=== PATIENT | female | born 1980 | race Caucasian/White ===

== ENCOUNTER 2019-03-23 17:11 | Emergency (ER) | payer MEDICARE, MEDICAID, SELFPAY ==
--- NOTE | ~2019-03-23 | CT_ITS ---
EXAMINATION: CT abdomen pelvis wo con DATE: 03/23/2019 19:18 INDICATION: Kidney stones presenting with hematuria. TECHNIQUE: Computed tomography (CT) of the abdomen and pelvis was performed without intravenous contr ast. Automated exposure control and iterative reconstruction technique were employed. The dose-length product was 166.53 mGy-cm. COMPARISON: None FINDINGS: Mild discoid atelectasis in the left lower lobe. Heart size is normal. No pericardial or pleural effu betsey. There is streak artifact throughout the lower chest, abdomen and upper pelvis resulting from an extensive thoracolumbar spinal fusion with bilateral vertical rich and laminar hook fixation extendin g throughout the visualized thoracic spine into the lumbar spine, sacrum and bilateral ilium. Liver, gallbladder, spleen, pancreas and bilateral adrenal glands are normal. Percutaneous gastrostomy tube bulb in the decompressed body of the stomach. There are at least 8 stones measuring up to 4 mm in the right kidney and 2 stones in the left kidney, the larger likely similar size but measurement is limi rancho by streak artifact. No stones seen along the bilateral ureters or in the decompressed bladder. Ut erus and bilateral adnexa are unremarkable. No abnormal bowel wall thickening or obstruction. The danica endix is not visualized. No pericecal inflammatory change to suggest acute appendicitis. No free intr aperitoneal gas or fluid. No pathologically enlarged abdominal or pelvic lymphadenopathy. Lumbar dext roscoliosis. Postoperative changes in left femur with a pair of screws at the left femoral head neck and pair of intramedullary nails extending along the visualized femoral diaphysis with suggestion of an old healed mid diaphyseal fracture. Gracile femurs with right coxa valga likely related to reporte d history of cerebral palsy. IMPRESSION: 1. Bilateral nonobstructing nephrolithiasis. No acute intra-abdominal/pelvic process. Reviewed, dictated and finalized at location A. S CUTTER HELPER IMPRESSION: 1. Bilateral nonobstructing nephrolithiasis. No acute intra-abdominal/pelvic pr ocess.
--- NOTE | ~2019-03-23 | XR_ITS ---
EXAMINATION: XR femur RT min 2V, XR tibia fibula RT 2V DATE: 03/23/2019 17:53 INDICATION: Right leg pain TECHNIQUE: 1. Overlapping proximal and distal, AP and lateral views of the right femur were obtained. 2. Overlapping proximal and distal, AP and lateral views of the right tibia and fibula were obtained. COMPARISON: None FINDINGS: Diffuse osteopenia and muscular atrophy likely related to reported history of cerebral palsy. The bon es of the lower extremities and pelvis are gracile. No acute fracture identified. Possible old healed fracture deformity at the proximal metaphyseal ajit on of the right tibia. Partially visualized posterior aspect of a lumbar spinal fusion which extends to involve the bilateral sacrum and iliac bones. Old healed left femoral fracture with pair of intram edullary fixation nails. There are also a pair of fixation screws at the left femoral head neck which are also incompletely visualized. Right coxa valga likely related to cerebral palsy. Right hip and k nee joint spaces are relatively preserved. No right knee joint effusion. Pes planus at the right foot . IMPRESSION: 1. No acute osseous abnormality. Reviewed, dictated and finalized at location A. MILITARY IMPRESSION: 1. No acute osseous abnormality.
--- NOTE | 2019-03-23 17:21 | ED.LOWEXIN ---
HPI - Extremity Injury (Lower) General Chief Complaint: Extremity Injury, Lower Stated Complaint: broken right leg??? Time Seen by Provider: 03/23/19 17:18 Source: family and RN notes reviewed Mode of arrival: other Limitations: other (pt is nonverbal) History of Present Illness HPI Narrative: Pt is a 38 y/o female who presents to the ED with c/o right leg pain. Pt's family was at bedside and provided the information. Pt's mother notes that she noticed the pt's pain yesterday. Pt's family notes that they cannot touch her right leg without the pt crying. Pt's family believes her leg is broken because the pt's leg is harder to move. Pt was given Tylenol. Pt's family is worried the pt might have a kidney stone. Pt's family also reports low urine output, but denies nausea and vomiting. HPI is limited due to pt is nonverbal. complaint: other (leg pain) Onset (ago): day(s) (1) Other symptoms: other (low urine output, limited due to pt is nonverbal) Related Data Home Medications Medication Instructions Recorded Confirmed chlorthalidone 03/23/19 fluoxetine 03/23/19 losartan 03/23/19 medroxyprogesterone mg IM 03/23/19 nitrofurantoin 03/23/19 nizatidine 03/23/19 potassium chloride 03/23/19 potassium citrate-citric acid 03/23/19 valproic acid (as sodium salt) 03/23/19 Allergies Allergy/AdvReac Type Severity Reaction Status Date / Time lamotrigine Allergy Unknown Rash Verified 03/23/19 18:09 Review of Systems Review of Systems: ROS unobtainable: other (limited due to pt is nonverbal) Gastrointestinal: Gastrointestinal: Denies nausea and Denies vomiting Genitourinary: Genitourinary: Reports other (low urine output) Musculoskeletal: Musculoskeletal: Reports other (right leg pain) [facility] Past Medical History Medical History (Updated 03/23/19 @ 19:47 by Austin Faye MD) Cerebral palsy Nasogastric tube present Surgical History Surgical History (Updated 03/23/19 @ 17:44 by Alice Mims) Surgical history unknown Social History Social History (Updated 03/23/19 @ 17:44 by Alice Mims) Smoking status: Never smoker Exam Const: General: other (contracture) Nutritional Appearance: well nourished Orientation/consciousness: patient oriented x3 (alert) and Other orientation findings (Alert) Limitations: other limitations (nonverbal) HENMT: Head: normocephalic and atraumatic Ears: external ears normal General nose exam: No nasal discharge present and no epistaxis Face and sinus: face symmetric Mouth: Yes lip normal, Yes tongue normal and Yes moist mucous membranes Throat: other (No exudate, no erythema) Eyes: Conjunctivae: conjunctivae normal Sclera: sclerae normal EOM: EOMs intact bilaterally Neck: Neck: full ROM, no lymphadenopathy and supple Thyroid: thyroid normal Resp: Effort & Inspection: normal respiratory effort Auscultation: clear to auscultation bilaterally, no rales, no rhonchi, no wheezes and other (breath sounds equal) Cardio: Rate: tachycardic Rhythm: regular rhythm Heart sounds: no gallops and no murmurs GI: Inspection: non-distended GI Palp: No abdominal tenderness and Yes Soft to palpation Auscultation: other (bowel sounds present) Back/Spine/Pelvis: Back: no CVA tenderness Thoracic/Lumbar Spine: thoracic and lumbar spine normal to inspection Pelvis: no other (no pelvic tenderness) Skin: General skin exam: normal color and no rashes or lesions noted Neuro: General: patient oriented x3 (alert), moves all extremities and no focal motor deficits Cranial nerves: Yes facial symmetry Speech: Other speech findings present (Neuro) (nonverbal) Motor exam (neuro): Motor abnormalities not present Extrem: General: cyanosis (chronic) other (pedal) and other (extremities retracture, trying to straighten extremities causes pt to cry) Right lower extremity: hip/thigh Details: no tenderness, knee Details: ecchymosis (small on patella); no tenderness and lower leg Detail
[2019-03-23 17:22] VITALS: BP 146/76; PULSE 97; RESP 16; TEMP 36.3; O2SAT 100
[2019-03-23 17:30] VITALS: BP 146/76; PULSE 97; RESP 16; TEMP 36.3; O2SAT 100
[2019-03-23 18:21] LABS: Add Urine Microscopic? YES; Amorphous Sediment Urine Few; Appearance Urine Cloudy (Clear); Bilirubin Urine Negative (Negative); Blood Urine Negative (Negative); Color Urine Yellow (Yellow); Glucose Urine UA Negative (Negative); Ketones Urine Negative (Negative); Leukocyte Esterase Ur Negative LEU/UL (Negative); Mucus Urine Few /lpf; Nitrate Urine Negative (Negative); Protein Urine 2+ mg/dL (Negative); RBC Urine 21-50 /hpf (0-2); Specific Grav Ur 1.036 (1.001-1.035); Squamous Epithelial Cell Urine Rare /hpf (Few); Urobilinogen Urine Negative mg/dL (<2.0)
[2019-03-23 19:15] VITALS: BP 111/75; PULSE 90; RESP 16; O2SAT 100
[2019-03-23 20:10] VITALS: BP 112/84; PULSE 84; RESP 16; TEMP 36.8; O2SAT 100
== END 2019-03-23 20:11 | disposition home or self-care (01) ==
PROVIDERS: Emergency Provider Emergency Medicine
DX: M79.604 Pain in right leg (principal); G80.9 Cerebral palsy, unspecified; R31.29 Other microscopic hematuria
CPT/HCPCS: 51701; 73552; 73590; 74176; 81001; 99284

== ENCOUNTER → 2020-07-16 09:45 | Outpatient (CLI) | payer MEDICARE, MEDICAID, SELFPAY ==
--- NOTE | ~2020-07-16 | US_ITS ---
EXAMINATION: US abdomen complete EXAM DATE: 07/16/2020 10:28 INDICATION: RUQ pain . TECHNIQUE: Multiple grayscale and Doppler images of the complete abdomen were obtained (by a technolo gist who performed the scan) and subsequently reviewed. There is no prior study for comparison. Tech nologist noted that exam was limited due to patient body posturing, arm positions FINDINGS: The abdominal aorta is normal in caliber. Visualized portion IVC is patent. Pancreas poorly visua lized. The liver has normal echogenicity and contour. Limited evaluation liver parenchyma, without focal ab normality identified.. There is no evidence of intrahepatic biliary duct dilation. Portal venous f low was seen in the hepatopedal, normal direction and has normal Doppler waveform. Common bile duct measures 3 mm, which is normal. The gallbladder wall is normal in thickness, with ex pected amount of distention. No sonographic evidence of pericholecystic fluid. There is cholelithia sis. Technologist performing exam reports patient did not demonstrate sonographic Morris's sign. P satya note that this sign is less reliable in patients who have received pain medication. Right kidney: There is normal contour and echogenicity. It measures 8.6 x 3.9 x 4.7 centimeters. T here are no focal renal lesions identified. There is no hydronephrosis. Left kidney: There is normal contour and echogenicity. It measures 10.6 x 5.4 x 5.5 centimeters. T here are no focal renal lesions identified. There is no hydronephrosis. Spleen poorly visualized, but well within normal size limits. IMPRESSION: 1. Limited exam. 2. Cholelithiasis. Reviewed, dictated and finalized at location B.
== END ==
PROVIDERS: PCP Nurse Practitioner Family; Visit Provider Nurse Practitioner Family
DX: R10.11 Right upper quadrant pain (principal); K80.20 Calculus of gallbladder without cholecystitis without obstruction
CPT/HCPCS: 76700

== ENCOUNTER 2020-11-26 14:57 | Emergency (ER) | payer MEDICARE, MEDICAID, SELFPAY ==
--- NOTE | 2020-11-26 15:12 | PC.NURSE ---
patient left prior to triage
== END 2020-11-27 05:12 | disposition left against medical advice (07) ==
PROVIDERS: PCP Nurse Practitioner Family
DX: Z53.21 Procedure and treatment not carried out due to patient leaving prior to being seen by health care provider (principal)
CPT/HCPCS: 99199

== ENCOUNTER → 2021-04-21 16:13 | Outpatient (CLI) | payer MEDICARE, MEDICAID, SELFPAY ==
--- NOTE | ~2021-04-21 | XR_ITS ---
EXAMINATION: XR chest 1V INDICATION: Coughing and choking TECHNIQUE: AP view of the chest is obtained. COMPARISON: 01/23/2014 FINDINGS: The lungs are free of acute opacities. There is no pleural effusion or pneumothorax. There are changes of posterior spinal fusion. The cardiomediastinal silhouette is normal. IMPRESSION: 1. No acute cardiopulmonary abnormality. Reviewed, dictated and finalized at location B. R TENDER
== END ==
PROVIDERS: PCP Nurse Practitioner Family; Visit Provider Nurse Practitioner Family
DX: J20.9 Acute bronchitis, unspecified (principal)
CPT/HCPCS: 71045

== ENCOUNTER 2021-07-20 10:19 | Inpatient (IN) | payer MEDICARE, MEDICAID, SELFPAY ==
[2021-07-20] VITALS (18 sets, daily range): BP systolic 108–145; BP diastolic 60–110; PULSE 60–75; RESP 13–26; TEMP 34.8–37.2; O2SAT 90–100; BMI 22.2
--- NOTE | ~2021-07-20 | CT_ITS ---
EXAMINATION: CT diagnostic chest wo con DATE: 07/21/2021 09:47 INDICATION: Abnormal chest x-ray. Hypoxia. Shortness of breath. TECHNIQUE: Computed tomography (CT) of the chest was performed without intravenous contrast. The dose -length product was 239.66 mGy-cm. Automated exposure control and iterative reconstruction technique were employed. COMPARISON: Chest dated 07/20/2021 FINDINGS: There is trace right pleural effusion versus pleural thickening. Study limited by streak ar tifact from spinal fixation hardware. There is a possible left breast mass, partially visualized. Cor relation with mammography and possible ultrasound recommended. No thoracic lymphadenopathy. No signif icant vascular abnormality. There are multiple groundglass nodules in both lungs, largest in the right upper lobe measuring 6 mm. There is patchy groundglass opacification throughout both lungs. No endobronchial lesions. There is left lower lobe atelectasis/scarring. IMPRESSION: 1. Extensive patchy groundglass opacities with associated groundglass nodules measuring up to 6 mm in the right upper lobe. Differential diagnosis includes infectious/inflammatory etiologies, respirator y bronchiolitis, bronchiolitis obliterans and/or pulmonary edema. 2: Possible left breast mass. Correlation with mammography and possible ultrasound recommended. 3: Trace right pleural effusion versus pleural thickening. Reviewed, dictated and finalized at location B. IMPRESSION: 1. Extensive patchy groundglass opacities with associated groundglass nodules m easuring up to 6 mm in the right upper lobe. Differential diagnosis includes in fectious/inflammatory etiologies, respiratory bronchiolitis, bronchiolitis obli terans and/or pulmonary edema. 2: Possible left breast mass. Correlation with mammography and possible ultraso und recommended. 3: Trace right pleural effusion versus pleural thickening.
--- NOTE | ~2021-07-20 | XR_ITS ---
XR chest 1V portable DATE: 07/20/2021 12:21 INDICATION: Shortness of breath TECHNIQUE: Portable AP chest on 07/20/2021 1218 hours COMPARISON: 04/21/2021 AP chest at 1641 hours 01/23/2014 portable AP chest FINDINGS: Bilateral] lumbar spinal rods are again noted. Normal heart size. Chronic discoid atelectasis or more likely scarring in the left lower lobe since 01/23/2014.. Superim posed infiltrate is not excluded. Otherwise no infiltrate or consolidation, pleural effusion or pneumothorax. Osteopenia. IMPRESSION: Chronic left retrocardiac left lower lobe discoid atelectasis or scarring. Superimposed i nfiltrate is not excluded. Reviewed, dictated and finalized at location A. IMPRESSION: Chronic left retrocardiac left lower lobe discoid atelectasis or sc arring. Superimposed infiltrate is not excluded.
--- NOTE | ~2021-07-20 | XR_ITS ---
EXAMINATION: XR chest 1V portable DATE: 07/23/2021 09:53 INDICATION: Pneumonia. TECHNIQUE: A single frontal view of the chest was obtained. COMPARISON: Chest single view 607/22, chest CT 07/21/2021 FINDINGS: There is mild atelectasis in left lower lung zone. No pleural effusion or pneumothorax. The heart size is normal. There are fixation rods in the spine. IMPRESSION: 1. Mild atelectasis in left lower lung zone. Reviewed, dictated and finalized at location A.
--- NOTE | ~2021-07-20 | US_ITS ---
US venous doppler [facility] DATE: 07/20/2021 13:49 INDICATION: Bilateral lower extremity pain and swelling TECHNIQUE: Real-time and color flow imaging and Doppler analysis of the veins of the lower extremitie s COMPARISON: None FINDINGS: The greater saphenous veins are patent. There is spontaneous and phasic flow and normal aug mentation and color flow signal and normal compression of the deep veins of both lower extremities. IMPRESSION: No evidence of deep venous thrombosis of the lower extremities Reviewed, dictated and finalized at Location A. Reviewed, dictated and finalized at location A.
--- NOTE | ~2021-07-20 | CT_ITS ---
EXAMINATION: CT brain wo con DATE: 07/20/2021 16:46 INDICATION: Increasing seizures. Right arm weakness. History of cerebral palsy. Hypertension. TECHNIQUE: Computed tomography (CT) of the head was performed without intravenous contrast. The dose- length product was 605.33 mGy-cm. Automated exposure control and iterative reconstruction technique w ere employed. COMPARISON: None FINDINGS: There is asymmetric atrophy, left greater than right. No ventriculomegaly or midline shift. Basilar cisterns are patent. No acute intracranial hemorrhage, infarction, mass or mass effect. Para nasal sinuses and mastoids are pneumatized. No depressed skull fractures. Midline sagittal images are unremarkable. IMPRESSION: 1. No acute intracranial abnormality. 2: Generalized atrophy, accelerated for age. Atrophy is greater in the left hemisphere. Reviewed, dictated and finalized at location B. IMPRESSION: 1. No acute intracranial abnormality. 2: Generalized atrophy, accelerated for age. Atrophy is greater in the left hem isphere.
--- NOTE | 2021-07-20 11:07 | ECG_ITS ---
Measurements Intervals [place] Rate: 73 P: 38 [place]: 127 QRS: 62 QRSD: 76 T: 75 QT: 375 QTc: 415 Interpretive Statements SINUS RHYTHM NONSPECIFIC ST SEGMENT ABNORMALITY Electronically Signed On 07-20-2021 11:21:48 CDT by Alfonso Hernandez M.D.
[2021-07-20 11:30] LABS: Basophils Percent Auto 0.5 % (0.2-1.2); Eosinophils Absolute Auto 0.4 K/mm3 (0-0.3); Eosinophils Percent Auto 7.1 % (0-4.4); Hematocrit 46.5 % (37.0-47.0); Hemoglobin 14.1 g/dL (12.0-15.0); Immature Granulocyte Absolute 0.02 K/mm3 (0.00-0.031); Immature Granulocyte Percent A 0.3 % (0-0.5); Lymphocytes Absolute Auto 1.75 K/mm3 (0.9-3.2); Lymphocytes Percent Auto 29.6 % (18.3-44.2); Mean Corpuscular HGB Conc 30.3 g/dl (32-36); Mean Corpuscular Hemoglobin 33.7 pg (26-34); Mean Platelet Volume 10.9 fl (7.4-10.4); Monocytes Absolute Auto 0.8 K/mm3 (0.1-0.6); Monocytes Percent Auto 14.2 % (2.6-8.5); Neutrophils Absolute Auto 2.9 K/mm3 (1.3-6.7); Neutrophils Percent Auto 48.3 % (45.5-73.1); Platelet Count Result 158 k/mm3 (150-375); Red Blood Count 4.19 M/mm3 (4.2-5.4); Red Cell Distribution Width 14.6 % (11.5-14.5); White Blood Count 5.9 K/mm3 (4.5-10.0)
[2021-07-20 11:52] LABS: Alanine Aminotransferase 33 U/L (6-35); Albumin Level 3.6 g/dL (3.5-5.1); Alkaline Phosphatase 114 U/L (38-126); Aspartate Amino Transferase 36 U/L (14-36); Bilirubin,Total 0.4 mg/dL (0.2-1.3); Blood Urea Nitrogen 19 mg/dL (7-17); Calcium 9.2 mg/dL (8.4-10.2); Carbon Dioxide > 40 mmol/L (22-30); Chloride 98 mmol/L (98-107); Estimated Glomerular Filt Rate > 60; Glucose 55 mg/dL (65-110); Potassium 5.7 mmol/L (3.4-5.0); Sodium 139 mmol/L (137-145)
[2021-07-20 11:59] LABS: Alveolar/Arterial O2 Gradient 13.2 mmHg; Base Excess ABG 7.8 mEq/l (+/-2.0); Fractional Inspired Oxygen 21 %; HCO3 ABG 35.5 mEq/l (22.0-26.0); Oxygen Content ABG 18.6 %vol (16.0-22.0); Oxygen Saturation ABG 90.4 % (95.0-100.0); Oxyhemoglobin 89.4 % THb (90.0-100.0); PO2 ABG 61.7 mmHg (80.0-100.0); PO2 FiO2 Ratio Arterial Blood 2.94 %; Total Hemoglobin 14.8 g/dL (12.0-18.0); pH ABG 7.372 (7.350-7.450)
[2021-07-20 12:01] LABS: Device ROOM AIR; Modified Allen's Test Pass; PCO2 ABG 62.5 mmHg (35.0-45.0); Site Drawn RIGHT RADIAL
[2021-07-20] MEDS: DEXTROSE 50% 25 GM/50 ML SYRINGE IV PUSH ×2 (12:03→18:10)
[2021-07-20] MEDS: SODIUM CHLORIDE 0.9% IV 1,000 ML 75 ML IV CONT (12:32)
[2021-07-20 12:49] LABS: NT Pro B Type Natriuretic Pept 130 pg/mL (5-100)
[2021-07-20 12:54] LABS: SARS-CoV-2 RNA PCR Negative
[2021-07-20 12:55] LABS: Glucose Point of Care 212 mg/dl (65-105)
--- NOTE | 2021-07-20 14:30 | PM.IMHP ---
H&P: HPI History of Present Illness Date/Time: 07/20/21 14:30 Chief Complaint: Abnormal vital signs. Narrative: This is a 40-year-old female with history of cerebral palsy, hypertension, seizure disorder, kidney stones, and gallstones who presented to the ED for evaluation of abnormal vital signs. She is nonverbal and thus all of the following history is obtained from her parents who are at bedside. She is dependent on activities of daily living and gets a majority of her calories through a PEG button though on occasion she does drink liquids and eat ice cream however more recently she has seemed to have problems with choking and swallowing and her oral intake has been limited. She goes to a local center during weekdays for enrichment and interaction and today mother received a phone call that the patient seemed to be having difficulties breathing with reports rapid heartbeat, elevated blood pressure, and perhaps mild perioral cyanosis. With further questioning, mother reports that the patient has had similar episodes at home and she does provide oral suctioning as need (mom is a retired RT). She does not think the patient could have aspirated as she is not allowed to have anything by mouth while at the center. Additionally, the patient has had a fundoplication and to her knowledge she has no history of silent aspiration. She has no known history of apnea and mother denies witnessed apneic episodes. There have been some cases of COVID going through the center though patient has not exhibited signs of that and she has had 2 negative COVID tests. On arrival to the emergency department her vital signs were stable. Chest x-ray showed chronic left retrocardiac left lower lobe discoid atelectasis or scarring. ABG showed a pH of 7.327, pCO2 62.5, PO2 61.7, and a bicarb of 35.5 and due to hypercapnia she was started on BiPAP in the emergency department. At the time my evaluation she is resting comfortably on the BiPAP. She is on 35% FiO2 with an SpO2 of 100%. She is very alert and we were able to remove the BiPAP and her SpO2 is stable and her respirations appear to be on labored. According to the mother, the patient was not very alert when she picked her up and on arrival to the emergency department she was hypoglycemic with a random glucose of 55 for which she was given an amp of dextrose. Additionally her potassium was elevated 5.7 and upon reviewing her medications it looks like she does take potassium supplements home. Review of Systems Review of Systems: Unable to obtain from the patient. Mother provides history. Patient has a history of seizures and she had not had seizures for years however over the past several weeks she has had 1 to 2 seizures a week despite compliance with her medications. The patient has also been waking up at nighttime over the past week or so, crying out though mother has not been able to figure out why. The patient has a history of kidney stones and gallstones however she did not have any pain on palpation of her abdomen. No witnessed apneic episodes. No cold or flu symptoms. No vomiting. Stools have been a bit lose and greenish, mother was told this was likely due to her gallbladder issues. [facility] Past Medical History Medical History Cerebral palsy Gall stones Kidney stones Rett syndrome Seizure disorder Surgical History Surgical History (Updated 07/20/21 @ 15:22 by Mattie Funez PA-C) History of fundoplication History of open reduction and internal fixation (ORIF) procedure Repair of hip and leg fractures. History of percutaneous endoscopic gastrostomy History of spinal fusion Social History Social History (Updated 07/20/21 @ 19:23 by Mattie Funez PA-C) Social History: The patient lives with her parents in [place]. She is dependent on all activities of daily living. No alcohol, tobacco, or drug use. Surrogate decision maker: jihan Bradley
--- NOTE | 2021-07-20 14:52 | ED.GENADULT ---
HPI - General Adult General Chief complaint: Recheck/Abnormal Lab/Rx Stated complaint: abnormal blood pressure, fast HR, rapid RR Time Seen by Provider: 07/20/21 11:20 History of Present Illness HPI narrative: 40-year-old female that has history of cerebral palsy and is nonverbal at baseline presents emerged department with mother for evaluation after having an episode of cyanosis at her care facility today. Mother states that the patient does have some worsening edema compared to baseline. Mother states that the child has had a cough over the last few days. At the care center there was a positive case of COVID and patient has been at home for the majority of the week. Mother states that she has tested the patient multiple times for COVID and it was negative. Patient does have a feeding tube and previously had episodes of aspiration and choking. No recently reported episodes. Patient has no prior respiratory or cardiac history. Related Data Home Medications Medication Instructions Recorded Confirmed fluoxetine 20 mg/5 mL (4 mg/mL) 20 mg feeding tube DAILY 03/23/19 07/20/21 oral solution losartan 25 mg tablet 25 mg feeding tube DAILY 03/23/19 07/20/21 medroxyprogesterone 150 mg/mL mg IM 03/23/19 intramuscular suspension nitrofurantoin 25 mg/5 mL oral 50 mg feeding tube DAILY 03/23/19 07/20/21 suspension nizatidine 150 mg capsule 150 mg feeding tube BID 03/23/19 07/20/21 potassium chloride 40 mEq/15 mL 40 meq feeding tube BID 03/23/19 07/20/21 oral liquid valproic acid (as sodium salt) 250 500 mg feeding tube Q8H 03/23/19 07/20/21 mg/5 mL oral solution magnesium oxide 420 mg tablet 420 mg feeding tube BID 07/20/21 07/20/21 [id number] gluconate 9 15 ml feeding tube DAILY 07/20/21 07/20/21 mg iron/15 mL (15 mL) oral liquid (Centrum) nutritional supplement-fiber oral 2 ea feeding tube HS 07/20/21 07/20/21 liquid potassium citrate-citric acid 7.5 ml feeding tube TID 07/20/21 07/20/21 1,100 mg-334 mg/5 mL oral solution potassium, sodium phosphates 280 1 packet feeding tube DAILY 07/20/21 07/20/21 mg-160 mg-250 mg oral powder packet (Phos-NaK) Allergies Allergy/AdvReac Type Severity Reaction Status Date / Time lamotrigine Allergy Unknown Rash Verified 07/20/21 16:56 Review of Systems Review of Systems: ROS unobtainable: Yes unobtainable due to medical condition [facility] Past Medical History Medical History (Updated 07/20/21 @ 19:07 by Chuck Bobby MD) Cerebral palsy Gall stones Kidney stones Rett syndrome Seizure disorder Surgical History Surgical History (Updated 07/20/21 @ 15:22 by Mattie Funez PA-C) History of fundoplication History of open reduction and internal fixation (ORIF) procedure Repair of hip and leg fractures. History of percutaneous endoscopic gastrostomy History of spinal fusion Social History Social History (Updated 07/20/21 @ 15:26 by Mattie Funez PA-C) Social History: The patient lives with her parents in [place]. She is dependent on all activities of daily living. No alcohol, tobacco, or drug use. Surrogate decision maker: Lisaerin Crowe, mother. Code status: Do not resuscitate. Okay with BiPAP. Smoking status: Never smoker Alcohol intake: never Substance use: never Spiritual care concerns: No Exam Narrative: APPEARANCE: Patient appears to be in no distress. HEAD: normocephalic, atraumatic. EYES: PERRLA/EOMI, conjunctivae clear. NOSE: Normal no drainage THROAT: Pharynx clear, no exudate. NECK: Supple. No adenopathy, no masses. RESPIRATORY: Rhonchi CARDIOVASCULAR: Regular rate and rhythm without murmurs rubs or gallops. ABDOMINAL: Soft, nontender, nondistended, normal bowel sounds MUSCULOSKELETAL: Patient's arms are crossed her chest and limbs are contracted, edema of lower extremities bilaterally NEURO: Patient is nonverbal at baseline. SKIN: Warm, dry. Normal Color, no cyanosis Course Course Pema
[2021-07-20 15:58] LABS: Valproic Acid 53.6 ug/mL (50-120)
[2021-07-20 18:00] LABS: Glucose Point of Care 53 mg/dl (65-105)
--- NOTE | 2021-07-20 18:01 | ADMGEN ---
This patient, Julia Crowe, was admitted to Medical Room 343-01. Patient/family oriented to hospital policies and general routines including ID bracelet, bed and alarms, visiting hours, pain management, procedures, bathroom and other care routines, personal items, smoking policy, room service/diet, and visiting hours. Information on how to activate the Rapid Response Team has been discussed. Patient/Family are encouraged to report perceived risks to care and to ask questions if they do not understand what they are told or what they should do.
[2021-07-20 18:33] LABS: Glucose Point of Care 225 mg/dl (65-105)
[2021-07-20] MEDS: DEXTROSE 5% 1,000 ML 1,000 ML 50 ML IV CONT (18:46)
[2021-07-20] MEDS: MAGNESIUM OXIDE 400 MG TABLET 800 MG FEED TUBE (20:37)
[2021-07-20] MEDS: VALPROIC ACID LIQ 250 MG/5 ML ORAL SOLUTION UDC 500 MG FEED TUBE (20:38)
[2021-07-20] MEDS: FAMOTIDINE 20 MG TABLET FEED TUBE (20:38)
--- NOTE | 2021-07-20 21:57 | PCRCNOTE ---
RT spoke with parents regarding sleep study ordered. Mother states she does not want the apnea link done tonight due to the patient being nonverbal and just getting here today and has been unable to sleep well. Mother stated she just wants patient to have a peaceful night tonight. Patients parents said they would be here tomorrow and can discuss sleep study then .
[2021-07-20 22:15] LABS: Glucose Point of Care 92 mg/dl (65-105)
[2021-07-20] MEDS: ACETAMINOPHEN ELIXIR 325 MG/10.15 ML UDC 650 MG PO (23:08)
[2021-07-21] VITALS (12 sets, daily range): BP systolic 122–125; BP diastolic 64–70; PULSE 68–96; RESP 14–20; TEMP 36.6–36.7; O2SAT 93–99; BMI 29.5
[2021-07-21 00:19] LABS: Anion Gap 1 mmol/L (8-16); Blood Urea Nitrogen 13 mg/dL (7-17); Calcium 9.3 mg/dL (8.4-10.2); Carbon Dioxide 34 mmol/L (22-30); Chloride 103 mmol/L (98-107); Estimated Glomerular Filt Rate > 60; Glucose 78 mg/dL (65-110); Magnesium 1.7 mg/dL (1.6-2.3); Sodium 138 mmol/L (137-145)
[2021-07-21 02:50] LABS: Folic Acid 18.2 ng/mL (2.76->20); Vitamin B12 > 1000.0 pg/mL (239-931)
[2021-07-21] MEDS: VALPROIC ACID LIQ 250 MG/5 ML ORAL SOLUTION UDC 500 MG FEED TUBE ×3 (05:48→20:27)
[2021-07-21] MEDS: ACETAMINOPHEN ELIXIR 325 MG/10.15 ML UDC 650 MG PO ×3 (05:50→18:35)
[2021-07-21 06:01] LABS: Hematocrit 47.3 % (37.0-47.0); Hemoglobin 15.3 g/dL (12.0-15.0); Mean Corpuscular HGB Conc 32.3 g/dl (32-36); Mean Corpuscular Hemoglobin 33.8 pg (26-34); Mean Corpuscular Volume 104.4 fl (80-100); Mean Platelet Volume 10.9 fl (7.4-10.4); Platelet Count Result 167 k/mm3 (150-375); Red Blood Count 4.53 M/mm3 (4.2-5.4); Red Cell Distribution Width 14.5 % (11.5-14.5); White Blood Count 6.2 K/mm3 (4.5-10.0)
[2021-07-21 06:39] LABS: Alanine Aminotransferase 34 U/L (6-35); Albumin Level 3.7 g/dL (3.5-5.1); Alkaline Phosphatase 134 U/L (38-126); Anion Gap 5 mmol/L (8-16); Aspartate Amino Transferase 50 U/L (14-36); Bilirubin,Total 0.5 mg/dL (0.2-1.3); Blood Urea Nitrogen 11 mg/dL (7-17); CRP 1.4 mg/dL (<1.0); Calcium 9.3 mg/dL (8.4-10.2); Carbon Dioxide 30 mmol/L (22-30); Chloride 100 mmol/L (98-107); Estimated Glomerular Filt Rate > 60; Glucose 79 mg/dL (65-110); Potassium 5.2 mmol/L (3.4-5.0); Sodium 135 mmol/L (137-145)
[2021-07-21 06:56] LABS: Iron 98 ug/dL (37-170); Percent Iron Saturation 16 % (20-50)
[2021-07-21 07:03] LABS: Hemoglobin A1C 4.8 % (<5.7)
--- NOTE | 2021-07-21 09:05 | PM.CNPUL ---
Assessment and Plan Assessment and plan (1) Chronic hypercapnic respiratory failure: Code(s): J96.12 - Chronic respiratory failure with hypercapnia Status: Acute Assessment and Plan: a 40-year-old nonverbal female, with history of cerebral palsy, scoliosis since childhood, status post spinal fusion surgery for scoliosis more than 20 years ago, history of increasing somnolence, presented with chest congestion, lip cyanosis. Workup has shown chronic hypercapnic hypoxemic respiratory failure. The patient's hypercapnic respiratory failure is likely related to progression of her chest wall disease with nocturnal hypoventilation leading to chronic hypercapnic respiratory failure. Underlying sleep disordered breathing is also possible. On chest x-ray there is evidence of left lower lobe infiltrate which could be related to aspiration pneumonia. Currently the patient is on just supplemental oxygen following a brief treatment in the emergency room with BiPAP support. Plan: will proceed with chest CT without contrast regarding aspiration pneumonia. Patient will require long-term home ventilatory support via home ventilator for chronic hypercapnic respiratory failure. patient will be started on AVAPS tonight. Will obtain apnealink on AVAPS. she will need workup for hypothyroidism given the elevated TSH. (2) Scoliosis deformity of spine: Code(s): M41.9 - Scoliosis, unspecified Status: Acute (3) History of spinal surgery: Code(s): Z98.890 - Other specified postprocedural states Status: Acute (4) Cerebral palsy: Code(s): G80.9 - Cerebral palsy, unspecified Status: Chronic (5) Seizure disorder: Code(s): G40.909 - Epilepsy, unspecified, not intractable, without status epilepticus Status: Chronic (6) Abnormal chest x-ray: Code(s): R93.89 - Abnormal findings on diagnostic imaging of other specified body structures Status: Acute History of Present Illness History of Present Illness Consult date: 07/21/21 Chief complaint: Hypercapnia Narrative: This 40-year-old female presented with several day history of chest congestion and increasing somnolence. The patient has history of cerebral palsy, hypertension, seizure disorder, kidney stones, previous history of spinal fusion for scoliosis. This report is based on information obtained from patient's mother who is a retired respiratory therapist and also from a patient's chart. Patient is nonverbal. According to her mother she has had congestion mild cough over the last several days. Mother also noticed increasing somnolence, with the patient napping more frequently during the day. Patient is fed through PEG tube. Mother noticed some choking episodes when eating ice cream or taking sips of water and also lip cyanosis. she has had no fever chills increasing shortness of breath orthopnea or night sweats. She has had chronic lower extremity edema. workup in the emergency room showed ABGs with chronic hypercapnic respiratory failure well compensated and hypoxemia on room air. Chest x-ray showed an infiltrate in left lower lobe. The patient was briefly treated with BiPAP support in the emergency department. she is currently on supplemental oxygen via nasal cannula. Review of Systems Review of Systems: patient is nonverbal. Review of systems could not be obtained. [facility] Past Medical History Medical History Cerebral palsy Gall stones Kidney stones Rett syndrome Seizure disorder Surgical History Surgical History (Updated 07/21/21 @ 09:19 by Sergio Mckeon MD) History of fundoplication History of open reduction and internal fixation (ORIF) procedure Repair of hip and leg fractures. History of percutaneous endoscopic gastrostomy History of spinal fusion Social History Social History (Updated 07/20/21 @ 19:23 by Mattie Funez PA-C) Social H
[2021-07-21 09:09] LABS: Procalcitonin 0.2 ng/mL
[2021-07-21] MEDS: NITROFURANTOIN MACROCRYSTALS 50 MG CAP FEED TUBE (09:53)
[2021-07-21] MEDS: FAMOTIDINE 20 MG TABLET FEED TUBE ×2 (09:53→20:27)
[2021-07-21] MEDS: ENOXAPARIN 40 MG/0.4 ML SYRINGE SUB-Q (09:53)
[2021-07-21] MEDS: MAGNESIUM OXIDE 400 MG TABLET 800 MG FEED TUBE ×2 (09:53→16:59)
[2021-07-21] MEDS: FLUoxetine HCL 20 MG CAPSULE FEED TUBE (09:53)
[2021-07-21] MEDS: MULTIVIT W/ IRON, MINERALS 15 ML LIQUID (*BKC) FEED TUBE (09:54)
--- NOTE | 2021-07-21 11:29 | WPDNEURCNPN ---
Assessment and Plan Assessment and plan (1) Cerebral palsy: Code(s): G80.9 - Cerebral palsy, unspecified Status: Chronic Plan ongoing history of cerebral palsy brought in to the hospital for change in the vital signs otherwise her neurological status is at baseline she had a CT scan of the head which documented generalized atrophy of the brain which is more significant over the left hemisphere additionally she had CT of the chest which is definitely abnormal, venous Doppler study is not significant her medication will be continued as such until and unless seizures recur then we will obtain the EEG Consult date: 07/21/21 Time Seen: 09:00 HPI: Julia Crowe is a 40 year old female admitted to the hospital through the emergency room with the ongoing diagnosis of cerebral palsy but basically brought in for the episode of cyanosis at her care facility on the day of admission patient reportedly has had cough over the last several days with positive COVID and has been at home for majority of the week patient does have a feeding tube and has had episodes of aspiration and choking, she has been taking multiple medications included fluoxetine 20 mg daily losartan 25 mg daily valproic acid 250 mg liquid 10cc every 8 hours and she reportedly allergic to lamotrigine in addition she carries the diagnosis of cerebral palsy, seizure disorder, and has history of renal and gallbladder stones with obvious diagnosis of Rett syndrome Review of Systems Review of Systems: All systems reviewed & are unremarkable except as noted in HPI and below PMFSH Past Medical History Medical History Cerebral palsy Gall stones Kidney stones Rett syndrome Seizure disorder Surgical History Surgical History History of fundoplication History of open reduction and internal fixation (ORIF) procedure Repair of hip and leg fractures. History of percutaneous endoscopic gastrostomy History of spinal fusion Social History Social History Social History: The patient lives with her parents in [place]. She is dependent on all activities of daily living. No alcohol, tobacco, or drug use. Surrogate decision maker: Lisa Crowe, mother. Code status: Do not resuscitate. Okay with BiPAP. Spiritual care concerns: No Meds Home Medications and Allergies Home Medications Medication Instructions Recorded Confirmed Type fluoxetine 20 mg/5 mL (4 mg/mL) 20 mg feeding tube DAILY 03/23/19 07/20/21 History oral solution losartan 25 mg tablet 25 mg feeding tube DAILY 03/23/19 07/20/21 History medroxyprogesterone 150 mg/mL mg IM 03/23/19 History intramuscular suspension nitrofurantoin 25 mg/5 mL oral 50 mg feeding tube DAILY 03/23/19 07/20/21 History suspension nizatidine 150 mg capsule 150 mg feeding tube BID 03/23/19 07/20/21 History potassium chloride 40 mEq/15 mL 40 meq feeding tube BID 03/23/19 07/20/21 History oral liquid valproic acid (as sodium salt) 250 500 mg feeding tube Q8H 03/23/19 07/20/21 History mg/5 mL oral solution magnesium oxide 420 mg tablet 420 mg feeding tube BID 07/20/21 07/20/21 History iqkppalw-hyxu-nkeallb gluconate 9 15 ml feeding tube DAILY 07/20/21 07/20/21 History mg iron/15 mL (15 mL) oral liquid (Centrum) nutritional supplement-fiber oral 2 ea feeding tube HS 07/20/21 07/20/21 History liquid potassium citrate-citric acid 7.5 ml feeding tube TID 07/20/21 07/20/21 History 1,100 mg-334 mg/5 mL oral solution potassium, sodium phosphates 280 1 packet feeding tube DAILY 07/20/21 07/20/21 History mg-160 mg-250 mg oral powder packet (Phos-NaK) Allergies Allergy/AdvReac Type Severity Reaction Status Date / Time lamotrigine Allergy Unknown Rash Verified 07/20/21 16:56 Vital Signs Vital Signs - 24 hr 07/20/21 11:30 07/20/21 11:33 0
[2021-07-21 11:32] LABS: Glucose Point of Care 86 mg/dl (65-105)
[2021-07-21] MEDS: DEXTROSE 5% 1,000 ML 1,000 ML 50 ML IV CONT (12:23)
--- NOTE | 2021-07-21 12:31 | PM.IMPN ---
Progress Note: A&P Assessment and Plan (1) Hypercapnia: Code(s): R06.89 - Other abnormalities of breathing Status: Acute Assessment and Plan: -Compensated, not currently in any sort of distress. -Pulmonology consulted who is starting AVAPS tonight and will recheck apnea link -CT chest ordered and reviewed by pulm, they state no antibiotics indicated at this time -further management per pulm (2) Abnormal chest x-ray: Code(s): R93.89 - Abnormal findings on diagnostic imaging of other specified body structures Status: Acute Assessment and Plan: -Coarse rhonchi heard on exam and chest x-ray shows chronic left retrocardiac left lower lobe discoid atelectasis versus scarring. -She will be NPO for now on aspiration precautions will be initiated. Head of bed to be elevated. -see above for pulmonology recommendations (3) Hypoglycemia: Code(s): E16.2 - Hypoglycemia, unspecified Status: Acute Assessment and Plan: -Precipitating etiology not entirely clear. -Likely this was the result of her decreased responsiveness on mother's arrival. -She has been much more alert since receiving dextrose. -Accu-Cheks scheduled q.6 hours for close monitoring. -still only 86 this afternoon despite continuing dextrose IV @50/hr. Will continue this for now. -Tube feeds as usual; dietitian consulted. (4) Hyperkalemia: Code(s): E87.5 - Hyperkalemia Status: Acute Assessment and Plan: -She is on several potassium containing medications at home which are on hold. (5) Seizure disorder: Code(s): G40.909 - Epilepsy, unspecified, not intractable, without status epilepticus Status: Chronic Assessment and Plan: -Continue valproic acid; level within normal limits. -Neurology consulted given increasing seizure activity recently. (6) Breast mass: Code(s): N63.0 - Unspecified lump in unspecified breast Status: Acute Assessment and Plan: -noted on CT chest -spoke w/ radiologist who states this looks like breast tissue and possibly was present on older scans. Recommends outpatient follow up with mammogram and US. Appearance not consistent with abscess. (7) Elevated TSH: Code(s): R79.89 - Other specified abnormal findings of blood chemistry Status: Acute Assessment and Plan: -TSH elevated, free T4 pending Plan Pulmonary embolism considered but seems less likely. She is in no distress, vital signs are stable. Lower extremity venous Doppler ultrasounds are negative. Subjective Date/time seen: 07/21/21 12:31 Interval history: 40-year-old female with history of cerebral palsy, hypertension, seizure disorder, kidney stones, and gallstones, admitted for hypercapnic respiratory failure. Pt is non verbal thus history is obtained from the chart and from parent's at bedside. Review of Systems Review of Systems: ROS unobtainable: Yes unobtainable due to medical condition Exam Narrative: General: Chronically ill appearing female supine in bed in no distress. Weight: 45 kg. BMI: 22.2. HEENT: PERRL, EOMI. Sclerae anicteric. Oral mucosa appears dry. Neck: Supple. Limited exam due to positioning. Respiratory: Respirations appear non-labored and she is in no distress. Coarse rhonchi heard bilaterally, anteriorly. Cardiovascular: Regular rate and rhythm with S1-S2. No obvious murmur. Gastrointestinal: Abdomen is soft, protuberant, nontender, and nondistended with positive bowel sounds. PEG button in the left abdomen. Skin: Warm and dry. No rash or lesions on limited exam. Extremities: No cyanosis or clubbing. 2+ bipedal edema. Trace pretibial edema bilaterally. Feet are cool but perfused. Radial and pedal pulses intact. Neurological: Alert. Unable to assess orientation. She is nonverbal. No gross focal deficits. Psychiatric: Unable to assess. Objective Data Vital Signs
[2021-07-21 14:31] LABS: Free T4 Free Thyroxine Reflex 0.91 ng/dL (0.78-2.19)
[2021-07-21 16:16] LABS: Total Triiodothyronine (T3) 4.03 NG/ML (0.97-1.69)
[2021-07-21 16:28] LABS: Glucose Point of Care 110 mg/dl (65-105)
[2021-07-22] VITALS (13 sets, daily range): BP systolic 115–151; BP diastolic 69–80; PULSE 77–112; RESP 16–20; TEMP 36.7–37.7; O2SAT 90–100
[2021-07-22 00:11] LABS: Glucose Point of Care 119 mg/dl (65-105)
[2021-07-22] MEDS: VALPROIC ACID LIQ 250 MG/5 ML ORAL SOLUTION UDC 500 MG FEED TUBE ×3 (04:20→21:20)
[2021-07-22] MEDS: ACETAMINOPHEN ELIXIR 325 MG/10.15 ML UDC 650 MG PO ×3 (04:20→18:35)
[2021-07-22 05:45] LABS: Basophils Percent Auto 0.5 % (0.2-1.2); Eosinophils Absolute Auto 0.4 K/mm3 (0-0.3); Eosinophils Percent Auto 6.7 % (0-4.4); Hematocrit 43.6 % (37.0-47.0); Hemoglobin 14.2 g/dL (12.0-15.0); Immature Granulocyte Absolute 0.03 K/mm3 (0.00-0.031); Immature Granulocyte Percent A 0.5 % (0-0.5); Lymphocytes Absolute Auto 1.55 K/mm3 (0.9-3.2); Mean Corpuscular HGB Conc 32.6 g/dl (32-36); Mean Corpuscular Hemoglobin 34.2 pg (26-34); Mean Corpuscular Volume 105.1 fl (80-100); Monocytes Percent Auto 14.9 % (2.6-8.5); Neutrophils Absolute Auto 3.5 K/mm3 (1.3-6.7); Neutrophils Percent Auto 53.4 % (45.5-73.1); Nucleated Red Blood Cells Perc 0.3 % (0.0-0.2); Platelet Count Result 167 k/mm3 (150-375); Red Blood Count 4.15 M/mm3 (4.2-5.4); Red Cell Distribution Width 14.3 % (11.5-14.5); White Blood Count 6.5 K/mm3 (4.5-10.0)
[2021-07-22 05:54] LABS: Glucose Point of Care 144 mg/dl (65-105)
[2021-07-22 06:11] LABS: Alanine Aminotransferase 32 U/L (6-35); Albumin Level 3.6 g/dL (3.5-5.1); Alkaline Phosphatase 129 U/L (38-126); Anion Gap 6 mmol/L (8-16); Aspartate Amino Transferase 43 U/L (14-36); Bilirubin,Total 0.4 mg/dL (0.2-1.3); Blood Urea Nitrogen 8 mg/dL (7-17); Carbon Dioxide 34 mmol/L (22-30); Chloride 92 mmol/L (98-107); Estimated Glomerular Filt Rate > 60; Glucose 130 mg/dL (65-110); Potassium 4.4 mmol/L (3.4-5.0); Sodium 132 mmol/L (137-145)
--- NOTE | 2021-07-22 08:54 | PM.PNPUL ---
Progress Note: A&P Assessment and Plan (1) Scoliosis deformity of spine: Code(s): M41.9 - Scoliosis, unspecified Status: Acute (2) Chronic hypercapnic respiratory failure: Code(s): J96.12 - Chronic respiratory failure with hypercapnia Status: Acute Assessment and Plan: (1) Chronic hypercapnic respiratory failure: ?Code(s): J96.12 - Chronic respiratory failure with hypercapnia ?Status:?Acute ?Assessment and Plan: ?a 40-year-old? nonverbal female, with? history of cerebral palsy, scoliosis since childhood, status post spinal fusion surgery for scoliosis more than 20 years ago,? history of increasing somnolence,? presented with? chest congestion, lip cyanosis.? Workup has shown chronic hypercapnic hypoxemic respiratory failure.? 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 hypercapnic respiratory failure.? Underlying sleep disordered breathing is also possible.? patient was placed on AVAPS and supplemental oxygen 3 liters/minute last night.? APAP settings VT 450, minimum pressure of 14, maximum pressure 30, EPAP 6, respiratory rate 12, rise 2, FiO2 32%. On these settings, apnealink monitoring showed adequate oxyhemoglobin saturation with total time with saturation less than 88% lasting only 3 minutes. Plan:? The patient will need home ventilatory support and supplemental oxygen 3 liters/minute for her restrictive chest wall disease and chronic hypercapnic and hypoxemic respiratory failure. She will be using the home ventilator primarily at night and during naps in the day. Plan was discussed with the patient's mother in detail. (3) Abnormal chest x-ray: Code(s): R93.89 - Abnormal findings on diagnostic imaging of other specified body structures Status: Acute (4) Cyanosis: Code(s): R23.0 - Cyanosis Status: Acute (5) Cerebral palsy: Code(s): G80.9 - Cerebral palsy, unspecified Status: Chronic (6) Seizure disorder: Code(s): G40.909 - Epilepsy, unspecified, not intractable, without status epilepticus Status: Chronic Subjective Date/time seen: 07/22/21 08:54 Review of Systems Review of Systems: System review is unremarkable except as noted in H&P and below Exam Narrative: GENERAL APPEARANCE: ? Adult female, nonverbal lying in bed, in no apparent respiratory distress while on supplemental oxygen SKIN: Inspection of the skin reveals no rashes, ulcerations or petechiae. HEENT: Sclerae anicteric and conjunctivae? pink and moist. NECK:? not tested LUNGS: Auscultation of the lungs revealed normal breath sounds anteriorly, no wheezing CARDIAC: There was a regular rate and rhythm without any murmurs, gallops, rubs. ABDOMEN:? midline surgical scar. soft with normal bowel sounds. There was no organomegaly.? PEG tube in place EXTREMITIES:? contractions? lower extremities, no cyanosis, clubbing;? 2+ pedal edema lower extremities NEUROLOGIC:? appears awake nonverbal, moving upper extremities. Objective Data Vital Signs Vital Signs: Vital Signs - 24 hr 07/21/21 09:30 07/21/21 09:30 07/21/21 12:00 Temperature Pulse Rate 68 91 Respiratory Rate Blood Pressure Pulse Oximetry 99 Oxygen Delivery Nasal Cannula Oxygen Flow Rate 2 07/21/21 14:00 07/21/21 16:00 07/21/21 19:19 Temperature 36.6 C 36.6 C Pulse Rate 76 78 82 Respiratory Rate 20 16 Blood Pressure 122/70 Pulse Oximetry 98 93 Oxygen Delivery Oxygen Flow Rate 07/21/21 21:23 07/21/21 21:25 07/21/21 20:00 Temperature Pulse Rate 76 77 Respiratory Rate 14 Blood Pressure Pulse Oximetry 97 95 Oxygen Delivery BiPAP Nasal Cannula Oxygen Flow Rate 3 07/21/21 20:00 07/21/21 22:42 07/22/21 00:00 Temperature Pulse Rate 76 77 Respiratory Rate 14 17 Blood Pressure Pulse Oximetry 95 98 Oxygen Delivery Nasa
[2021-07-22] MEDS: FLUoxetine HCL 20 MG CAPSULE FEED TUBE (09:02)
[2021-07-22] MEDS: ENOXAPARIN 40 MG/0.4 ML SYRINGE SUB-Q (09:02)
[2021-07-22] MEDS: MAGNESIUM OXIDE 400 MG TABLET 800 MG FEED TUBE (09:02)
[2021-07-22] MEDS: FAMOTIDINE 20 MG TABLET FEED TUBE ×2 (09:02→21:20)
[2021-07-22] MEDS: NITROFURANTOIN MACROCRYSTALS 50 MG CAP FEED TUBE (09:02)
[2021-07-22] MEDS: MULTIVIT W/ IRON, MINERALS 15 ML LIQUID (*BKC) FEED TUBE (09:03)
--- NOTE | 2021-07-22 10:21 | PM.IMPN ---
Progress Note: A&P Assessment and Plan (1) Hypercapnia: Code(s): R06.89 - Other abnormalities of breathing Status: Acute Assessment and Plan: -compensated. Mentation improved with bipap use. -Pulmonology following and recommend starting AVAPS. Patient tolerated for approximately 4 hours, per report. Care coordination arranging AVAPS. -Apnea link with minimal desaturation <88% -CT chest ordered and reviewed by pulm, no antibiotics indicated at this time -further management per pulm (2) Abnormal chest x-ray: Code(s): R93.89 - Abnormal findings on diagnostic imaging of other specified body structures Status: Acute Assessment and Plan: -Coarse rhonchi heard on exam and chest x-ray shows chronic left retrocardiac left lower lobe discoid atelectasis versus scarring. -NPO except tube feeding. Head of bed to be elevated. -see above for pulmonology recommendations (3) Hypoglycemia: Code(s): E16.2 - Hypoglycemia, unspecified Status: Acute Assessment and Plan: -Resolved. (4) Hyperkalemia: Code(s): E87.5 - Hyperkalemia Status: Acute Assessment and Plan: -Resolved. (5) Seizure disorder: Code(s): G40.909 - Epilepsy, unspecified, not intractable, without status epilepticus Status: Chronic Assessment and Plan: -Continue valproic acid; level within normal limits. -Neurology following. No recent seizure activity. (6) Breast mass: Code(s): N63.0 - Unspecified lump in unspecified breast Status: Acute Assessment and Plan: -incidental finding on CT chest -Breast US recommended outpatient. (7) Elevated TSH: Code(s): R79.89 - Other specified abnormal findings of blood chemistry Status: Acute Assessment and Plan: -Subclinical hypothyroidism. -TSH 6.2, free T4 0.91 and within normal limits. Given age <65 yo and symptoms appear to be improving with above therapy. Will observe for now and consider repeat thyroid panel in 6 weeks. Subjective Date/time seen: 07/22/21 10:21 Interval history: 40-year-old female with history of cerebral palsy, hypertension, seizure disorder, kidney stones, and gallstones, admitted for hypercapnic respiratory failure. Pt is non verbal thus history is obtained from the chart and from parent at bedside. Her mother reports no overnight events. The patient wore the bipap approximately 4 hours overnight. She is concerned the patient is more swollen today. The patient is more alert, but still lethargic at times. They would like to have the breast US done as soon as possible. Review of Systems Review of Systems: ROS unobtainable: Yes unobtainable due to medical condition Exam Narrative: General: Chronically ill appearing adult female supine in bed in no distress. O2 2L NC. HEENT: Normocephalic, atraumatic, PERRL, EOMI. Sclerae anicteric. Oral mucosa appears dry. Neck: Supple. Limited exam due to positioning. Respiratory: Respirations appear non-labored and she is in no distress. Coarse rhonchi heard bilaterally, anteriorly. Cardiovascular: Regular rate and rhythm with S1-S2. No murmur, gallop or rubs. Gastrointestinal: Abdomen is soft, protuberant, nontender, and nondistended with positive bowel sounds. PEG button in the left abdomen. Skin: Warm and dry. No rash or lesions on limited exam. Extremities: No cyanosis or clubbing. 2+ BLE edema. BUE/BLE contracted & stiff. Feet are cool but perfused. Radial and pedal pulses intact. Neurological: Alert. Unable to assess orientation. She is nonverbal. No gross focal deficits. Psychiatric: Unable to assess. Objective Data Vital Signs Vital Signs: Vital Signs - 24 hr 07/21/21 12:00 07/21/21 14:00 07/21/21 16:00 Temperature 97.9 F Pulse Rate 91 76 78 Respiratory Rate 20 Blood Pressure Pulse Oximetry 98 Oxygen Delivery Oxygen Flow Rate 07/21/21
[2021-07-22 11:48] LABS: Glucose Point of Care 119 mg/dl (65-105)
--- NOTE | 2021-07-22 12:32 | WPDNEUROPN ---
Subjective Date/time seen: 07/22/21 12:32 Interval history: history of cerebral palsy with negative CT scan of the head except the generalized atrophy which was more prominent over the left hemisphere and Doppler study is negative since initial evaluation her routine labs abnormal only for the MCV which could be B12 of 4 leak acid deficiency she has also been found extensive patchy ground-glass opacities in the lungs in addition to possible left breast mass but again CT scan of the brain is normal except the changes were were described above in addition valproic acid level is only 53.6 within therapeutic range , patient does have underlying scoliotic deformities and mineral engineer is on the board Review of Systems Neurologic: Reports system reviewed and no additional complaints, except as documented Exam Narrative: no changes in neurological status and treatment as such Objective Data Vital Signs Vital Signs: Vital Signs - 24 hr 07/21/21 14:00 07/21/21 16:00 07/21/21 19:19 Temperature 36.6 C 36.6 C Pulse Rate 76 78 82 Respiratory Rate 20 16 Blood Pressure 122/70 Pulse Oximetry 98 93 Oxygen Delivery Oxygen Flow Rate 07/21/21 21:23 07/21/21 21:25 07/21/21 20:00 Temperature Pulse Rate 76 77 Respiratory Rate 14 Blood Pressure Pulse Oximetry 97 95 Oxygen Delivery BiPAP Nasal Cannula Oxygen Flow Rate 3 07/21/21 20:00 07/21/21 22:42 07/22/21 00:00 Temperature Pulse Rate 76 77 Respiratory Rate 14 17 Blood Pressure Pulse Oximetry 95 98 Oxygen Delivery Nasal Cannula BiPAP Oxygen Flow Rate 2 07/22/21 00:15 07/22/21 04:00 07/22/21 05:39 Temperature 36.7 C Pulse Rate 101 H 88 Respiratory Rate 16 16 Blood Pressure 145/69 H Pulse Oximetry 97 99 Oxygen Delivery BiPAP Oxygen Flow Rate 07/22/21 09:00 07/22/21 09:00 Temperature Pulse Rate 86 Respiratory Rate Blood Pressure Pulse Oximetry 98 Oxygen Delivery Nasal Cannula Oxygen Flow Rate 2 Intake/Output Intake/Output: Intake & Output 07/19/21 07/20/21 07/21/21 07/22/21 23:59 23:59 23:59 23:59 Intake Total 1000 500 Balance 1000 500 Meds/Results Medications: Active Medications Generic Name Dose Route Start Last Admin Trade Name Freq PRN Reason Stop Dose Admin Acetaminophen 650 mg 07/20/21 20:55 07/22/21 04:20 Acetaminophen Elixir 325 Mg/10.15 Ml Udc PO 650 mg Q6H PRN Administration Mild Pain (1-3) or Fever Dextrose 12.5 gm 07/20/21 18:37 Dextrose 50% 25 Gm/50 Ml Syringe IV PUSH PRN PRN Hypoglycemia Protocol Enoxaparin Sodium 40 mg 07/21/21 09:00 07/22/21 09:02 Enoxaparin 40 Mg/0.4 Ml Syringe SUB-Q 40 mg DAILY DOMINIK Administration Famotidine 20 mg 07/20/21 21:00 07/22/21 09:02 Famotidine 20 Mg Tablet FEED TUBE 20 mg Q12HR DOMINIK Administration Fluoxetine HCl 20 mg 07/21/21 09:00 07/22/21 09:02 Fluoxetine Hcl 20 Mg Capsule FEED TUBE 20 mg DAILY DOMINIK Administration Glucagon 1 mg 07/20/21 18:37 Glucagon For Inj 1 Mg Vial IM PRN PRN Hypoglycemia Protocol Glucose 15 gm 07/20/21 18:37 Glucose Oral Gel 15 Gm Of Glucse In 37.5 Gm Tube PO PRN PRN Hypoglycemia Protocol Dextrose 1,000 mls @ 100 mls/hr 07/20/21 18:37 Dextrose 5% 1,000 Ml IVPB PRN PRN Hypoglycemia Protocol Losartan Potassium 25 mg 07/21/21 09:00 Losartan Potassium 25 Mg Tablet FEED TUBE DAILY DOMINIK Magnesium Oxide 400 mg 07/22/21 17:00 Magnesium Oxide 400 Mg Tablet FEED TUBE BID DOMINIK Multivitamins/Minerals 15 ml 07/21/21 09:00 07/22/21 09:03 Multivit W/ Iron, Minerals 15 Ml Liquid (*Bkc) FEED TUBE 15 ml DAILY DOMINIK Administration Nitrofurantoin Macrocrystals 50 mg 07/21/21 09:00 07/22/21 09:02 Nitrofurantoin Macrocrystals 50 Mg Cap FEED TUBE 50 mg DAILY DOMINIK Administration Valproate Sodium 500 mg 07/20/21 22:00 07/22/21 04:20 Valproic Ac
[2021-07-22] MEDS: FUROSEMIDE INJ 40 MG/4 ML VIAL 20 MG IV PUSH (12:37)
--- NOTE | 2021-07-22 15:18 | PCRCNOTE ---
PT WILL BE SET UP WITH HOME TRILOGY. PT WILL USE [facility] FOR SET UP. ALL PAPERWORK AND ORDERS ARE FAXED TO DME. AWAITING APPROVAL AND RT FROM [facility] WILL BRING IN TRILOGY UNIT TO TRIAL IN HOSPITAL PRIOR TO D/C. THIS WILL MOST LIKELY BE DONE TOMMORROW, 07/23. CONTACT [facility] AT [facility] CELL # .
[2021-07-22] MEDS: MAGNESIUM OXIDE 400 MG TABLET FEED TUBE (17:22)
[2021-07-22 19:01] LABS: Glucose Point of Care 129 mg/dl (65-105)
[2021-07-23] VITALS (14 sets, daily range): BP systolic 137–149; BP diastolic 67–118; PULSE 78–112; RESP 12–20; TEMP 37–37.9; O2SAT 92–98
[2021-07-23 00:15] LABS: Glucose Point of Care 110 mg/dl (65-105)
[2021-07-23] MEDS: ACETAMINOPHEN ELIXIR 325 MG/10.15 ML UDC 650 MG PO ×4 (00:33→18:39)
[2021-07-23] MEDS: VALPROIC ACID LIQ 250 MG/5 ML ORAL SOLUTION UDC 500 MG FEED TUBE ×3 (05:42→20:46)
[2021-07-23 06:35] LABS: Glucose Point of Care 143 mg/dl (65-105)
[2021-07-23 06:48] LABS: Basophils Percent Auto 0.3 % (0.2-1.2); Eosinophils Absolute Auto 0.4 K/mm3 (0-0.3); Eosinophils Percent Auto 5.4 % (0-4.4); Hematocrit 46.8 % (37.0-47.0); Hemoglobin 14.9 g/dL (12.0-15.0); Immature Granulocyte Absolute 0.03 K/mm3 (0.00-0.031); Immature Granulocyte Percent A 0.4 % (0-0.5); Lymphocytes Absolute Auto 1.91 K/mm3 (0.9-3.2); Lymphocytes Percent Auto 26.4 % (18.3-44.2); Mean Corpuscular HGB Conc 31.8 g/dl (32-36); Mean Corpuscular Hemoglobin 34.1 pg (26-34); Mean Corpuscular Volume 107.1 fl (80-100); Mean Platelet Volume 10.9 fl (7.4-10.4); Monocytes Absolute Auto 1.2 K/mm3 (0.1-0.6); Monocytes Percent Auto 16.6 % (2.6-8.5); Neutrophils Absolute Auto 3.7 K/mm3 (1.3-6.7); Neutrophils Percent Auto 50.9 % (45.5-73.1); Platelet Count Result 165 k/mm3 (150-375); Red Blood Count 4.37 M/mm3 (4.2-5.4); Red Cell Distribution Width 14.3 % (11.5-14.5); White Blood Count 7.2 K/mm3 (4.5-10.0)
[2021-07-23 07:09] LABS: Blood Urea Nitrogen 15 mg/dL (7-17); Calcium 9.4 mg/dL (8.4-10.2); Carbon Dioxide > 40 mmol/L (22-30); Chloride 91 mmol/L (98-107); Estimated Glomerular Filt Rate > 60; Glucose 126 mg/dL (65-110); Magnesium 1.9 mg/dL (1.6-2.3); Potassium 4.4 mmol/L (3.4-5.0); Sodium 136 mmol/L (137-145)
--- NOTE | 2021-07-23 09:19 | PM.PNPUL ---
Progress Note: A&P Assessment and Plan (1) Chronic hypercapnic respiratory failure: Code(s): J96.12 - Chronic respiratory failure with hypercapnia Status: Acute Assessment and Plan: Progress Note: A&P Assessment and Plan : ?a 40-year-old? nonverbal female, with? history of cerebral palsy, scoliosis since childhood, status post spinal fusion surgery for scoliosis more than 20 years ago,? history of increasing somnolence,? presented with? chest congestion, lip cyanosis.? Workup has shown chronic hypercapnic hypoxemic respiratory failure.? 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 hypercapnic respiratory failure.? Underlying sleep disordered breathing is also possible.? patient was? placed on AVAPS and supplemental oxygen 3 liters/minute last night.? APAP settings VT 450, minimum pressure of 14, maximum pressure 30,? EPAP 6, respiratory rate 12, rise 2, FiO2 32%. On these settings, apnealink? monitoring showed adequate oxyhemoglobin saturation with total time with saturation less than 88% lasting only 3 minutes. Await home ventilator Patient has had low-grade temperature since last night. She did not sleep well last night. On physical exam she has rhonchi anteriorly probably related to retention of bronchial secretions. Also on physical exam there is evidence of chest wall paradoxical motion which could be related to increased work of breathing due to retained secretions. she has had elevated eosinophils which may indicate eosinophilic airway disease but it is extremely difficult to assess for obstructive airway disease on this patient. Plan:?? Regarding a low-grade temperature the patient will have a chest x-ray to exclude pneumonia. She has no leukocytosis. low-grade temperature could also be related to urinary tract infection. She has had a chronically weak cough. We will start her empirically on nebulized treatments and reassess ability to clear bronchial secretions. Plan was discussed with the patient's mother in detail. (2) Cerebral palsy: Code(s): G80.9 - Cerebral palsy, unspecified Status: Chronic (3) Seizure disorder: Code(s): G40.909 - Epilepsy, unspecified, not intractable, without status epilepticus Status: Chronic (4) History of spinal surgery: Code(s): Z98.890 - Other specified postprocedural states Status: Acute (5) Scoliosis deformity of spine: Code(s): M41.9 - Scoliosis, unspecified Status: Acute Subjective Date/time seen: 07/23/21 09:19 Patient with low-grade temperature. She did not sleep last night. I used a BiPAP support for few hours only. Sleeping now. According to patient's mother she has no worsening chest congestion. She continues to have lower extremity edema. Mother helps her sip water or have some ice cream. Review of Systems Review of Systems: all system review is unremarkable except as noted in the H&P and below Exam Narrative: GENERAL APPEARANCE: ? Adult female, nonverbal lying in bed, in no apparent respiratory distress while on supplemental oxygen SKIN: Inspection of the skin reveals no rashes, ulcerations or petechiae. HEENT: Sclerae anicteric and conjunctivae? pink and moist. NECK:? not tested LUNGS: Auscultation of the lungs revealed rhonchi anteriorly, no wheezing CARDIAC: There was a regular rate and rhythm without any murmurs, gallops, rubs. ABDOMEN:? midline surgical scar. soft with normal bowel sounds. There was no organomegaly.? PEG tube in place EXTREMITIES:? contractions? lower extremities, no cyanosis, clubbing;? 2+ pedal edema lower extremities NEUROLOGIC:? appears awake nonverbal, moving upper extremities. Objective Data Vital Signs Vital Signs: Vital Signs - 24 hr 07/22/21 12:00 07/22/21 14:00 07/22/21 16:00 Temperature 37.3 C Pulse Rate 96 100 102 H Respiratory
[2021-07-23] MEDS: MULTIVIT W/ IRON, MINERALS 15 ML LIQUID (*BKC) FEED TUBE (09:21)
[2021-07-23] MEDS: NITROFURANTOIN MACROCRYSTALS 50 MG CAP FEED TUBE (09:23)
[2021-07-23] MEDS: LOSARTAN POTASSIUM 25 MG TABLET FEED TUBE (09:23)
[2021-07-23] MEDS: MAGNESIUM OXIDE 400 MG TABLET FEED TUBE ×2 (09:23→17:07)
[2021-07-23] MEDS: FAMOTIDINE 20 MG TABLET FEED TUBE ×2 (09:23→20:46)
[2021-07-23] MEDS: FLUoxetine HCL 20 MG CAPSULE FEED TUBE (09:23)
[2021-07-23] MEDS: ENOXAPARIN 40 MG/0.4 ML SYRINGE SUB-Q (09:26)
[2021-07-23 11:00] LABS: SARS-CoV-2 RNA PCR Negative
[2021-07-23 11:32] LABS: Appearance Urine Cloudy (Clear); Bilirubin Urine Negative (Negative); Blood Urine Trace-lysed (Negative); Color Urine Yellow (Yellow); Glucose Urine UA Negative (Negative); Ketones Urine Negative (Negative); Leukocyte Esterase Ur Negative LEU/UL (Negative); Nitrate Urine Negative (Negative); Protein Urine Negative (Negative); Urobilinogen Urine 0.2 mg/dL (<2.0); pH Urine 7.5 (5.0-9.0)
[2021-07-23 11:38] LABS: Add Urine Microscopic? YES; Amorphous Sediment Urine Few; Mucus Urine Rare /lpf; WBC Urine 0-3 /hpf
[2021-07-23 11:52] LABS: Glucose Point of Care 116 mg/dl (65-105)
--- NOTE | 2021-07-23 12:59 | PM.IMPN ---
Progress Note: A&P Assessment and Plan (1) Hypercapnia: Code(s): R06.89 - Other abnormalities of breathing Status: Acute Assessment and Plan: -Pulmonology following and recommend starting AVAPS. Continue to encourage nap & overnight use. -Care coordination arranging AVAPS. -Apnea link with minimal desaturation <88% -CT chest ordered and reviewed by pulm, no antibiotics indicated at this time -further management per pulm -CXR without s/s acute infection. (2) Fever: Qualifiers: Fever type: unspecified Qualified Code(s): R50.9 - Fever, unspecified Code(s): R50.9 - Fever, unspecified Status: Acute Assessment and Plan: -CXR no acute infection. COVID PCR negative. -UA negative for infection -Blood cultures ordered -No s/s cellulitis or open wounds. -No diarrhea or abd pain noted. -PRN acetaminophen and/or ibuprofen. (3) Abnormal chest x-ray: Code(s): R93.89 - Abnormal findings on diagnostic imaging of other specified body structures Status: Acute Assessment and Plan: -as above (4) Hypoglycemia: Code(s): E16.2 - Hypoglycemia, unspecified Status: Acute Assessment and Plan: -Resolved. (5) Hyperkalemia: Code(s): E87.5 - Hyperkalemia Status: Acute Assessment and Plan: -Resolved. (6) Seizure disorder: Code(s): G40.909 - Epilepsy, unspecified, not intractable, without status epilepticus Status: Chronic Assessment and Plan: -Continue valproic acid; level within normal limits. -Neurology following. No recent seizure activity. (7) Breast mass: Code(s): N63.0 - Unspecified lump in unspecified breast Status: Acute Assessment and Plan: -incidental finding on CT chest -Breast US recommended outpatient. (8) Elevated TSH: Code(s): R79.89 - Other specified abnormal findings of blood chemistry Status: Acute Assessment and Plan: -Subclinical hypothyroidism. -TSH 6.2, free T4 0.91 and within normal limits. Given age <65 yo and symptoms appear to be improving with above therapy. Will observe for now and consider repeat thyroid panel in 6 weeks. Time Spent With Patient Time with patient: 25 - 35 minutes Subjective Date/time seen: 07/23/21 12:59 Interval history: 40-year-old female with history of cerebral palsy, hypertension, seizure disorder, kidney stones, and gallstones, admitted for hypercapnic respiratory failure. The patient's mother reports she had a difficult night last night. The bipap mask was loose and appeared to bother the patient. She did not sleep until the mask was removed. She had low-grade temp this morning 100.3F. Patient is nonverbal and unable to provide significant history. Review of Systems Review of Systems: All systems reviewed & are unremarkable except as noted in HPI and below Exam Narrative: General: Chronically ill appearing adult female supine in bed in no distress. No O2 HEENT: Normocephalic, atraumatic, PERRL, EOMI. Sclerae anicteric. Oral mucosa appears dry. Neck: Supple. Limited exam due to positioning. Respiratory: Respirations appear non-labored and she is in no distress. Coarse rhonchi heard bilaterally. Cardiovascular: Regular rate and rhythm with S1-S2. No murmur, gallop or rubs. Gastrointestinal: Abdomen is soft, protuberant, nontender, and nondistended with positive bowel sounds. PEG button in the left abdomen without erythema, pain or discharge. Skin: Warm and dry. No rash or lesions on limited exam. PEG button noted, but no open wounds noted. Extremities: No cyanosis or clubbing. 1+ pedal edema. BUE/BLE contracted & stiff. Feet are warm. Radial and pedal pulses intact. Neurological: Alert. Unable to assess orientation. She is nonverbal. No gross focal deficits. Psychiatric: Unable to assess. Objective Data Vital Signs Vital Signs: Vital Sig
--- NOTE | 2021-07-23 13:02 | PCNFU ---
Nutrition Follow-Up Complete: Swallowing Difficulties as related to dysphagia as evidenced by tube feeding diet. Goal: Meet estimanted nutritional needs Pt is progressing towards goal. Continue with current goal at this time. Pt current nutrition is Tube feeding of Jevity 1.2 running at 40mL/hr over 22 hours Last recorded weight is 58.3 kg, down 0.9kg from last reported wt on 07/22/21. Recommend re-weighing prior to discharge. Bowel Motility: No new BM reported Labs Reviewed: Na 136, Cr 0.30, Glu 116 Meds Noted: Tylenol, lovenox, pepcid, prozac, cozaar, mag-ox, multivitamin, macrodantin, valproate sodium Skin: WNL Additional Notes: Pt remains on tube feeding diet of Jevity 1.2 running at goal rate providing 1056kcal, 49g of protein, and 710mL of water. Pt is tolerating tube feeding rate and formula well. Pt is receiving 30mL free water flushes every Q4 hours. Agree with current diet orders. Will continue to follow. Will monitor every Monday and Monday.
[2021-07-23 15:26] LABS: Procalcitonin 0.2 ng/mL
[2021-07-23 18:16] LABS: Glucose Point of Care 105 mg/dl (65-105)
[2021-07-24] VITALS (9 sets, daily range): BP systolic 120–148; BP diastolic 78–99; PULSE 87–108; RESP 8–20; TEMP 36.6–36.9; O2SAT 92–97
[2021-07-24 00:35] LABS: Glucose Point of Care 98 mg/dl (65-105)
[2021-07-24] MEDS: ACETAMINOPHEN ELIXIR 325 MG/10.15 ML UDC 650 MG PO ×4 (01:25→21:01)
[2021-07-24] MEDS: IBUPROFEN SUSPENSION 200 MG/10 ML UDC FEED TUBE (04:57)
[2021-07-24] MEDS: VALPROIC ACID LIQ 250 MG/5 ML ORAL SOLUTION UDC 500 MG FEED TUBE ×3 (05:04→21:02)
[2021-07-24 05:51] LABS: Glucose Point of Care 114 mg/dl (65-105)
[2021-07-24] MEDS: FLUoxetine HCL 20 MG CAPSULE FEED TUBE (08:22)
[2021-07-24] MEDS: NITROFURANTOIN MACROCRYSTALS 50 MG CAP FEED TUBE (08:22)
[2021-07-24] MEDS: LOSARTAN POTASSIUM 25 MG TABLET FEED TUBE (08:22)
[2021-07-24] MEDS: FAMOTIDINE 20 MG TABLET FEED TUBE ×2 (08:23→21:01)
[2021-07-24] MEDS: MAGNESIUM OXIDE 400 MG TABLET FEED TUBE ×2 (08:23→17:39)
[2021-07-24] MEDS: MULTIVIT W/ IRON, MINERALS 15 ML LIQUID (*BKC) FEED TUBE (08:23)
[2021-07-24] MEDS: ENOXAPARIN 40 MG/0.4 ML SYRINGE SUB-Q (08:24)
[2021-07-24 08:30] LABS: Hematocrit 45.2 % (37.0-47.0); Hemoglobin 14.5 g/dL (12.0-15.0); Mean Corpuscular HGB Conc 32.1 g/dl (32-36); Mean Corpuscular Hemoglobin 34.2 pg (26-34); Mean Corpuscular Volume 106.6 fl (80-100); Mean Platelet Volume 10.7 fl (7.4-10.4); Platelet Count Result 166 k/mm3 (150-375); Red Blood Count 4.24 M/mm3 (4.2-5.4); Red Cell Distribution Width 14.6 % (11.5-14.5); White Blood Count 7.3 K/mm3 (4.5-10.0)
[2021-07-24 08:38] LABS: Blood Urea Nitrogen 18 mg/dL (7-17); Calcium 9.7 mg/dL (8.4-10.2); Carbon Dioxide > 40 mmol/L (22-30); Chloride 93 mmol/L (98-107); Estimated Glomerular Filt Rate > 60; Glucose 106 mg/dL (65-110); Potassium 4.6 mmol/L (3.4-5.0); Sodium 134 mmol/L (137-145)
[2021-07-24 11:25] LABS: Glucose Point of Care 116 mg/dl (65-105)
--- NOTE | 2021-07-24 13:07 | PM.PNPUL ---
Progress Note: A&P Assessment and Plan (1) Chronic hypercapnic respiratory failure: Code(s): J96.12 - Chronic respiratory failure with hypercapnia Status: Acute Assessment and Plan: a 40-year-old? nonverbal female, with? history of cerebral palsy, scoliosis since childhood, status post spinal fusion surgery for scoliosis more than 20 years ago,? history of increasing somnolence,? presented with? chest congestion, lip cyanosis.? Workup has shown chronic hypercapnic hypoxemic respiratory failure.? 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 hypercapnic respiratory failure.? patient was started on a home ventilator last night and without supplemental oxygen ?Patient is afebrile today? She sleep well last night.? On physical exam? she has less rhonchi anteriorly today.? Plan:?? ? no evidence of infection so far. Afebrile, with normal white cell count. Reportedly tolerated home ventilator with no issues last night. Will repeat ApneaLink on home ventilator without supplemental oxygen. Plan was discussed with the patient's mother in detail. (2) Cerebral palsy: Code(s): G80.9 - Cerebral palsy, unspecified Status: Chronic (3) Seizure disorder: Code(s): G40.909 - Epilepsy, unspecified, not intractable, without status epilepticus Status: Chronic (4) History of spinal surgery: Code(s): Z98.890 - Other specified postprocedural states Status: Acute (5) Scoliosis deformity of spine: Code(s): M41.9 - Scoliosis, unspecified Status: Acute Subjective Date/time seen: 07/24/21 13:07 Respiratory status has improved. Patient is currently on room air. Something less congested; used trilogy ventilator with no supplemental oxygen last night Review of Systems Review of Systems: system review is unremarkable except as noted in H&P and below Exam Narrative: GENERAL APPEARANCE: ? Adult female, nonverbal lying in bed, in no apparent respiratory distress while on RA SKIN: Inspection of the skin reveals no rashes, ulcerations or petechiae. HEENT: Sclerae anicteric and conjunctivae? pink and moist. NECK:? not tested LUNGS: Auscultation of the lungs revealed rhonchi anteriorly, no wheezing CARDIAC: There was a regular rate and rhythm without any murmurs, gallops, rubs. ABDOMEN:? midline surgical scar. soft with normal bowel sounds. There was no organomegaly.? PEG tube in place EXTREMITIES:? contractions? lower extremities, no cyanosis, clubbing;? 2+ pedal edema lower extremities NEUROLOGIC:? appears awake nonverbal, moving upper extremities. Objective Data Vital Signs Vital Signs: Vital Signs - 24 hr 07/23/21 15:47 07/23/21 16:00 07/23/21 20:00 Temperature 37.0 C Pulse Rate 98 107 H 96 Respiratory Rate 14 Blood Pressure 143/93 H Pulse Oximetry 92 Oxygen Delivery Fraction of Inspired Oxygen 07/23/21 22:00 07/23/21 23:00 07/23/21 23:00 Temperature 37.0 C Pulse Rate 95 93 Respiratory Rate 12 12 Blood Pressure 149/71 H Pulse Oximetry 92 92 92 Oxygen Delivery BiPAP BiPAP Fraction of Inspired Oxygen 21 07/24/21 00:00 07/24/21 01:06 07/24/21 04:33 Temperature Pulse Rate 87 94 91 Respiratory Rate 8 L 15 Blood Pressure Pulse Oximetry 97 95 Oxygen Delivery BiPAP BiPAP Fraction of Inspired Oxygen 07/24/21 04:00 07/24/21 05:18 07/24/21 08:00 Temperature 36.9 C Pulse Rate 102 H 107 H 93 Respiratory Rate 18 Blood Pressure 148/99 H Pulse Oximetry 92 Oxygen Delivery Fraction of Inspired Oxygen Intake/Output Intake/Output: Intake & Output 07/21/21 07/22/21 07/23/21 07/24/21 23:59 23:59 23:59 23:59 Intake Total 1000 785 38 6953 Output Total 90 Balance 1000 530 0 1003 Meds/Results Medications: Active Medications Generic Name Dose Route Start Last Admin Trade Name Freq P
--- NOTE | 2021-07-24 16:15 | PM.IMPN ---
Progress Note: A&P Assessment and Plan (1) Hypercapnia: Code(s): R06.89 - Other abnormalities of breathing Status: Acute Assessment and Plan: -Pulmonology following and recommend starting AVAPS. Continue to encourage nap & overnight use. -Care coordination arranging AVAPS. -Apnea link with minimal desaturation <88% -CT chest ordered and reviewed by pulm, no antibiotics indicated at this time -further management per pulm -CXR without s/s acute infection. - apnea link to be done overnight while off oxygen per Pulmonology notes. (2) Fever: Qualifiers: Fever type: unspecified Qualified Code(s): R50.9 - Fever, unspecified Code(s): R50.9 - Fever, unspecified Status: Acute Assessment and Plan: -CXR no acute infection. COVID PCR negative. -UA negative for infection -Blood cultures ordered -No s/s cellulitis or open wounds. -No diarrhea or abd pain noted. -PRN acetaminophen and/or ibuprofen. - Afebrile in the past 24 hours. Unclear etiology. Antibiotics not initiated. (3) Abnormal chest x-ray: Code(s): R93.89 - Abnormal findings on diagnostic imaging of other specified body structures Status: Acute Assessment and Plan: -as above (4) Hypoglycemia: Code(s): E16.2 - Hypoglycemia, unspecified Status: Acute Assessment and Plan: -Resolved. (5) Hyperkalemia: Code(s): E87.5 - Hyperkalemia Status: Acute Assessment and Plan: -Resolved. (6) Seizure disorder: Code(s): G40.909 - Epilepsy, unspecified, not intractable, without status epilepticus Status: Chronic Assessment and Plan: -Continue valproic acid; level within normal limits. -Neurology following. No recent seizure activity. (7) Breast mass: Code(s): N63.0 - Unspecified lump in unspecified breast Status: Acute Assessment and Plan: -incidental finding on CT chest -Breast US recommended outpatient. (8) Elevated TSH: Code(s): R79.89 - Other specified abnormal findings of blood chemistry Status: Acute Assessment and Plan: -Subclinical hypothyroidism. -TSH 6.2, free T4 0.91 and within normal limits. Given age <65 yo and symptoms appear to be improving with above therapy. Will observe for now and consider repeat thyroid panel in 6 weeks. Plan Dietary consulted to recommend bolus feeding regimen for patient caloric needs. Overnight apnea link planned. PT/OT consulted and patient to be mobilized more by nursing. Care coordination following. Patient may need oysterman placement if unlikely to return to previous functional status. Time Spent With Patient Time with patient: 25 - 35 minutes (>50% time spent in education and care coordination) Subjective Date/time seen: 07/24/21 16:15 Interval history: 40-year-old female with history of cerebral palsy, hypertension, seizure disorder, kidney stones, and gallstones, admitted for hypercapnic respiratory failure. Patient's mother reports she was able to tolerate the BiPAP for 5 hours last night. She has noted a small the irritation at the top of the patient's nose that she presumes is from the BiPAP mask. Patient has been weaned to room air with good saturation. Family is concerned about taking the patient home as she is requiring continuous tube feeding, BiPAP for daytime naps and at bedtime and has not been as active as she is at home. They were concerned patient will be unable to go to her school during the day because of this, however they are reluctant to have long-term care placement. Review of Systems Review of Systems: All systems reviewed & are unremarkable except as noted in HPI and below Exam Narrative: General: No acute distress. Chronically ill appearing adult female supine in bed in no distress. No O2 HEENT: Normocephalic, atraumatic, PERRL, EOMI. Sclerae anicteric. Oral mucosa appears dry.
[2021-07-24 16:21] LABS: Glucose Point of Care 83 mg/dl (65-105)
[2021-07-25] VITALS (8 sets, daily range): BP systolic 126–167; BP diastolic 80–84; PULSE 90–101; RESP 13–20; TEMP 36.6–37.2; O2SAT 92–97
[2021-07-25 01:14] LABS: Glucose Point of Care 96 mg/dl (65-105)
[2021-07-25] MEDS: ACETAMINOPHEN ELIXIR 325 MG/10.15 ML UDC 650 MG PO ×3 (05:21→21:51)
[2021-07-25] MEDS: VALPROIC ACID LIQ 250 MG/5 ML ORAL SOLUTION UDC 500 MG FEED TUBE ×3 (05:21→21:50)
[2021-07-25 05:59] LABS: Glucose Point of Care 128 mg/dl (65-105)
[2021-07-25 06:08] LABS: Hemoglobin 14.6 g/dL (12.0-15.0); Mean Corpuscular HGB Conc 31.7 g/dl (32-36); Mean Corpuscular Hemoglobin 34.1 pg (26-34); Mean Corpuscular Volume 107.5 fl (80-100); Mean Platelet Volume 11.2 fl (7.4-10.4); Platelet Count Result 184 k/mm3 (150-375); Red Blood Count 4.28 M/mm3 (4.2-5.4); Red Cell Distribution Width 14.6 % (11.5-14.5); White Blood Count 8.1 K/mm3 (4.5-10.0)
[2021-07-25 06:18] LABS: Anion Gap 7 mmol/L (8-16); Blood Urea Nitrogen 20 mg/dL (7-17); Calcium 9.6 mg/dL (8.4-10.2); Carbon Dioxide 37 mmol/L (22-30); Chloride 94 mmol/L (98-107); Estimated Glomerular Filt Rate > 60; Glucose 102 mg/dL (65-110); Potassium 5.1 mmol/L (3.4-5.0); Sodium 138 mmol/L (137-145)
--- NOTE | 2021-07-25 08:01 | PM.IMPN ---
Progress Note: A&P Assessment and Plan (1) Hypercapnia: Code(s): R06.89 - Other abnormalities of breathing Status: Acute Assessment and Plan: -Pulmonology following and recommend starting AVAPS. Continue to encourage nap & overnight use. -Care coordination arranging AVAPS. -Apnea link with minimal desaturation <88% -CT chest ordered and reviewed by pulm, no antibiotics indicated at this time -further management per pulm -CXR without s/s acute infection. -Patient will need 3L O2 bleed via Trilogy at night and PRN during the day. (2) Fever: Qualifiers: Fever type: unspecified Qualified Code(s): R50.9 - Fever, unspecified Code(s): R50.9 - Fever, unspecified Status: Acute Assessment and Plan: -CXR no acute infection. COVID PCR negative. -UA negative for infection -Blood cultures ordered -No s/s cellulitis or open wounds. -No diarrhea or abd pain noted. -PRN acetaminophen and/or ibuprofen. - Afebrile in the past 48 hours. Unclear etiology. Antibiotics not initiated. (3) Abnormal chest x-ray: Code(s): R93.89 - Abnormal findings on diagnostic imaging of other specified body structures Status: Acute Assessment and Plan: -as above (4) Hypoglycemia: Code(s): E16.2 - Hypoglycemia, unspecified Status: Acute Assessment and Plan: -Resolved. (5) Hyperkalemia: Code(s): E87.5 - Hyperkalemia Status: Acute Assessment and Plan: -Resolved. (6) Seizure disorder: Code(s): G40.909 - Epilepsy, unspecified, not intractable, without status epilepticus Status: Chronic Assessment and Plan: -Continue valproic acid; level within normal limits. -Neurology following. No recent seizure activity. (7) Breast mass: Code(s): N63.0 - Unspecified lump in unspecified breast Status: Acute Assessment and Plan: -incidental finding on CT chest -Breast US recommended outpatient. (8) Elevated TSH: Code(s): R79.89 - Other specified abnormal findings of blood chemistry Status: Acute Assessment and Plan: -Subclinical hypothyroidism. -TSH 6.2, free T4 0.91 and within normal limits. Given age <65 yo and symptoms appear to be improving with above therapy. Will observe for now and consider repeat thyroid panel in 6 weeks. Plan Dietary unavailable on the weekends. Will address bolus tube feedings tomorrow. Trilogy machine with supplemental O2 needed at discharge. Care coordination following. Patient may need [facility] placement if unlikely to return to previous functional status. Time Spent With Patient Time with patient: 15 - 25 minutes Subjective Date/time seen: 07/25/21 08:01 Interval history: 40-year-old female with history of cerebral palsy, hypertension, seizure disorder, kidney stones, and gallstones, admitted for hypercapnic respiratory failure. Patient found lying in bed with eyes closed. Mother and father at bedside. Mother reports patient slept well overnight with a trilogy machine. Overnight apnea link shows desaturation while on trilogy at room air. Per pulmonology note patient will require a 3 L O2 bleed at night and possible O2 during the day. No new patient concerns or symptoms appreciated, per parents. Patient has been getting up to motorized wheelchair with Татьяна left. A patient has been afebrile and vitals are stable. Review of Systems Review of Systems: ROS unobtainable: Yes unobtainable due to mental status Exam Narrative: General: No acute distress. Chronically ill appearing adult female supine in bed in no distress. No O2 HEENT: Normocephalic, atraumatic, PERRL, EOMI. Sclerae anicteric. Oral mucosa appears dry. Neck: Supple. No JVD. Respiratory: Respirations unlabored. Scattered rhonchi bilateral upper lobes. No wheezing noted. Cardiovascular: Regular rate and rhythm with S1-S2. No murmur, gall
[2021-07-25] MEDS: ENOXAPARIN 40 MG/0.4 ML SYRINGE SUB-Q (08:27)
[2021-07-25] MEDS: LOSARTAN POTASSIUM 25 MG TABLET FEED TUBE (08:28)
[2021-07-25] MEDS: MULTIVIT W/ IRON, MINERALS 15 ML LIQUID (*BKC) FEED TUBE (08:28)
[2021-07-25] MEDS: FAMOTIDINE 20 MG TABLET FEED TUBE ×2 (08:28→21:50)
[2021-07-25] MEDS: NITROFURANTOIN MACROCRYSTALS 50 MG CAP FEED TUBE (08:28)
[2021-07-25] MEDS: MAGNESIUM OXIDE 400 MG TABLET FEED TUBE (08:28)
[2021-07-25] MEDS: FLUoxetine HCL 20 MG CAPSULE FEED TUBE (08:28)
[2021-07-25 11:52] LABS: Glucose Point of Care 86 mg/dl (65-105)
--- NOTE | 2021-07-25 13:06 | PM.PNPUL ---
Progress Note: A&P Assessment and Plan (1) Chronic hypercapnic respiratory failure: Code(s): J96.12 - Chronic respiratory failure with hypercapnia Status: Acute Assessment and Plan: [id number]? nonverbal female, with? history of cerebral palsy, scoliosis since childhood, status post spinal fusion surgery for scoliosis more than 20 years ago,? history of increasing somnolence,? presented with? chest congestion, lip cyanosis.? Workup has shown chronic hypercapnic hypoxemic respiratory failure.? 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 hypercapnic respiratory failure.? patient was started on a home ventilator last night and without supplemental oxygen ? She slept well last night on trilogy ventilator and no supplemental oxygen. Apnea link on those settings showed significant oxyhemoglobin desaturation with oxyhemoglobin saturation of less than 88% comprising the 1/4 of the monitored period.? On physical exam? she has less rhonchi anteriorly today.?? she looks uncomfortable while on room air. Plan:?? ? no evidence of infection so far.? Afebrile, with normal white cell count.? Patient will require supplemental oxygen at night 3 liters/minute bled into the home ventilator. She may need supplemental oxygen on p.r.n. basis during the day. Patient's mother who is a respiratory therapist will be monitoring the oxyhemoglobin saturation during the day.? Patient needs to return to pulmonary clinic in approximately 3-4 weeks for follow-up following discharge from the hospital. Plan was discussed with the patient's mother in detail. Will sign off; please call with any questions. (2) Cerebral palsy: Code(s): G80.9 - Cerebral palsy, unspecified Status: Chronic (3) History of spinal surgery: Code(s): Z98.890 - Other specified postprocedural states Status: Acute (4) Scoliosis deformity of spine: Code(s): M41.9 - Scoliosis, unspecified Status: Acute Subjective Date/time seen: 07/25/21 13:06 No new respiratory issues today. She slept well last night on home ventilator and on room air. Afebrile. Review of Systems Eyes: Comments: GENERAL APPEARANCE: ? Adult female, nonverbal lying in bed, in no apparent respiratory distress while on RA SKIN: Inspection of the skin reveals no rashes, ulcerations or petechiae. HEENT: Sclerae anicteric and conjunctivae? pink and moist. NECK:? not tested LUNGS: Auscultation of the lungs revealed rhonchi anteriorly, no wheezing CARDIAC: There was a regular rate and rhythm without any murmurs, gallops, rubs. ABDOMEN:? midline surgical scar. soft with normal bowel sounds. There was no organomegaly.? PEG tube in place EXTREMITIES:? contractions? lower extremities, no cyanosis, clubbing;? 2+ pedal edema lower extremities NEUROLOGIC:? appears awake nonverbal, moving upper extremities. Objective Data Vital Signs Vital Signs: Vital Signs - 24 hr 07/24/21 14:00 07/24/21 20:10 07/24/21 20:00 Temperature 36.8 C 36.6 C Pulse Rate 100 108 H Respiratory Rate 20 14 Blood Pressure 120/78 124/91 H Pulse Oximetry 94 92 Oxygen Delivery Room Air 07/24/21 23:01 07/25/21 03:10 07/25/21 04:54 Temperature 37.2 C Pulse Rate 90 94 101 H Respiratory Rate 16 14 16 Blood Pressure 141/82 H Pulse Oximetry 97 97 93 Oxygen Delivery BiPAP BiPAP 07/25/21 08:00 Temperature Pulse Rate Respiratory Rate Blood Pressure Pulse Oximetry Oxygen Delivery Room Air Intake/Output Intake/Output: Intake & Output 07/22/21 07/23/21 07/24/21 07/25/21 23:59 23:59 23:59 23:59 Intake Total 884 67 0022 600 Output Total 90 Balance 530 0 1003 600 Meds/Results Medications: Active Medications Generic Name Dose Route Start Last Admin Trade Name Freq PRN Reason Stop Dose Admin Acetaminophen 650 mg 07/20/21 20:55 07/25/21 05
[2021-07-25 16:30] LABS: Glucose Point of Care 143 mg/dl (65-105)
[2021-07-26 00:18] VITALS: PULSE 92; RESP 13; O2SAT 95
[2021-07-26 02:45] VITALS: PULSE 96; RESP 10; O2SAT 95
[2021-07-26 06:00] VITALS: BP 138/71; PULSE 97; RESP 22; TEMP 37.3; O2SAT 92
[2021-07-26] MEDS: ACETAMINOPHEN ELIXIR 325 MG/10.15 ML UDC 650 MG PO (06:03)
[2021-07-26] MEDS: VALPROIC ACID LIQ 250 MG/5 ML ORAL SOLUTION UDC 500 MG FEED TUBE (06:03)
[2021-07-26 06:11] LABS: Hematocrit 45.7 % (37.0-47.0); Hemoglobin 14.2 g/dL (12.0-15.0); Mean Corpuscular HGB Conc 31.1 g/dl (32-36); Mean Corpuscular Hemoglobin 33.9 pg (26-34); Mean Corpuscular Volume 109.1 fl (80-100); Mean Platelet Volume 11.2 fl (7.4-10.4); Platelet Count Result 180 k/mm3 (150-375); Red Blood Count 4.19 M/mm3 (4.2-5.4); Red Cell Distribution Width 14.6 % (11.5-14.5)
[2021-07-26 06:22] LABS: Anion Gap 4 mmol/L (8-16); Blood Urea Nitrogen 22 mg/dL (7-17); Calcium 9.5 mg/dL (8.4-10.2); Carbon Dioxide 38 mmol/L (22-30); Chloride 97 mmol/L (98-107); Estimated Glomerular Filt Rate > 60; Glucose 95 mg/dL (65-110); Potassium 4.7 mmol/L (3.4-5.0); Sodium 139 mmol/L (137-145)
[2021-07-26] MEDS: FLUoxetine HCL 20 MG CAPSULE FEED TUBE (09:33)
[2021-07-26] MEDS: MAGNESIUM OXIDE 400 MG TABLET FEED TUBE (09:33)
[2021-07-26] MEDS: NITROFURANTOIN MACROCRYSTALS 50 MG CAP FEED TUBE (09:33)
[2021-07-26] MEDS: FAMOTIDINE 20 MG TABLET FEED TUBE (09:33)
[2021-07-26] MEDS: MULTIVIT W/ IRON, MINERALS 15 ML LIQUID (*BKC) FEED TUBE (09:34)
[2021-07-26] MEDS: LOSARTAN POTASSIUM 25 MG TABLET FEED TUBE (09:34)
--- NOTE | 2021-07-26 13:09 | PM.DS ---
DS: Admitting Diagnosis Discharge Date 07/26/2021 1309 Admitting Diagnosis Acute respiratory failure with hypercapnia Hypoglycemia Hyperkalemia Seizure disorder Abnormal chest x-ray DS: Discharge Diagnosis Discharge Diagnosis (1) Chronic hypercapnic respiratory failure: Code(s): J96.12 - Chronic respiratory failure with hypercapnia Status: Acute Assessment and Plan: Acute on chronic respiratory failure with hypercapnia and hypoxia. Pulmonology was consulted and assisted with management. Patient treated with duonebs, supplemental O2 and started on bipap. Apnea link was performed with and without supplemental O2. The patient desaturated to <89% on room air. 3L O2 bleed recommended. Patient initially had difficulty tolerating bipap, however, upon discharge she was able to wear it 4-7 hours and spO2 remained stable with oxygen bleed. Follow up with Pulmonology in 6 weeks. (2) Fever: Qualifiers: Fever type: unspecified Qualified Code(s): R50.9 - Fever, unspecified Code(s): R50.9 - Fever, unspecified Status: Acute Assessment and Plan: Patient was noted to have temp 100.3F. Infection workup showed: CXR no acute infection, COVID PCR negative, UA negative for infection, Blood cultures negative x2 for >48 hours. No s/s cellulitis was noted and no GI symptoms found. No antibiotics were initiated and the patient remained afebrile x48 hours prior to discharge. (3) Hypoglycemia: Code(s): E16.2 - Hypoglycemia, unspecified Status: Acute Assessment and Plan: Patient was noted to have glucose 53 on 07/20/21. She was started on IV dextrose. Plastic Bubble Packer was consulted and the patient was resumed on tube feedings at a continuous dose 40 mL/hour. Accu-checks Q6 were initiated and her blood sugars improved and remained stable following discontinuation of dextrose containing fluids. (4) Hyperkalemia: Code(s): E87.5 - Hyperkalemia Status: Acute Assessment and Plan: Patient was noted to have K 5.7 on admission. She was noted to be on multiple potassium supplements, which were held during her hospital stay. Her potassium level normalized and was 4.7 on discharge. Repeat BMP, Magnesium, and Phosphorus was ordered in 1 week following discharge. Her mother was instructed to hold potassium chloride and potassium citrate supplements until repeat labs. Potassium phosphate supplement was discussed and she was instructed to continue at this time. (5) Seizure disorder: Code(s): G40.909 - Epilepsy, unspecified, not intractable, without status epilepticus Status: Chronic Assessment and Plan: Patient's family reported increased seizure activity prior to admission. Neurology was consulted. Valproic acid level was 53.6 and within normal limits. Neurology was consulted. Medications remained unchanged. EEG was recommended if seizure activity increased. Seizure precautions were initiated. (6) Breast mass: Code(s): N63.0 - Unspecified lump in unspecified breast Status: Acute Assessment and Plan: Possible left breast mass was an incidental finding on CT chest during her hospitalization. Breast US inpatient was attempted but could not be obtained. Outpatient US order given at discharge. (7) Elevated TSH: Code(s): R79.89 - Other specified abnormal findings of blood chemistry Status: Acute Assessment and Plan: Subclinical hypothyroidism. Patient was found to have TSH 6.2, free T4 0.91 and within normal limits. Given age <65 yo and symptoms appeared to be improving with bipap and CO2 correction. Thyroid supplement was held at this time. Repeat thyroid panel is recommended in 6 weeks by PCP. (8) On tube feeding diet: Code(s): Z78.9 - Other specified health status Status: Chronic Assessment and Plan: Patient was returned to bolus TF at prior dosing at discharge.
== END 2021-07-26 14:36 | disposition home or self-care (01) | DRG 189 ==
LOC: ANHED 11:33 → ANH3MED 16:31
PROVIDERS: Emergency Medicine; Physician Assistant; Admitting Provider Internal Medicine; Emergency Provider Emergency Medicine; PCP Nurse Practitioner Family; Visit Provider Nurse Practitioner Family
DX: J96.22 Acute and chronic respiratory failure with hypercapnia (principal); F84.2 Rett's syndrome; J96.21 Acute and chronic respiratory failure with hypoxia; E16.2 Hypoglycemia, unspecified; E87.5 Hyperkalemia; G80.9 Cerebral palsy, unspecified; R50.9 Fever, unspecified; G40.909 Epilepsy, unspecified, not intractable, without status epilepticus; Z20.822 Contact with and (suspected) exposure to COVID-19; I10 Essential (primary) hypertension; K80.80 Other cholelithiasis without obstruction; M41.9 Scoliosis, unspecified; E03.8 Other specified hypothyroidism; N20.0 Calculus of kidney; N63.0 Unspecified lump in unspecified breast; R60.0 Localized edema; Z93.1 Gastrostomy status; Z98.1 Arthrodesis status; Z66 Do not resuscitate
CPT/HCPCS: 36415; 36600; 70450; 71045; 71250; 80048; 80053; 80164; 81001; 82607; 82728; 82746; 82805; 82948; 83036; 83540; 83550; 83735; 83880; 84145; 84439; 84443; 84480; 85025; 85027; 86140; 87040; 93005; 93970; 94002; 94003; 94660; 94762; 96365; 96366; 96372; 96374; 96376; 97161; 97165; 99285; A9270; C9803; G0378; J1650; J1940; J7030; J7070; U0003; U0005

== ENCOUNTER → 2021-08-10 09:09 | Outpatient (CLI) | payer MEDICARE, MEDICAID, SELFPAY ==
--- NOTE | ~2021-08-10 | US_ITS ---
Corrected Report Correction to Ordering Provider 08/10/2021 MARTÍNEZ US breast LT complete 08/10/2021 10:19 Indication: Possible mass seen on previous CT in the left breast. Procedure: High-resolution Limited ultrasound of the left breast. Patient is physically incapable of mammogram examination. Comparison: CT dated 07/21/2021 Findings: At 6:00, 2 cm from the nipple, there is heterogeneous mass with dense posterior shadowing. The margins are ill-defined and therefore measurements are made. Impression: 1: Heterogeneous mass of the left breast at 6:00, 2 cm from the nipple with posterior shadowing. BI-RADS CATEGORY 4-SUSPICIOUS ABNORMALITY RECOMMENDATION: Ultrasound-guided left breast biopsy recommended. Reviewed, dictated and finalized at location A. MTDD Impression: 1: Heterogeneous mass of the left breast at 6:00, 2 cm from the nipple with pos terior shadowing. BI-RADS CATEGORY 4-SUSPICIOUS ABNORMALITY RECOMMENDATION: Ultrasound-guided left breast biopsy recommended.
== END ==
PROVIDERS: PCP Nurse Practitioner Family; Visit Provider Nurse Practitioner Family
DX: N64.59 Other signs and symptoms in breast (principal); N63.25 Unspecified lump in the left breast, overlapping quadrants
CPT/HCPCS: 76641

== ENCOUNTER 2021-11-16 13:03 | Inpatient (IN) | payer MEDICARE, MEDICAID, SELFPAY ==
[2021-11-16] VITALS (23 sets, daily range): BP systolic 114–125; BP diastolic 81–89; PULSE 69–90; RESP 14–22; TEMP 35.9–36.7; O2SAT 90–100
--- NOTE | ~2021-11-16 | XR_ITS ---
EXAMINATION: XR abdomen/kub 1V DATE: 11/19/2021 10:55 INDICATION: Adynamic ileus. TECHNIQUE: A supine view of the abdomen on 2 radiographs was obtained. COMPARISON: Abdomen radiographs since 08/04 FINDINGS: The rectum is distended. The small bowel is normal in caliber. There is a gastrostomy tube in expected position. There is instrumentation of the spine and iliac bones and left femur. IMPRESSION: 1. Persistently distended rectum, consistent with adynamic ileus. Reviewed, dictated and finalized at location B.
--- NOTE | ~2021-11-16 | XR_ITS ---
EXAMINATION: XR abdomen/kub 1V DATE: 11/18/2021 08:07 INDICATION: Adynamic ileus. TECHNIQUE: A supine view of the abdomen was obtained. COMPARISON: CT abdomen and pelvis 11/16/2021 FINDINGS: The rectum is distended. The small bowel is normal in caliber. A gastrostomy tube is noted. There is instrumentation of the spine and iliac bones. There is instrumentation of proximal left fem ur. IMPRESSION: 1. Distended rectum, consistent with adynamic ileus. Reviewed, dictated and finalized at location B.
--- NOTE | ~2021-11-16 | US_ITS ---
EXAMINATION: US venous doppler [facility] DATE: 11/17/2021 09:08 INDICATION: Lower limb swelling. TECHNIQUE: Grayscale ultrasound images without and with compression and Doppler ultrasound images of the bilateral lower extremity veins were obtained. COMPARISON: None. FINDINGS: The visualized portions of right common femoral vein, profunda (deep) femoral vein, femoral vein, pop liteal vein, posterior tibial veins, peroneal veins and greater saphenous vein outflow are patent. The visualized portions of left common femoral vein, profunda femoral vein, femoral vein, popliteal v ein, posterior tibial veins, peroneal veins and greater saphenous vein outflow are patent. IMPRESSION: 1. No deep venous thrombosis in either lower limb. Reviewed, dictated and finalized at location A.
--- NOTE | ~2021-11-16 | CT_ITS ---
EXAMINATION: CT abdomen pelvis wo con DATE: 11/16/2021 15:00 INDICATION: Abdominal distention. TECHNIQUE: Computed tomography (CT) of the abdomen and pelvis was performed without intravenous contr ast. Automated exposure control and iterative reconstruction technique were employed. The dose-length product was 711.17 mGy-cm. COMPARISON: CT abdomen and pelvis 03/23/2019 FINDINGS: The visualized portions of the lung bases demonstrate mild atelectasis. No pleural effusion . The heart size is normal. No pericardial effusion. The liver and spleen are normal. There are galls tones in the gallbladder, which is normal in size. The pancreas and adrenal glands are normal. There are greater than 10 stones in right kidney measuring up to approximately 5 mm. There are 2 stones in left kidney with the larger measuring 3 mm. The bladder is distended. There is a gastrostomy tube in expected position. The rectum is distended, consistent with adynamic ileus. There are no dilated loop s of bowel. There are no pathologically enlarged lymph nodes. There is no free intraperitoneal fluid. There is internal fixation of left femur. There are changes of posterior fusion procedure involving the spine, sacrum, and iliac bones. IMPRESSION: 1. Bilateral nonobstructing kidney stones. 2. Distended rectum, consistent with adynamic ileus. 3. Cholelithiasis. Reviewed, dictated and finalized at location A.
--- NOTE | ~2021-11-16 | XR_ITS ---
XR chest 1V portable 11/16/2021 15:12 Indication: Shortness of breath with wheezing Procedure: AP portable chest Comparison: 07/23/2021 Findings: There is left basilar airspace disease. Heart size normal. No pleural effusion, edema or pn eumothorax. There are Russo rods overlying the thoracic spine. There is a complex irregular shap ed structure overlying the right humerus, possibly external to the patient. Clinically correlate. Impression: 1: Left basilar airspace disease may represent atelectasis and/or pneumonia. Reviewed, dictated and finalized at location A. Impression: 1: Left basilar airspace disease may represent atelectasis and/or pneumonia.
--- NOTE | 2021-11-16 13:32 | ECG_ITS ---
Measurements Intervals [place] Rate: 81 P: 63 OH: 103 QRS: 58 QRSD: 82 T: 63 QT: 362 QTc: 421 Interpretive Statements SINUS RHYTHM WITH SHORT OH INTERVAL NONSPECIFIC ST & T-WAVE ABNORMALITY BASELINE ARTIFACT COMPARED TO ECG 07/20/2021 11:17:32 NO SIGNIFICANT CHANGES Electronically Signed On 11-22-2021 11:14:37 CDT by Otis Franks M.D.
[2021-11-16 14:09] LABS: Basophils Percent Auto 0.2 % (0.2-1.2); Eosinophils Absolute Auto 0.4 K/mm3 (0-0.3); Eosinophils Percent Auto 4.9 % (0-4.4); Hematocrit 44.6 % (37.0-47.0); Hemoglobin 14.5 g/dL (12.0-15.0); Immature Granulocyte Absolute 0.03 K/mm3 (0.00-0.031); Immature Granulocyte Percent A 0.4 % (0-0.5); Lymphocytes Absolute Auto 1.78 K/mm3 (0.9-3.2); Lymphocytes Percent Auto 21.1 % (18.3-44.2); Mean Corpuscular HGB Conc 32.5 g/dl (32-36); Mean Corpuscular Volume 104.4 fl (80-100); Mean Platelet Volume 10.8 fl (7.4-10.4); Monocytes Percent Auto 11.8 % (2.6-8.5); Neutrophils Absolute Auto 5.2 K/mm3 (1.3-6.7); Neutrophils Percent Auto 61.6 % (45.5-73.1); Platelet Count Result 219 k/mm3 (150-375); Red Blood Count 4.27 M/mm3 (4.2-5.4); Red Cell Distribution Width 13.2 % (11.5-14.5); White Blood Count 8.5 K/mm3 (4.5-10.0)
[2021-11-16 14:17] LABS: Prothrombin Time 12.3 Seconds (11.1-14.7)
[2021-11-16 14:18] LABS: Alanine Aminotransferase 29 U/L (6-35); Albumin Level 4.1 g/dL (3.5-5.1); Alkaline Phosphatase 168 U/L (38-126); Anion Gap 9 mmol/L (8-16); Aspartate Amino Transferase 29 U/L (14-36); Bilirubin,Total 0.3 mg/dL (0.2-1.3); Blood Urea Nitrogen 14 mg/dL (7-17); Calcium 9.9 mg/dL (8.4-10.2); Carbon Dioxide 34 mmol/L (22-30); Chloride 88 mmol/L (98-107); Estimated Glomerular Filt Rate > 60; Glucose 69 mg/dL (65-110); Partial Thromboplastin Time 30.5 SECONDS (22.3-36.8); Potassium 4.8 mmol/L (3.4-5.0); Sodium 131 mmol/L (137-145)
[2021-11-16 14:30] LABS: Alveolar/Arterial O2 Gradient 9.5 mmHg; Carboxyhemoglobin 1.4 % THb (0-2.0); Fractional Inspired Oxygen 21 %; HCO3 ABG 31.6 mEq/l (22.0-26.0); Methemoglobin ABG 0.2 %THb (0-1.5); Oxygen Content ABG 19.6 %vol (16.0-22.0); Oxygen Saturation ABG 94.7 % (95.0-100.0); PCO2 ABG 54.2 mmHg (35.0-45.0); PO2 ABG 75.3 mmHg (80.0-100.0); PO2 FiO2 Ratio Arterial Blood 3.59 %; Reduced Hemoglobin 5.4 %THb (0-5.0); pH ABG 7.384 (7.350-7.450)
[2021-11-16 14:31] LABS: Modified Allen's Test Pass; Site Drawn LEFT RADIAL
[2021-11-16] MEDS: ACETAMINOPHEN ELIXIR 325 MG/10.15 ML UDC 650 MG FEED TUBE (15:36)
--- NOTE | 2021-11-16 17:04 | ED.SOB ---
HPI - SOB/Dyspnea General Chief Complaint: Shortness of Breath/Dyspnea Stated Complaint: shortness of breath, abd distention x2-3 days Time Seen by Provider: 11/16/21 13:24 History of Present Illness HPI Narrative: Patient is a 41-year-old female with cerebral palsy who presents to the ER with shortness of breath. Began 2 days ago. Patient's mother has been having her use her CPAP more than typical due to upper respiratory wheezing its been occurring. She has been using nebulizer treatments without improvement. Patient's mother is also noted increased abdominal distention. She has tried changing the PEG tube to release gas which does not work. Patient did have small bowel movement this morning. Patient is nonverbal at baseline no new fevers or cough according to family. Patient has had negative COVID swab at home. Related Data Home Medications Medication Instructions Recorded Confirmed fluoxetine 20 mg/5 mL (4 mg/mL) 20 mg feeding tube DAILY 03/23/19 07/20/21 oral solution losartan 25 mg tablet 25 mg feeding tube DAILY 03/23/19 07/20/21 medroxyprogesterone 150 mg/mL mg IM 03/23/19 intramuscular suspension nitrofurantoin 25 mg/5 mL oral 50 mg feeding tube DAILY 03/23/19 07/20/21 suspension nizatidine 150 mg capsule 150 mg feeding tube BID 03/23/19 07/20/21 valproic acid (as sodium salt) 250 500 mg feeding tube Q8H 03/23/19 07/20/21 mg/5 mL oral solution magnesium oxide 420 mg tablet 420 mg feeding tube BID 07/20/21 07/20/21 tlaiuohm-esro-yjlfqal gluconate 9 15 ml feeding tube DAILY 07/20/21 07/20/21 mg iron/15 mL (15 mL) oral liquid (Centrum) nutritional supplement-fiber oral 2 ea feeding tube HS 07/20/21 07/20/21 liquid potassium, sodium phosphates 280 1 packet feeding tube DAILY 07/20/21 07/20/21 mg-160 mg-250 mg oral powder packet (Phos-NaK) Allergies Allergy/AdvReac Type Severity Reaction Status Date / Time lamotrigine Allergy Unknown Rash Verified 11/16/21 13:32 Review of Systems Review of Systems: ROS unobtainable: Yes unobtainable due to medical condition PMFSH Past Medical History Medical History (Updated 11/16/21 @ 18:16 by Justice Mcqueen MD) Cerebral palsy Gall stones Kidney stones On tube feeding diet Rett syndrome Seizure disorder Surgical History Surgical History History of fundoplication History of open reduction and internal fixation (ORIF) procedure Repair of hip and leg fractures. History of percutaneous endoscopic gastrostomy History of spinal fusion Social History Social History Social History: The patient lives with her parents in [place]. She is dependent on all activities of daily living. No alcohol, tobacco, or drug use. Surrogate decision maker: Lisa Crowe, mother. Code status: Do not resuscitate. Okay with BiPAP. Spiritual care concerns: No Exam Narrative: GENERAL: Chronically ill-appearing, well-nourished and in no acute distress. HEAD: Normocephalic, atraumatic. EYES: PERRL and EOMI. ENT: Mucous membranes moist. CHEST: Clear to auscultation with referred upper respiratory breath sounds. No stridor. No respiratory distress. HEART: Regular rate and rhythm. Normal peripheral pulses. ABDOMEN: Nontender, distended and firm, tympanic to percussion,normal active bowel sounds. EXTREMITIES: Contractures upper and lower extremities.. SKIN: Warm, dry, no rash. NEURO: Awake and alert. At neurologic baseline. Course Course Emergency Course: There was some concern that patient has atelectasis on imaging despite her increased use of CPAP. Patient's adynamic ileus could be causing some difficulty in air movement. Will admit for observation, scheduled nebulizer treatments, and provide some lactulose to help stimulate bowel movements. Vital Signs Vital signs: Vital Signs Temperature 98.0 F 11/16/21 13:23 Pulse Rate 83
--- NOTE | 2021-11-16 18:00 | PM.IMHP ---
H&P: HPI History of Present Illness Date/Time: 11/16/21 18:00 Chief Complaint: Cough and wheezing. Narrative: This is a 41-year-old female with history of cerebral palsy, hypertension, seizure disorder, kidney stones, gallstones, and respiratory failure on BiPAP at nighttime who presented to the ED for evaluation of cough and wheezing. She is nonverbal and thus all of the following history is obtained from her mother at bedside. She is dependent on activities of daily living and gets a majority of her calories through a PEG button though on occasion she does drink liquids and eat ice cream however she does on occasion have coughing episodes though nothing significant as of recent. The last 3 to 4 days however she has had a nonproductive cough and mother has been hearing her wheeze. Her mother is a former respiratory therapist and she has been giving her nebulizer treatments which have not seemed to help. She has also noticed that the patient's abdomen has been increasingly distended the last several days and that her stool output has decreased. Despite Dulcolax suppository, MiraLax, and ultimately an enema, she has continued to have abdominal distension and not good bowel movements, passing only a small hard stool this morning. Her vital signs were stable on arrival to the emergency department. Chest x-ray showed left basilar airspace disease which had been noticed on prior images. CT of the abdomen pelvis showed bilateral nonobstructing kidney stones, cholelithiasis, and a distended rectum consistent with adynamic ileus. She is being admitted in this setting for further treatment and monitoring. She has not had fever, chills, or sweats. There has been no vomiting or diarrhea. No sick contacts. Review of Systems Review of Systems: Unable to obtain, the patient is nonverbal. [facility] Past Medical History Medical History (Updated 11/16/21 @ 23:29 by Mattie Funez PA-C) Cerebral palsy Chronic hypercapnic respiratory failure On BiPAP at nighttime. Gall stones Kidney stones Rett syndrome Seizure disorder Surgical History Surgical History History of fundoplication History of open reduction and internal fixation (ORIF) procedure Repair of hip and leg fractures. History of percutaneous endoscopic gastrostomy History of spinal fusion Family History Family History Other Family history non-contributory Social History Social History (Updated 11/16/21 @ 23:25 by Mattie Funez PA-C) Social History: The patient lives with her parents in [place]. She is dependent on all activities of daily living. No alcohol, tobacco, or drug use. Surrogate decision maker: Lisa Crowe, mother. Code status: Do not resuscitate. Okay with BiPAP. Meds Home Medications and Allergies Home Medications Medication Instructions Recorded Confirmed Type fluoxetine 20 mg/5 mL (4 mg/mL) 20 mg feeding tube DAILY 03/23/19 11/16/21 History oral solution nitrofurantoin 25 mg/5 mL oral 50 mg feeding tube DAILY 03/23/19 11/16/21 History suspension nizatidine 150 mg capsule 150 mg feeding tube BID 03/23/19 11/16/21 History valproic acid (as sodium salt) 250 500 mg feeding tube Q8H 03/23/19 11/16/21 History mg/5 mL oral solution magnesium oxide 420 mg tablet 420 mg feeding tube BID 07/20/21 11/16/21 History uyjaghcx-efct-suzktnm gluconate 9 15 ml feeding tube DAILY 07/20/21 11/16/21 History mg iron/15 mL (15 mL) oral liquid (Centrum) nutritional supplement-fiber oral 2 ea feeding tube HS 07/20/21 11/16/21 History liquid potassium, sodium phosphates 280 1 packet feeding tube DAILY 07/20/21 11/16/21 History mg-160 mg-250 mg oral powder packet (Phos-NaK) albuterol sulfate 2.5 mg/3 mL 2.5 mg (3 mL) inhalation Q12HRT 07/26/21 11/16/21 Rx (0.083 %) solution for nebulization PRN Congestion #75 mL n
--- NOTE | 2021-11-16 18:03 | PC.NURSE ---
Pt suctioned intermittently with yankeur. Pt is able to cough mucus into back of throat.
[2021-11-16] MEDS: LACTULOSE 20 GM/30 ML UDC FEED TUBE (18:22)
[2021-11-16] MEDS: SODIUM CHLORIDE 0.9% IV 1,000 ML 125 ML IV CONT (20:23)
[2021-11-16] MEDS: IPRATROPIUM BR 0.02% INH SOLN 0.5 MG/2.5 ML VIAL INHALATION (20:41)
[2021-11-16] MEDS: ALBUTEROL SULFATE NEB 2.5 MG/3 ML INH 5 MG INHALATION (20:41)
--- NOTE | 2021-11-16 20:53 | ADMGEN ---
This patient, Julia Crowe, was admitted to [facility] Surg Room 300-01. Patient/family oriented to hospital policies and general routines including ID bracelet, bed and alarms, visiting hours, pain management, procedures, bathroom and other care routines, personal items, smoking policy, room service/diet, and visiting hours. Information on how to activate the Rapid Response Team has been discussed. Patient/Family are encouraged to report perceived risks to care and to ask questions if they do not understand what they are told or what they should do.
[2021-11-17] VITALS (19 sets, daily range): BP systolic 126–186; BP diastolic 65–133; PULSE 80–110; RESP 14–20; TEMP 36.3–36.6; O2SAT 92–97
[2021-11-17] MEDS: ALBUTEROL SULFATE NEB 2.5 MG/3 ML INH 5 MG INHALATION ×4 (02:26→19:53)
[2021-11-17] MEDS: IPRATROPIUM BR 0.02% INH SOLN 0.5 MG/2.5 ML VIAL INHALATION ×4 (02:27→19:54)
[2021-11-17 06:26] LABS: Anion Gap 11 mmol/L (8-16); Blood Urea Nitrogen 11 mg/dL (7-17); Calcium 9.6 mg/dL (8.4-10.2); Carbon Dioxide 30 mmol/L (22-30); Chloride 94 mmol/L (98-107); Estimated Glomerular Filt Rate > 60; Glucose 75 mg/dL (65-110); Magnesium 1.7 mg/dL (1.6-2.3); Phosphorus 5.5 mg/dL (2.5-4.5); Potassium 4.5 mmol/L (3.4-5.0); Sodium 135 mmol/L (137-145)
[2021-11-17] MEDS: MULTIVIT W/ IRON, MINERALS 15 ML LIQUID (*BKC) FEED TUBE (08:46)
[2021-11-17] MEDS: MAGNESIUM OXIDE 400 MG TABLET FEED TUBE ×2 (08:47→18:14)
[2021-11-17] MEDS: FLUoxetine HCL 20 MG CAPSULE FEED TUBE (08:47)
[2021-11-17] MEDS: ENOXAPARIN 40 MG/0.4 ML SYRINGE SUB-Q (08:47)
[2021-11-17] MEDS: VALPROIC ACID LIQ 250 MG/5 ML ORAL SOLUTION UDC 500 MG FEED TUBE ×3 (08:47→21:05)
[2021-11-17] MEDS: FAMOTIDINE 20 MG TABLET FEED TUBE ×2 (08:47→21:04)
[2021-11-17] MEDS: NITROFURANTOIN MACROCRYSTALS 50 MG CAP FEED TUBE (08:47)
[2021-11-17] MEDS: POTASSIUM/PHOSPHORUS/SODIUM 1.5 GM PACKET 1 PACKET FEED TUBE (08:47)
--- NOTE | 2021-11-17 10:06 | PCSTNOTE ---
Order received for bedside swallowing evaluation. Patient's mother present bedside. Per mother, patient has long history of swallowing difficulties and at home she sometimes receives ice cream, soda, or crackers but that she has been refusing these more and more. She attends school daily and the staff at her school no longer give her anything orally. Her current nutritional and hydration needs are met via g-tube. Based on her history, interview with mother, and her current condition she is not a candidate for a bedside swallowing evaluation at this time. Thank you for the referral of this patient.
[2021-11-17 10:58] LABS: Free T4 Free Thyroxine Reflex 1.04 ng/dL (0.78-2.19)
--- NOTE | 2021-11-17 12:49 | PM.IMPN ---
Progress Note: A&P Assessment and Plan (1) Adynamic ileus: Code(s): K56.0 - Paralytic ileus Status: Acute Assessment and Plan: patient did have BM yesterday. Will continue lactulose while in the hospital to continue bowel movements. (2) Wheezing: Code(s): R06.2 - Wheezing Status: Acute Assessment and Plan: No wheezing noted this morning. Monitor. (3) Dysphagia: Code(s): R13.10 - Dysphagia, unspecified Status: Acute Assessment and Plan: Continue tube feeds nursing is supposed to speak with family to see with the patient was a bleed home prior to coming in the hospital. I am okay with resuming when she was doing at home. (4) Hyponatremia: Code(s): E87.1 - Hypo-osmolality and hyponatremia Status: Acute Assessment and Plan: Resolved (5) Chronic hypercapnic respiratory failure: Code(s): J96.12 - Chronic respiratory failure with hypercapnia Status: Acute Assessment and Plan: monitor (6) Seizure disorder: Code(s): G40.909 - Epilepsy, unspecified, not intractable, without status epilepticus Status: Chronic Subjective Date/time seen: 11/17/21 12:49 no new issues Exam Narrative: General: Chronically ill-appearing female in the semi-Gallo position in bed. Weight: 62.3 kilograms. HEENT: PERRL, EOMI. Sclera anicteric. Tacky mucous membranes. Neck: Supple. No obvious lymphadenopathy or jugular venous distention. Respiratory: Respirations are nonlabored. Lung sounds are diminished due to poor effort. Scattered end-expiratory wheezes which tend to improve with cough which is nonproductive. Cardiovascular: Regular rate and rhythm with S1-S2. Gastrointestinal: Abdomen is slightly firm and distended with increased tympany throughout the right side of the abdomen. She does wince with palpation along the right side of the abdomen. No guarding or rebound tenderness. Hypoactive bowel sounds. G-tube site in the upper abdomen is clean, dry, and intact. Skin: Warm and dry. No rash or lesions on limited exam. Extremities: No cyanosis or clubbing. 1+ pretibial edema bilaterally. Neurological: Alert. Unable to assess orientation as she is nonverbal. Psychiatric: Unable to assess. Objective Data Vital Signs Vital Signs: Vital Signs - 24 hr 11/16/21 13:23 11/16/21 13:31 11/16/21 13:34 Temperature 98.0 F Pulse Rate 83 78 78 Respiratory Rate 18 19 Blood Pressure 125/81 Pulse Oximetry 99 97 Oxygen Delivery Room Air 11/16/21 13:45 11/16/21 14:13 11/16/21 14:15 Temperature Pulse Rate 81 84 78 Respiratory Rate 20 19 17 Blood Pressure Pulse Oximetry 98 Oxygen Delivery 11/16/21 14:41 11/16/21 15:30 11/16/21 15:50 Temperature Pulse Rate 84 76 80 Respiratory Rate 18 18 18 Blood Pressure Pulse Oximetry 97 96 100 Oxygen Delivery 11/16/21 16:00 11/16/21 16:15 11/16/21 16:30 Temperature Pulse Rate 76 80 72 Respiratory Rate 14 15 15 Blood Pressure Pulse Oximetry 100 97 98 Oxygen Delivery 11/16/21 16:45 11/16/21 17:00 11/16/21 17:15 Temperature Pulse Rate 73 73 77 Respiratory Rate 17 18 14 Blood Pressure Pulse Oximetry 96 96 96 Oxygen Delivery 11/16/21 17:39 11/16/21 17:45 11/16/21 18:38 Temperature Pulse Rate 69 70 77 Respiratory Rate 19 18 18 Blood Pressure Pulse Oximetry 97 97 97 Oxygen Delivery 11/16/21 20:41 11/16/21 20:53 11/16/21 20:41 Temperature Pulse Rate 84 90 Respiratory Rate 20 22 H Blood Pressure Pulse Oximetry 94 Oxygen Delivery Room Air 11/16/21 21:36 11/16/21 21:45 11/16/21 22:30 Temperature 96.6 F L Pulse Rate 70 80 83 Respiratory Rate 20 18 17 Blood Pressure 114/89 Pulse Oximetry 90 96 97 Oxygen Delivery 11/17/21 00:00 11/17/21 02:27 11/17/21 02:32 Temperature Pulse Rate 95 90 81 Respiratory Rate 14 15 Blood Pressure Pulse Oximetry 96 Oxygen Delive
[2021-11-17] MEDS: LACTULOSE 20 GM/30 ML UDC PO (13:09)
[2021-11-17] MEDS: ACETAMINOPHEN 325 MG TABLET 650 MG FEED TUBE ×2 (13:10→21:04)
[2021-11-17 13:51] LABS: Total Triiodothyronine (T3) 3.75 NG/ML (0.97-1.69)
[2021-11-17] MEDS: CHLORTHALIDONE 12.5 MG TAB PO (15:08)
[2021-11-17 17:26] LABS: Glucose Point of Care 73 mg/dl (65-105)
[2021-11-18] VITALS (19 sets, daily range): BP systolic 117–188; BP diastolic 66–166; PULSE 71–94; RESP 15–20; TEMP 36.4–36.5; O2SAT 95–97; BMI 29.7
--- NOTE | 2021-11-18 00:06 | PCRCNOTE ---
RT spoke with pt's mother during 1999 UPD treatment. Pt's mother stated she would tell the RN to call RT when pt was ready to be put on AVAPS. RT did 0000 rounding and found the pt to be asleep. RT asked pt's mother if the pt would like to go on AVAPS at this time. Pt's mother stated that she was resting comfortably and we can try and put the pt on AVAPS during 199 UPD treatment.
[2021-11-18] MEDS: IPRATROPIUM BR 0.02% INH SOLN 0.5 MG/2.5 ML VIAL INHALATION ×4 (01:38→20:18)
[2021-11-18] MEDS: ALBUTEROL SULFATE NEB 2.5 MG/3 ML INH 5 MG INHALATION ×4 (01:38→20:18)
--- NOTE | 2021-11-18 01:56 | PCRCNOTE ---
Spoke with pt's mother and pt's mother does not want her to use the V60 due to the uncomfortableness of the pt.
[2021-11-18] MEDS: VALPROIC ACID LIQ 250 MG/5 ML ORAL SOLUTION UDC 500 MG FEED TUBE ×3 (05:15→21:17)
[2021-11-18 05:38] LABS: Glucose Point of Care 126 mg/dl (65-105)
[2021-11-18 07:19] LABS: Glucose Point of Care 106 mg/dl (65-105)
[2021-11-18 08:38] LABS: Basophils Percent Auto 0.4 % (0.2-1.2); Eosinophils Absolute Auto 0.2 K/mm3 (0-0.3); Eosinophils Percent Auto 3.7 % (0-4.4); Hematocrit 40.4 % (37.0-47.0); Hemoglobin 12.8 g/dL (12.0-15.0); Immature Granulocyte Absolute 0.01 K/mm3 (0.00-0.031); Immature Granulocyte Percent A 0.2 % (0-0.5); Lymphocytes Absolute Auto 2.04 K/mm3 (0.9-3.2); Lymphocytes Percent Auto 39.6 % (18.3-44.2); Mean Corpuscular HGB Conc 31.7 g/dl (32-36); Mean Corpuscular Hemoglobin 34.1 pg (26-34); Mean Corpuscular Volume 107.7 fl (80-100); Mean Platelet Volume 10.8 fl (7.4-10.4); Monocytes Absolute Auto 0.7 K/mm3 (0.1-0.6); Monocytes Percent Auto 13.4 % (2.6-8.5); Neutrophils Absolute Auto 2.2 K/mm3 (1.3-6.7); Neutrophils Percent Auto 42.7 % (45.5-73.1); Nucleated Red Blood Cells Perc 0.4 % (0.0-0.2); Platelet Count Result 274 k/mm3 (150-375); Red Blood Count 3.75 M/mm3 (4.2-5.4); Red Cell Distribution Width 13.8 % (11.5-14.5); White Blood Count 5.2 K/mm3 (4.5-10.0)
[2021-11-18] MEDS: BISACODYL 10 MG SUPPOSITORY RECTAL (08:58)
[2021-11-18] MEDS: ENOXAPARIN 40 MG/0.4 ML SYRINGE SUB-Q (08:59)
[2021-11-18] MEDS: FAMOTIDINE 20 MG TABLET FEED TUBE ×2 (08:59→21:17)
[2021-11-18] MEDS: MULTIVIT W/ IRON, MINERALS 15 ML LIQUID (*BKC) FEED TUBE (08:59)
[2021-11-18] MEDS: POTASSIUM/PHOSPHORUS/SODIUM 1.5 GM PACKET 1 PACKET FEED TUBE (08:59)
[2021-11-18] MEDS: FLUoxetine HCL 20 MG CAPSULE FEED TUBE (09:00)
[2021-11-18] MEDS: CHLORTHALIDONE 12.5 MG TAB PO (09:00)
[2021-11-18] MEDS: MAGNESIUM OXIDE 400 MG TABLET FEED TUBE ×2 (09:00→18:34)
[2021-11-18] MEDS: NITROFURANTOIN MACROCRYSTALS 50 MG CAP FEED TUBE (09:00)
[2021-11-18 09:06] LABS: Anion Gap 7 mmol/L (8-16); Blood Urea Nitrogen 10 mg/dL (7-17); Calcium 9.3 mg/dL (8.4-10.2); Carbon Dioxide 29 mmol/L (22-30); Chloride 92 mmol/L (98-107); Estimated Glomerular Filt Rate > 60; Glucose 105 mg/dL (65-110); Potassium 4.6 mmol/L (3.4-5.0); Sodium 128 mmol/L (137-145)
--- NOTE | 2021-11-18 09:17 | WPDGICN ---
Assessment and Plan Assessment and plan (1) Chronic hypercapnic respiratory failure: Code(s): J96.12 - Chronic respiratory failure with hypercapnia Status: Acute Assessment and Plan: Patient on BiPAP. This likely contributes to air in the stomach. Current respiratory status appears to have stabilized. (2) Constipation: Code(s): K59.00 - Constipation, unspecified Status: Acute Assessment and Plan: Patient appears to have constipation likely related to decreased mobility. Plan to give laxatives daily such as lactulose. If necessary MiraLax can supplement this. Dulcolax suppositories may be of additional benefit should be given daily at this point. (3) Cerebral palsy: Code(s): G80.9 - Cerebral palsy, unspecified Status: Chronic (4) On tube feeding diet: Code(s): Z78.9 - Other specified health status Status: Chronic Assessment and Plan: Patient with history of PEG tube placed elsewhere appears to be in good position. Plan for laxatives be given through the G-tube on a daily basis we will start with lactulose and MiraLax if necessary. Tube feedings have been reimplanted currently tolerated by the patient. We will not change her current regime. GI Consult Note Consult date/time: 11/18/21 09:17 Reason for consult: Constipation. HPI: Julia Crowe is a 41 year old female I am asked to see at the request of the hospitalist service. Patient is nonverbal and history is obtained from patient's mother who is at bedside. Patient has a history of cerebral palsy, seizure disorder, kidney stones and respiratory difficulties. She remains on BiPAP at bedtime. Patient has a distant history of a PEG tube. She receives majority of nutrition in this fashion. She is able to drink liquids and eat ice cream intermittently. Patient recently has had a nonproductive cough. She has been treated by her mother who is a retired respiratory therapist. Over the last several days her abdomen is become somewhat distended. She has had less frequent stools and felt to be constipated. For this reason taken to the emergency room. Patient was given laxatives with good response she now is having bowel movements. Her respiratory rate has decreased apparently has normalized. Review of Systems Review of Systems: ROS unobtainable: Yes unobtainable due to mental status PMFSH Past Medical History Medical History (Updated 11/18/21 @ 09:20 by Austin Royal MD) Cerebral palsy Chronic hypercapnic respiratory failure On BiPAP at nighttime. Gall stones Kidney stones Rett syndrome Seizure disorder Surgical History Surgical History History of fundoplication History of open reduction and internal fixation (ORIF) procedure Repair of hip and leg fractures. History of percutaneous endoscopic gastrostomy History of spinal fusion Family History Family History Other Family history non-contributory Social History Social History (Updated 11/16/21 @ 23:25 by Mattie Funez PA-C) Social History: The patient lives with her parents in [place]. She is dependent on all activities of daily living. No alcohol, tobacco, or drug use. Surrogate decision maker: Lisaerin Crowe, mother. Code status: Do not resuscitate. Okay with BiPAP. Meds Home Medications and Allergies Home Medications Medication Instructions Recorded Confirmed Type fluoxetine 20 mg/5 mL (4 mg/mL) 20 mg feeding tube DAILY 03/23/19 11/16/21 History oral solution nitrofurantoin 25 mg/5 mL oral 50 mg feeding tube DAILY 03/23/19 11/16/21 History suspension nizatidine 150 mg capsule 150 mg feeding tube BID 03/23/19 11/16/21 History valproic acid (as sodium salt) 250 500 mg feeding tube Q8H 03/23/19 11/16/21 History mg/5 mL oral solution magnesium oxide 420 mg tablet
--- NOTE | 2021-11-18 10:49 | PM.IMPN ---
Progress Note: A&P Assessment and Plan (1) Adynamic ileus: Code(s): K56.0 - Paralytic ileus Status: Acute Assessment and Plan: patient did have BM yesterday. Will continue lactulose while in the hospital to continue bowel movements. (2) Wheezing: Code(s): R06.2 - Wheezing Status: Acute Assessment and Plan: No wheezing noted this morning. Monitor. (3) Dysphagia: Code(s): R13.10 - Dysphagia, unspecified Status: Acute Assessment and Plan: Continue tube feeds nursing is supposed to speak with family to see with the patient was a bleed home prior to coming in the hospital. I am okay with resuming when she was doing at home. (4) Hyponatremia: Code(s): E87.1 - Hypo-osmolality and hyponatremia Status: Acute Assessment and Plan: Resolved (5) Chronic hypercapnic respiratory failure: Code(s): J96.12 - Chronic respiratory failure with hypercapnia Status: Acute Assessment and Plan: monitor (6) Seizure disorder: Code(s): G40.909 - Epilepsy, unspecified, not intractable, without status epilepticus Status: Chronic Subjective Date/time seen: 11/18/21 10:49 Small BM overnight Exam Narrative: General: Chronically ill-appearing female in the semi-Gallo position in bed. Weight: 62.3 kilograms. HEENT: PERRL, EOMI. Sclera anicteric. Tacky mucous membranes. Neck: Supple. No obvious lymphadenopathy or jugular venous distention. Respiratory: Respirations are nonlabored. Lung sounds are diminished due to poor effort. Scattered end-expiratory wheezes which tend to improve with cough which is nonproductive. Cardiovascular: Regular rate and rhythm with S1-S2. Gastrointestinal: Abdomen is slightly firm and distended with increased tympany throughout the right side of the abdomen. She does wince with palpation along the right side of the abdomen. No guarding or rebound tenderness. Hypoactive bowel sounds. G-tube site in the upper abdomen is clean, dry, and intact. Skin: Warm and dry. No rash or lesions on limited exam. Extremities: No cyanosis or clubbing. 1+ pretibial edema bilaterally. Neurological: Alert. Unable to assess orientation as she is nonverbal. Psychiatric: Unable to assess. Objective Data Vital Signs Vital Signs: Vital Signs - 24 hr 11/17/21 13:43 11/17/21 14:00 11/17/21 16:34 Temperature 97.4 F L Pulse Rate 80 95 Respiratory Rate 14 16 Blood Pressure 186/133 H 131/71 Pulse Oximetry 92 Oxygen Delivery 11/17/21 12:00 11/17/21 16:00 11/17/21 19:57 Temperature Pulse Rate 97 88 92 Respiratory Rate 15 Blood Pressure Pulse Oximetry Oxygen Delivery 11/17/21 19:58 11/17/21 20:12 11/17/21 21:24 Temperature 97.5 F L Pulse Rate 93 93 Respiratory Rate 15 20 Blood Pressure 126/65 Pulse Oximetry 97 92 Oxygen Delivery Room Air 11/17/21 20:00 11/18/21 01:38 11/18/21 01:55 Temperature Pulse Rate 82 88 Respiratory Rate 15 15 Blood Pressure Pulse Oximetry Oxygen Delivery Room Air 11/17/21 20:00 11/18/21 00:00 11/18/21 04:00 Temperature Pulse Rate 98 88 88 Respiratory Rate Blood Pressure Pulse Oximetry Oxygen Delivery 11/18/21 06:00 11/18/21 09:45 11/18/21 09:47 Temperature 97.5 F L Pulse Rate 71 85 86 Respiratory Rate 16 16 Blood Pressure 117/68 Pulse Oximetry 97 96 Oxygen Delivery Room Air Intake/Output Intake/Output: Intake & Output 11/15/21 11/16/21 11/17/21 11/18/21 23:59 23:59 23:59 23:59 Intake Total 0 Balance 0 Meds/Results Medications: Active Medications Generic Name Dose Route Start Last Admin Trade Name Andria PRN Reason Stop Dose Admin Acetaminophen 650 mg 11/17/21 11:29 11/17/21 21:04 Acetaminophen 325 Mg Tablet FEED TUBE 650 mg Q6H PRN Administration Mild Pain (1-3) or Fever Albuterol 5 mg 11/16/21 20:00 11/18/21 09:45 Albuterol Sulfa
[2021-11-18] MEDS: ACETAMINOPHEN 325 MG TABLET 650 MG FEED TUBE (11:24)
[2021-11-18 11:46] LABS: Glucose Point of Care 88 mg/dl (65-105)
[2021-11-19 02:02] VITALS: PULSE 88; RESP 18
[2021-11-19] MEDS: IPRATROPIUM BR 0.02% INH SOLN 0.5 MG/2.5 ML VIAL INHALATION ×2 (02:02→08:15)
[2021-11-19] MEDS: ALBUTEROL SULFATE NEB 2.5 MG/3 ML INH 5 MG INHALATION ×2 (02:02→08:14)
[2021-11-19 02:12] VITALS: PULSE 90; RESP 18
--- NOTE | 2021-11-19 02:52 | PCRCNOTE ---
Patient's mother did not want her daughter to go on [facility] last night due to the mask being uncomfortable for patient to wear.
[2021-11-19 03:14] LABS: Glucose Point of Care 110 mg/dl (65-105)
[2021-11-19] MEDS: VALPROIC ACID LIQ 250 MG/5 ML ORAL SOLUTION UDC 500 MG FEED TUBE (05:37)
[2021-11-19 06:00] VITALS: BP 113/68; PULSE 87; RESP 16; TEMP 36.6; O2SAT 96
[2021-11-19 06:22] LABS: Glucose Point of Care 147 mg/dl (65-105)
[2021-11-19 08:10] VITALS: PULSE 90; RESP 18
[2021-11-19 08:20] VITALS: PULSE 90; RESP 18
--- NOTE | 2021-11-19 08:59 | WPDGIPROGNO ---
Progress Note: A&P Assessment and Plan (1) Constipation: Code(s): K59.00 - Constipation, unspecified Status: Acute Assessment and Plan: Patient admitted with apparent constipation. Now resolved with laxatives and enemas. Plan to continue laxatives such as MiraLax on a routine basis after discharge. To collect suppositories may be beneficial on a p.r.n. basis. (2) Dysphagia: Code(s): R13.10 - Dysphagia, unspecified Status: Acute Assessment and Plan: Patient apparently not able eat sweep safely although she does get ice cream occasionally. Tolerating tube feedings presently. (3) Cerebral palsy: Code(s): G80.9 - Cerebral palsy, unspecified Status: Chronic (4) On tube feeding diet: Code(s): Z78.9 - Other specified health status Status: Chronic Assessment and Plan: Resume tube feedings as previously prescribed. Appears to be tolerating them adequately at this time. Patient may be discharged from my perspective. Subjective Date/time seen: 11/19/21 08:59 Patient arousable and alert this morning. Remains nonverbal. Apparently at baseline according to her mother who is with her this morning. Patient has had additional bowel movements with Dulcolax suppositories. Tolerating tube feedings. Review of Systems Review of Systems: ROS unobtainable: Yes unobtainable due to mental status Exam Narrative: Physical exam reveals patient to be alert. Vital signs are stable. HEENT exam reveals no icterus. Lungs are clear. Abdomen bowel sounds are present and active. Peg tube site well healed and left upper quadrant. Objective Data Vital Signs Vital Signs: Vital Signs - 24 hr 11/18/21 09:45 11/18/21 09:47 11/18/21 09:00 Temperature Pulse Rate 85 86 Respiratory Rate 16 Blood Pressure Pulse Oximetry 96 Oxygen Delivery Room Air Room Air 11/18/21 14:21 11/18/21 14:35 11/18/21 14:00 Temperature 97.5 F L Pulse Rate 84 88 91 Respiratory Rate 16 16 20 Blood Pressure Pulse Oximetry 96 Oxygen Delivery 11/18/21 14:58 11/18/21 15:27 11/18/21 12:00 Temperature Pulse Rate 85 Respiratory Rate Blood Pressure 188/166 H 126/66 Pulse Oximetry Oxygen Delivery 11/18/21 16:00 11/18/21 20:19 11/18/21 20:33 Temperature Pulse Rate 94 91 91 Respiratory Rate 18 Blood Pressure Pulse Oximetry 95 Oxygen Delivery Room Air 11/18/21 20:34 11/18/21 21:38 11/18/21 20:00 Temperature 97.7 F Pulse Rate 89 93 Respiratory Rate 18 16 Blood Pressure 131/78 Pulse Oximetry 96 Oxygen Delivery Room Air 11/19/21 02:02 11/19/21 02:12 11/19/21 06:00 Temperature 97.8 F Pulse Rate 88 90 87 Respiratory Rate 18 18 16 Blood Pressure 113/68 Pulse Oximetry 96 Oxygen Delivery 11/19/21 08:10 11/19/21 08:20 Temperature Pulse Rate 90 90 Respiratory Rate 18 18 Blood Pressure Pulse Oximetry Oxygen Delivery Intake/Output Intake/Output: Intake & Output 11/16/21 11/17/21 11/18/21 11/19/21 23:59 23:59 23:59 23:59 Intake Total 100 100 Balance 100 100 Meds/Results Medications: Active Medications Generic Name Dose Route Start Last Admin Trade Name Freq PRN Reason Stop Dose Admin Acetaminophen 650 mg 11/17/21 11:29 11/18/21 11:24 Acetaminophen 325 Mg Tablet FEED TUBE 650 mg Q6H PRN Administration Mild Pain (1-3) or Fever Albuterol 5 mg 11/16/21 20:00 11/19/21 08:14 Albuterol Sulfate Neb 2.5 Mg/3 Ml Inh INHALATION 5 mg Q6HRT DOMINIK Administration Bisacodyl 10 mg 11/18/21 09:00 11/18/21 08:58 Bisacodyl 10 Mg Suppository RECTAL 10 mg QAM DOMINIK Administration Chlorthalidone 12.5 mg 11/17/21 14:48 11/18/21 09:00 Chlorthalidone 12.5 Mg Tab PO 12.5 mg DAILY DOMINIK Administration Enoxaparin Sodium 40 mg 11/17/21 09:00 11/18/21 08:59 Enoxaparin 40 Mg/0.4 Ml Syringe SUB-Q 40 mg DAILY DOMINIK Administration Famotidine
[2021-11-19 09:04] LABS: Anion Gap 11 mmol/L (8-16); Blood Urea Nitrogen 10 mg/dL (7-17); Calcium 9.6 mg/dL (8.4-10.2); Carbon Dioxide 31 mmol/L (22-30); Chloride 87 mmol/L (98-107); Estimated Glomerular Filt Rate > 60; Glucose 75 mg/dL (65-110); Potassium 4.6 mmol/L (3.4-5.0); Sodium 129 mmol/L (137-145)
[2021-11-19] MEDS: CHLORTHALIDONE 12.5 MG TAB PO (09:55)
[2021-11-19] MEDS: POTASSIUM/PHOSPHORUS/SODIUM 1.5 GM PACKET 1 PACKET FEED TUBE (09:55)
[2021-11-19] MEDS: FLUoxetine HCL 20 MG CAPSULE FEED TUBE (09:55)
[2021-11-19] MEDS: FAMOTIDINE 20 MG TABLET FEED TUBE (09:55)
[2021-11-19] MEDS: MULTIVIT W/ IRON, MINERALS 15 ML LIQUID (*BKC) FEED TUBE (09:55)
[2021-11-19] MEDS: ENOXAPARIN 40 MG/0.4 ML SYRINGE SUB-Q (09:55)
[2021-11-19] MEDS: BISACODYL 10 MG SUPPOSITORY RECTAL (09:55)
[2021-11-19] MEDS: NITROFURANTOIN MACROCRYSTALS 50 MG CAP FEED TUBE (09:55)
[2021-11-19] MEDS: MAGNESIUM OXIDE 400 MG TABLET FEED TUBE (09:56)
--- NOTE | 2021-11-19 10:21 | PM.DS ---
DS: Admitting Diagnosis Discharge Date 11/19/21 Admitting Diagnosis constipation, ileus DS: Discharge Diagnosis Discharge Diagnosis (1) Adynamic ileus: Code(s): K56.0 - Paralytic ileus Status: Acute Assessment and Plan: patient did have BM yesterday. Will continue lactulose while in the hospital to continue bowel movements. (2) Wheezing: Code(s): R06.2 - Wheezing Status: Acute Assessment and Plan: No wheezing noted this morning. Monitor. (3) Dysphagia: Code(s): R13.10 - Dysphagia, unspecified Status: Acute Assessment and Plan: Continue tube feeds nursing is supposed to speak with family to see with the patient was a bleed home prior to coming in the hospital. I am okay with resuming when she was doing at home. (4) Hyponatremia: Code(s): E87.1 - Hypo-osmolality and hyponatremia Status: Acute Assessment and Plan: Resolved (5) Chronic hypercapnic respiratory failure: Code(s): J96.12 - Chronic respiratory failure with hypercapnia Status: Acute Assessment and Plan: monitor (6) Seizure disorder: Code(s): G40.909 - Epilepsy, unspecified, not intractable, without status epilepticus Status: Chronic DS: Summary Hospital Course Hospital Course: patient is a 41-year-old female with cerebral palsy came in with constipation/ileus. She has chronic abdominal distention. She is also on tube feeds. GI was consulted and recommended p.r.n. medications for constipation. Patient has had a couple bowel movements each day over the last 2 days. She remains in abdominal distention which is chronic for her. P.r.n. medications will be Toña prescribed on discharge but otherwise she can be discharged. Time Spent with Patient Time attestation: Total time spent providing and/or coordinating discharge services: Exam Narrative: General: Chronically ill-appearing female in the semi-Gallo position in bed. Weight: 62.3 kilograms. HEENT: PERRL, EOMI. Sclera anicteric. Tacky mucous membranes. Neck: Supple. No obvious lymphadenopathy or jugular venous distention. Respiratory: Respirations are nonlabored. Lung sounds are diminished due to poor effort. Scattered end-expiratory wheezes which tend to improve with cough which is nonproductive. Cardiovascular: Regular rate and rhythm with S1-S2. Gastrointestinal: Abdomen is slightly firm and distended with increased tympany throughout the right side of the abdomen. She does wince with palpation along the right side of the abdomen. No guarding or rebound tenderness. Hypoactive bowel sounds. G-tube site in the upper abdomen is clean, dry, and intact. Skin: Warm and dry. No rash or lesions on limited exam. Extremities: No cyanosis or clubbing. 1+ pretibial edema bilaterally. Neurological: Alert. Unable to assess orientation as she is nonverbal. Psychiatric: Unable to assess. DS: Data Data Completed and Pending Labs on day of discharge: Labs from last 24 hours 11/19/21 11/19/21 11/19/21 08:09 05:36 01:00 Sodium 129 L Potassium 4.6 Chloride 87 L Carbon Dioxide 31 H Anion Gap 11 BUN 10 Creatinine 0.30 L Estim Creat Clear Calc Not Reportable Estimated GFR > 60 Glucose 75 POC Capillary Glucose 147 H 110 H Calcium 9.6 11/18/21 11:31 Sodium Potassium Chloride Carbon Dioxide Anion Gap BUN Creatinine Estim Creat Clear Calc Estimated GFR Glucose POC Capillary Glucose 88 Calcium Discharge Plan Discharge Attending physician on discharge: Adan Dalal Consulting providers: Austin Royal Discharging Clinician: Adan Dalal Patient Disposition: Home, Self-Care Activity: no preference Diet: as tolerated and tube feeding Patient Instructions: Antibiotic Form Stand Alone Forms: General Discharge Information Follow-up/Referrals: Austin Royal MD [Physician] - Disch
[2021-11-19 12:10] LABS: Glucose Point of Care 119 mg/dl (65-105)
[2021-11-19 13:23] VITALS: BP 94/46; PULSE 84; RESP 20; TEMP 36.5; O2SAT 94
== END 2021-11-19 14:23 | disposition home or self-care (01) | DRG 389 ==
LOC: ANHED 14:04 → ANH3MEDSUR 18:08
PROVIDERS: Physician Assistant; Admitting Provider Internal Medicine; Emergency Provider Emergency Medicine; PCP Nurse Practitioner Family; Visit Provider Chiropractor
DX: K56.0 Paralytic ileus (principal); E87.1 Hypo-osmolality and hyponatremia; F84.2 Rett's syndrome; J96.12 Chronic respiratory failure with hypercapnia; G80.9 Cerebral palsy, unspecified; G40.909 Epilepsy, unspecified, not intractable, without status epilepticus; I10 Essential (primary) hypertension; N20.0 Calculus of kidney; K80.20 Calculus of gallbladder without cholecystitis without obstruction; R13.10 Dysphagia, unspecified; Z66 Do not resuscitate; Z93.1 Gastrostomy status; Z98.1 Arthrodesis status; Z74.01 Bed confinement status
CPT/HCPCS: 36415; 36600; 71045; 74018; 74176; 80048; 80053; 82375; 82805; 82948; 83050; 83735; 84100; 84439; 84443; 84480; 85025; 85610; 85730; 93005; 93970; 94002; 94003; 94640; 96372; 99285; A9270; G0378; J0131; J1650; J7030

== ENCOUNTER 2022-03-10 15:15 | Inpatient (IN) | payer MEDICARE, MEDICAID, SELFPAY ==
[2022-03-10] VITALS (24 sets, daily range): BP systolic 123–156; BP diastolic 92–113; PULSE 68–101; RESP 18–22; TEMP 36.9; O2SAT 93–100
--- NOTE | ~2022-03-10 | XR_ITS ---
EXAMINATION: XR chest 1V portable DATE: 03/18/2022 12:10 INDICATION: Respiratory distress TECHNIQUE: frontal view of the chest was obtained. COMPARISON: Chest radiograph dated 03/15/2022 FINDINGS: Lung volumes remain small. Improvement in the prior indistinct interstitial pattern as well as in the more patchy airspace opacities in the lower lung zones. No pleural effusion or pneumothorax. The car diomediastinal silhouette is normal. Instrumented posterior spinal fusion of the thoracic and visuali zed upper lumbar spine. Left upper quadrant percutaneous gastrostomy tube. Left upper extremity perip herally inserted central venous catheter (PICC) tip at the caudal superior vena cava. IMPRESSION: 1. Decrease in bilateral interstitial and airspace opacities consistent with improving pulmonary buddy a and/or pneumonia. Reviewed, dictated and finalized at location A. K TYPIST IMPRESSION: 1. Decrease in bilateral interstitial and airspace opacities consistent with im proving pulmonary edema and/or pneumonia.
--- NOTE | ~2022-03-10 | XR_ITS ---
EXAMINATION: XR chest 1V portable DATE: 03/11/2022 11:55 INDICATION: Shortness of breath TECHNIQUE: frontal view of the chest was obtained. COMPARISON: Chest radiograph head CT dated 03/10/2022 FINDINGS: Decreased lung volumes. Persistent in bilateral patchy airspace opacities most prominent in the left upper and right lower lung zones consistent with multifocal pneumonia. Small right pleural effusion w ith blunting at the costophrenic angle. No pneumothorax. The cardiomediastinal silhouette is within n ormal limits for AP technique. Extensive posterior spinal fusion with bilateral vertical rods and álvarez inar wires extending from the upper thoracic through at least the upper lumbar spine. IMPRESSION: 1. Unchanged patchy bilateral airspace opacities consistent with pneumonia. 2. Small right pleural effusion. Reviewed, dictated and finalized at location B. PRESIDENT SALES
--- NOTE | ~2022-03-10 | XR_ITS ---
XR chest 1V portable 03/13/2022 06:31 Indication: Respiratory failure Procedure: AP portable chest Comparison: Comparison to multiple prior studies sequentially, with oldest reviewed study dated 07/23. Findings: Russo rods are present. Stable enlarged cardiopericardial silhouette. Mild improvement of bilateral airspace disease. No significant effusion or pneumothorax. No acute osseous abnormality . Impression: 1: Mildly improved diffuse bilateral airspace disease which may represent edema or pneumonia. Reviewed, dictated and finalized at location A. RRING AND TOOLING MACHINE OPERATOR Impression: 1: Mildly improved diffuse bilateral airspace disease which may represent edema or pneumonia.
--- NOTE | ~2022-03-10 | CT_ITS ---
EXAMINATION: CTA chest PE abdomen pel DATE: 03/10/2022 19:38 CANTEEN ATTENDANT INDICATION: Evaluate for pulmonary embolism. Sepsis. TECHNIQUE: Computed tomographic angiography (CTA) of the chest, abdomen, and pelvis was performed wit hout and with 100 mL Omnipaque-350 intravenous contrast. The dose-length product was 1599.14 mGy-cm. Maximum intensity projection 3D-reconstructions of the aorta and other arteries were constructed by nida mcdonough technologist on a separate workstation. Automated exposure control and iterative reconstruction technique were employed. COMPARISON: Chest x-ray dated 03/10/2022. FINDINGS: CHEST CTA: Evaluation for pulmonary embolism limited by motion artifact. No large central pulmonary embolism. No evidence for aortic aneurysm. Heart size normal. Small bilateral pleural effusions, right greater th an left. There is patchy bilateral airspace disease, consistent with pneumonia involving all lobes. ABDOMEN AND PELVIS CTA: The liver, spleen, pancreas, adrenal glands and kidneys are unremarkable. There is a G-tube present. Nonobstructive bowel gas pattern. There are nonobstructing bilateral renal stones. There is fusion of the lower thoracic and lumbar spine. IMPRESSION: 1. Limited evaluation for pulmonary embolism due to motion artifact. No large central pulmonary embol ism. 2: Extensive patchy bilateral airspace consolidation, consistent with pneumonia. 3: Small pleural effusions. 4: Nonobstructing bilateral nephrolithiasis. Reviewed, dictated and finalized at location A. EEN ATTENDANT IMPRESSION: 1. Limited evaluation for pulmonary embolism due to motion artifact. No large c entral pulmonary embolism. 2: Extensive patchy bilateral airspace consolidation, consistent with pneumonia . 3: Small pleural effusions. 4: Nonobstructing bilateral nephrolithiasis.
--- NOTE | ~2022-03-10 | XR_ITS ---
XR chest 1V portable 03/10/2022 16:15 Indication: Shortness of breath. Procedure: AP portable chest Comparison: Comparison to multiple prior studies sequentially, with oldest reviewed study dated 10/2021. Findings: There is patchy extensive bilateral airspace disease, consistent with pneumonia. Edema less favored. Stable cardiomediastinal silhouette. There are Russo rods. No significant effusion or pneumothorax. Impression: 1: Extensive patchy bilateral airspace consolidation, consistent with pneumonia. Reviewed, dictated and finalized at location A. B WOMAN Impression: 1: Extensive patchy bilateral airspace consolidation, consistent with pneumonia .
--- NOTE | ~2022-03-10 | XR_ITS ---
EXAMINATION: XR chest 1V portable DATE: 03/15/2022 05:45 INDICATION: Shortness of breath. TECHNIQUE: A single frontal view of the chest was obtained. COMPARISON: Chest single view 03/14/2022 FINDINGS: Sensitivity is decreased by obesity. There are airspace opacities in all lung zones bilater ally, worst in the lower lung zones. No pleural effusion or pneumothorax. The heart size is normal. A left upper extremity peripherally inserted central venous catheter (PICC) is seen with tip at the dave perior cavoatrial junction. There is posterior fixation of the spine. IMPRESSION: 1. Diffuse lung disease with mild improvement, consistent with pneumonia versus pulmonary edema. Reviewed, dictated and finalized at location A. ACCOUNTING MANAGER
--- NOTE | ~2022-03-10 | XR_ITS ---
XR chest PICC line 03/13/2022 13:40 Indication: PICC line placement Procedure: 2 separate AP portable chest Comparison: 11/16/2021 Findings: Initial images demonstrate PICC line tip in the right atrium. Subsequent image demonstrates retraction of the PICC line in the SVC. Cardiomegaly. Bibasilar airspace disease may represent edema or pneumonia. There are Russo rods. No significant effusion or pneumothorax. Impression: 1: Bibasilar airspace disease which may represent edema or pneumonia. Reviewed, dictated and finalized at location A. HT PARAMEDIC Impression: 1: Bibasilar airspace disease which may represent edema or pneumonia.
--- NOTE | ~2022-03-10 | XR_ITS ---
EXAMINATION: XR abdomen/kub 1V DATE: 03/15/2022 13:48 INDICATION: Abdominal distention. Diarrhea. TECHNIQUE: A supine view of the abdomen on 2 radiographs was obtained. COMPARISON: 03/10/2022 FINDINGS: Percutaneous gastrostomy tube projects over the gastric body left upper quadrant. Small amount of bow el gas scattered throughout the abdomen and pelvis with no dilated loops of bowel to suggest obstruct ion. There are few small calcific lesion projecting over the right kidney consistent with bilateral n ephrolithiasis better appreciated on CT dated 03/10/2022. Opacities at the bilateral lower lung zones which could represent atelectasis or pneumonia. Heart size is normal. Instrumented posterior spinal f usion with bilateral vertical rods extending from at least the mid thoracic spine through the lumbosa cral junction and into the iliac wings with laminar hooks at each level. Screw fixation at the left f emoral neck and couple retrograde intramedullary pins in the visualized proximal left femur. IMPRESSION: 1. Percutaneous gastrostomy tube in the left upper quadrant. Nonspecific nonobstructive bowel gas pat tern. 2. Opacities in bilateral lower lung zones which could represent atelectasis or pneumonia. 3. Nephrolithiasis. Reviewed, dictated and finalized at location A. L FISHERMAN IMPRESSION: 1. Percutaneous gastrostomy tube in the left upper quadrant. Nonspecific nonobs tructive bowel gas pattern. 2. Opacities in bilateral lower lung zones which could represent atelectasis or pneumonia. 3. Nephrolithiasis.
--- NOTE | ~2022-03-10 | XR_ITS ---
EXAMINATION: XR chest 1V portable DATE: 03/14/2022 06:06 INDICATION: Pneumonia. TECHNIQUE: A single frontal view of the chest was obtained. COMPARISON: Chest single view 03/13/2022, chest CT 03/10/2022 FINDINGS: Sensitivity is decreased by obesity. There are airspace opacities in all lung zones bilater ally. There is a small right pleural effusion. No pneumothorax. The heart size is normal. A left uppe r extremity peripherally inserted central venous catheter (PICC) is seen with tip in the superior rodriguez a cava. There is instrumentation of posterior thoracic spine. IMPRESSION: 1. Stable diffuse lung disease, consistent with pneumonia. 2. Stable small right pleural effusion. Reviewed, dictated and finalized at location A. L LATHER
--- NOTE | ~2022-03-10 | XR_ITS ---
Supine and upright views of the abdomen Clinical history: Abdominal distention COMPARISON: 11/19/2021 Findings: Bowel gas pattern is nonspecific, similar to prior exam. Percutaneous gastrostomy tube note d. No evidence for obstruction or free air. There is probable contrast within the renal collecting sy stems and urinary bladder. No abnormal mass lesion or calcification is seen. Extensive spinal fixatio n hardware is unchanged.. Impression: Nonspecific bowel gas pattern. Reviewed, dictated and finalized at location M. GRATION SPECIALIST Impression: Nonspecific bowel gas pattern.
--- NOTE | 2022-03-10 15:32 | ECG_ITS ---
Measurements Intervals Engelhard Rate: 92 P: 56 MD: 130 QRS: 95 QRSD: 84 T: -36 QT: 318 QTc: 394 Interpretive Statements SINUS RHYTHM RIGHT AXIS DEVIATION BORDERLINE ST-T WAVE ABNORMALITY- ANT/INF LEADS BASELINE ARTIFACT- I, II, III, AVR, AVL, AVF, V2-V6 BORDERLINE ECG COMPARED TO ECG 11/16/2021 13:32:21 NO SIGNIFICANT CHANGES Electronically Signed On 03-10-2022 16:34:55 OFFSET LITHOGRAPHIC PRESS OPERATOR by Rashad Ramos D.O.
[2022-03-10 16:08] LABS: Basophils Percent Auto 0.4 % (0.2-1.2); Eosinophils Absolute Auto 0.1 K/mm3 (0-0.3); Eosinophils Percent Auto 0.7 % (0-4.4); Hematocrit 45.5 % (37.0-47.0); Hemoglobin 13.9 g/dL (12.0-15.0); Immature Granulocyte Absolute 0.11 K/mm3 (0.00-0.031); Immature Granulocyte Percent A 1.1 % (0-0.5); Lymphocytes Absolute Auto 1.69 K/mm3 (0.9-3.2); Lymphocytes Percent Auto 16.8 % (18.3-44.2); Mean Corpuscular HGB Conc 30.5 g/dl (32-36); Mean Corpuscular Hemoglobin 34.6 pg (26-34); Mean Corpuscular Volume 113.2 fl (80-100); Mean Platelet Volume 10.5 fl (7.4-10.4); Monocytes Absolute Auto 1.7 K/mm3 (0.1-0.6); Monocytes Percent Auto 16.4 % (2.6-8.5); Neutrophils Absolute Auto 6.5 K/mm3 (1.3-6.7); Neutrophils Percent Auto 64.6 % (45.5-73.1); Nucleated Red Blood Cells Absolute Auto 0.5 K/mm3 (0.0-0.012); Nucleated Red Blood Cells Perc 4.5 % (0.0-0.2); Platelet Count Result 322 k/mm3 (150-375); Red Blood Count 4.02 M/mm3 (4.2-5.4); Red Cell Distribution Width 16.1 % (11.5-14.5); White Blood Count 10.1 K/mm3 (4.5-10.0)
[2022-03-10 16:28] LABS: Platelet Estimate Adequate (Adequate); Schistocytes None Seen (NORMAL)
[2022-03-10 16:29] LABS: Anisocytosis 2+ (NORMAL); Hypochromasia 1+ (NORMAL)
--- NOTE | 2022-03-10 16:31 | ED.SOB ---
HPI - SOB/Dyspnea General Chief Complaint: Shortness of Breath/Dyspnea Stated Complaint: SOB, hard to arouse Time Seen by Provider: 03/10/22 15:44 History of Present Illness HPI Narrative: Patient is a 41-year-old female with a history of cerebral palsy presenting with shortness of breath. Patient's mom reports that the patient was able to go to school today but she was noted to be short of breath with increased secretions at the end of the day. Patient was then noted to be blue so the bus dropped her off first. Patient's mother reports that she was foaming at the mouth when she got home. Patient's mother suctioned her and gave her a breathing treatment but she continued to look blue so she placed her on 2 L nasal cannula. Mother reports that the patient uses CPAP at night but she is otherwise not oxygen dependent. States that she also seems sleepier than normal. Patient is nonverbal and cannot provide further history. Related Data Home Medications Medication Instructions Recorded Confirmed fluoxetine 20 mg/5 mL (4 mg/mL) 20 mg feeding tube DAILY 03/23/19 11/16/21 oral solution nitrofurantoin 25 mg/5 mL oral 50 mg feeding tube DAILY 03/23/19 11/16/21 suspension nizatidine 150 mg capsule 150 mg feeding tube BID 03/23/19 11/16/21 valproic acid (as sodium salt) 250 500 mg feeding tube Q8H 03/23/19 11/16/21 mg/5 mL oral solution magnesium oxide 420 mg tablet 420 mg feeding tube BID 07/20/21 11/16/21 [id number] gluconate 9 15 ml feeding tube DAILY 07/20/21 11/16/21 mg iron/15 mL (15 mL) oral liquid (Centrum) nutritional supplement-fiber oral 2 ea feeding tube HS 07/20/21 11/16/21 liquid potassium, sodium phosphates 280 1 packet feeding tube DAILY 07/20/21 11/16/21 mg-160 mg-250 mg oral powder packet (Phos-NaK) chlorthalidone 25 mg tablet 12.5 mg feeding tube DAILY 11/17/21 11/17/21 Allergies Allergy/AdvReac Type Severity Reaction Status Date / Time lamotrigine Allergy Unknown Rash Verified 11/16/21 13:32 Review of Systems Review of Systems: ROS unobtainable: Yes unobtainable due to mental status PMFSH Past Medical History Medical History Cerebral palsy Chronic hypercapnic respiratory failure On BiPAP at nighttime. Gall stones Kidney stones Rett syndrome Seizure disorder Surgical History Surgical History History of fundoplication History of open reduction and internal fixation (ORIF) procedure Repair of hip and leg fractures. History of percutaneous endoscopic gastrostomy History of spinal fusion Family History Family History Other Family history non-contributory Social History Social History Social History: The patient lives with her parents in [place]. She is dependent on all activities of daily living. No alcohol, tobacco, or drug use. Surrogate decision maker: Lisa Crowe, mother. Code status: Do not resuscitate. Okay with BiPAP. Spiritual care concerns: No Exam Narrative: GENERAL: Middle-aged female sleeping in bed, in no acute distress HEAD: Normocephalic, atraumatic. EYES: PERRLA and EOMI. ENT: Nares clear, no rhinorrhea or epistaxis. Mucous membranes moist. NECK: Supple. CHEST: Coarse breath sounds bilaterally, no wheezing, saturating mid 90s on 2 L HEART: Regular rate and rhythm. No murmur heard. Normal peripheral pulses. ABDOMEN: Soft, nontender, nondistended, normal active bowel sounds. EXTREMITIES: Chronic contractures of upper extremities SKIN: Warm, dry, no rash. NEURO: Nonverbal at baseline Course Vital Signs Vital signs: Vital Signs Temperature 98.4 F 03/10/22 15:32 Pulse Rate 93 03/10/22 15:32 Respiratory Rate 20 03/10/22 15:32 Blood Pressure 123/100 H 03/10/22 15:32 Pulse Oximetry 98
[2022-03-10] MEDS: SODIUM CHLORIDE 0.9% IV 1,000 ML 999 ML IV CONT ×2 (16:57→20:53)
[2022-03-10 17:07] LABS: Appearance Urine Slightly Cloudy (Clear); Bilirubin Urine Negative (Negative); Blood Urine 2+ (Negative); Color Urine Yellow (Yellow); Glucose Urine UA Negative (Negative); Ketones Urine Negative (Negative); Leukocyte Esterase Ur 1+ LEU/UL (Negative); Nitrate Urine Negative (Negative); Protein Urine 1+ mg/dL (Negative); pH Urine 6.5 (5.0-9.0)
[2022-03-10 17:13] LABS: Bacteria Urine Trace /hpf; Hyaline Casts Urine 20-29 /lpf; Mucus Urine Rare /lpf; RBC Urine >75 /hpf (0-2); Squamous Epithelial Cell Urine Many /hpf (Few); WBC Urine 31-50 /hpf
[2022-03-10 17:14] LABS: Add Urine Microscopic? YES
[2022-03-10 17:18] LABS: Lipase 678 U/L (23-300)
[2022-03-10 17:19] LABS: Lactic Acid Reflex 2.3 mmol/L (0.7-2.0)
[2022-03-10 17:19] LABS: Prothrombin Time 12.6 Seconds (11.1-14.7)
[2022-03-10 17:21] LABS: Alanine Aminotransferase 85 U/L (6-35); Albumin Level 3.6 g/dL (3.5-5.1); Alkaline Phosphatase 146 U/L (38-126); Aspartate Amino Transferase 111 U/L (14-36); Bilirubin,Total 0.5 mg/dL (0.2-1.3); Blood Urea Nitrogen 35 mg/dL (7-17); Calcium 9.4 mg/dL (8.4-10.2); Carbon Dioxide > 40 mmol/L (22-30); Chloride 88 mmol/L (98-107); Estimated Glomerular Filt Rate > 60; Glucose 98 mg/dL (65-110); Partial Thromboplastin Time 41.1 SECONDS (22.3-36.8); Potassium 6.4 mmol/L (3.4-5.0); Sodium 135 mmol/L (137-145)
[2022-03-10 17:27] LABS: NT Pro B Type Natriuretic Pept 8120 pg/mL (19.9-100)
[2022-03-10 17:43] LABS: Troponin I 0.234 ng/mL (0.000-0.034)
[2022-03-10 17:45] LABS: Influenza A QL RT-PCR Negative (Negative); Influenza B QL RT-PCR Negative (Negative); RSV RNA, RT-PCR Negative (Negative); SARS-CoV-2 RNA PCR Negative
[2022-03-10 18:02] LABS: Base Excess ABG 11.8 mEq/l (+/-2.0); Fractional Inspired Oxygen 28 %; HCO3 ABG 42.7 mEq/l (22.0-26.0); PO2 FiO2 Ratio Arterial Blood 0.95 %; Total Hemoglobin 13.7 g/dL (12.0-18.0)
[2022-03-10] MEDS: DEXTROSE 50% 25 GM/50 ML SYRINGE IV PUSH (18:04)
[2022-03-10 18:05] LABS: pH ABG 7.277 (7.350-7.450)
[2022-03-10] MEDS: INSULIN HUMAN REGULAR (*BKC) 100 UNITS/ML 10 UNITS IV PUSH (18:05)
[2022-03-10 18:06] LABS: Device NASAL CANNULA; Modified Allen's Test Pass; Oxygen Saturation ABG 38.4 % (95.0-100.0); Oxyhemoglobin 36.5 % THb (90.0-100.0); PCO2 ABG 93.7 mmHg (35.0-45.0); PO2 ABG < 27.0 mmHg (80.0-100.0)
[2022-03-10] MEDS: SODIUM POLYSTYRENE SULFONONATE 15 GM/60 ML BTL 30 GM FEED TUBE (18:14)
--- NOTE | 2022-03-10 18:40 | PC.NURSE ---
Only able to obtain 1 set of blood cultures. OK to start IV antibiotics per Dr. Albert
--- NOTE | 2022-03-10 18:51 | PM.IMHP ---
H&P: HPI History of Present Illness Date/Time: 03/10/22 18:51 Chief Complaint: Shortness of breath Narrative: This is a 41-year-old female patient who has a history of cerebral palsy. She is wheelchair-bound. She is care for by her mother. The patient came home from school today and was noted to be short of breath and had increased secretions at the end of the day. The patient was cyanotic when she was dropped off at 1st. The mother then connected the patient to oxygen at 2 L per nasal cannula. The patient was foaming at the mouth when she got home. The patient was given a breathing treatment the patient continue to bullet be blue. She does use a CPAP at night but otherwise she is not oxygen dependent. Patient is nonverbal and cannot answer for herself. The mother is at the bedside. Patient's white count is 10.1. Patient has generalized edema. Arterial blood gases were not able to be performed. They did venous blood gases with a pH of 7.277 and a CO2 of 93.7. The patient was placed on a BiPAP. Patient had been suctioned several times. Her potassium was noted to be 6.4 and sodium 135. Lactic 2.4. Troponin 0.234 and 0.311 AST is 111 at I ALT is 85 alkaline phosphatase 146. BNP is 8120. Urine is positive for UTI. Although she has many squamous cells this could be a contaminant. The patient is negative for influenza A/B RSV and COVID. Chest abdomen pelvis CT a limited evaluation for pulmonary emboli due to motion artifact no large central pulmonary emboli. Extensive patchy bilateral airspace consolidation consistent with pneumonia. Small pleural effusions. Nonobstructing bilateral nephrolithiasis. Patient does have a G-tube. Nonobstructive bowel gas pattern. The patient was given 2 L of IV fluids. She was given Zosyn and vancomycin. She was given D50 with insulin and Kayexalate, and nebulizer treatments in the emergency room. The patient is being admitted to inpatient status Review of Systems Review of Systems: See HPI All systems reviewed & are unremarkable except as noted in HPI and below Constitutional: Constitutional: Reports as per HPI and Reports no additional constitutional complaints Eyes: Eyes: Reports as per HPI and Reports no additional eye complaints ENT: Reports system reviewed and no additional complaints, except as documented and Reports Normal hearing present Cardiovascular: Cardiovascular: Reports no additional cardiovascular complaints Respiratory: Respiratory: Reports no additional respiratory complaints and Reports no additional respiratory complaints Gastrointestinal: Gastrointestinal: Reports as per HPI and Reports no additional gastrointestinal complaints Musculoskeletal: Musculoskeletal: Reports no additional musculoskeletal complaints Integumentary/Breasts: Skin/Breast: Reports system reviewed and no additional complaints, except as docu and Reports as per HPI Neurologic: Reports system reviewed and no additional complaints, except as documented, Reports as per HPI and Reports Normal hearing present Psychiatric: Psychiatric: Reports no additional psychiatric complaints and Reports as per HPI Endocrine: Endocrine: Reports no additional endocrine complaints Hematologic/Lymphatic: Hematologic/Lymphatic: Reports no additional hematologic/lymphatic complaints Allergic/Immunologic: Allergic/Immunologic: Reports no additional allergic/immunologic complaints [facility] Past Medical History Medical History (Updated 03/10/22 @ 23:40 by Laila Cordero NP) Cerebral palsy Chronic hypercapnic respiratory failure On BiPAP at nighttime. Gall stones Kidney stones Kidney stones Rett syndrome Seizure disorder Seizures Surgical History Surgical History History of fundoplication History of open reduction and internal fixation (ORIF) procedure Repair of hip and leg fractures. History of percutaneous endoscopic gastrostomy History of spinal fus
[2022-03-10 19:03] LABS: Glucose Point of Care 82 mg/dl (65-105)
[2022-03-10 20:04] LABS: Reflex Lactic Acid Yes or No Add Lactic
[2022-03-10] MEDS: IPRATROPIUM BR 0.02% INH SOLN 0.5 MG/2.5 ML VIAL (20:19)
[2022-03-10] MEDS: ALBUTEROL SULFATE NEB 2.5 MG/3 ML INH 5 MG INHALATION (20:19)
[2022-03-10] MEDS: ACETAMINOPHEN ELIXIR 325 MG/10.15 ML UDC 650 MG (20:50)
--- NOTE | 2022-03-10 21:32 | ADMGEN ---
This patient, Julia Crowe, was admitted to IMU Room 232-01. Patient/family oriented to hospital policies and general routines including ID bracelet, bed and alarms, visiting hours, pain management, procedures, bathroom and other care routines, personal items, smoking policy, room service/diet, and visiting hours. Information on how to activate the Rapid Response Team has been discussed. Patient/Family are encouraged to report perceived risks to care and to ask questions if they do not understand what they are told or what they should do.
[2022-03-10 22:09] LABS: Lactic Acid 2.4 mmol/L (0.7-2.0)
[2022-03-10 22:37] LABS: Troponin I 0.311 ng/mL (0.000-0.034)
[2022-03-11] VITALS (24 sets, daily range): BP systolic 122–159; BP diastolic 80–109; PULSE 88–112; RESP 18–21; TEMP 36.3–37.2; O2SAT 96–100; BMI 34.7
--- NOTE | 2022-03-11 | ECHO_ITS ---
Patient Info Name: Julia Crowe Age: 41 years : 1980 Gender: Female Ht: 56 in Wt: 154 lbs BSA: 1.70 m2 HR: 111 bpm BP: 135 / 91 mmHg Heart Rhythm: Sinus Rhythm Exam Date: 03/11/2022 1:56 PM Exam Location: [facility] Patient Status: Inpatient Admit Date: 03/10/2022 Staff Ordering Physician: Antonino Chavez MD Diagnostic Imaging Manager: Tirso Morris, CHINEDU, RT Attending Provider: Adan Dalal MD Exam Type: CA echo dop color flow w con Study Info Indications - Elevated troponin Strain analysis performed. Complete two-dimensional, color flow and Doppler transthoracic echocardiogram is performed with contrast to opacify the left ventricle and to improve the deliniation of the left ventricle endocardial borders. Summary 1. Technically difficult echocardiogram requiring definity contrast to improve visualization. 2. Vigorous, hyperdynamic appearing left ventricular systolic function. 3. Suggestion of RV enlargement and hypokinesia. 4. Small amount of tricuspid regurgitation with velocity suggesting moderately elevated pulmonary artery pressure. 5. No Doppler evidence of aortic or mitral valve disease. Left Ventricle Left ventricular chamber dimension is normal. Left ventricular systolic function is hyperdynamic, estimated at >70%. The left ventricular diastolic function is grade I diastolic dysfunction. Right Ventricle Right ventricular chamber dimension is mildly enlarged. Right ventricular systolic function is reduced. Left Atria Left atrial chamber dimension is normal. Right Atria Right atrial chamber dimension is not well visualized. Aortic Valve The aortic valve is not well visualized. Pulmonic Valve The pulmonic valve is not well visualized. Mitral Valve The mitral valve has normal leaflets. Tricuspid Valve The tricuspid valve leaflets are not well visualized. There is mild tricuspid valve regurgitation. Moderate pulmonary hypertension, estimated pulmonary arterial systolic pressure is 67 mmHg. Pericardium/Pleural The pericardium appears normal. Aorta The aortic root size at the sinus of Valsalva is normal. Left Ventricular Outflow Tract Name Value Normal LVOT 2D LVOT Diameter 1.79 cm LVOT Doppler LVOT Peak Gradient 5 mmHg LVOT Mean Gradient 3 mmHg LVOT VTI 16.93 cm LVOT VTI/AV VTI Ratio 0.70 LVOT Stroke Volume 42.39 ml LVOT CO 5.14 l/min LVOT CI 3.03 L/min/m2 Mitral Valve Name Value Normal MV Doppler MV Decel [place] 600.30 cm/s2 MV PHT 0 s MV Area (PHT) 5.68 cm2 4.00-5.00 MV Diastolic Function
[2022-03-11] MEDS: SCOPOLAMINE 1.5 MG PATCH TRANSDERM (00:09)
[2022-03-11] MEDS: FUROSEMIDE INJ 40 MG/4 ML VIAL 20 MG IV PUSH (00:10)
[2022-03-11 00:25] LABS: Chloride 96 mmol/L (98-107)
[2022-03-11 00:31] LABS: Anion Gap 7 mmol/L (8-16); Blood Urea Nitrogen 24 mg/dL (7-17); Calcium 8.6 mg/dL (8.4-10.2); Carbon Dioxide 36 mmol/L (22-30); Estimated Glomerular Filt Rate > 60; Glucose 100 mg/dL (65-110); Potassium 4.4 mmol/L (3.4-5.0); Sodium 139 mmol/L (137-145)
[2022-03-11 00:37] LABS: Fractional Inspired Oxygen 40 %; HCO3 VBG 40.8 mEq/l (24.0-30.0); PO2 VBG 46.7 mmHg (35.0-45.0); pH VBG 7.341 (7.300-7.400)
[2022-03-11 00:41] LABS: Device BIPAP; PCO2 VBG 77.1 mmHg (42.0-48.0)
[2022-03-11] MEDS: IPRATROPIUM BR 0.02% INH SOLN 0.5 MG/2.5 ML VIAL INHALATION ×4 (01:20→21:05)
[2022-03-11] MEDS: ALBUTEROL SULFATE NEB 2.5 MG/3 ML INH INHALATION ×4 (01:20→21:04)
[2022-03-11 07:59] LABS: Lactic Acid Reflex 0.8 mmol/L (0.7-2.0)
[2022-03-11 08:01] LABS: Alanine Aminotransferase 108 U/L (6-35); Albumin Level 3.3 g/dL (3.5-5.1); Alkaline Phosphatase 133 U/L (38-126); Aspartate Amino Transferase 149 U/L (14-36); Bilirubin,Total 0.6 mg/dL (0.2-1.3); Blood Urea Nitrogen 17 mg/dL (7-17); Calcium 8.5 mg/dL (8.4-10.2); Carbon Dioxide > 40 mmol/L (22-30); Chloride 92 mmol/L (98-107); Estimated Glomerular Filt Rate > 60; Glucose 87 mg/dL (65-110); Lipase 366 U/L (23-300); Magnesium 1.8 mg/dL (1.6-2.3); Potassium 3.4 mmol/L (3.4-5.0); Sodium 136 mmol/L (137-145)
[2022-03-11 08:08] LABS: Basophils Percent Auto 0.4 % (0.2-1.2); Eosinophils Absolute Auto 0.1 K/mm3 (0-0.3); Eosinophils Percent Auto 0.6 % (0-4.4); Hematocrit 39.8 % (37.0-47.0); Hemoglobin 12.1 g/dL (12.0-15.0); Immature Granulocyte Absolute 0.06 K/mm3 (0.00-0.031); Immature Granulocyte Percent A 0.7 % (0-0.5); Lymphocytes Absolute Auto 0.98 K/mm3 (0.9-3.2); Lymphocytes Percent Auto 11.9 % (18.3-44.2); Mean Corpuscular HGB Conc 30.4 g/dl (32-36); Mean Corpuscular Hemoglobin 34.2 pg (26-34); Mean Corpuscular Volume 112.4 fl (80-100); Mean Platelet Volume 10.6 fl (7.4-10.4); Monocytes Absolute Auto 1.2 K/mm3 (0.1-0.6); Neutrophils Absolute Auto 5.9 K/mm3 (1.3-6.7); Neutrophils Percent Auto 71.4 % (45.5-73.1); Nucleated Red Blood Cells Absolute Auto 0.1 K/mm3 (0.0-0.012); Nucleated Red Blood Cells Perc 1.2 % (0.0-0.2); Platelet Count Result 308 k/mm3 (150-375); Red Blood Count 3.54 M/mm3 (4.2-5.4); Red Cell Distribution Width 16.1 % (11.5-14.5); White Blood Count 8.3 K/mm3 (4.5-10.0)
[2022-03-11] MEDS: ENOXAPARIN 40 MG/0.4 ML SYRINGE SUB-Q (08:18)
[2022-03-11] MEDS: VALPROIC ACID LIQ 250 MG/5 ML ORAL SOLUTION UDC 500 MG FEED TUBE ×3 (08:18→20:29)
[2022-03-11 08:57] LABS: Anisocytosis 1+ (NORMAL); Macrocytosis 1+ (NORMAL); Platelet Estimate Adequate (Adequate)
[2022-03-11 08:58] LABS: Schistocytes None Seen (NORMAL); Stomatocytes 3+ (NORMAL)
[2022-03-11 10:06] LABS: Free T4 Free Thyroxine Reflex 0.79 ng/dL (0.78-2.19)
--- NOTE | 2022-03-11 11:12 | PM.IMPN ---
Progress Note: A&P Assessment and Plan (1) Hyperkalemia: Code(s): E87.5 - Hyperkalemia Status: Acute Assessment and Plan: -the patient was given a concoction in the emergency room with D50 insulin and Kayexalate. -the patient has not had a bowel movement as yet. -repeat BMP. (2) Pneumonia: Code(s): J18.9 - Pneumonia, unspecified organism Status: Acute Assessment and Plan: Suspect that she may have aspirated. -continue with nebulizer treatments. The patient is on vanco and Zosyn -tailor antibiotics to cultures. -urine and blood cultures are pending. (3) UTI (urinary tract infection): Code(s): N39.0 - Urinary tract infection, site not specified Status: Acute Assessment and Plan: vancomycin and zosyn. follow cultures (4) Hypercapnia: Code(s): R06.89 - Other abnormalities of breathing Status: Acute Assessment and Plan: -the patient is on a BiPAP. -they were unable to do ABGs and we have drawn VBG -the patient has respiratory acidosis. And hypercapnia -the patient is awake and looking around. She is active. The patient is a DNI. I spoke to her mother about this and she does not want her child intubated. Continue with BiPAP will stop bipap today and switch to nc if toelrated. bipap prn for hypoxia (5) Cerebral palsy: Code(s): G80.9 - Cerebral palsy, unspecified Status: Chronic Assessment and Plan: -she is cared for by her caregivers. The patient typically has to feedings however the patient looks like she has full of air and she is hypoxic. She has a lot of gas in her colon and we will try simethicone drops. (6) Seizure disorder: Code(s): G40.909 - Epilepsy, unspecified, not intractable, without status epilepticus Status: Chronic Assessment and Plan: -patient's abdomen is distended and were not giving anything through the G-tube at this time. -IV Ativan. (7) Constipation: Code(s): K59.00 - Constipation, unspecified Status: Acute Assessment and Plan: -continue with her bisacodyl suppository. -simethicone gas drops -fleets enema p.r.n. Plan cerebral plasy elevaed bnp. possibe chf. will chekc echo. lasix given one dose. will repeat again todya. recheck cxr labs revewied elevated lipase ct without pancreattiis elevated troponon> likely due to underlying pneumoina Subjective Date/time seen: 03/11/22 11:12 Interval history: This is a 41-year-old female patient who has a history of cerebral palsy.? She is wheelchair-bound.? She is care for by her mother.? The patient came home from school today and was noted to be short of breath and had increased secretions at the end of the day.? The patient was cyanotic when she was dropped off at [facility].? The mother then connected the patient to oxygen at 2 L per nasal cannula.? The patient was foaming at the mouth when she got home.? The patient was given a breathing treatment the patient continue to bullet be blue.? She does use a CPAP at night but otherwise she is not oxygen dependent.? Patient is nonverbal and cannot answer for herself.? The mother is at the bedside.? Patient's white count is 10.1.? Patient has generalized edema.? Arterial blood gases were not able to be performed.? They did venous blood gases with a pH of 7.277 and a CO2 of 93.7.? The patient was placed on a BiPAP.? Patient had been suctioned several times.? Her potassium was noted to be 6.4 and sodium 135.? Lactic 2.4.? Troponin 0.234 and 0.311 AST is 111 at I ALT is 85 alkaline phosphatase 146.? BNP is 8120.? Urine is positive for UTI.? Although she has many squamous cells this could be a contaminant.? The patient is negative for influenza A/B RSV and COVID.? Chest abdomen pelvis CT a limited evaluation for pulmonary emboli due to motion artifact no large central pulmonary emboli.? Extensive patchy bilateral airspace consolidation consistent with pneumonia.? Small pleural effusions.? Nono
[2022-03-11 11:57] LABS: Total Triiodothyronine (T3) 1.97 NG/ML (0.97-1.69)
[2022-03-11] MEDS: PERFLUTREN LIPID MICROSPHERES 1.5 ML VIAL DILUTED TO 10 ML TOTAL VOLUME IV PUSH (14:17)
--- NOTE | 2022-03-11 14:18 | IVDEFINITY ---
Prior to administration of IV Definity the patient was educated on the risks and benefits of the imaging enhancing agent including potential adverse side effects. The patient verbalized understanding. Allergies were verified. No exclusion criteria were identified and at least one of the following inclusion criteria were met: 1) physician request, 2) patient technically difficult to image (per the [place] [employer] guidelines of two or more segments not discernable within the apical view), or 3) questionable left ventricular function. ?
[2022-03-12] VITALS (26 sets, daily range): BP systolic 112–138; BP diastolic 53–83; PULSE 77–117; RESP 18–28; TEMP 36.1–37.2; O2SAT 90–100
[2022-03-12] MEDS: IPRATROPIUM BR 0.02% INH SOLN 0.5 MG/2.5 ML VIAL INHALATION ×4 (03:00→20:30)
[2022-03-12] MEDS: ALBUTEROL SULFATE NEB 2.5 MG/3 ML INH INHALATION ×4 (03:00→20:30)
[2022-03-12 08:12] LABS: Alanine Aminotransferase 95 U/L (6-35); Albumin Level 3.3 g/dL (3.5-5.1); Alkaline Phosphatase 127 U/L (38-126); Anion Gap 6 mmol/L (8-16); Aspartate Amino Transferase 90 U/L (14-36); Bilirubin,Total 0.6 mg/dL (0.2-1.3); Blood Urea Nitrogen 17 mg/dL (7-17); Calcium 9.1 mg/dL (8.4-10.2); Carbon Dioxide 39 mmol/L (22-30); Chloride 89 mmol/L (98-107); Estimated Glomerular Filt Rate > 60; Glucose 153 mg/dL (65-110); Magnesium 2.1 mg/dL (1.6-2.3); Potassium 3.4 mmol/L (3.4-5.0); Sodium 134 mmol/L (137-145)
[2022-03-12 08:53] LABS: Vancomycin Trough 29.4 ug/mL (10.0-20.0)
[2022-03-12] MEDS: VALPROIC ACID LIQ 250 MG/5 ML ORAL SOLUTION UDC 500 MG FEED TUBE ×3 (09:18→20:48)
[2022-03-12] MEDS: CHOLECALCIFEROL 1,000 UNITS TABLET 3000 UNITS PO (09:19)
[2022-03-12] MEDS: FUROSEMIDE INJ 40 MG/4 ML VIAL IV PUSH (09:19)
[2022-03-12] MEDS: ENOXAPARIN 40 MG/0.4 ML SYRINGE SUB-Q (09:20)
[2022-03-12] MEDS: MULTIVIT W/ IRON, MINERALS 15 ML LIQUID (*BKC) FEED TUBE (09:20)
[2022-03-12] MEDS: FLUoxetine HCL 20 MG CAPSULE FEED TUBE (09:22)
[2022-03-12] MEDS: FAMOTIDINE 20 MG TABLET FEED TUBE ×2 (10:34→20:47)
[2022-03-12] MEDS: TIZANIDINE HCL 2 MG TABLET FEED TUBE (10:34)
[2022-03-12] MEDS: MAGNESIUM OXIDE 400 MG TABLET FEED TUBE ×2 (10:35→15:55)
[2022-03-12 11:55] LABS: Basophils Percent Auto 0.4 % (0.2-1.2); Eosinophils Absolute Auto 0.1 K/mm3 (0-0.3); Hematocrit 38.5 % (37.0-47.0); Hemoglobin 11.6 g/dL (12.0-15.0); Immature Granulocyte Absolute 0.05 K/mm3 (0.00-0.031); Immature Granulocyte Percent A 0.5 % (0-0.5); Lymphocytes Absolute Auto 1.08 K/mm3 (0.9-3.2); Lymphocytes Percent Auto 9.8 % (18.3-44.2); Mean Corpuscular HGB Conc 30.1 g/dl (32-36); Mean Corpuscular Hemoglobin 33.7 pg (26-34); Mean Corpuscular Volume 111.9 fl (80-100); Mean Platelet Volume 11.3 fl (7.4-10.4); Monocytes Absolute Auto 1.8 K/mm3 (0.1-0.6); Monocytes Percent Auto 16.5 % (2.6-8.5); Neutrophils Absolute Auto 7.9 K/mm3 (1.3-6.7); Neutrophils Percent Auto 71.8 % (45.5-73.1); Nucleated Red Blood Cells Perc 0.4 % (0.0-0.2); Platelet Count Result 333 k/mm3 (150-375); Red Blood Count 3.44 M/mm3 (4.2-5.4); Red Cell Distribution Width 16.2 % (11.5-14.5)
[2022-03-12 12:19] LABS: Anisocytosis 1+ (NORMAL); Hypochromasia 1+ (NORMAL); Platelet Estimate Adequate (Adequate); Schistocytes None Seen (NORMAL)
[2022-03-12] MEDS: IBUPROFEN 400 MG TABLET FEED TUBE (14:03)
--- NOTE | 2022-03-12 15:14 | PM.IMPN ---
Progress Note: A&P Assessment and Plan (1) Hyperkalemia: Code(s): E87.5 - Hyperkalemia Status: Acute Assessment and Plan: -the patient was given a concoction in the emergency room with D50 insulin and Kayexalate. -the patient has not had a bowel movement as yet. -repeat BMP With resolution of hyperkalemia (2) Pneumonia: Code(s): J18.9 - Pneumonia, unspecified organism Status: Acute Assessment and Plan: Suspect that she may have aspirated. -continue with nebulizer treatments. The patient is on vanco and Zosyn -tailor antibiotics to cultures. -urine and blood cultures are pending. (3) UTI (urinary tract infection): Code(s): N39.0 - Urinary tract infection, site not specified Status: Acute Assessment and Plan: vancomycin and zosyn. follow cultures which is been no growth so for (4) Hypercapnia: Code(s): R06.89 - Other abnormalities of breathing Status: Acute Assessment and Plan: -the patient is on a BiPAP. -they were unable to do ABGs and we have drawn VBG -the patient has respiratory acidosis. And hypercapnia -the patient is awake and looking around. She is active. The patient is a DNI. I spoke to her mother about this and she does not want her child intubated. Continue with BiPAP on p.r.n. BiPAP (5) Cerebral palsy: Code(s): G80.9 - Cerebral palsy, unspecified Status: Chronic Assessment and Plan: -she is cared for by her caregivers. The patient typically has to feedings however the patient looks like she has full of air and she is hypoxic. She has a lot of gas in her colon and we will try simethicone drops. (6) Seizure disorder: Code(s): G40.909 - Epilepsy, unspecified, not intractable, without status epilepticus Status: Chronic Assessment and Plan: -patient's abdomen is distended and were not giving anything through the G-tube at this time. -IV Ativan. Resume enteral meds via G-tube (7) Constipation: Code(s): K59.00 - Constipation, unspecified Status: Acute Assessment and Plan: -continue with her bisacodyl suppository. -simethicone gas drops -fleets enema p.r.n. Plan cerebral plasy elevaed bnp. possibe chf. will chekc echo. lasix given one dose. will repeat again todya. recheck cxr with findings on pneumonia. Will give a dose of Lasix today labs revewied elevated lipase ct without pancreattiis elevated troponon> likely due to underlying pneumoina Subjective Date/time seen: 03/12/22 15:14 Interval history: This is a 41-year-old female patient who has a history of cerebral palsy.? She is wheelchair-bound.? She is care for by her mother.? The patient came home from school today and was noted to be short of breath and had increased secretions at the end of the day.? The patient was cyanotic when she was dropped off at .? The mother then connected the patient to oxygen at 2 L per nasal cannula.? The patient was foaming at the mouth when she got home.? The patient was given a breathing treatment the patient continue to bullet be blue.? She does use a CPAP at night but otherwise she is not oxygen dependent.? Patient is nonverbal and cannot answer for herself.? The mother is at the bedside.? Patient's white count is 10.1.? Patient has generalized edema.? Arterial blood gases were not able to be performed.? They did venous blood gases with a pH of 7.277 and a CO2 of 93.7.? The patient was placed on a BiPAP.? Patient had been suctioned several times.? Her potassium was noted to be 6.4 and sodium 135.? Lactic 2.4.? Troponin 0.234 and 0.311 AST is 111 at I ALT is 85 alkaline phosphatase 146.? BNP is 8120.? Urine is positive for UTI.? Although she has many squamous cells this could be a contaminant.? The patient is negative for influenza A/B RSV and COVID.? Chest abdomen pelvis CT a limited evaluation for pulmonary emboli due to motion artifact no large central pulmonary emboli.? Extensive
[2022-03-13] VITALS (23 sets, daily range): BP systolic 91–115; BP diastolic 47–70; PULSE 78–107; RESP 18–24; TEMP 36.5–37.6; O2SAT 96–100
[2022-03-13] MEDS: ALBUTEROL SULFATE NEB 2.5 MG/3 ML INH INHALATION ×4 (02:35→20:48)
[2022-03-13] MEDS: IPRATROPIUM BR 0.02% INH SOLN 0.5 MG/2.5 ML VIAL INHALATION ×4 (02:35→20:48)
[2022-03-13 04:18] LABS: Basophils Percent Auto 0.3 % (0.2-1.2); Eosinophils Absolute Auto 0.1 K/mm3 (0-0.3); Eosinophils Percent Auto 1.9 % (0-4.4); Hematocrit 36.5 % (37.0-47.0); Hemoglobin 11.2 g/dL (12.0-15.0); Immature Granulocyte Absolute 0.02 K/mm3 (0.00-0.031); Immature Granulocyte Percent A 0.3 % (0-0.5); Lymphocytes Absolute Auto 1.59 K/mm3 (0.9-3.2); Lymphocytes Percent Auto 22.1 % (18.3-44.2); Mean Corpuscular HGB Conc 30.7 g/dl (32-36); Mean Corpuscular Hemoglobin 34.5 pg (26-34); Mean Corpuscular Volume 112.3 fl (80-100); Mean Platelet Volume 10.5 fl (7.4-10.4); Monocytes Absolute Auto 1.2 K/mm3 (0.1-0.6); Monocytes Percent Auto 16.4 % (2.6-8.5); Neutrophils Absolute Auto 4.3 K/mm3 (1.3-6.7); Platelet Count Result 300 k/mm3 (150-375); Red Blood Count 3.25 M/mm3 (4.2-5.4); Red Cell Distribution Width 16.6 % (11.5-14.5); White Blood Count 7.2 K/mm3 (4.5-10.0)
[2022-03-13 04:29] LABS: Alanine Aminotransferase 68 U/L (6-35); Albumin Level 3.3 g/dL (3.5-5.1); Alkaline Phosphatase 108 U/L (38-126); Aspartate Amino Transferase 53 U/L (14-36); Bilirubin,Total 0.4 mg/dL (0.2-1.3); Blood Urea Nitrogen 31 mg/dL (7-17); Calcium 8.6 mg/dL (8.4-10.2); Carbon Dioxide > 40 mmol/L (22-30); Chloride 88 mmol/L (98-107); Estimated Glomerular Filt Rate > 60; Glucose 103 mg/dL (65-110); Lipase 280 U/L (23-300); Magnesium 2.3 mg/dL (1.6-2.3); Sodium 134 mmol/L (137-145)
[2022-03-13] MEDS: VALPROIC ACID LIQ 250 MG/5 ML ORAL SOLUTION UDC 500 MG FEED TUBE ×3 (10:57→20:52)
[2022-03-13] MEDS: CHOLECALCIFEROL 1,000 UNITS TABLET 3000 UNITS PO (10:57)
[2022-03-13] MEDS: FAMOTIDINE 20 MG TABLET FEED TUBE ×2 (10:58→20:52)
[2022-03-13] MEDS: ENOXAPARIN 40 MG/0.4 ML SYRINGE SUB-Q (10:58)
[2022-03-13] MEDS: MAGNESIUM OXIDE 400 MG TABLET FEED TUBE ×2 (10:58→17:15)
[2022-03-13] MEDS: FLUoxetine HCL 20 MG CAPSULE FEED TUBE (10:58)
[2022-03-13] MEDS: MULTIVIT W/ IRON, MINERALS 15 ML LIQUID (*BKC) FEED TUBE (10:59)
[2022-03-13] MEDS: SCOPOLAMINE 1.5 MG PATCH TRANSDERM (10:59)
[2022-03-13] MEDS: IBUPROFEN 400 MG TABLET FEED TUBE (11:18)
[2022-03-13] MEDS: TIZANIDINE HCL 2 MG TABLET FEED TUBE (11:18)
--- NOTE | 2022-03-13 13:17 | PM.IMPN ---
Progress Note: A&P Assessment and Plan (1) Hyperkalemia: Code(s): E87.5 - Hyperkalemia Status: Acute Assessment and Plan: -the patient was given a concoction in the emergency room with D50 insulin and Kayexalate. -the patient has not had a bowel movement as yet. -repeat BMP With resolution of hyperkalemia (2) Pneumonia: Code(s): J18.9 - Pneumonia, unspecified organism Status: Acute Assessment and Plan: Suspect that she may have aspirated. -continue with nebulizer treatments. The patient is on vanco and Zosyn -tailor antibiotics to cultures. -urine and blood cultures are no growth to date (3) UTI (urinary tract infection): Code(s): N39.0 - Urinary tract infection, site not specified Status: Acute Assessment and Plan: vancomycin and zosyn. follow cultures which is been no growth so for (4) Hypercapnia: Code(s): R06.89 - Other abnormalities of breathing Status: Acute Assessment and Plan: -the patient is on a BiPAP. -they were unable to do ABGs and we have drawn VBG -the patient has respiratory acidosis. And hypercapnia -the patient is awake and looking around. She is active. The patient is a DNI. I spoke to her mother about this and she does not want her child intubated. Continue with BiPAP on p.r.n. BiPAP Continue taper BiPAP as tolerated Will give another dose of diuresis today (5) Cerebral palsy: Code(s): G80.9 - Cerebral palsy, unspecified Status: Chronic Assessment and Plan: -she is cared for by her caregivers. The patient typically has to feedings however the patient looks like she has full of air and she is hypoxic. She has a lot of gas in her colon and we will try simethicone drops. (6) Seizure disorder: Code(s): G40.909 - Epilepsy, unspecified, not intractable, without status epilepticus Status: Chronic Assessment and Plan: -patient's abdomen is distended and were not giving anything through the G-tube at this time. -IV Ativan. Resume enteral meds via G-tube (7) Constipation: Code(s): K59.00 - Constipation, unspecified Status: Acute Assessment and Plan: -continue with her bisacodyl suppository. -simethicone gas drops -fleets enema p.r.n. Plan cerebral plasy elevaed bnp. possibe chf. echo with hyperdynamic left ventricular function. lasix given one dose. recheck cxr with findings on pneumonia. Will give another dose of Lasix today labs revewied elevated lipase ct without pancreattiis this has normalized now elevated troponon> likely due to underlying pneumoina Subjective Date/time seen: 03/13/22 13:17 Interval history: This is a 41-year-old female patient who has a history of cerebral palsy.? She is wheelchair-bound.? She is care for by her mother.? The patient came home from school today and was noted to be short of breath and had increased secretions at the end of the day.? The patient was cyanotic when she was dropped off at 1[facility].? The mother then connected the patient to oxygen at 2 L per nasal cannula.? The patient was foaming at the mouth when she got home.? The patient was given a breathing treatment the patient continue to bullet be blue.? She does use a CPAP at night but otherwise she is not oxygen dependent.? Patient is nonverbal and cannot answer for herself.? The mother is at the bedside.? Patient's white count is 10.1.? Patient has generalized edema.? Arterial blood gases were not able to be performed.? They did venous blood gases with a pH of 7.277 and a CO2 of 93.7.? The patient was placed on a BiPAP.? Patient had been suctioned several times.? Her potassium was noted to be 6.4 and sodium 135.? Lactic 2.4.? Troponin 0.234 and 0.311 AST is 111 at I ALT is 85 alkaline phosphatase 146.? BNP is 8120.? Urine is positive for UTI.? Although she has many squamous cells this could be a contaminant.? The patient is negative for influenza A/B RSV and COVID.? Chest a
[2022-03-13] MEDS: FUROSEMIDE INJ 40 MG/4 ML VIAL IV PUSH (14:31)
[2022-03-13] MEDS: CENTRAL LINE FLUSH 10 ML IV PUSH ×3 (14:32→20:53)
--- NOTE | 2022-03-13 19:01 | PC.NURSE ---
FERMIN used to hang [address] [facility], noted that Radha was longed in as I was saving medication administration. This nurse administered ivpb medication.
[2022-03-14] VITALS (22 sets, daily range): BP systolic 97–156; BP diastolic 52–89; PULSE 67–102; RESP 18–24; TEMP 36.3–36.9; O2SAT 96–100
[2022-03-14] MEDS: ALBUTEROL SULFATE NEB 2.5 MG/3 ML INH INHALATION ×4 (02:47→19:58)
[2022-03-14] MEDS: IPRATROPIUM BR 0.02% INH SOLN 0.5 MG/2.5 ML VIAL INHALATION ×4 (02:47→19:58)
[2022-03-14 05:19] LABS: Basophils Percent Auto 0.4 % (0.2-1.2); Eosinophils Absolute Auto 0.3 K/mm3 (0-0.3); Hematocrit 34.1 % (37.0-47.0); Hemoglobin 10.4 g/dL (12.0-15.0); Immature Granulocyte Absolute 0.02 K/mm3 (0.00-0.031); Immature Granulocyte Percent A 0.4 % (0-0.5); Lymphocytes Percent Auto 23.1 % (18.3-44.2); Mean Corpuscular HGB Conc 30.5 g/dl (32-36); Mean Corpuscular Hemoglobin 34.4 pg (26-34); Mean Corpuscular Volume 112.9 fl (80-100); Mean Platelet Volume 10.2 fl (7.4-10.4); Monocytes Absolute Auto 0.8 K/mm3 (0.1-0.6); Monocytes Percent Auto 15.2 % (2.6-8.5); Neutrophils Absolute Auto 2.9 K/mm3 (1.3-6.7); Neutrophils Percent Auto 55.9 % (45.5-73.1); Platelet Count Result 263 k/mm3 (150-375); Red Blood Count 3.02 M/mm3 (4.2-5.4); Red Cell Distribution Width 16.3 % (11.5-14.5); White Blood Count 5.2 K/mm3 (4.5-10.0)
[2022-03-14 05:28] LABS: Alanine Aminotransferase 48 U/L (6-35); Albumin Level 2.9 g/dL (3.5-5.1); Alkaline Phosphatase 99 U/L (38-126); Aspartate Amino Transferase 37 U/L (14-36); Bilirubin,Total 0.4 mg/dL (0.2-1.3); Blood Urea Nitrogen 36 mg/dL (7-17); Calcium 8.3 mg/dL (8.4-10.2); Carbon Dioxide > 40 mmol/L (22-30); Chloride 90 mmol/L (98-107); Estimated Glomerular Filt Rate > 60; Glucose 99 mg/dL (65-110); Magnesium 2.6 mg/dL (1.6-2.3); Potassium 4.1 mmol/L (3.4-5.0); Sodium 139 mmol/L (137-145)
[2022-03-14 05:50] LABS: Platelet Estimate Adequate (Adequate)
[2022-03-14 05:51] LABS: Poikilocytosis 1+ (NORMAL); Stomatocytes 1+ (NORMAL)
[2022-03-14 05:56] LABS: Schistocytes None Seen (NORMAL)
[2022-03-14] MEDS: CENTRAL LINE FLUSH 10 ML IV PUSH ×4 (06:02→20:52)
[2022-03-14] MEDS: CHOLECALCIFEROL 1,000 UNITS TABLET 3000 UNITS PO (08:27)
[2022-03-14] MEDS: FLUoxetine HCL 20 MG CAPSULE FEED TUBE (08:27)
[2022-03-14] MEDS: MULTIVIT W/ IRON, MINERALS 15 ML LIQUID (*BKC) FEED TUBE (08:27)
[2022-03-14] MEDS: ENOXAPARIN 40 MG/0.4 ML SYRINGE SUB-Q (08:27)
[2022-03-14] MEDS: FAMOTIDINE 20 MG TABLET FEED TUBE ×2 (08:27→20:52)
[2022-03-14] MEDS: VALPROIC ACID LIQ 250 MG/5 ML ORAL SOLUTION UDC 500 MG FEED TUBE ×3 (08:27→20:52)
[2022-03-14] MEDS: MAGNESIUM OXIDE 400 MG TABLET FEED TUBE ×2 (08:27→16:20)
[2022-03-14] MEDS: IBUPROFEN 400 MG TABLET FEED TUBE (11:46)
--- NOTE | 2022-03-14 15:12 | PM.IMPN ---
Progress Note: A&P Assessment and Plan (1) Hyperkalemia: Code(s): E87.5 - Hyperkalemia Status: Acute Assessment and Plan: -the patient was given a concoction in the emergency room with D50 insulin and Kayexalate. -the patient has not had a bowel movement as yet. -repeat BMP With resolution of hyperkalemia (2) Pneumonia: Code(s): J18.9 - Pneumonia, unspecified organism Status: Acute Assessment and Plan: Suspect that she may have aspirated. -continue with nebulizer treatments. The patient is on vanco and Zosyn -tailor antibiotics to cultures. -urine and blood cultures are no growth to date will stop vancomycin today (3) UTI (urinary tract infection): Code(s): N39.0 - Urinary tract infection, site not specified Status: Acute Assessment and Plan: vancomycin and zosyn. follow cultures which is been no growth so for (4) Hypercapnia: Code(s): R06.89 - Other abnormalities of breathing Status: Acute Assessment and Plan: -the patient is on a BiPAP. -they were unable to do ABGs and we have drawn VBG -the patient has respiratory acidosis. And hypercapnia -the patient is awake and looking around. She is active. The patient is a DNI. I spoke to her mother about this and she does not want her child intubated. Continue with BiPAP on p.r.n. BiPAP Continue taper BiPAP as tolerated will hold diuresis today due to lowish bp (5) Cerebral palsy: Code(s): G80.9 - Cerebral palsy, unspecified Status: Chronic Assessment and Plan: -she is cared for by her caregivers. The patient typically has to feedings however the patient looks like she has full of air and she is hypoxic. She has a lot of gas in her colon and we will try simethicone drops. (6) Seizure disorder: Code(s): G40.909 - Epilepsy, unspecified, not intractable, without status epilepticus Status: Chronic Assessment and Plan: -patient's abdomen is distended and were not giving anything through the G-tube at this time. -IV Ativan. Resume enteral meds via G-tube (7) Constipation: Code(s): K59.00 - Constipation, unspecified Status: Acute Assessment and Plan: -continue with her bisacodyl suppository. -simethicone gas drops -fleets enema p.r.n. Plan cerebral plasy elevaed bnp. possibe chf. echo with hyperdynamic left ventricular function. lasix given one dose. recheck cxr with findings on pneumonia. prn diuresis labs revewied elevated lipase ct without pancreattiis this has normalized now elevated troponon> likely due to underlying pneumoina Subjective Date/time seen: 03/14/22 15:12 Interval history: This is a 41-year-old female patient who has a history of cerebral palsy.? She is wheelchair-bound.? She is care for by her mother.? The patient came home from school today and was noted to be short of breath and had increased secretions at the end of the day.? The patient was cyanotic when she was dropped off at 1[facility].? The mother then connected the patient to oxygen at 2 L per nasal cannula.? The patient was foaming at the mouth when she got home.? The patient was given a breathing treatment the patient continue to bullet be blue.? She does use a CPAP at night but otherwise she is not oxygen dependent.? Patient is nonverbal and cannot answer for herself.? The mother is at the bedside.? Patient's white count is 10.1.? Patient has generalized edema.? Arterial blood gases were not able to be performed.? They did venous blood gases with a pH of 7.277 and a CO2 of 93.7.? The patient was placed on a BiPAP.? Patient had been suctioned several times.? Her potassium was noted to be 6.4 and sodium 135.? Lactic 2.4.? Troponin 0.234 and 0.311 AST is 111 at I ALT is 85 alkaline phosphatase 146.? BNP is 8120.? Urine is positive for UTI.? Although she has many squamous cells this could be a contaminant.? The patient is negative for influenza A/B RSV and COVID.? Chest
[2022-03-14] MEDS: TIZANIDINE HCL 2 MG TABLET FEED TUBE (21:07)
--- NOTE | 2022-03-14 21:40 | PCRCNOTE ---
RT was called to place patient on BIPAP. Patient had her own BIPAP trilogy mask on hospital BIPAP. Discussed with mom that patient was not getting her tidal volumes and needed to have hospital mask on our machine. Mom felt like her daughter was tolerating it fine and would not let RT replace mask. RT did educate mom on importance of replacing mask and mom refused.
[2022-03-15] VITALS (21 sets, daily range): BP systolic 118–144; BP diastolic 58–76; PULSE 74–103; RESP 14–24; TEMP 36.4–36.7; O2SAT 93–100
[2022-03-15] MEDS: ALBUTEROL SULFATE NEB 2.5 MG/3 ML INH INHALATION ×4 (01:43→20:00)
[2022-03-15] MEDS: IPRATROPIUM BR 0.02% INH SOLN 0.5 MG/2.5 ML VIAL INHALATION ×4 (01:43→19:59)
[2022-03-15] MEDS: CENTRAL LINE FLUSH 10 ML IV PUSH ×3 (05:41→21:20)
[2022-03-15 05:51] LABS: Hematocrit 35.8 % (37.0-47.0); Hemoglobin 10.6 g/dL (12.0-15.0); Mean Corpuscular HGB Conc 29.6 g/dl (32-36); Mean Corpuscular Hemoglobin 33.8 pg (26-34); Platelet Count Result 238 k/mm3 (150-375); Red Blood Count 3.14 M/mm3 (4.2-5.4); Red Cell Distribution Width 15.9 % (11.5-14.5); White Blood Count 5.3 K/mm3 (4.5-10.0)
[2022-03-15 06:06] LABS: Alanine Aminotransferase 42 U/L (6-35); Alkaline Phosphatase 107 U/L (38-126); Aspartate Amino Transferase 39 U/L (14-36); Band Neutrophils Percent 6 % (0-6); Bilirubin,Total 0.4 mg/dL (0.2-1.3); Blood Urea Nitrogen 23 mg/dL (7-17); Calcium 8.8 mg/dL (8.4-10.2); Carbon Dioxide > 40 mmol/L (22-30); Chloride 92 mmol/L (98-107); Eosinophils Absolute Manual 0.21 K/mm3 (0.02-0.5); Eosinophils Percent Manual 4 % (0-4); Estimated Glomerular Filt Rate > 60; Glucose 107 mg/dL (65-110); Magnesium 2.1 mg/dL (1.6-2.3); Monocytes Absolute Manual 0.15 K/mm3 (0.1-0.90); Monocytes Percent Manual 3 % (3-9); Neutrophils Absolute Manual 3.02 K/mm3 (1.7-7.2); Neutrophils Percent Manual 51 % (46-73); Platelet Estimate Adequate (Adequate); Potassium 4.1 mmol/L (3.4-5.0); Schistocytes None Seen (NORMAL); Sodium 140 mmol/L (137-145); Total Cells Counted 100
[2022-03-15] MEDS: MULTIVIT W/ IRON, MINERALS 15 ML LIQUID (*BKC) FEED TUBE (09:05)
[2022-03-15] MEDS: FLUoxetine HCL 20 MG CAPSULE FEED TUBE (09:06)
[2022-03-15] MEDS: VALPROIC ACID LIQ 250 MG/5 ML ORAL SOLUTION UDC 500 MG FEED TUBE ×3 (09:06→21:18)
[2022-03-15] MEDS: FAMOTIDINE 20 MG TABLET FEED TUBE ×2 (09:06→21:18)
[2022-03-15] MEDS: ENOXAPARIN 40 MG/0.4 ML SYRINGE SUB-Q (09:06)
[2022-03-15] MEDS: CHOLECALCIFEROL 1,000 UNITS TABLET 3000 UNITS PO (09:07)
[2022-03-15] MEDS: MAGNESIUM OXIDE 400 MG TABLET FEED TUBE ×2 (09:07→17:31)
[2022-03-15] MEDS: IBUPROFEN 400 MG TABLET FEED TUBE (09:51)
--- NOTE | 2022-03-15 13:13 | PCNFU ---
Nutrition Follow-Up Complete: Inadequate energy intake related to NPO status, dysphagia as evidenced by existing PEG tube and need for full tube feeding. Goal:Tolerate tube feeding at goal rate. Pt is meeting goal. Pt current nutrition is Jevity 1.2 @ 50ml/hr over 22 hrs. Nutrition recommendation: consider bolus feeds Last recorded weight is 70.2 kg. Bowel Motility: +BM 03/14 Labs Reviewed: hgb:10.6, HCT:35.8, Alb:3.0, BUN:23, Cr:0.5 Meds Noted: lovenox, lactulose Skin: WNL Additional Notes: Pt is on continuous feeds of Jevity 1.2 @ 50ml/hr over 22 hrs to provide 1320 kcals, 61 g protein, 888 ml free water. Flushes 100 ml q 6 hours for total 1288 ml free water/day. MD asking for possible bolus feeds due to aspiration risk of nocturnal feeds. Bolus conversion agreed upon is 180ml 5x/day of Jevity 1.5, 80ml flush after each feed. Suggested times: 6am,10am,2pm,6pm,10pm. *Pt must be upright in position for bolus feeds. Monitoring tolerance, weights, labs, plan of care Follow up on Tuesdays and Fridays
--- NOTE | 2022-03-15 13:18 | PCDIET ---
Tube feeding recommendation for bolus conversion: Jevity 1.5, 180ml 5x/day, 80ml flush after each feed. Suggested times: 6am,10am,2pm,6pm,10pm. *Pt must be upright in position for bolus feeds.
--- NOTE | 2022-03-15 13:22 | PM.IMPN ---
Progress Note: A&P Assessment and Plan (1) Hyperkalemia: Code(s): E87.5 - Hyperkalemia Status: Acute Assessment and Plan: -the patient was given a concoction in the emergency room with D50 insulin and Kayexalate. -the patient has not had a bowel movement as yet. -repeat BMP With resolution of hyperkalemia (2) Pneumonia: Code(s): J18.9 - Pneumonia, unspecified organism Status: Acute Assessment and Plan: Suspect that she may have aspirated. -continue with nebulizer treatments. The patient is on vanco and Zosyn -tailor antibiotics to cultures. -urine and blood cultures are no growth to date Stop vancomycin 03/14/2022 Will switch Zosyn to Augmentin 03/15/2022 (3) UTI (urinary tract infection): Code(s): N39.0 - Urinary tract infection, site not specified Status: Acute Assessment and Plan: vancomycin and zosyn. follow cultures which is been no growth so for (4) Hypercapnia: Code(s): R06.89 - Other abnormalities of breathing Status: Acute Assessment and Plan: -the patient is on a BiPAP. -they were unable to do ABGs and we have drawn VBG -the patient has respiratory acidosis. And hypercapnia -the patient is awake and looking around. She is active. The patient is a DNI. I spoke to her mother about this and she does not want her child intubated. Continue with BiPAP on p.r.n. BiPAP Continue taper BiPAP as tolerated diuresis p.r.n.. Will check BNP Chest x-ray with improving (5) Cerebral palsy: Code(s): G80.9 - Cerebral palsy, unspecified Status: Chronic Assessment and Plan: -she is cared for by her caregivers. The patient typically has to feedings however the patient looks like she has full of air and she is hypoxic. She has a lot of gas in her colon and we will try simethicone drops. (6) Seizure disorder: Code(s): G40.909 - Epilepsy, unspecified, not intractable, without status epilepticus Status: Chronic Assessment and Plan: -patient's abdomen is distended and were not giving anything through the G-tube at this time. -IV Ativan. Resume enteral meds via G-tube (7) Constipation: Code(s): K59.00 - Constipation, unspecified Status: Acute Assessment and Plan: -continue with her bisacodyl suppository. -simethicone gas drops -fleets enema p.r.n. Having diarrhea now Could be tube feed related or antibiotics related Will continue to monitor Check abdominal x-ray Plan cerebral plasy elevaed bnp. possibe chf. echo with hyperdynamic left ventricular function. lasix given one dose. recheck cxr with findings on pneumonia. prn diuresis labs revewied. Monitor BNP elevated lipase ct without pancreattiis this has normalized now elevated troponon> likely due to underlying pneumoina Subjective Date/time seen: 03/15/22 13:22 Interval history: This is a 41-year-old female patient who has a history of cerebral palsy.? She is wheelchair-bound.? She is care for by her mother.? The patient came home from school today and was noted to be short of breath and had increased secretions at the end of the day.? The patient was cyanotic when she was dropped off at 1[facility].? The mother then connected the patient to oxygen at 2 L per nasal cannula.? The patient was foaming at the mouth when she got home.? The patient was given a breathing treatment the patient continue to bullet be blue.? She does use a CPAP at night but otherwise she is not oxygen dependent.? Patient is nonverbal and cannot answer for herself.? The mother is at the bedside.? Patient's white count is 10.1.? Patient has generalized edema.? Arterial blood gases were not able to be performed.? They did venous blood gases with a pH of 7.277 and a CO2 of 93.7.? The patient was placed on a BiPAP.? Patient had been suctioned several times.? Her potassium was noted to be 6.4 and sodium 135.? Lactic 2.4.? Troponin 0.234 and 0.311 AST is 111 at I ALT is 85 a
[2022-03-15 13:46] LABS: NT Pro B Type Natriuretic Pept 1730 pg/mL (19.9-100)
[2022-03-15] MEDS: ACETAMINOPHEN ELIXIR 325 MG/10.15 ML UDC 650 MG PO ×2 (14:27→21:19)
[2022-03-15] MEDS: TIZANIDINE HCL 2 MG TABLET FEED TUBE (21:21)
[2022-03-15] MEDS: SIMETHICONE ORAL SUSPENSION 20 MG/0.3 ML 30 ML BOTTLE 0.6 ML PO (21:24)
[2022-03-15] MEDS: AMOXICILLIN/CLAVULANATE K 875-125 MG TAB 1 TABLET FEED TUBE (21:35)
--- NOTE | 2022-03-15 21:38 | PCRCNOTE ---
changed mask pt was using home mask from her trilogy on our machine which pt was not achiving vts do to double leak.. educated mom on importance of changing to hospital mask which pt is tolerating well also increased her vts
[2022-03-16] VITALS (16 sets, daily range): BP systolic 108–176; BP diastolic 44–70; PULSE 76–116; RESP 18–22; TEMP 36.1–36.9; O2SAT 92–97
[2022-03-16] MEDS: ALBUTEROL SULFATE NEB 2.5 MG/3 ML INH INHALATION ×4 (02:19→20:13)
[2022-03-16] MEDS: IPRATROPIUM BR 0.02% INH SOLN 0.5 MG/2.5 ML VIAL INHALATION ×4 (02:19→20:13)
[2022-03-16 05:39] LABS: Hematocrit 33.7 % (37.0-47.0); Hemoglobin 10.2 g/dL (12.0-15.0); Mean Corpuscular HGB Conc 30.3 g/dl (32-36); Mean Corpuscular Hemoglobin 34.3 pg (26-34); Mean Corpuscular Volume 113.5 fl (80-100); Mean Platelet Volume 10.1 fl (7.4-10.4); Platelet Count Result 235 k/mm3 (150-375); Red Blood Count 2.97 M/mm3 (4.2-5.4); Red Cell Distribution Width 15.5 % (11.5-14.5); White Blood Count 5.5 K/mm3 (4.5-10.0)
[2022-03-16 05:51] LABS: Alanine Aminotransferase 36 U/L (6-35); Alkaline Phosphatase 103 U/L (38-126); Aspartate Amino Transferase 45 U/L (14-36); Bilirubin,Total 0.4 mg/dL (0.2-1.3); Blood Urea Nitrogen 21 mg/dL (7-17); Carbon Dioxide > 40 mmol/L (22-30); Chloride 97 mmol/L (98-107); Estimated Glomerular Filt Rate > 60; Glucose 105 mg/dL (65-110); Magnesium 1.7 mg/dL (1.6-2.3); Potassium 4.1 mmol/L (3.4-5.0); Sodium 141 mmol/L (137-145)
[2022-03-16] MEDS: CENTRAL LINE FLUSH 10 ML IV PUSH ×3 (06:05→20:57)
[2022-03-16 06:11] LABS: Band Neutrophils Percent 1 % (0-6); Eosinophils Absolute Manual 0.38 K/mm3 (0.02-0.5); Eosinophils Percent Manual 7 % (0-4); Lymphocytes Absolute Manual 1.26 K/mm3 (1.1-4.5); Monocytes Absolute Manual 0.22 K/mm3 (0.1-0.90); Monocytes Percent Manual 4 % (3-9); Neutrophils Absolute Manual 3.63 K/mm3 (1.7-7.2); Neutrophils Percent Manual 65 % (46-73); Nucleated Red Blood Cells 1 %; Platelet Estimate Adequate (Adequate); Total Cells Counted 100
[2022-03-16 06:12] LABS: Schistocytes None Seen (NORMAL); Stomatocytes 3+ (NORMAL)
[2022-03-16] MEDS: ACETAMINOPHEN ELIXIR 325 MG/10.15 ML UDC 650 MG PO ×2 (07:44→14:59)
[2022-03-16] MEDS: VALPROIC ACID LIQ 250 MG/5 ML ORAL SOLUTION UDC 500 MG FEED TUBE ×3 (09:45→20:53)
[2022-03-16] MEDS: TIZANIDINE HCL 2 MG TABLET FEED TUBE ×2 (09:45→20:53)
[2022-03-16] MEDS: FAMOTIDINE 20 MG TABLET FEED TUBE ×2 (09:45→20:53)
[2022-03-16] MEDS: CHOLECALCIFEROL 1,000 UNITS TABLET 3000 UNITS PO (09:45)
[2022-03-16] MEDS: MULTIVIT W/ IRON, MINERALS 15 ML LIQUID (*BKC) FEED TUBE (09:45)
[2022-03-16] MEDS: AMOXICILLIN/CLAVULANATE K 875-125 MG TAB 1 TABLET FEED TUBE ×2 (09:45→20:53)
[2022-03-16] MEDS: ENOXAPARIN 40 MG/0.4 ML SYRINGE SUB-Q (09:45)
[2022-03-16] MEDS: FLUoxetine HCL 20 MG CAPSULE FEED TUBE (09:45)
[2022-03-16] MEDS: MAGNESIUM OXIDE 400 MG TABLET FEED TUBE ×2 (09:45→17:33)
[2022-03-16] MEDS: SCOPOLAMINE 1.5 MG PATCH TRANSDERM (10:54)
--- NOTE | 2022-03-16 16:43 | PM.IMPN ---
Progress Note: A&P Assessment and Plan (1) Pneumonia: Code(s): J18.9 - Pneumonia, unspecified organism Status: Acute Plan ?Hyperkalemia: resolved monitor Pneumonia: Suspect that she may have aspirated.? -continue with nebulizer treatments.? The patient is on vanco and Zosyn -tailor antibiotics to cultures.? -urine and blood cultures are no growth to date ? Stop vancomycin 03/14/2022 Will switch Zosyn to Augmentin 03/15/2022 Macrocytic anemia B12 and folate ordered monitor Loose stools No laxatives monitor UTI (urinary tract infection): on zosyn. follow cultures which is been no growth so for (4) Hypercapnia: ?Code(s): R06.89 - Other abnormalities of breathing ?Status:?Acute ?Assessment and Plan: -the patient is on a BiPAP.? -they were unable to do ABGs and we have drawn VBG -the patient has respiratory acidosis.? And hypercapnia -the patient is awake and looking around.? She is active.? Patient is DNI, mother does not want her intubated The patient is a DNI.? I spoke to her mother about this and she does not want her child intubated. Continue with BiPAP nighttime ?on p.r.n. BiPAP ?diuresis p.r.n..? Will check BNP Chest x-ray with improving (5) Cerebral palsy: ?Code(s): G80.9 - Cerebral palsy, unspecified ?Status:?Chronic ?Assessment and Plan: -she is cared for by her caregivers.? The patient typically has to feedings however the patient looks like she has full of air and she is hypoxic.? She has a lot of gas in her colon and we will try simethicone drops. (6) Seizure disorder: ?Code(s): G40.909 - Epilepsy, unspecified, not intractable, without status epilepticus ?Status:?Chronic ?Assessment and Plan: -patient's abdomen is distended and were not giving anything through the G-tube at this time. -IV Ativan. Resume? enteral meds via G-tube (7) Constipation: ?Code(s): K59.00 - Constipation, unspecified ?Status:?Acute ?Assessment and Plan: -continue with her bisacodyl suppository. -simethicone gas drops -fleets enema p.r.n. Having diarrhea now Could be tube feed related? or antibiotics related Will continue to monitor Check abdominal x-ray Elevated tropoin elevaed bnp. possibe chf.? echo with hyperdynamic left ventricular function. lasix given one dose.? recheck cxr with findings on pneumonia.? prn diuresis labs revewied.? Monitor BNP elevated lipase ct without pancreattiis this has normalized now elevated troponon> likely due to underlying pneumoina DVT prophylaxis on Sq lovenox Subjective Date/time seen: 03/16/22 16:43 Review of Systems Review of Systems: Patient on 1 Liter oxygen, having loose stool which has improved today, laxatives on hold case management working on placement All systems reviewed & are unremarkable except as noted in HPI and below Objective Data Vital Signs Vital Signs: Vital Signs - 24 hr 03/15/22 20:02 03/15/22 20:43 03/15/22 20:45 Temperature Pulse Rate 100 100 Respiratory Rate 23 H 24 H Blood Pressure Pulse Oximetry 95 95 Oxygen Delivery BiPAP BiPAP Oxygen Flow Rate Fraction of Inspired Oxygen 03/15/22 20:13 03/15/22 20:00 03/15/22 20:00 Temperature 97.6 F Pulse Rate 99 100 95 Respiratory Rate 20 24 H Blood Pressure 144/76 H Pulse Oximetry 98 95 Oxygen Delivery BiPAP Oxygen Flow Rate 2 Fraction of Inspired Oxygen 03/15/22 22:00 03/16/22 00:23 03/16/22 00:00 Temperature Pulse Rate 82 77 81 Respiratory Rate 22 H Blood Pressure Pulse Oximetry 94 Oxygen Delivery BiPAP Oxygen Flow Rate Fraction of Inspired Oxygen 03/16/22 02:19 03/16/22 04:00 03/16/22 08:00 Temperature 98.5 F Pulse Rate 85 111 H 107 H Respiratory Rate 22 H 22 H Blood Pressure 176/70 H Pulse Oximetry 92 Oxygen Delivery Oxygen Flow Rate Fraction of Inspired Oxygen 03/16/22 08:15 03/16/22 08:30 03/16/22 10:
[2022-03-17] VITALS (17 sets, daily range): BP systolic 112–138; BP diastolic 63–88; PULSE 77–127; RESP 20–31; TEMP 36.1–37.5; O2SAT 93–100
[2022-03-17] MEDS: IPRATROPIUM BR 0.02% INH SOLN 0.5 MG/2.5 ML VIAL INHALATION ×4 (01:09→20:27)
[2022-03-17] MEDS: ALBUTEROL SULFATE NEB 2.5 MG/3 ML INH INHALATION ×4 (01:09→20:27)
[2022-03-17 05:05] LABS: Basophils Percent Auto 0.6 % (0.2-1.2); Eosinophils Absolute Auto 0.4 K/mm3 (0-0.3); Eosinophils Percent Auto 6.1 % (0-4.4); Hematocrit 34.2 % (37.0-47.0); Hemoglobin 10.5 g/dL (12.0-15.0); Immature Granulocyte Absolute 0.02 K/mm3 (0.00-0.031); Immature Granulocyte Percent A 0.3 % (0-0.5); Lymphocytes Absolute Auto 1.62 K/mm3 (0.9-3.2); Lymphocytes Percent Auto 26.1 % (18.3-44.2); Mean Corpuscular HGB Conc 30.7 g/dl (32-36); Mean Corpuscular Hemoglobin 34.5 pg (26-34); Mean Corpuscular Volume 112.5 fl (80-100); Mean Platelet Volume 10.2 fl (7.4-10.4); Monocytes Absolute Auto 0.8 K/mm3 (0.1-0.6); Monocytes Percent Auto 13.5 % (2.6-8.5); Neutrophils Absolute Auto 3.3 K/mm3 (1.3-6.7); Neutrophils Percent Auto 53.4 % (45.5-73.1); Platelet Count Result 250 k/mm3 (150-375); Red Blood Count 3.04 M/mm3 (4.2-5.4); Red Cell Distribution Width 15.6 % (11.5-14.5); White Blood Count 6.2 K/mm3 (4.5-10.0)
[2022-03-17] MEDS: CENTRAL LINE FLUSH 10 ML IV PUSH ×3 (05:06→20:57)
[2022-03-17 05:19] LABS: Alanine Aminotransferase 34 U/L (6-35); Albumin Level 3.1 g/dL (3.5-5.1); Alkaline Phosphatase 103 U/L (38-126); Aspartate Amino Transferase 37 U/L (14-36); Bilirubin,Total 0.3 mg/dL (0.2-1.3); Blood Urea Nitrogen 21 mg/dL (7-17); Calcium 9.2 mg/dL (8.4-10.2); Carbon Dioxide > 40 mmol/L (22-30); Chloride 101 mmol/L (98-107); Estimated Glomerular Filt Rate > 60; Glucose 92 mg/dL (65-110); Potassium 4.1 mmol/L (3.4-5.0); Sodium 144 mmol/L (137-145)
[2022-03-17 06:26] LABS: Folic Acid 16.3 ng/mL (2.76->20)
[2022-03-17] MEDS: MULTIVIT W/ IRON, MINERALS 15 ML LIQUID (*BKC) FEED TUBE (08:30)
[2022-03-17] MEDS: VALPROIC ACID LIQ 250 MG/5 ML ORAL SOLUTION UDC 500 MG FEED TUBE ×3 (08:30→20:57)
[2022-03-17] MEDS: FLUoxetine HCL 20 MG CAPSULE FEED TUBE (08:30)
[2022-03-17] MEDS: MAGNESIUM OXIDE 400 MG TABLET FEED TUBE ×2 (08:30→17:23)
[2022-03-17] MEDS: CHOLECALCIFEROL 1,000 UNITS TABLET 3000 UNITS PO (08:30)
[2022-03-17] MEDS: ENOXAPARIN 40 MG/0.4 ML SYRINGE SUB-Q (08:30)
[2022-03-17] MEDS: AMOXICILLIN/CLAVULANATE K 875-125 MG TAB 1 TABLET FEED TUBE ×2 (08:30→20:57)
[2022-03-17] MEDS: FAMOTIDINE 20 MG TABLET FEED TUBE ×2 (08:30→20:57)
[2022-03-17] MEDS: TIZANIDINE HCL 2 MG TABLET FEED TUBE ×2 (13:58→20:57)
--- NOTE | 2022-03-17 17:54 | PM.IMPN ---
Progress Note: A&P Assessment and Plan (1) Pneumonia: Code(s): J18.9 - Pneumonia, unspecified organism Status: Acute Plan ?Hyperkalemia: resolved monitor Pneumonia: Suspect that she may have aspirated.? -continue with nebulizer treatments.? The patient is on vanco and Zosyn -tailor antibiotics to cultures.? -urine and blood cultures are no growth to date ? Stop vancomycin 03/14/2022 Will switch Zosyn to Augmentin 03/15/2022, Continue Augmentin Macrocytic anemia B12 886, folate 16.3 monitor Loose stools No laxatives monitor UTI (urinary tract infection): on zosyn. follow cultures which is been no growth so for (4) Hypercapnia: ?Code(s): R06.89 - Other abnormalities of breathing ?Status:?Acute ?Assessment and Plan: -the patient is on a BiPAP.? -they were unable to do ABGs and we have drawn VBG -the patient has respiratory acidosis.? And hypercapnia -the patient is awake and looking around.? She is active.? Patient is DNI, mother does not want her intubated The patient is a DNI.? I spoke to her mother about this and she does not want her child intubated. Continue with BiPAP nighttime ?on p.r.n. BiPAP ?diuresis p.r.n..? Will check BNP Chest x-ray with improving (5) Cerebral palsy: ?Code(s): G80.9 - Cerebral palsy, unspecified ?Status:?Chronic ?Assessment and Plan: -she is cared for by her caregivers.? The patient typically has to feedings however the patient looks like she has full of air and she is hypoxic.? She has a lot of gas in her colon and we will try simethicone drops. (6) Seizure disorder: ?Code(s): G40.909 - Epilepsy, unspecified, not intractable, without status epilepticus ?Status:?Chronic ?Assessment and Plan: -patient's abdomen is distended and were not giving anything through the G-tube at this time. -IV Ativan. Resume? enteral meds via G-tube (7) Constipation: ?Code(s): K59.00 - Constipation, unspecified ?Status:?Acute ?Assessment and Plan: -hold bisacodyl suppository. -simethicone gas drops -fleets enema p.r.n. Having diarrhea now Could be tube feed related? or antibiotics related Will continue to monitor Check abdominal x-ray Elevated troponin elevated bnp. possibe chf.? echo with hyperdynamic left ventricular function. lasix given one dose.? recheck cxr with findings on pneumonia.? prn diuresis labs revewied.? Monitor BNP elevated lipase ct without pancreattiis this has normalized now elevated troponon> likely due to underlying pneumoina DVT prophylaxis on Sq lovenox Awaiting placement, pending improvement in diarrhea Subjective Date/time seen: 03/17/22 17:54 Interval history: This is a 41-year-old female patient who has a history of cerebral palsy.? She is wheelchair-bound.? She is care for by her mother.? The patient came home from school today and was noted to be short of breath and had increased secretions at the end of the day.? The patient was cyanotic when she was dropped off at 1[facility].? The mother then connected the patient to oxygen at 2 L per nasal cannula.? The patient was foaming at the mouth when she got home.? The patient was given a breathing treatment the patient continue to bullet be blue.? She does use a CPAP at night but otherwise she is not oxygen dependent.? Patient is nonverbal and cannot answer for herself.? The mother is at the bedside.? Patient's white count is 10.1.? Patient has generalized edema.? Arterial blood gases were not able to be performed.? They did venous blood gases with a pH of 7.277 and a CO2 of 93.7.? The patient was placed on a BiPAP.? Patient had been suctioned several times.? Her potassium was noted to be 6.4 and sodium 135.? Lactic 2.4.? Troponin 0.234 and 0.311 AST is 111 at I ALT is 85 alkaline phosphatase 146.? BNP is 8120.? Urine is positive for UTI.? Although she has many squamous cells this could be a contaminant.? The patient is negative for influenza A/B R
[2022-03-18] VITALS (10 sets, daily range): BP systolic 128; BP diastolic 73–81; PULSE 94–122; RESP 20–28; TEMP 36.6–36.8; O2SAT 95–97
[2022-03-18] MEDS: ALBUTEROL SULFATE NEB 2.5 MG/3 ML INH INHALATION ×3 (02:08→14:30)
[2022-03-18] MEDS: IPRATROPIUM BR 0.02% INH SOLN 0.5 MG/2.5 ML VIAL INHALATION ×3 (02:08→14:50)
[2022-03-18 05:21] LABS: Basophils Absolute Auto 0.1 K/mm3 (0.0-0.1); Basophils Percent Auto 0.8 % (0.2-1.2); Eosinophils Absolute Auto 0.4 K/mm3 (0-0.3); Eosinophils Percent Auto 4.6 % (0-4.4); Hematocrit 36.3 % (37.0-47.0); Hemoglobin 11.2 g/dL (12.0-15.0); Immature Granulocyte Absolute 0.03 K/mm3 (0.00-0.031); Immature Granulocyte Percent A 0.4 % (0-0.5); Lymphocytes Percent Auto 23.7 % (18.3-44.2); Mean Corpuscular HGB Conc 30.9 g/dl (32-36); Mean Corpuscular Hemoglobin 34.4 pg (26-34); Mean Corpuscular Volume 111.3 fl (80-100); Mean Platelet Volume 10.6 fl (7.4-10.4); Monocytes Percent Auto 11.5 % (2.6-8.5); Nucleated Red Blood Cells Perc 0.2 % (0.0-0.2); Platelet Count Result 297 k/mm3 (150-375); Red Blood Count 3.26 M/mm3 (4.2-5.4); Red Cell Distribution Width 15.6 % (11.5-14.5); White Blood Count 8.4 K/mm3 (4.5-10.0)
[2022-03-18] MEDS: CENTRAL LINE FLUSH 10 ML IV PUSH (05:22)
[2022-03-18 05:35] LABS: Alanine Aminotransferase 33 U/L (6-35); Albumin Level 3.4 g/dL (3.5-5.1); Alkaline Phosphatase 125 U/L (38-126); Anion Gap 2 mmol/L (8-16); Aspartate Amino Transferase 40 U/L (14-36); Bilirubin,Total 0.5 mg/dL (0.2-1.3); Blood Urea Nitrogen 18 mg/dL (7-17); Calcium 9.1 mg/dL (8.4-10.2); Carbon Dioxide 37 mmol/L (22-30); Chloride 103 mmol/L (98-107); Estimated Glomerular Filt Rate > 60; Glucose 98 mg/dL (65-110); Potassium 4.4 mmol/L (3.4-5.0); Sodium 142 mmol/L (137-145)
[2022-03-18] MEDS: VALPROIC ACID LIQ 250 MG/5 ML ORAL SOLUTION UDC 500 MG FEED TUBE ×2 (10:02→17:32)
[2022-03-18] MEDS: ENOXAPARIN 40 MG/0.4 ML SYRINGE SUB-Q (10:03)
[2022-03-18] MEDS: CHOLECALCIFEROL 1,000 UNITS TABLET 3000 UNITS PO (10:03)
[2022-03-18] MEDS: AMOXICILLIN/CLAVULANATE K 875-125 MG TAB 1 TABLET FEED TUBE (10:03)
[2022-03-18] MEDS: FAMOTIDINE 20 MG TABLET FEED TUBE (10:04)
[2022-03-18] MEDS: FLUoxetine HCL 20 MG CAPSULE FEED TUBE (10:04)
[2022-03-18] MEDS: MAGNESIUM OXIDE 400 MG TABLET FEED TUBE ×2 (10:04→17:31)
[2022-03-18] MEDS: MULTIVIT W/ IRON, MINERALS 15 ML LIQUID (*BKC) FEED TUBE (10:05)
--- NOTE | 2022-03-18 11:01 | PCNFU ---
Nutrition Follow-Up Complete: Inadequate energy intake related to NPO status, dysphagia as evidenced by existing PEG tube and need for full tube feeding. goal: Tolerate tube feeding at goal rate Patient is progressing towards goal. We will continue current goal. Pt current nutrition is Jevity 1.5 180 ml-5 x daily. Last recorded weight is 64.1 kg. Last reported weight 70.3 kg on 03/16-recommend reweigh. Bowel Motility:Diarrhea reported per nursing. Labs Reviewed:Cr 0.3,BUN 18, Hct 36.3,Hgb 11.2 Meds Noted:Augmentin,Pepcid,Vit D, Mag ox Skin: WNL Additional Notes: Patient tolerating bolus feedings of Jevity 1.5. Tube feedings providing 1320 kcals/57 gm protein/684 ml water. Free water flush 80 ml after each feeding. Tube feeding is providing 92% kcal needs and 100% protein needs. Discussion with nursing today in regards to loose stools, discussed Bantrol Plus for stool bulking. Recommend Banantrol TF TID for stool bulking. Agree with diet orders. Monitoring tolerance, weights, labs, plan of care Follow up on Tuesdays and Fridays
[2022-03-18] MEDS: ACETAMINOPHEN ELIXIR 325 MG/10.15 ML UDC 650 MG PO (12:10)
--- NOTE | 2022-03-18 14:29 | ECG_ITS ---
Measurements Intervals [place] Rate: 108 P: 48 [place]: 107 QRS: 66 QRSD: 84 T: -24 QT: 346 QTc: 464 Interpretive Statements SINUS TACHYCARDIA WITH SHORT [place] INTERVAL NONSPECIFIC ST AND T-WAVE ABNORMALITY ABNORMAL ECG COMPARED TO ECG 03/10/2022 15:48:43 SINUS TACHYCARDIA NOW PRESENT T-WAVE ABNORMALITY NOW PRESENT Electronically Signed On 03-19-2022 12:45:35 HEAD BU[employer]ER by Daniel Raines M.D.
--- NOTE | 2022-03-18 15:14 | PM.DS ---
DS: Admitting Diagnosis Discharge Date 03/18/22 Admitting Diagnosis Pneumonia DS: Discharge Diagnosis Discharge Diagnosis (1) Pneumonia: Code(s): J18.9 - Pneumonia, unspecified organism Status: Acute Plan Pneumonia: Suspect that she may have aspirated.? -continue with nebulizer treatments.? S/p vanco and Zosyn -tailor antibiotics to cultures.? -urine and blood cultures are no growth to date ? Stop vancomycin 03/14/2022 Will switch Zosyn to Augmentin 03/15/2022 To complete Augmentin 3 more days f/u with PCP Hyperkalemia: resolved monitor Macrocytic anemia B12 886, folate 16.3 monitor? Loose stools improving No laxatives monitor ?UTI (urinary tract infection): Completed Abx follow cultures which is been no growth so for (4) Hypercapnia: -the patient is on a BiPAP.? -they were unable to do ABGs and we have drawn VBG -the patient has respiratory acidosis.? And hypercapnia -the patient is awake and looking around.? She is active.? Patient is DNI, mother does not want her intubated The patient is a DNI.? I spoke to her mother about this and she does not want her child intubated. Continue with BiPAP nighttime ?on p.r.n. BiPAP ?diuresis p.r.n..? Will check BNP Chest x-ray with improving (5) Cerebral palsy: -she is cared for by her caregivers.? The patient typically has to feedings however the patient looks like she has full of air and she is hypoxic.? She has a lot of gas in her colon and we will try simethicone drops. (6) Seizure disorder: -patient's abdomen is distended and were not giving anything through the G-tube at this time. Continue home Deparkote Resume? enteral meds via G-tube (7) Constipation: -hold? bisacodyl suppository. -simethicone gas drops -fleets enema p.r.n. Having diarrhea now Could be tube feed related? or antibiotics related Hold Laxatives until diarrhea resolves Elevated troponin elevated bnp. possibe chf.? echo with hyperdynamic left ventricular function. lasix given one dose.? recheck cxr with findings on pneumonia.? prn diuresis labs reviewed.? Monitor BNP elevated lipase ct without pancreatitis this has normalized now elevated troponin> likely due to underlying pneumoina DVT prophylaxis on Sq lovenox Dsicharge to retirement F/u with PCP in 3 -5 days DS: Summary Hospital Course Hospital Course: Patient admitted and treated for Pneumonia and initially on Vanc and Zosyn and later downgraded to Augmentin, to complete 3 more days Augmentin. Repeat CXR showed improving infiltrate. Oxygen requirement has improved markedly. Other comorbidities stable and patient discharged to retirement. See assessment and plan for more details. F/u with PCP in 3-5 days Time Spent with Patient Time attestation: Total time spent providing and/or coordinating discharge services: DS: Data Data Completed and Pending Labs on day of discharge: Labs from last 24 hours 03/18/22 03/18/22 04:57 04:57 WBC 8.4 RBC 3.26 L Hgb 11.2 L Hct 36.3 L MCV 111.3 H MCH 34.4 H MCHC 30.9 L RDW 15.6 H Plt Count 297 MPV 10.6 H Immature Gran % (Auto) 0.4 Neut % (Auto) 59.0 Lymph % (Auto) 23.7 [place] % (Auto) 11.5 H Eos % (Auto) 4.6 H Baso % (Auto) 0.8 Lymph # (Auto) 2.00 [place] # (Auto) 1.0 H Eos # (Auto) 0.4 H Baso # (Auto) 0.1 Abs Immat Gran (auto) 0.03 Absolute Neuts (auto) 5.0 Absolute Nucleated RBC 0.0 Nucleated RBC % 0.2 Sodium 142 Potassium 4.4 Chloride 103 Carbon Dioxide 37 H Anion Gap 2 L BUN 18 H Creatinine 0.30 L Estim Creat Clear Calc Not Reportable Estimated GFR > 60 Glucose 98 Calcium 9.1 Total Bilirubin 0.5 AST 40 H ALT 33 Alkaline Phosphatase 125 Total Protein 7.0 Albumin 3.4 L Discharge Plan Discharge Attending physician on discharge: Nai Linton Discharging Clinician: Nai Linton Anticipated Discharge Date/Time: 03/18/22 15:09 Patient Dispositi
[2022-03-18 15:35] LABS: EDCOVIDSCREEN Negative (Negative)
== END 2022-03-18 19:00 | DRG 193 ==
LOC: ANHED 16:27 → ANHIMU 20:53
PROVIDERS: Emergency Medicine; Internal Medicine; Nurse Practitioner; Admitting Provider Chiropractor; Emergency Provider Emergency Medicine; PCP Nurse Practitioner Family; Visit Provider Internal Medicine
DX: J18.9 Pneumonia, unspecified organism (principal); J96.21 Acute and chronic respiratory failure with hypoxia; J96.22 Acute and chronic respiratory failure with hypercapnia; N39.0 Urinary tract infection, site not specified; J69.0 Pneumonitis due to inhalation of food and vomit; Z20.822 Contact with and (suspected) exposure to COVID-19; G40.909 Epilepsy, unspecified, not intractable, without status epilepticus; N20.0 Calculus of kidney; I50.9 Heart failure, unspecified; E87.5 Hyperkalemia; D53.9 Nutritional anemia, unspecified; G80.9 Cerebral palsy, unspecified; K59.00 Constipation, unspecified; Z93.1 Gastrostomy status; Z98.1 Arthrodesis status; Z87.442 Personal history of urinary calculi; Z99.3 Dependence on wheelchair
CPT/HCPCS: 36415; 36569; 36600; 71045; 71275; 74018; 74177; 80048; 80053; 80202; 81001; 82607; 82746; 82803; 82805; 82948; 83605; 83690; 83735; 83880; 84439; 84443; 84480; 84484; 85025; 85610; 85730; 87040; 87086; 87088; 87426; 87637; 93005; 93306; 94002; 94640; 94660; 96374; 96375; 99285; A9270; C1751; C8929; C9803; J0131; J1650; J1815; J1940; J2543; J3370; J7030; Q9957; Q9967

== ENCOUNTER 2022-08-29 11:51 | Inpatient (IN) | payer MEDICARE, MEDICAID, SELFPAY ==
[2022-08-29] VITALS (23 sets, daily range): BP systolic 125–162; BP diastolic 82–106; PULSE 100–117; RESP 20–30; TEMP 36.6–37.2; O2SAT 93–98; BMI 47.6
--- NOTE | ~2022-08-29 | XR_ITS ---
Portable chest x-ray Comparison: 08/29/2022 Clinical History: Pneumonia Findings: There are probable minimal central congestive changes and minimal pulmonary edema. Cardio mediastinal silhouette is stable. Extensive thoracolumbar spinal fixation hardware is unchanged. Impression: Probable minimal central congestive changes and minimal central pulmonary edema. Stable extensive spinal fixation hardware. Reviewed, dictated and finalized at [facility]. Impression: Probable minimal central congestive changes and minimal central pulmonary edema . Stable extensive spinal fixation hardware.
--- NOTE | ~2022-08-29 | US_ITS ---
EXAMINATION: US venous doppler [facility] DATE: 08/30/2022 16:00 INDICATION: Lower limb edema. TECHNIQUE: Grayscale ultrasound images without and with compression and Doppler ultrasound images of the bilateral lower extremity veins were obtained. COMPARISON: Ultrasound 11/17/2021 FINDINGS: The visualized portions of right common femoral vein, profunda (deep) femoral vein, femoral vein, pop liteal vein, peroneal veins, posterior tibial veins, and greater saphenous vein outflow are patent. The visualized portions of left common femoral vein, profunda femoral vein, femoral vein, popliteal v ein, peroneal veins, posterior tibial veins, and greater saphenous vein outflow are patent. IMPRESSION: 1. No deep venous thrombosis. Reviewed, dictated and finalized at location A.
--- NOTE | ~2022-08-29 | XR_ITS ---
XR chest 1V DATE: 08/29/2022 13:01 INDICATION: Cough productive of thick mucous, dyspnea. TECHNIQUE: AP chest COMPARISON: March 18, 2022 portable AP chest FINDINGS: Bilateral thoracolumbar spinal rods are again noted. There is patchy atelectasis/consolidation in the left retrocardiac area, left lower lobe with air bro nchograms. Mild patchy bilateral pulmonary infiltrates are suggested. No pleural effusion is evident. No pneumothorax is detected. IMPRESSION: Left lower lobe atelectasis/consolidation in patchy bilateral pulmonary infiltrate Reviewed, dictated and finalized at location B. IMPRESSION: Left lower lobe atelectasis/consolidation in patchy bilateral pulmo nary infiltrate
--- NOTE | ~2022-08-29 | XR_ITS ---
Supine and upright views of the abdomen Clinical history: Abdominal distention, constipation COMPARISON: 03/15/2022 Findings: Bowel gas pattern is nonspecific. Percutaneous gastrostomy tube noted. No evidence for obst ruction or free air. Probable bilateral renal stones are present. Extensive spinal fixation hardware is unchanged. There is additional orthopedic hardware at the left femur, unchanged. Impression: Nonspecific bowel gas pattern. Orthopedic hardware at the throughout the spine and the left femur, unchanged. Bilateral nephrolithiasis. Reviewed, dictated and finalized at location M. Impression: Nonspecific bowel gas pattern. Orthopedic hardware at the throughout the spine and the left femur, unchanged. Bilateral nephrolithiasis.
--- NOTE | 2022-08-29 11:52 | ECG_ITS ---
Measurements Intervals [place] Rate: 105 P: 34 VA: 110 QRS: 47 QRSD: 84 T: 120 QT: 334 QTc: 442 Interpretive Statements SINUS TACHYCARDIA WITH SHORT VA INTERVAL NONSPECIFIC ST & T-WAVE ABNORMALITY- DIFFUSE LEADS BASELINE ARTIFACT- I, II, III, AVR, AVL, AVF, V4-V6 BORDERLINE ECG COMPARED TO ECG 03/18/2022 15:18:05 NO SIGNIFICANT CHANGES Electronically Signed On 08-29-2022 13:04:21 CDT by Rashad Ramos D.O.
[2022-08-29 12:43] LABS: Basophils Percent Auto 0.6 % (0.2-1.2); Eosinophils Absolute Auto 0.1 K/mm3 (0-0.3); Eosinophils Percent Auto 0.9 % (0-4.4); Hemoglobin 14.6 g/dL (12.0-15.0); Immature Granulocyte Absolute 0.02 K/mm3 (0.00-0.031); Immature Granulocyte Percent A 0.3 % (0-0.5); Lymphocytes Absolute Auto 0.76 K/mm3 (0.9-3.2); Lymphocytes Percent Auto 10.9 % (18.3-44.2); Mean Corpuscular HGB Conc 31.7 g/dl (32-36); Mean Corpuscular Hemoglobin 33.4 pg (26-34); Mean Corpuscular Volume 105.3 fl (80-100); Mean Platelet Volume 10.8 fl (7.4-10.4); Monocytes Absolute Auto 0.9 K/mm3 (0.1-0.6); Monocytes Percent Auto 12.5 % (2.6-8.5); Neutrophils Absolute Auto 5.2 K/mm3 (1.3-6.7); Neutrophils Percent Auto 74.8 % (45.5-73.1); Nucleated Red Blood Cells Perc 0.4 % (0.0-0.2); Platelet Count Result 190 k/mm3 (150-375); Red Blood Count 4.37 M/mm3 (4.2-5.4); Red Cell Distribution Width 14.7 % (11.5-14.5)
[2022-08-29 12:55] LABS: Alanine Aminotransferase 52 U/L (6-35); Alkaline Phosphatase 116 U/L (38-126); Aspartate Amino Transferase 57 U/L (14-36); Bilirubin,Total 0.7 mg/dL (0.2-1.3); Blood Urea Nitrogen 13 mg/dL (7-17); Calcium 9.5 mg/dL (8.4-10.2); Carbon Dioxide > 40 mmol/L (22-30); Chloride 88 mmol/L (98-107); Estimated Glomerular Filt Rate > 60; Glucose 115 mg/dL (65-110); Potassium 4.2 mmol/L (3.4-5.0); Sodium 136 mmol/L (137-145)
[2022-08-29 13:16] LABS: Platelet Estimate Adequate (Adequate)
[2022-08-29 13:19] LABS: Large Platelets Present; Platelet Clumps Present
[2022-08-29 13:20] LABS: Anisocytosis 1+ (NORMAL); Macrocytosis 1+ (NORMAL); Schistocytes None Seen (NORMAL); Stomatocytes 2+ (NORMAL)
--- NOTE | 2022-08-29 13:44 | ED.SOB ---
HPI - SOB/Dyspnea General Chief Complaint: Shortness of Breath/Dyspnea Stated Complaint: dyspnea Time Seen by Provider: 08/29/22 13:31 History of Present Illness HPI Narrative: Patient is a 41-year-old female with a history of cerebral palsy presenting with shortness of breath. Patient's parents are at bedside and help with the history. They state that she has been coughing and has been having increased respiratory secretions for the last couple of days. States that she just seems generally uncomfortable. Further history limited secondary to CP. Related Data Home Medications Medication Instructions Recorded Confirmed fluoxetine 20 mg/5 mL (4 mg/mL) 20 mg feeding tube DAILY 03/23/19 08/29/22 oral solution nitrofurantoin 25 mg/5 mL oral 50 mg feeding tube DAILY 03/23/19 08/29/22 suspension valproic acid (as sodium salt) 250 500 mg feeding tube TID 03/23/19 08/29/22 mg/5 mL oral solution magnesium oxide 420 mg tablet 420 mg feeding tube BID 07/20/21 08/29/22 [id number]-[id number]-[id number] gluconate 9 15 ml feeding tube DAILY 07/20/21 08/29/22 mg iron/15 mL (15 mL) oral liquid (Centrum) acetaminophen 500 mg/5 mL oral 1,000 mg feeding tube Q6H PRN 03/10/22 08/29/22 liquid Fever Or Pain cholecalciferol (vitamin D3) 12.5 3,000 unit PO DAILY 03/10/22 08/29/22 mcg/5 mL (500 unit/5 mL) oral liquid famotidine 20 mg tablet 20 mg feeding tube BID 03/12/22 08/29/22 ibuprofen 200 mg tablet 400 mg feeding tube Q6H PRN Pain 03/12/22 08/29/22 tizanidine 2 mg tablet 2 mg feeding tube PRN PRN Muscle 03/12/22 08/29/22 Spasm bisacodyl 10 mg rectal suppository 10 mg RECTAL QHS 08/29/22 08/29/22 furosemide 20 mg feeding tube DAILY 08/29/22 08/29/22 Allergies Allergy/AdvReac Type Severity Reaction Status Date / Time lamotrigine Allergy Unknown Rash Verified 11/16/21 13:32 Review of Systems Review of Systems: ROS unobtainable: Yes unobtainable due to medical condition PMFSH Past Medical History Medical History (Updated 08/31/22 @ 13:23 by Rosalie Albert MD) Cerebral palsy Chronic hypercapnic respiratory failure On BiPAP at nighttime. Gall stones Kidney stones Rett syndrome Seizure disorder Surgical History Surgical History History of fundoplication History of open reduction and internal fixation (ORIF) procedure Repair of hip and leg fractures. History of percutaneous endoscopic gastrostomy History of spinal fusion Family History Family History Father Hypertension Other Family history non-contributory Social History Social History Social History: The patient lives with her parents in [place]. She is dependent on all activities of daily living. No alcohol, tobacco, or drug use. Surrogate decision maker: Lisa Crowe, mother. Code status: Do not intubate. Okay with BiPAP. Smoking status: Never smoker Alcohol intake: never Substance use: never Substance use type: does not use Spiritual care concerns: No Exam Narrative: GENERAL: Ill-appearing HEAD: Normocephalic, atraumatic. EYES: PERRLA ENT: Nares clear, no rhinorrhea or epistaxis. Mucous membranes moist. NECK: Supple. CHEST: Crackles in bilateral bases, thick respiratory secretions with suctioning HEART: Tachycardic, regular rhythm ABDOMEN: Soft, nontender, nondistended, healed midline incision anterior abdomen, G-tube in place EXTREMITIES: Normal range of motion. No edema. SKIN: Warm, dry, no rash. NEURO: At baseline PSYCH: At baseline Course Vital Signs Vital signs: Vital Signs Temperature 97.8 F 08/29/22 11:52 Pulse Rate 103 H 08/29/22 11:52 Blood Pressure 148/93 H 08/29/22 11:52 Pulse Oximetry 93 08/29/22 11:52 Temperature 98 F 08/31/22 05:29 Pulse Rate 100 08/31/22 05:29 Respiratory Rate 22 H 08/31/22
[2022-08-29 14:36] LABS: Influenza A QL RT-PCR Negative (Negative); Influenza B QL RT-PCR Negative (Negative); RSV RNA, RT-PCR Negative (Negative); SARS-CoV-2 RNA PCR Negative (Negative)
[2022-08-29] MEDS: LACTATED RINGERS 1,000 ML 999 ML IV CONT (14:42)
[2022-08-29] MEDS: ACETAMINOPHEN ELIXIR 325 MG/10.15 ML UDC 650 MG FEED TUBE (14:42)
[2022-08-29] MEDS: AZITHROMYCIN 500 MG/NS 250 ML 500 MG/250 ML BAG 250 MG IVPB (15:34)
--- NOTE | 2022-08-29 16:38 | ADMGEN ---
This patient, Julia Crowe, was admitted to Medical Room 252-01. Patient/family oriented to hospital policies and general routines including ID bracelet, bed and alarms, visiting hours, pain management, procedures, bathroom and other care routines, personal items, smoking policy, room service/diet, and visiting hours. Information on how to activate the Rapid Response Team has been discussed. Patient/Family are encouraged to report perceived risks to care and to ask questions if they do not understand what they are told or what they should do.
--- NOTE | 2022-08-29 18:51 | PM.IMHP ---
H&P: HPI History of Present Illness Date/Time: 08/29/22 19:30 Chief Complaint: Fever and cough. Narrative: This is a 41-year-old female with history of Rett syndrome, cerebral palsy, hypertension, seizure disorder, kidney stones, gallstones, and respiratory failure on BiPAP at nighttime who presented to the emergency department via private vehicle for evaluation of fever and cough. She is nonverbal and thus all of the following history is obtained from her mother at bedside. She is dependent on activities of daily living and gets a majority of her calories through a PEG button though on occasion she does drink liquids though not much recently. The last couple of days she has been coughing with increased respiratory secretions that she has difficulties getting up. Mom has been suctioning her at home and she reports thick white phlegm. Mom reports that Julia looks like she does not feel well and last night she was up frequently and seemed to be uncomfortable. She had a low-grade fever at home but we was afebrile on arrival to the emergency department. Her blood pressures have been stable and she has been persistently tachycardic in the low 100s. Chest x-ray showed left lower lobe atelectasis/consolidation and patchy bilateral pulmonary infiltrates. She was started on azithromycin and ceftriaxone and she is being admitted in this setting for further care. She has no known sick contacts. Mom has not witnessed any episodes of aspiration. Review of Systems Review of Systems: Unable to obtain given clinical condition. [facility] Past Medical History Medical History (Updated 08/29/22 @ 23:25 by Mattie Funez PA-C) Cerebral palsy Chronic hypercapnic respiratory failure On BiPAP at nighttime. Gall stones Kidney stones Rett syndrome Seizure disorder Surgical History Surgical History History of fundoplication History of open reduction and internal fixation (ORIF) procedure Repair of hip and leg fractures. History of percutaneous endoscopic gastrostomy History of spinal fusion Family History Family History Father Hypertension Other Family history non-contributory Social History Social History Social History: The patient lives with her parents in [place]. She is dependent on all activities of daily living. No alcohol, tobacco, or drug use. Surrogate decision maker: Lisa Crowe, mother. Code status: Do not intubate. Okay with BiPAP. Smoking status: Never smoker Alcohol intake: never Substance use: never Substance use type: does not use Spiritual care concerns: No Meds Home Medications and Allergies Home Medications Medication Instructions Recorded Confirmed Type fluoxetine 20 mg/5 mL (4 mg/mL) 20 mg feeding tube DAILY 03/23/19 08/29/22 History oral solution nitrofurantoin 25 mg/5 mL oral 50 mg feeding tube DAILY 03/23/19 08/29/22 History suspension valproic acid (as sodium salt) 250 500 mg feeding tube TID 03/23/19 08/29/22 History mg/5 mL oral solution magnesium oxide 420 mg tablet 420 mg feeding tube BID 07/20/21 08/29/22 History [id number]-ybyo-ihqandv gluconate 9 15 ml feeding tube DAILY 07/20/21 08/29/22 History mg iron/15 mL (15 mL) oral liquid (Centrum) albuterol sulfate 2.5 mg/3 mL 2.5 mg (3 mL) inhalation Q12HRT 07/26/21 08/29/22 Rx (0.083 %) solution for nebulization PRN Congestion #75 mL lactulose 10 gram/15 mL (15 mL) 10 g (15 mL) PO DAILY PRN 11/19/21 08/29/22 Rx oral solution constipation 90 days #1,440 mL acetaminophen 500 mg/5 mL oral 1,000 mg feeding tube Q6H PRN 03/10/22 08/29/22 History liquid Fever Or Pain cholecalciferol (vitamin D3) 12.5 3,000 unit PO DAILY 03/10/22 08/29/22 History mcg/5 mL (500 unit/5 mL) oral liquid famotidine 20 mg tablet 20 mg feeding tube BID 0
[2022-08-29] MEDS: TIZANIDINE HCL 2 MG TABLET FEED TUBE (22:58)
[2022-08-29] MEDS: VALPROIC ACID LIQ 250 MG/5 ML ORAL SOLUTION UDC 500 MG FEED TUBE (23:01)
[2022-08-30] VITALS (12 sets, daily range): BP systolic 111–127; BP diastolic 56–82; PULSE 87–109; RESP 18–28; TEMP 36.6–36.9; O2SAT 96–100; BMI 47.6
[2022-08-30] MEDS: ACETAMINOPHEN ELIXIR 325 MG/10.15 ML UDC 1000 MG FEED TUBE ×2 (03:36→09:24)
[2022-08-30] MEDS: VALPROIC ACID LIQ 250 MG/5 ML ORAL SOLUTION UDC 500 MG FEED TUBE ×3 (09:16→20:56)
[2022-08-30] MEDS: ENOXAPARIN 40 MG/0.4 ML SYRINGE SUB-Q (09:17)
[2022-08-30] MEDS: FAMOTIDINE 20 MG TABLET FEED TUBE ×2 (09:17→17:32)
[2022-08-30] MEDS: FLUoxetine HCL 20 MG CAPSULE FEED TUBE (09:17)
[2022-08-30] MEDS: FUROSEMIDE 20 MG TABLET FEED TUBE (09:18)
[2022-08-30] MEDS: NITROFURANTOIN MACROCRYSTALS 50 MG CAP FEED TUBE (09:18)
[2022-08-30] MEDS: MAGNESIUM OXIDE 400 MG TABLET FEED TUBE ×2 (09:18→17:32)
[2022-08-30] MEDS: guaiFENesin 12 HR 600 MG TABCR PO ×2 (09:18→20:56)
[2022-08-30] MEDS: MULTIVITAMIN HEMATINIC (*BKC) TABLET 1 TABLET FEED TUBE (09:18)
[2022-08-30] MEDS: CHOLECALCIFEROL 1,000 UNITS TABLET 3000 UNITS FEED TUBE (11:51)
[2022-08-30] MEDS: AZITHROMYCIN 500 MG/NS 250 ML 500 MG/250 ML BAG 250 MG IVPB (12:27)
[2022-08-30] MEDS: SCOPOLAMINE 1.5 MG PATCH TRANSDERM (14:09)
--- NOTE | 2022-08-30 14:47 | PM.IMPN ---
Progress Note: A&P Assessment and Plan (1) Pneumonia: Code(s): J18.9 - Pneumonia, unspecified organism Status: Acute Assessment and Plan: -new oxygen requirement, increased sputum production, x-ray shows infiltrates, low-grade fever -scopolamine patch for secretions -started on Rocephin and Levaquin -afebrile here and no leukocytosis -blood cultures pending -patient is unable to participate in obtaining a sputum collection (2) Chronic hypercapnic respiratory failure: Code(s): J96.12 - Chronic respiratory failure with hypercapnia Status: Acute Assessment and Plan: -on oxygen 3 L nasal cannula -BiPAP/CPAP per home setting at (3) Seizure disorder: Code(s): G40.909 - Epilepsy, unspecified, not intractable, without status epilepticus Status: Chronic Assessment and Plan: -valproic acid t.i.d. (4) Gastrointestinal tube in situ: Code(s): Z93.1 - Gastrostomy status Status: Acute Assessment and Plan: Has PEG tube -all meds per PEG tube -dietitian place orders for enteral feedings with Jevity and free water flush (5) UTI (urinary tract infection): Code(s): N39.0 - Urinary tract infection, site not specified Status: Acute Assessment and Plan: Takes Macrobid daily for prophylaxis -UA was ordered on admission and the only way to obtain would be a straight cath. Mom has requested that maybe this be discontinued as it would cause too much trauma discomfort. Given the high suspicion for a pneumonia with new onset oxygen requirements, increased sputum production, and infiltrates I feel it is reasonable to cancellous order. Besides of Macrobid she is being covered with Levaquin and ceftriaxone. Subjective Date/time seen: 08/30/22 14:47 Interval history: This is a 41-year-old female with history of Rett syndrome, cerebral palsy, hypertension, seizure disorder, kidney stones, gallstones, and respiratory failure on BiPAP at nighttime who presented to the emergency department via private vehicle for evaluation of fever and cough. She is nonverbal and thus all of the following history is obtained from her mother at bedside. She is dependent on activities of daily living and gets a majority of her calories through a PEG button though on occasion she does drink liquids though not much recently. The last couple of days she has been coughing with increased respiratory secretions that she has difficulties getting up. Mom has been suctioning her at home and she reports thick white phlegm. Mom reports that Julia looks like she does not feel well and last night she was up frequently and seemed to be uncomfortable. She had a low-grade fever at home but we was afebrile on arrival to the emergency department. Her blood pressures have been stable and she has been persistently tachycardic in the low 100s. Chest x-ray showed left lower lobe atelectasis/consolidation and patchy bilateral pulmonary infiltrates. She was started on azithromycin and ceftriaxone and she is being admitted in this setting for further care. She has no known sick contacts. Mom has not witnessed any episodes of aspiration. Interval History: 08/30: Julia is seen resting in bed asleep with her mom at the bedside. Patient is nonverbal so review was done with mom who is her primary caregiver. Mom has been concerned because the patient has had increased sputum production, low-grade fever, and just has appeared different. She does not have a leukocytosis but her imaging is concerning with patchy bilateral pulmonary infiltrates and she has a new oxygen requirement. She was empirically started on ceftriaxone and Levaquin. Her mom states that she very rarely has small snacks but she is always monitored when eating. No witnessed choking or concerns for aspiration. Her abdomen is round and taut which her mom says is not uncommon for her. She is suppository dependent for bowel movements. Mom's only other concern i
[2022-08-30] MEDS: IBUPROFEN 400 MG TABLET FEED TUBE (20:55)
[2022-08-31] VITALS (14 sets, daily range): BP systolic 121–133; BP diastolic 58–75; PULSE 94–113; RESP 18–31; TEMP 36.6–37.1; O2SAT 94–98
[2022-08-31 05:17] LABS: Basophils Percent Auto 0.3 % (0.2-1.2); Eosinophils Absolute Auto 0.1 K/mm3 (0-0.3); Eosinophils Percent Auto 1.8 % (0-4.4); Hemoglobin 12.8 g/dL (12.0-15.0); Immature Granulocyte Absolute 0.03 K/mm3 (0.00-0.031); Immature Granulocyte Percent A 0.5 % (0-0.5); Lymphocytes Absolute Auto 1.76 K/mm3 (0.9-3.2); Mean Corpuscular Hemoglobin 33.2 pg (26-34); Mean Corpuscular Volume 103.9 fl (80-100); Monocytes Absolute Auto 1.5 K/mm3 (0.1-0.6); Monocytes Percent Auto 24.1 % (2.6-8.5); Neutrophils Absolute Auto 2.7 K/mm3 (1.3-6.7); Neutrophils Percent Auto 44.3 % (45.5-73.1); Platelet Count Result 165 k/mm3 (150-375); Red Blood Count 3.85 M/mm3 (4.2-5.4); Red Cell Distribution Width 14.8 % (11.5-14.5); White Blood Count 6.1 K/mm3 (4.5-10.0)
[2022-08-31 05:31] LABS: Alanine Aminotransferase 33 U/L (6-35); Albumin Level 3.5 g/dL (3.5-5.1); Alkaline Phosphatase 105 U/L (38-126); Anion Gap 0 mmol/L (8-16); Aspartate Amino Transferase 37 U/L (14-36); Bilirubin,Total 0.5 mg/dL (0.2-1.3); Blood Urea Nitrogen 8 mg/dL (7-17); Carbon Dioxide 37 mmol/L (22-30); Chloride 93 mmol/L (98-107); Estimated Glomerular Filt Rate > 60; Glucose 108 mg/dL (65-110); Potassium 4.6 mmol/L (3.4-5.0); Sodium 130 mmol/L (137-145)
[2022-08-31] MEDS: ENOXAPARIN 40 MG/0.4 ML SYRINGE SUB-Q (08:49)
[2022-08-31] MEDS: FUROSEMIDE 20 MG TABLET FEED TUBE (08:49)
[2022-08-31] MEDS: guaiFENesin 12 HR 600 MG TABCR PO ×2 (08:50→21:26)
[2022-08-31] MEDS: NITROFURANTOIN MACROCRYSTALS 50 MG CAP FEED TUBE (08:50)
[2022-08-31] MEDS: FAMOTIDINE 20 MG TABLET FEED TUBE ×2 (08:50→17:53)
[2022-08-31] MEDS: CHOLECALCIFEROL 1,000 UNITS TABLET 3000 UNITS FEED TUBE (08:50)
[2022-08-31] MEDS: FLUoxetine HCL 20 MG CAPSULE FEED TUBE (08:50)
[2022-08-31] MEDS: MAGNESIUM OXIDE 400 MG TABLET FEED TUBE ×2 (08:50→17:54)
[2022-08-31] MEDS: MULTIVITAMIN HEMATINIC (*BKC) TABLET 1 TABLET FEED TUBE (08:50)
[2022-08-31] MEDS: ACETAMINOPHEN ELIXIR 325 MG/10.15 ML UDC 1000 MG FEED TUBE ×2 (10:16→21:26)
[2022-08-31] MEDS: VALPROIC ACID LIQ 250 MG/5 ML ORAL SOLUTION UDC 500 MG FEED TUBE ×3 (10:16→21:25)
[2022-08-31] MEDS: AZITHROMYCIN 500 MG/NS 250 ML 500 MG/250 ML BAG 250 MG IVPB (11:48)
--- NOTE | 2022-08-31 12:01 | PM.IMPN ---
Progress Note: A&P Assessment and Plan (1) Pneumonia: Code(s): J18.9 - Pneumonia, unspecified organism Status: Acute Assessment and Plan: -new oxygen requirement, improving sputum production, x-ray shows infiltrates, low-grade fever -scopolamine patch for secretions -started on Rocephin and azithromycin, continue IV antibiotics -afebrile here and no leukocytosis -blood cultures pending -patient is unable to participate in obtaining a sputum collection (2) Chronic hypercapnic respiratory failure: Code(s): J96.12 - Chronic respiratory failure with hypercapnia Status: Acute Assessment and Plan: -on oxygen 3 L nasal cannula -Autopap per home setting at (3) Seizure disorder: Code(s): G40.909 - Epilepsy, unspecified, not intractable, without status epilepticus Status: Chronic Assessment and Plan: -valproic acid t.i.d. (4) Gastrointestinal tube in situ: Code(s): Z93.1 - Gastrostomy status Status: Acute Assessment and Plan: Has PEG tube -all meds per PEG tube -dietitian place orders for enteral feedings with Jevity and free water flush -Will change flushed to Saline due to dropping Na levels. (5) UTI (urinary tract infection): Code(s): N39.0 - Urinary tract infection, site not specified Status: Acute Assessment and Plan: Takes Macrobid daily for prophylaxis -UA was ordered on admission and the only way to obtain would be a straight cath. Mom has requested that maybe this be discontinued as it would cause too much trauma discomfort. Given the high suspicion for a pneumonia with new onset oxygen requirements, increased sputum production, and infiltrates I feel it is reasonable to cancellous order. Besides of Macrobid she is being covered with ceftriaxone. (6) Hyponatremia: Code(s): E87.1 - Hypo-osmolality and hyponatremia Status: Acute Assessment and Plan: Na 136 on admit, decreased to 130 this morning, 2 days after admit. Prior results range from 134-144. Will change free water flushes to saline flushes. Plan Continue oxygen, attempt to wean Continue Rocephin and azithromycin Change free water flushes to saline flushes. Repeat labs on 09/02 am Time Spent With Patient Time with patient: 25 - 35 minutes Subjective Date/time seen: 08/31/22 10:15 Interval history: This is a 41-year-old female with history of Rett syndrome, cerebral palsy, hypertension, seizure disorder, kidney stones, gallstones, and respiratory failure on BiPAP at nighttime who presented to the emergency department via private vehicle for evaluation of fever and cough. She is nonverbal and thus all of the following history is obtained from her mother at bedside. She is dependent on activities of daily living and gets a majority of her calories through a PEG button though on occasion she does drink liquids though not much recently. The last couple of days she has been coughing with increased respiratory secretions that she has difficulties getting up. Mom has been suctioning her at home and she reports thick white phlegm. Mom reports that Julia looks like she does not feel well and last night she was up frequently and seemed to be uncomfortable. She had a low-grade fever at home but we was afebrile on arrival to the emergency department. Her blood pressures have been stable and she has been persistently tachycardic in the low 100s. Chest x-ray showed left lower lobe atelectasis/consolidation and patchy bilateral pulmonary infiltrates. She was started on azithromycin and ceftriaxone and she is being admitted in this setting for further care. She has no known sick contacts. Mom has not witnessed any episodes of aspiration. Interval History: 08/30: Julia is seen resting in bed asleep with her mom at the bedside. Patient is nonverbal so review was done with mom who is her primary caregiver. Mom has been concerned because the patient has had increased sputum produ
[2022-08-31] MEDS: ALBUTEROL SULFATE NEB 2.5 MG/3 ML INH INHALATION (18:33)
[2022-09-01] VITALS (20 sets, daily range): BP systolic 100–122; BP diastolic 47–71; PULSE 67–115; RESP 18–28; TEMP 36.2–36.9; O2SAT 92–100
[2022-09-01] MEDS: IBUPROFEN 400 MG TABLET FEED TUBE (03:14)
[2022-09-01] MEDS: TIZANIDINE HCL 2 MG TABLET FEED TUBE (03:21)
[2022-09-01] MEDS: ALBUTEROL SULFATE NEB 2.5 MG/3 ML INH INHALATION ×4 (08:23→19:37)
[2022-09-01] MEDS: FLUoxetine HCL 20 MG CAPSULE FEED TUBE (09:27)
[2022-09-01] MEDS: guaiFENesin 12 HR 600 MG TABCR PO ×2 (09:27→20:39)
[2022-09-01] MEDS: ENOXAPARIN 40 MG/0.4 ML SYRINGE SUB-Q (09:27)
[2022-09-01] MEDS: FAMOTIDINE 20 MG TABLET FEED TUBE ×2 (09:27→17:37)
[2022-09-01] MEDS: VALPROIC ACID LIQ 250 MG/5 ML ORAL SOLUTION UDC 500 MG FEED TUBE ×3 (09:27→20:36)
[2022-09-01] MEDS: CHOLECALCIFEROL 1,000 UNITS TABLET 3000 UNITS FEED TUBE (09:27)
[2022-09-01] MEDS: NITROFURANTOIN MACROCRYSTALS 50 MG CAP FEED TUBE (09:27)
[2022-09-01] MEDS: MULTIVITAMIN HEMATINIC (*BKC) TABLET 1 TABLET FEED TUBE (09:28)
[2022-09-01] MEDS: FUROSEMIDE 20 MG TABLET FEED TUBE (09:28)
[2022-09-01] MEDS: MAGNESIUM OXIDE 400 MG TABLET FEED TUBE ×2 (09:28→17:37)
--- NOTE | 2022-09-01 11:04 | PCDIET ---
Addendum entered by Raquel Pizarro RD, LDN 09/01/22 12:15: Na 130 today recommend to continue with 30 ml flush q 4 hours. Original Note: Spoke with Hospitalist today, asking for tube feeding changes back to home regimen. Tube feeding changing to Jevity 1.2 bolus 237 ml at 1100 hours and 1700 hours. Night feedings continuous at 60ml/hr for 8 hours from 2100 hours to 0500 hours. Flush remains at 100 ml q 4 hours at this time. Tube feeding providing 1145 kcals/53 gms protein/764 ml water. Agree with diet orders at this time. Will reassess every Monday and Monday.
[2022-09-01] MEDS: AZITHROMYCIN 500 MG/NS 250 ML 500 MG/250 ML BAG 250 MG IVPB (12:13)
[2022-09-01] MEDS: BISACODYL 10 MG SUPPOSITORY RECTAL (12:13)
--- NOTE | 2022-09-01 12:55 | PM.IMPN ---
Progress Note: A&P Assessment and Plan (1) Pneumonia: Code(s): J18.9 - Pneumonia, unspecified organism Status: Acute Assessment and Plan: -new oxygen requirement, improving sputum production, x-ray shows infiltrates, low-grade fever -scopolamine patch for secretions -started on Rocephin and azithromycin, continue IV antibiotics -afebrile here and no leukocytosis -blood cultures pending -patient is unable to participate in obtaining a sputum collection (2) Chronic hypercapnic respiratory failure: Code(s): J96.12 - Chronic respiratory failure with hypercapnia Status: Acute Assessment and Plan: -on oxygen 3 L nasal cannula -Autopap per home setting at (3) Seizure disorder: Code(s): G40.909 - Epilepsy, unspecified, not intractable, without status epilepticus Status: Chronic Assessment and Plan: -valproic acid t.i.d. (4) Gastrointestinal tube in situ: Code(s): Z93.1 - Gastrostomy status Status: Acute Assessment and Plan: Has PEG tube -all meds per PEG tube -dietitian place orders for enteral feedings with Jevity and free water flush -Will change flushed to Saline due to dropping Na levels. (5) UTI (urinary tract infection): Code(s): N39.0 - Urinary tract infection, site not specified Status: Acute Assessment and Plan: Takes Macrobid daily for prophylaxis -UA was ordered on admission and the only way to obtain would be a straight cath. Mom has requested that maybe this be discontinued as it would cause too much trauma discomfort. Given the high suspicion for a pneumonia with new onset oxygen requirements, increased sputum production, and infiltrates I feel it is reasonable to cancellous order. Besides of Macrobid she is being covered with ceftriaxone. (6) Hyponatremia: Code(s): E87.1 - Hypo-osmolality and hyponatremia Status: Acute Assessment and Plan: Na 136 on admit, decreased to 130 this morning, 2 days after admit. Prior results range from 134-144. Will change free water flushes to saline flushes. (7) Abdominal distension: Code(s): R14.0 - Abdominal distension (gaseous) Status: Acute Assessment and Plan: Prior history of ileus. Patient is passing stools but usually requires suppository for stool passage. We will give dose of suppository and check KUB in the a.m. Plan Will give Dulcolax suppository. Spoke with Parachute Taper and patient will get 2 bolus feeds during the day and overnight continuously. We will get KUB in AM with CXR to assess for worsening of pneumonia. Albuterol treatments q4h scheduled. Tylenol liquid requested from pharmacy to remain stocked while patient is admitted. Time Spent With Patient Time with patient: 25 - 35 minutes Subjective Date/time seen: 09/01/22 12:55 Interval history: This is a 41-year-old female with history of Rett syndrome, cerebral palsy, hypertension, seizure disorder, kidney stones, gallstones, and respiratory failure on BiPAP at nighttime who presented to the emergency department via private vehicle for evaluation of fever and cough. She is nonverbal and thus all of the following history is obtained from her mother at bedside. She is dependent on activities of daily living and gets a majority of her calories through a PEG button though on occasion she does drink liquids though not much recently. The last couple of days she has been coughing with increased respiratory secretions that she has difficulties getting up. Mom has been suctioning her at home and she reports thick white phlegm. Mom reports that Julia looks like she does not feel well and last night she was up frequently and seemed to be uncomfortable. She had a low-grade fever at home but we was afebrile on arrival to the emergency department. Her blood pressures have been stable and she has been persistently tachycardic in the low 100s. Chest x-ray showed left lower lobe atelectasis/consolidation
[2022-09-01] MEDS: ACETAMINOPHEN ELIXIR 325 MG/10.15 ML UDC 1000 MG FEED TUBE ×2 (14:33→20:36)
[2022-09-01 15:24] LABS: Mycoplasma IgM Antibody Titer 336 U/mL (<770)
[2022-09-02] VITALS (14 sets, daily range): BP systolic 95; BP diastolic 48; PULSE 98–116; RESP 20–32; TEMP 36; O2SAT 92–98
--- NOTE | 2022-09-02 | ECHO_ITS ---
Patient Info Name: Julia Crowe Age: 41 years : 1980 Gender: Female Ht: 48 in Wt: 155 lbs BSA: 1.60 m2 HR: 78 bpm BP: 119 / 71 mmHg Technical Quality: Fair Exam Date: 09/02/2022 10:29 AM Exam Location: [facility] Pulmonary Exam Room: 252 Patient Status: Inpatient Admit Date: 08/29/2022 Staff Ordering Physician: Arvin Mann APRN Operating Room Manager: Amee Morrison RDCS Attending Provider: Antonino Chavez MD Referring Physician: Johnathan PICKENS; Exam Type: CA echo dop color flow w con Study Info Indications - PULM EDEMA SOB CHRONIC RESP FAILURE Complete two-dimensional, color flow and Doppler transthoracic echocardiogram is performed with contrast to opacify the left ventricle and to improve the deliniation of the left ventricle endocardial borders. Contrast/Agitated Saline Contrast/Ag. Saline: Definity Amount: 2.00 ml Administered By: Amee Morrison [facility] Existing IV Access: Yes IV Access Condition: patent with no signs of infiltration Summary 1. Left ventricular chamber dimension is normal. 2. Definity contrast administered improved wall motion interpretation. 3. Left ventricular systolic function is normal, estimated at 65-70%. 4. The left ventricular diastolic function is abnormal. 5. E/e' 10 is mildly elevated. 6. Left atrial chamber dimension is mildly enlarged. 7. There is trace tricuspid valve regurgitation. 8. Mild pulmonary hypertension, estimated pulmonary arterial systolic pressure is 42 mmHg. Left Ventricle Definity contrast administered improved wall motion interpretation. E/e' 10 is mildly elevated. Left ventricular chamber dimension is normal. Left ventricular systolic function is normal, estimated at 65-70%. The left ventricular diastolic function is abnormal. Right Ventricle Right ventricular chamber dimension is not well visualized. Left Atria Left atrial chamber dimension is mildly enlarged. Right Atria Right atrial chamber dimension is not well visualized. Aortic Valve The aortic valve is probable trileaflet. There is no aortic valve stenosis. There is no aortic valve regurgitation. Pulmonic Valve There is no pulmonic regurgitation. Mitral Valve There is no mitral valve stenosis. There is no mitral valve regurgitation. Tricuspid Valve The tricuspid valve leaflets are not well visualized. There is trace tricuspid valve regurgitation. Mild pulmonary hypertension, estimated pulmonary arterial systolic pressure is 42 mmHg. Pericardium/Pleural There is no pericardial effusion. Inferior Vena Cava Inferior vena cava is not well visualized. Aorta The aortic root size at the sinus of Valsalva is normal. Left Ventricular Outflow Tract Name Value Normal LVOT 2D LVOT Diameter 1.98 cm LVOT Doppler LVOT Peak Gradient 5 mmHg LVOT Mean Gradient 3 mmHg LVOT VTI 20.01 cm LVOT VTI/AV VTI Ratio 0.94 LVOT Stroke Volume 61.50 ml LVOT CO 15.39 l/min LVOT CI 9.59 L/min/m2 Pulmonic Valve ------
[2022-09-02] MEDS: ALBUTEROL SULFATE NEB 2.5 MG/3 ML INH INHALATION ×5 (01:14→20:18)
[2022-09-02] MEDS: FLUoxetine HCL 20 MG CAPSULE FEED TUBE (08:26)
[2022-09-02] MEDS: VALPROIC ACID LIQ 250 MG/5 ML ORAL SOLUTION UDC 500 MG FEED TUBE ×3 (08:26→20:19)
[2022-09-02] MEDS: ENOXAPARIN 40 MG/0.4 ML SYRINGE SUB-Q (08:26)
[2022-09-02] MEDS: SCOPOLAMINE 1.5 MG PATCH TRANSDERM (08:27)
[2022-09-02] MEDS: FUROSEMIDE 20 MG TABLET FEED TUBE (08:27)
[2022-09-02] MEDS: NITROFURANTOIN MACROCRYSTALS 50 MG CAP FEED TUBE (08:27)
[2022-09-02] MEDS: FAMOTIDINE 20 MG TABLET FEED TUBE ×2 (08:27→15:56)
[2022-09-02] MEDS: MULTIVITAMIN HEMATINIC (*BKC) TABLET 1 TABLET FEED TUBE (08:27)
[2022-09-02] MEDS: CHOLECALCIFEROL 1,000 UNITS TABLET 3000 UNITS FEED TUBE (08:27)
[2022-09-02] MEDS: guaiFENesin 12 HR 600 MG TABCR PO ×2 (08:28→20:19)
--- NOTE | 2022-09-02 08:34 | PM.IMPN ---
Progress Note: A&P Assessment and Plan (1) Pneumonia: Code(s): J18.9 - Pneumonia, unspecified organism Status: Acute Assessment and Plan: Appears improved. Azithromycin course has been completed. Continue Rocephin at this time as white blood cell count is slightly elevated to 11.1. New findings of pulmonary edema on chest x-ray. (2) Chronic hypercapnic respiratory failure: Code(s): J96.12 - Chronic respiratory failure with hypercapnia Status: Acute Assessment and Plan: -on oxygen 3 L nasal cannula -Autopap per home setting at (3) Pulmonary edema: Code(s): J81.1 - Chronic pulmonary edema Status: Acute Assessment and Plan: BNP 799 which is consistent with prior readings. Coarse crackles noted worse anterior centrally. Pulmonary edema pattern on chest x-ray. Additional dose of Lasix given this morning and echocardiogram ordered. (4) Seizure disorder: Code(s): G40.909 - Epilepsy, unspecified, not intractable, without status epilepticus Status: Chronic Assessment and Plan: -valproic acid t.i.d. (5) Gastrointestinal tube in situ: Code(s): Z93.1 - Gastrostomy status Status: Acute Assessment and Plan: Has PEG tube -all meds per PEG tube -dietitian place orders for enteral feedings with Jevity -Will change flushes to Saline due to dropping Na levels. -sodium appears to be at baseline at 140 today. (6) UTI (urinary tract infection): Code(s): N39.0 - Urinary tract infection, site not specified Status: Acute Assessment and Plan: Takes Macrobid daily for prophylaxis -UA was ordered on admission and the only way to obtain would be a straight cath. Mom has requested that maybe this be discontinued as it would cause too much trauma discomfort. Given the high suspicion for a pneumonia with new onset oxygen requirements, increased sputum production, and infiltrates I feel it is reasonable to cancellous order. Besides of Macrobid she is being covered with ceftriaxone. (7) Hyponatremia: Code(s): E87.1 - Hypo-osmolality and hyponatremia Status: Acute Assessment and Plan: Sodium at 140 appears to be at baseline. (8) Abdominal distension: Code(s): R14.0 - Abdominal distension (gaseous) Status: Acute Assessment and Plan: KUB nonobstructive bowel gas pattern nonspecific pattern, suppository elicited multiple bowel movements. Plan Patient doing well on bolus feeds during the day and continuous overnight. New findings centralized pulmonary edema on chest x-ray, patient already daily Lasix will give additional dose this morning and order echocardiogram. Time Spent With Patient Time with patient: 25 - 35 minutes Subjective Date/time seen: 09/02/22 08:34 Interval history: This is a 41-year-old female with history of Rett syndrome, cerebral palsy, hypertension, seizure disorder, kidney stones, gallstones, and respiratory failure on BiPAP at nighttime who presented to the emergency department via private vehicle for evaluation of fever and cough. She is nonverbal and thus all of the following history is obtained from her mother at bedside. She is dependent on activities of daily living and gets a majority of her calories through a PEG button though on occasion she does drink liquids though not much recently. The last couple of days she has been coughing with increased respiratory secretions that she has difficulties getting up. Mom has been suctioning her at home and she reports thick white phlegm. Mom reports that Julia looks like she does not feel well and last night she was up frequently and seemed to be uncomfortable. She had a low-grade fever at home but we was afebrile on arrival to the emergency department. Her blood pressures have been stable and she has been persistently tachycardic in the low 100s. Chest x-ray showed left lower lobe atelectasis/consolidation and patchy bilateral pulmonary infil
[2022-09-02] MEDS: FUROSEMIDE INJ 40 MG/4 ML VIAL IV PUSH (09:15)
[2022-09-02 09:38] LABS: Alanine Aminotransferase 33 U/L (6-35); Albumin Level 3.6 g/dL (3.5-5.1); Alkaline Phosphatase 107 U/L (38-126); Anion Gap 6 mmol/L (8-16); Aspartate Amino Transferase 37 U/L (14-36); Bilirubin,Total 0.5 mg/dL (0.2-1.3); Blood Urea Nitrogen 15 mg/dL (7-17); Calcium 9.5 mg/dL (8.4-10.2); Carbon Dioxide 35 mmol/L (22-30); Chloride 99 mmol/L (98-107); Estimated Glomerular Filt Rate > 60; Glucose 143 mg/dL (65-110); Potassium 4.8 mmol/L (3.4-5.0); Sodium 140 mmol/L (137-145)
[2022-09-02 09:47] LABS: NT Pro B Type Natriuretic Pept 799 pg/mL (19.9-100)
[2022-09-02] MEDS: PERFLUTREN LIPID MICROSPHERES 1.5 ML VIAL DILUTED TO 10 ML TOTAL VOLUME IV PUSH (10:20)
[2022-09-02] MEDS: AZITHROMYCIN 500 MG/NS 250 ML 500 MG/250 ML BAG 200 MG IVPB (11:45)
--- NOTE | 2022-09-02 12:02 | PCNFU ---
Addendum entered by Raquel Pizarro, RD, LDN 09/02/22 12:10: and 100% protein needs. Agree with diet orders. Monitor tube feeding tolerance, weight,skin, labs every Monday and Monday. Original Note: Nutrition Follow-Up Complete: Inadequate energy intake related to dysphagia and no current tube feed orders as evidenced by NPO status. goal: Meet estimated needs Patient is progressing towards goal. We will continue current goal. Pt current nutrition is Jevity 1.2 at 60 ml/hr 8 hours and 2 bolus daily 237 ml. Last recorded weight is 70.7 kg. Bowel Motility: +Bm reported 09/02 Labs Reviewed:Glu 143, Cr 0.3 Meds Noted:Lovenox, Lasix, Mucinex Skin: WNL Additional Notes: Patient remains on home tube feeding regimen. Bolus feedings of Jevity 1.2 1100 hrs and 1700 hrs. Nocturnal continuos feeding at 60ml/hr for 8 hours from 2100 hrs to 0500 hrs. Tube feeding providing 1145 kcals/53 gms protein/764 ml water. Tube feeding meeting 100% kcal needs at 16 kcal/kg an Monitor tube feed start, tolerance, wt, labs. Follow up every Monday and Monday
[2022-09-02 12:10] LABS: Basophils Percent Auto 0.4 % (0.2-1.2); Eosinophils Absolute Auto 0.2 K/mm3 (0-0.3); Eosinophils Percent Auto 1.4 % (0-4.4); Hematocrit 41.3 % (37.0-47.0); Hemoglobin 12.7 g/dL (12.0-15.0); Immature Granulocyte Percent A 0.9 % (0-0.5); Lymphocytes Absolute Auto 2.34 K/mm3 (0.9-3.2); Lymphocytes Percent Auto 21.2 % (18.3-44.2); Mean Corpuscular HGB Conc 30.8 g/dl (32-36); Mean Corpuscular Hemoglobin 33.2 pg (26-34); Mean Corpuscular Volume 108.1 fl (80-100); Mean Platelet Volume 10.2 fl (7.4-10.4); Monocytes Absolute Auto 1.8 K/mm3 (0.1-0.6); Monocytes Percent Auto 16.2 % (2.6-8.5); Neutrophils Absolute Auto 6.6 K/mm3 (1.3-6.7); Neutrophils Percent Auto 59.9 % (45.5-73.1); Nucleated Red Blood Cells Absolute Auto 0.1 K/mm3 (0.0-0.012); Nucleated Red Blood Cells Perc 0.5 % (0.0-0.2); Platelet Count Result 183 k/mm3 (150-375); Red Blood Count 3.82 M/mm3 (4.2-5.4); Red Cell Distribution Width 15.5 % (11.5-14.5); White Blood Count 11.1 K/mm3 (4.5-10.0)
[2022-09-02 12:32] LABS: Platelet Estimate Adequate (Adequate)
[2022-09-02 12:35] LABS: Large Platelets Present; Macrocytosis 1+ (NORMAL)
[2022-09-02 12:36] LABS: Schistocytes None Seen (NORMAL)
[2022-09-02] MEDS: ACETAMINOPHEN ELIXIR 325 MG/10.15 ML UDC 1000 MG FEED TUBE (15:55)
[2022-09-02] MEDS: MAGNESIUM OXIDE 400 MG TABLET FEED TUBE (15:56)
--- NOTE | 2022-09-02 16:20 | PC.NURSE ---
Personal Tylenol 1000mg/30ml from home given @ 6335 - OK from [facility] [employer] due to pyxis not being stocked on floor this morning.
[2022-09-03] VITALS (19 sets, daily range): BP systolic 128–140; BP diastolic 69–73; PULSE 90–130; RESP 16–27; TEMP 36.3–37; O2SAT 90–96
[2022-09-03] MEDS: ALBUTEROL SULFATE NEB 2.5 MG/3 ML INH INHALATION ×6 (00:38→20:05)
[2022-09-03] MEDS: ACETAMINOPHEN ELIXIR 325 MG/10.15 ML UDC 1000 MG FEED TUBE ×4 (03:49→23:56)
[2022-09-03] MEDS: guaiFENesin 12 HR 600 MG TABCR PO ×2 (08:39→20:50)
[2022-09-03] MEDS: NITROFURANTOIN MACROCRYSTALS 50 MG CAP FEED TUBE (08:39)
[2022-09-03] MEDS: ENOXAPARIN 40 MG/0.4 ML SYRINGE SUB-Q (08:39)
[2022-09-03] MEDS: MAGNESIUM OXIDE 400 MG TABLET FEED TUBE ×2 (08:39→17:48)
[2022-09-03] MEDS: CHOLECALCIFEROL 1,000 UNITS TABLET 3000 UNITS FEED TUBE (08:39)
[2022-09-03] MEDS: MULTIVITAMIN HEMATINIC (*BKC) TABLET 1 TABLET FEED TUBE (08:40)
[2022-09-03] MEDS: FAMOTIDINE 20 MG TABLET FEED TUBE ×2 (08:40→17:48)
[2022-09-03] MEDS: FUROSEMIDE 20 MG TABLET FEED TUBE (08:40)
[2022-09-03] MEDS: FLUoxetine HCL 20 MG CAPSULE FEED TUBE (08:40)
[2022-09-03] MEDS: VALPROIC ACID LIQ 250 MG/5 ML ORAL SOLUTION UDC 500 MG FEED TUBE ×3 (09:03→20:50)
--- NOTE | 2022-09-03 13:20 | PM.IMPN ---
Progress Note: A&P Assessment and Plan (1) Pneumonia: Code(s): J18.9 - Pneumonia, unspecified organism Status: Acute Assessment and Plan: Appears improved. Azithromycin course has been completed. Will receive last dose of Rocephin today. Will recheck labs in the morning. (2) Chronic hypercapnic respiratory failure: Code(s): J96.12 - Chronic respiratory failure with hypercapnia Status: Acute Assessment and Plan: Continue AutoPAP at night and while asleep as needed, titrate FiO2 to 21% to maintain sats 90% or greater. (3) Pulmonary edema: Code(s): J81.1 - Chronic pulmonary edema Status: Acute Assessment and Plan: Crackles remain presents but respiratory effort and rate have improved. Increased diuresis appears to have helped respiratory status. We will again give 40 mg IV Lasix today in addition to daily dose by G-tube. (4) Seizure disorder: Code(s): G40.909 - Epilepsy, unspecified, not intractable, without status epilepticus Status: Chronic Assessment and Plan: -valproic acid t.i.d. (5) Gastrointestinal tube in situ: Code(s): Z93.1 - Gastrostomy status Status: Acute Assessment and Plan: Has PEG tube -all meds per PEG tube -dietitian place orders for enteral feedings with Jevity Sodium levels have been slightly high since flushing with saline. I have asked nursing staff to mix saline and tap water an approximate 50 50 ratio and we will recheck labs in the morning. (6) UTI (urinary tract infection): Code(s): N39.0 - Urinary tract infection, site not specified Status: Acute Assessment and Plan: Takes Macrobid daily for prophylaxis -UA was ordered on admission and the only way to obtain would be a straight cath. Mom has requested that maybe this be discontinued as it would cause too much trauma discomfort. -patient on daily Macrobid and will complete Rocephin course today. (7) Hyponatremia: Code(s): E87.1 - Hypo-osmolality and hyponatremia Status: Acute Assessment and Plan: Sodium levels have been slightly elevated since switching to saline flushes of G-tube. We will do half saline flushes and check labs in the morning (8) Abdominal distension: Code(s): R14.0 - Abdominal distension (gaseous) Status: Acute Assessment and Plan: Patient continuing to have stools, no concern for obstruction at this time. Plan Patient will mobilize into a chair, added chest physiotherapy by vest 4 times daily. Continue to titrate oxygen down with goal of room air or 21% on AutoPAP. Additional IV Lasix for diuresis today. G-tube flushes changed to half saline. Morning labs ordered. Patient will finish course of IV Rocephin today. Goal would be discharged home with full care provided by mother on Monday if trajectory continues. Extended care placement has been offered and mother has declined. Time Spent With Patient Time with patient: 25 - 35 minutes Subjective Date/time seen: 09/03/22 11:30 Interval history: This is a 41-year-old female with history of Rett syndrome, cerebral palsy, hypertension, seizure disorder, kidney stones, gallstones, and respiratory failure on BiPAP at nighttime who presented to the emergency department via private vehicle for evaluation of fever and cough. She is nonverbal and thus all of the following history is obtained from her mother at bedside. She is dependent on activities of daily living and gets a majority of her calories through a PEG button though on occasion she does drink liquids though not much recently. The last couple of days she has been coughing with increased respiratory secretions that she has difficulties getting up. Mom has been suctioning her at home and she reports thick white phlegm. Mom reports that Julia looks like she does not feel well and last night she was up frequently and seemed to be uncomfortable. She had a low-grade fever at home but we was
[2022-09-03] MEDS: FUROSEMIDE INJ 40 MG/4 ML VIAL IV PUSH (13:23)
[2022-09-03 18:21] LABS: Glucose Point of Care 119 mg/dl (65-105)
[2022-09-04] VITALS (21 sets, daily range): BP systolic 140–153; BP diastolic 67–81; PULSE 90–122; RESP 16–28; TEMP 36.3–37.1; O2SAT 78–99
[2022-09-04] MEDS: ALBUTEROL SULFATE NEB 2.5 MG/3 ML INH INHALATION ×6 (00:27→20:06)
[2022-09-04] MEDS: IBUPROFEN 400 MG TABLET FEED TUBE (04:30)
[2022-09-04 06:01] LABS: Basophils Absolute Auto 0.1 K/mm3 (0.0-0.1); Basophils Percent Auto 1.7 % (0.2-1.2); Eosinophils Absolute Auto 0.4 K/mm3 (0-0.3); Eosinophils Percent Auto 4.7 % (0-4.4); Hematocrit 39.4 % (37.0-47.0); Immature Granulocyte Absolute 0.35 K/mm3 (0.00-0.031); Immature Granulocyte Percent A 4.2 % (0-0.5); Lymphocytes Percent Auto 23.9 % (18.3-44.2); Mean Corpuscular HGB Conc 30.5 g/dl (32-36); Mean Corpuscular Hemoglobin 33.5 pg (26-34); Mean Corpuscular Volume 110.1 fl (80-100); Mean Platelet Volume 10.2 fl (7.4-10.4); Monocytes Absolute Auto 1.4 K/mm3 (0.1-0.6); Monocytes Percent Auto 16.1 % (2.6-8.5); Neutrophils Absolute Auto 4.2 K/mm3 (1.3-6.7); Neutrophils Percent Auto 49.4 % (45.5-73.1); Nucleated Red Blood Cells Absolute Auto 0.1 K/mm3 (0.0-0.012); Nucleated Red Blood Cells Perc 1.4 % (0.0-0.2); Platelet Count Result 232 k/mm3 (150-375); Red Blood Count 3.58 M/mm3 (4.2-5.4); Red Cell Distribution Width 14.8 % (11.5-14.5); White Blood Count 8.4 K/mm3 (4.5-10.0)
[2022-09-04] MEDS: ACETAMINOPHEN ELIXIR 325 MG/10.15 ML UDC 1000 MG FEED TUBE (06:09)
[2022-09-04 06:11] LABS: Anion Gap 5 mmol/L (8-16); Blood Urea Nitrogen 22 mg/dL (7-17); Calcium 9.1 mg/dL (8.4-10.2); Carbon Dioxide 36 mmol/L (22-30); Chloride 99 mmol/L (98-107); Estimated Glomerular Filt Rate > 60; Glucose 129 mg/dL (65-110); Magnesium 2.1 mg/dL (1.6-2.3); Potassium 4.6 mmol/L (3.4-5.0); Sodium 140 mmol/L (137-145)
[2022-09-04] MEDS: FAMOTIDINE 20 MG TABLET FEED TUBE ×2 (08:42→17:13)
[2022-09-04] MEDS: MULTIVITAMIN HEMATINIC (*BKC) TABLET 1 TABLET FEED TUBE (08:42)
[2022-09-04] MEDS: CHOLECALCIFEROL 1,000 UNITS TABLET 3000 UNITS FEED TUBE (08:42)
[2022-09-04] MEDS: NITROFURANTOIN MACROCRYSTALS 50 MG CAP FEED TUBE (08:42)
[2022-09-04] MEDS: FLUoxetine HCL 20 MG CAPSULE FEED TUBE (08:42)
[2022-09-04] MEDS: FUROSEMIDE 20 MG TABLET FEED TUBE ×3 (08:42→17:14)
[2022-09-04] MEDS: ENOXAPARIN 40 MG/0.4 ML SYRINGE SUB-Q (08:55)
[2022-09-04] MEDS: guaiFENesin 200 MG/10 ML UDC 600 MG FEED TUBE ×2 (08:55→20:51)
[2022-09-04] MEDS: VALPROIC ACID LIQ 250 MG/5 ML ORAL SOLUTION UDC 500 MG FEED TUBE ×3 (08:55→20:51)
[2022-09-04] MEDS: MAGNESIUM OXIDE 400 MG TABLET FEED TUBE ×2 (09:36→17:14)
--- NOTE | 2022-09-04 10:13 | PM.IMPN ---
Progress Note: A&P Assessment and Plan (1) Pulmonary edema: Code(s): J81.1 - Chronic pulmonary edema Status: Acute Assessment and Plan: Continue to diurese (2) Chronic hypercapnic respiratory failure: Code(s): J96.12 - Chronic respiratory failure with hypercapnia Status: Acute Assessment and Plan: Attempted to wean to room air but needs 1.5 liters/minute oxygen to maintain saturations, continue Autopap at night, tolerated 25% FiO2 overnight (3) Pneumonia: Code(s): J18.9 - Pneumonia, unspecified organism Status: Acute Assessment and Plan: Improved. Completed course of azithromycin and ceftriaxone (4) Gastrointestinal tube in situ: Code(s): Z93.1 - Gastrostomy status Status: Acute Assessment and Plan: Has PEG tube -all meds per PEG tube -dietitian place orders for enteral feedings with Jevity Sodium levels have been slightly high since flushing with saline. I have asked nursing staff to mix saline and tap water an approximate 50 50 ratio and we will recheck labs in the morning. (5) UTI (urinary tract infection): Code(s): N39.0 - Urinary tract infection, site not specified Status: Acute Assessment and Plan: Takes Macrobid daily for prophylaxis -UA was ordered on admission and the only way to obtain would be a straight cath. Mom has requested that maybe this be discontinued as it would cause too much trauma discomfort. Completed course of ceftriaxone. (6) Hyponatremia: Code(s): E87.1 - Hypo-osmolality and hyponatremia Status: Acute Assessment and Plan: Sodium level stable at 1/2 saline and 1/2 tap water for flushes with meds and feeds (7) Abdominal distension: Code(s): R14.0 - Abdominal distension (gaseous) Status: Acute Assessment and Plan: Patient continuing to have stools, no concern for obstruction at this time. (8) Vulvovaginal candidiasis: Code(s): B37.31 - Acute candidiasis of vulva and vagina Status: Acute Assessment and Plan: vaginal erythema, edema and white discharge s/p antibiotic therapy. Ordered topical and G tube antifungal (9) Thrush, oral: Code(s): B37.0 - Candidal stomatitis Status: Acute Assessment and Plan: thick coating of whitish brown on tongue s/p completion of antibiotic therapy, ordered topical and G-tube antifungal (10) Seizure disorder: Code(s): G40.909 - Epilepsy, unspecified, not intractable, without status epilepticus Status: Chronic Assessment and Plan: -valproic acid t.i.d. Plan Diurese and increase home dosing of furosemide. Mobilize to chair. Treat yeast infections. Consider home oxygen therapy vs LTACH for bridge to home under mother's care. Time Spent With Patient Time with patient: Greater than 35 minutes Subjective Date/time seen: 09/04/22 10:13 Interval history: This is a 41-year-old female with history of Rett syndrome, cerebral palsy, hypertension, seizure disorder, kidney stones, gallstones, and respiratory failure on BiPAP at nighttime who presented to the emergency department via private vehicle for evaluation of fever and cough. She is nonverbal and thus all of the following history is obtained from her mother at bedside. She is dependent on activities of daily living and gets a majority of her calories through a PEG button though on occasion she does drink liquids though not much recently. The last couple of days she has been coughing with increased respiratory secretions that she has difficulties getting up. Mom has been suctioning her at home and she reports thick white phlegm. Mom reports that Julia looks like she does not feel well and last night she was up frequently and seemed to be uncomfortable. She had a low-grade fever at home but we was afebrile on arrival to the emergency department. Her blood pressures have been stable and she has been persistently tachycardic in the low 100s.
[2022-09-04] MEDS: FUROSEMIDE INJ 40 MG/4 ML VIAL 20 MG IV PUSH (11:04)
[2022-09-04] MEDS: NYSTATIN 100,000 UNITS/ML SUSP 5 ML ORAL.SUSP PO ×3 (13:05→21:30)
[2022-09-04] MEDS: MICONAZOLE NITRATE 2% CREAM 30 GM TUBE 1 APPLIC TOPICAL ×2 (13:05→21:30)
[2022-09-04] MEDS: FLUCONAZOLE 150 MG TABLET FEED TUBE (13:05)
[2022-09-04] MEDS: ACETAMINOPHEN ELIXIR 325 MG/10.15 ML UDC 650 MG FEED TUBE ×2 (15:22→19:19)
--- NOTE | 2022-09-04 20:25 | PCRCNOTE ---
PT'S MOTHER REFUSED VEST CPT AT THIS TIME
[2022-09-04] MEDS: TIZANIDINE HCL 2 MG TABLET FEED TUBE (21:21)
[2022-09-05] VITALS (7 sets, daily range): BP systolic 135; BP diastolic 66; PULSE 82–101; RESP 18–35; TEMP 36.6; O2SAT 93–98
[2022-09-05] MEDS: ALBUTEROL SULFATE NEB 2.5 MG/3 ML INH INHALATION ×4 (00:28→11:01)
[2022-09-05] MEDS: MICONAZOLE NITRATE 2% CREAM 30 GM TUBE 1 APPLIC TOPICAL (05:56)
[2022-09-05] MEDS: ACETAMINOPHEN ELIXIR 325 MG/10.15 ML UDC 650 MG FEED TUBE (06:05)
[2022-09-05] MEDS: TIZANIDINE HCL 2 MG TABLET FEED TUBE (06:55)
--- NOTE | 2022-09-05 09:45 | PM.DS ---
DS: Admitting Diagnosis Discharge Date 09/05/2022 Admitting Diagnosis Pneumonia Chronic hypercapnic respiratory failure Seizure disorder DS: Discharge Diagnosis Discharge Diagnosis (1) Pulmonary edema: Code(s): J81.1 - Chronic pulmonary edema Status: Acute (2) Chronic hypercapnic respiratory failure: Code(s): J96.12 - Chronic respiratory failure with hypercapnia Status: Acute (3) Pneumonia: Code(s): J18.9 - Pneumonia, unspecified organism Status: Acute (4) Gastrointestinal tube in situ: Code(s): Z93.1 - Gastrostomy status Status: Acute (5) UTI (urinary tract infection): Code(s): N39.0 - Urinary tract infection, site not specified Status: Acute (6) Hyponatremia: Code(s): E87.1 - Hypo-osmolality and hyponatremia Status: Acute (7) Abdominal distension: Code(s): R14.0 - Abdominal distension (gaseous) Status: Acute (8) Vulvovaginal candidiasis: Code(s): B37.31 - Acute candidiasis of vulva and vagina Status: Acute (9) Thrush, oral: Code(s): B37.0 - Candidal stomatitis Status: Acute (10) Seizure disorder: Code(s): G40.909 - Epilepsy, unspecified, not intractable, without status epilepticus Status: Chronic DS: Summary Hospital Course Reason for hospitalization: This is a 41-year-old female patient with complex medical history including seizure disorder, Rett syndrome and G-tube in-situ who was admitted due to cough, fever and concern for pneumonia Hospital Course: Patent patient was treated with IV azithromycin and Rocephin. It was felt that patient also had a urinary tract infection the mother did not want to catheterize patient for sample so it was treated empirically with IV Rocephin. During the course of hospital stay patient required supplemental oxygenation via nasal cannula as well as auto PAP at night. Despite treating pneumonia patient's respiratory status did not significantly improved. Repeat chest x-ray showed pulmonary edema and lung sounds were coarse crackles. Patient received increased diuresis for a few days with improvement in respiratory status. She also developed oral and vaginal yeast after antibiotics. Attempts to titrate oxygen to room air did not result in able to discharge patient on room air. It patient's mother already home oxygen therapy available and she is a respiratory therapist trade. Primary care provider has already restarted 5 I did need for oxygen and the mother is agreeable to discharge on 1 liter/minute and titrate as needed. Daily Lasix was increased with instructions to follow-up with primary care for weaning of this over the next week or 2. Repeat echocardiogram showed good ventricular systolic function but there was some mild diastolic dysfunction which is likely the cause of her pulmonary edema. This does not appear significantly changed from prior results. At time of discharge patient is fever free breathing comfortably on 1 liter/minute oxygen via nasal cannula. Status at Discharge Cognitive/behavioral status at discharge: Baseline, non-verbal Functional status at discharge: wheelchair bound Overall status at discharge: patient is progressing back to baseline Time Spent with Patient Time attestation: Total time spent providing and/or coordinating discharge services: Time spent: Greater than 30 minutes Exam Narrative: General:? chronically ill appearing 41-year-old female, awake in bed, normal coloration and normal work of breathing on supplemental oxygen at 1 LPM Neuro: awake, non-verbal at baseline, no focal neuro deficits noted HEENMT:? normocephalic, atraumatic, EOMI, sclerae anicteric, tacky oral mucosa and thick white coating on tongue Respiratory:? Improved course crackles noted. No wheezes. No respiratory distress Cardio:? Normal rate, regular rhythm with S1-S2 Abdomen:? distended, normoactive bowel sounds, taut, nontender to palpation G-button
[2022-09-05] MEDS: guaiFENesin 200 MG/10 ML UDC 600 MG FEED TUBE (10:00)
[2022-09-05] MEDS: ENOXAPARIN 40 MG/0.4 ML SYRINGE SUB-Q (10:00)
[2022-09-05] MEDS: NYSTATIN 100,000 UNITS/ML SUSP 5 ML ORAL.SUSP PO (10:00)
[2022-09-05] MEDS: VALPROIC ACID LIQ 250 MG/5 ML ORAL SOLUTION UDC 500 MG FEED TUBE (10:00)
[2022-09-05] MEDS: FAMOTIDINE 20 MG TABLET FEED TUBE (10:01)
[2022-09-05] MEDS: FLUoxetine HCL 20 MG CAPSULE FEED TUBE (10:01)
[2022-09-05] MEDS: NITROFURANTOIN MACROCRYSTALS 50 MG CAP FEED TUBE (10:01)
[2022-09-05] MEDS: CHOLECALCIFEROL 1,000 UNITS TABLET 3000 UNITS FEED TUBE (10:01)
[2022-09-05] MEDS: MAGNESIUM OXIDE 400 MG TABLET FEED TUBE (10:01)
[2022-09-05] MEDS: SCOPOLAMINE 1.5 MG PATCH TRANSDERM (10:01)
[2022-09-05] MEDS: MULTIVITAMIN HEMATINIC (*BKC) TABLET 1 TABLET FEED TUBE (10:02)
[2022-09-05] MEDS: FUROSEMIDE 40 MG TABLET PO (10:02)
== END 2022-09-05 11:24 | disposition home or self-care (01) | DRG 194 ==
LOC: ANHED 13:31 → ANH3MEDSUR 15:03 → ANH2MED 15:22
PROVIDERS: General Practice; Nurse Practitioner Acute Care; Physician Assistant; Admitting Provider Internal Medicine; Emergency Provider Emergency Medicine; PCP Nurse Practitioner Family; Visit Provider Nurse Practitioner
DX: J18.9 Pneumonia, unspecified organism (principal); B37.0 Candidal stomatitis; N39.0 Urinary tract infection, site not specified; E87.1 Hypo-osmolality and hyponatremia; J96.12 Chronic respiratory failure with hypercapnia; J96.11 Chronic respiratory failure with hypoxia; F84.2 Rett's syndrome; Z20.822 Contact with and (suspected) exposure to COVID-19; R14.0 Abdominal distension (gaseous); B37.31 Acute candidiasis of vulva and vagina; I10 Essential (primary) hypertension; G40.909 Epilepsy, unspecified, not intractable, without status epilepticus; G80.9 Cerebral palsy, unspecified; Z98.1 Arthrodesis status; Z93.1 Gastrostomy status
CPT/HCPCS: 36415; 71045; 74018; 80048; 80053; 82948; 83735; 83880; 85025; 86738; 87040; 87637; 93005; 93970; 94002; 94640; 94669; 96365; 99285; A9270; C8929; J0456; J0696; J1650; J1940; J7120; Q9957

== ENCOUNTER 2022-12-07 10:03 | Inpatient (IN) | payer MEDICARE, MEDICAID, SELFPAY ==
[2022-12-07] VITALS (29 sets, daily range): BP systolic 108–170; BP diastolic 66–141; PULSE 72–109; RESP 17–25; TEMP 36.4–37.4; O2SAT 83–100
--- NOTE | ~2022-12-07 | XR_ITS ---
EXAMINATION: XR abdomen obstructive series DATE: 12/09/2022 13:52 INDICATION: Abdominal distention TECHNIQUE: Supine and upright views of the abdomen. FINDINGS: 09/02/2022 Patchy bibasilar airspace disease.. There is a nonobstructive bowel gas pattern. Gas and stool are se en throughout the colon to the level of the rectum. There is no free air. There is a gastric tube pr esent. Spinal rods are noted. There is surgical changes of the left femur as well. IMPRESSION: 1. No acute abdominal abnormality. Reviewed, dictated and finalized at location B.
--- NOTE | ~2022-12-07 | XR_ITS ---
Portable chest x-ray Comparison: 09/02/2022 Clinical History: Shortness of breath Findings: There is central congestive change and probable mild pulmonary edema pattern. Cardiomedia stinal silhouette is stable. Extensive spinal fixation hardware is unchanged. Impression: Central congestive change and probable mild pulmonary edema pattern. Reviewed, dictated and finalized at [facility]. Impression: Central congestive change and probable mild pulmonary edema pattern.
--- NOTE | ~2022-12-07 | XR_ITS ---
EXAMINATION: XR chest 1V portable DATE: 12/13/2022 08:16 INDICATION: Fever. TECHNIQUE: A single frontal view of the chest was obtained. COMPARISON: Chest single view 12/09/2022, chest CT 03/10/2022 FINDINGS: There are airspace opacities in right mid and lower lung zones and left lower lung zone. No pleural effusion or pneumothorax. The heart size is normal. There is posterior fixation of the spine . IMPRESSION: 1. Airspace opacities in right mid and lower lung zones and left lower lung zone with improvement on the right, consistent with atelectasis versus pneumonia. Reviewed, dictated and finalized at location E. IMPRESSION: 1. Airspace opacities in right mid and lower lung zones and left lower lung zon e with improvement on the right, consistent with atelectasis versus pneumonia.
--- NOTE | ~2022-12-07 | XR_ITS ---
XR chest 1V portable 12/09/2022 13:52 Indication: Hypoxia Procedure: AP portable chest Comparison: Comparison to multiple prior studies sequentially, with oldest reviewed study dated 04/2022. Findings: Borderline heart size. Developing patchy bilateral airspace disease. Marcelo rods overly ing the spine. No acute osseous abnormality. No pleural effusion or pneumothorax. Impression: 1: Developing patchy bilateral airspace disease which may represent pneumonia and/or atelectasis. Reviewed, dictated and finalized at location B. Impression: 1: Developing patchy bilateral airspace disease which may represent pneumonia a nd/or atelectasis.
--- NOTE | 2022-12-07 10:25 | ECG_ITS ---
Measurements Intervals [place] Rate: 93 P: 43 VA: 113 QRS: 63 QRSD: 80 T: 18 QT: 348 QTc: 434 Interpretive Statements SINUS RHYTHM WITH SHORT VA INTERVAL NONSPECIFIC T-WAVE ABNORMALITY COMPARED TO ECG 08/29/2022 12:21:22 THE RATE IS SLOWER. Electronically Signed On 12-08-2022 12:55:25 CDT by Mackenzie Eaton M.D.
[2022-12-07 10:50] LABS: Basophils Absolute Auto 0.1 K/mm3 (0.0-0.1); Basophils Percent Auto 0.6 % (0.2-1.2); Eosinophils Absolute Auto 0.1 K/mm3 (0-0.3); Eosinophils Percent Auto 1.1 % (0-4.4); Hemoglobin 15.1 g/dL (12.0-15.0); Immature Granulocyte Absolute 0.12 K/mm3 (0.00-0.031); Immature Granulocyte Percent A 1.4 % (0-0.5); Lymphocytes Percent Auto 28.8 % (18.3-44.2); Mean Corpuscular HGB Conc 30.8 g/dl (32-36); Mean Corpuscular Hemoglobin 32.1 pg (26-34); Mean Corpuscular Volume 104.3 fl (80-100); Monocytes Absolute Auto 1.4 K/mm3 (0.1-0.6); Monocytes Percent Auto 16.5 % (2.6-8.5); Neutrophils Absolute Auto 4.3 K/mm3 (1.3-6.7); Neutrophils Percent Auto 51.6 % (45.5-73.1); Nucleated Red Blood Cells Absolute Auto 0.1 K/mm3 (0.0-0.012); Nucleated Red Blood Cells Perc 1.4 % (0.0-0.2); Platelet Count Result 221 k/mm3 (150-375); Red Cell Distribution Width 14.6 % (11.5-14.5); White Blood Count 8.3 K/mm3 (4.5-10.0)
[2022-12-07 11:16] LABS: Alanine Aminotransferase 42 U/L (6-35); Albumin Level 3.9 g/dL (3.5-5.1); Alkaline Phosphatase 111 U/L (38-126); Aspartate Amino Transferase 53 U/L (14-36); Bilirubin,Total 0.7 mg/dL (0.2-1.3); Blood Urea Nitrogen 16 mg/dL (7-17); Calcium 9.3 mg/dL (8.4-10.2); Carbon Dioxide > 40 mmol/L (22-30); Chloride 90 mmol/L (98-107); Estimated Glomerular Filt Rate > 60; Glucose 162 mg/dL (65-110); Potassium 4.8 mmol/L (3.4-5.0); Sodium 134 mmol/L (137-145)
[2022-12-07] MEDS: LACTATED RINGERS 1,000 ML 999 ML IV CONT (11:55)
--- NOTE | 2022-12-07 11:56 | PC.NURSE ---
Attempted to straight cath patient. Unable to obtain specimen at this time.
[2022-12-07 12:53] LABS: Appearance Urine Clear (Clear); Bacteria Urine None Seen /hpf; Bilirubin Urine Negative (Negative); Blood Urine 1+ (Negative); Color Urine Yellow (Yellow); Glucose Urine UA Trace mg/dL (Negative); Ketones Urine Negative (Negative); Leukocyte Esterase Ur Negative LEU/UL (Negative); Nitrate Urine Negative (Negative); Non Pathogenic Casts 0-2; Protein Urine Negative (Negative); Specific Grav Ur 1.009 (1.001-1.035); Squamous Epithelial Cell Urine None seen /hpf (Few); WBC Urine 0-5 /hpf
[2022-12-07 12:58] LABS: Add Urine Microscopic? YES
[2022-12-07 13:12] LABS: NT Pro B Type Natriuretic Pept 859 pg/mL (19.9-100)
[2022-12-07] MEDS: FUROSEMIDE INJ 40 MG/4 ML VIAL IV PUSH (13:20)
[2022-12-07] MEDS: VALPROIC ACID LIQ 250 MG/5 ML ORAL SOLUTION UDC 500 MG PO (15:09)
--- NOTE | 2022-12-07 15:55 | ED.SOB ---
HPI - SOB/Dyspnea General Chief Complaint: Shortness of Breath/Dyspnea Stated Complaint: breathing problems Time Seen by Provider: 12/07/22 10:17 History of Present Illness HPI Narrative: Patient with history of cerebral palsy nonverbal at baseline presents here with increasing difficulty breathing per her mother at bedside, no obvious fever or cough, but does appear to be more congested. Not usually on oxygen at baseline but did need to be placed on a few liters here. Related Data Home Medications Medication Instructions Recorded Confirmed fluoxetine 20 mg/5 mL (4 mg/mL) 20 mg feeding tube DAILY 03/23/19 08/29/22 oral solution nitrofurantoin 25 mg/5 mL oral 50 mg feeding tube DAILY 03/23/19 08/29/22 suspension valproic acid (as sodium salt) 250 500 mg feeding tube TID 03/23/19 08/29/22 mg/5 mL oral solution magnesium oxide 420 mg tablet 420 mg feeding tube BID 07/20/21 08/29/22 dxtlveex-eaim-vnhvnjy gluconate 9 15 ml feeding tube DAILY 07/20/21 08/29/22 mg iron/15 mL (15 mL) oral liquid (Centrum) acetaminophen 500 mg/5 mL oral 1,000 mg feeding tube Q6H PRN 03/10/22 08/29/22 liquid Fever Or Pain cholecalciferol (vitamin D3) 12.5 3,000 unit PO DAILY 03/10/22 08/29/22 mcg/5 mL (500 unit/5 mL) oral liquid famotidine 20 mg tablet 20 mg feeding tube BID 03/12/22 08/29/22 ibuprofen 200 mg tablet 400 mg feeding tube Q6H PRN Pain 03/12/22 08/29/22 tizanidine 2 mg tablet 2 mg feeding tube PRN PRN Muscle 03/12/22 08/29/22 Spasm bisacodyl 10 mg rectal suppository 10 mg RECTAL QHS 08/29/22 08/29/22 Allergies Allergy/AdvReac Type Severity Reaction Status Date / Time lamotrigine Allergy Unknown Rash Verified 11/16/21 13:32 Review of Systems Review of Systems: ROS unobtainable: Yes other (Nonverbal at baseline) PMFSH Past Medical History Medical History (Updated 12/07/22 @ 16:08 by Karoline Jimenez MD) Adynamic ileus Breast mass Cerebral palsy Chronic hypercapnic respiratory failure On BiPAP at nighttime. Gall stones Kidney stones Rett syndrome Scoliosis deformity of spine Seizure disorder Surgical History Surgical History (Updated 09/04/22 @ 11:19 by Arvin Mann APRN) History of fundoplication History of open reduction and internal fixation (ORIF) procedure Repair of hip and leg fractures. History of percutaneous endoscopic gastrostomy History of spinal fusion History of spinal surgery Family History Family History Father Hypertension Other Family history non-contributory Social History Social History Social History: The patient lives with her parents in [place]. She is dependent on all activities of daily living. No alcohol, tobacco, or drug use. Surrogate decision maker: Lisa Crowe, mother. Code status: Do not intubate. Okay with BiPAP. Smoking status: Never smoker Alcohol intake: never Substance use: never Substance use type: does not use Spiritual care concerns: No Exam Narrative: EXAMINATION OF ORGAN SYSTEMS/BODY AREAS: Constitutional: Vital signs per nursing GENERAL: Does not appear to be in severe distress but somewhat loud and wet respirations HEAD: Normal with no signs of head trauma. EYES: EOMI, conjunctiva normal ENT: No stridor but does seem to have some secretions LUNGS: Some crackles bilaterally. HEART: [Regular rate and rhythm] ABD: [Soft], [nontender to palpation] EXT: extremities somewhat contracted SKIN: [No rashes or lesions.] NEURO: [Alert. No gross focal sensory or strength deficits.] PSYCH: Normal affect Course Vital Signs Vital signs: Vital Signs Pulse Rate 100 12/07/22 10:18 Respiratory Rate 18 12/07/22 10:18 Blood Pressure 130/67 12/07/22 10:18 Pulse Oximetry 93 12/07/22 10:18 Temperature 97.5 F L 12/07/22 10:19 Pulse Rate 104 H 12/07/22 14:46 Respiratory Rat
[2022-12-07] MEDS: IPRATROPIUM BR 0.02% INH SOLN 0.5 MG/2.5 ML VIAL INHALATION (16:12)
[2022-12-07] MEDS: ALBUTEROL SULFATE NEB 2.5 MG/3 ML INH INHALATION ×2 (16:12→23:10)
--- NOTE | 2022-12-07 17:59 | ADMGEN ---
This patient, Julia Crowe, was admitted to Medical Room 341-01. Patient/family oriented to hospital policies and general routines including ID bracelet, bed and alarms, visiting hours, pain management, procedures, bathroom and other care routines, personal items, smoking policy, room service/diet, and visiting hours. Information on how to activate the Rapid Response Team has been discussed. Patient/Family are encouraged to report perceived risks to care and to ask questions if they do not understand what they are told or what they should do.
--- NOTE | 2022-12-07 19:30 | PM.IMHP ---
H&P: HPI History of Present Illness Date/Time: 12/07/22 19:30 Chief Complaint: SOB Narrative: 42-year-old female presents here with increasing shortness of breath with past medical history of cerebral palsy with subsequent chronic hypercapnic respiratory failure on AVAP and G-tube, gallstones, kidney stones, Rett syndrome, hyponatremia, and seizures. Patient presents here with increasing shortness of breath over the last 3 days. Patient is nonverbal at baseline and mother is primary longitudinal float operator. Mother, Lisa, provided history. Per mother, patient intermittently has shortness of breath due to a multitude of etiologies: Abdominal bloating, difficulty with transitioning from home BiPAP to room air in the mornings etc. Did not become concerned until shortness of breath became more constant, tidal volumes on BiPAP decreased last night, and patient developed fever of 101F at home. Mother denies noting any cough or congestion. Patient has had 3 episodes of shortness of breath requiring hospitalization over the last year, most recent being 08/29/22 due to chronic hypercapnic respiratory failure with concern for pneumonia. mother also noted that patient has had an increase in swelling to neck/face and bilateral lower extremities. Abdomen intermittently tight at baseline. Patient also less interactive than usual and less expressive. Her baseline is able to follow most commands, laughs, will regard (especially people she likes), pull away from things she does not want, and will look at things she wants. Review of Systems Review of Systems: All systems reviewed & are unremarkable except as noted in HPI and below PMFSH Past Medical History Medical History (Updated 12/08/22 @ 00:24 by Lulú Tejada APRN) Adynamic ileus Breast mass Cerebral palsy Chronic hypercapnic respiratory failure On BiPAP at nighttime. Constipation Gall stones Gastrointestinal tube in situ Kidney stones Pneumonia Rett syndrome Scoliosis deformity of spine Seizures Surgical History Surgical History History of fundoplication History of open reduction and internal fixation (ORIF) procedure Repair of hip and leg fractures. History of percutaneous endoscopic gastrostomy History of spinal fusion History of spinal surgery Family History Family History Father Hypertension Other Family history non-contributory Social History Social History (Updated 12/08/22 @ 00:00 by Lulú Tejada, YUKI) Social History: The patient lives with her parents in [place]. She is dependent on all activities of daily living. No alcohol, tobacco, or drug use. Surrogate decision maker: Lisa Crowe, mother. Code status: DNR, per mother (med POA) on 12/07/22. Smoking status: Never smoker Alcohol intake: never Substance use: never Substance use type: does not use Spiritual care concerns: No Meds Home Medications and Allergies Home Medications Medication Instructions Recorded Confirmed Type fluoxetine 20 mg/5 mL (4 mg/mL) 20 mg feeding tube DAILY 03/23/19 12/07/22 History oral solution nitrofurantoin 25 mg/5 mL oral 50 mg feeding tube DAILY 03/23/19 12/07/22 History suspension valproic acid (as sodium salt) 250 500 mg feeding tube TID 03/23/19 12/07/22 History mg/5 mL oral solution rkqedqpl-joov-yrphjre gluconate 9 15 ml feeding tube DAILY 07/20/21 12/07/22 History mg iron/15 mL (15 mL) oral liquid (Centrum) albuterol sulfate 2.5 mg/3 mL 2.5 mg (3 mL) inhalation Q12HRT 07/26/21 12/07/22 Rx (0.083 %) solution for nebulization PRN Congestion #75 mL acetaminophen 500 mg/5 mL oral 1,000 mg feeding tube Q6H PRN 03/10/22 12/07/22 History liquid Fever Or Pain famotidine 20 mg tablet 20 mg feeding tube BID 03/12/22 12/07/22 History ibuprofen 200 mg tablet 400 mg feeding tube Q6H PRN Pain 03/12/22
[2022-12-07] MEDS: VALPROIC ACID LIQ 250 MG/5 ML ORAL SOLUTION UDC 500 MG FEED TUBE (22:03)
[2022-12-07] MEDS: ACETAMINOPHEN 500 MG TABLET 1000 MG FEED TUBE (22:04)
[2022-12-07] MEDS: FAMOTIDINE 20 MG TABLET FEED TUBE (22:05)
[2022-12-08] VITALS (14 sets, daily range): BP systolic 128–167; BP diastolic 67–94; PULSE 93–110; RESP 19–24; TEMP 37–37.3; O2SAT 91–99; BMI 33.7
--- NOTE | 2022-12-08 | ECHO_ITS ---
Patient Info Name: Julia Crowe Age: 42 years : 1980 Gender: Female Ht: 50 in Wt: 159 lbs BSA: 1.65 m2 HR: 99 bpm BP: 146 / 73 mmHg Heart Rhythm: Sinus Rhythm Technical Quality: Poor Exam Date: 12/08/2022 11:29 AM Exam Location: [facility] Patient Status: Inpatient Admit Date: 12/08/2022 Staff Ordering Physician: Lulú Tejada APRN Bed Rubber: Coty Plasencia RDCS Attending Provider: Doc Singh MD Referring Physician: Mallory BROCK; Exam Type: CA echo dop color flow w con Study Info Indications - pulmonary edema Complete two-dimensional, color flow and Doppler transthoracic echocardiogram is performed with contrast to opacify the left ventricle and to improve the deliniation of the left ventricle endocardial borders. Contrast/Agitated Saline Contrast/Ag. Saline: Definity Amount: 2.00 ml Administered By: Coty Plasencia RDCS Existing IV Access: Yes IV Access Condition: patent with no signs of infiltration Summary 1. Technically suboptimal study due to poor sonographic images. 2. No subcostal images obtained. 3. Definity contrast administered improved wall motion interpretation. 4. Left ventricular chamber dimension is normal. 5. Left ventricular systolic function is normal, estimated at 60-65%. 6. The left ventricular diastolic function is abnormal. 7. E/e' 12 is mildly elevated. 8. There is mild aortic valve sclerosis. 9. No pulmonary hypertension, estimated pulmonary arterial systolic pressure is 19 mmHg. Left Ventricle Technically suboptimal study due to poor sonographic images. Definity contrast administered improved wall motion interpretation. E/e' 12 is mildly elevated. No subcostal images obtained. Left ventricular chamber dimension is normal. Left ventricular systolic function is normal, estimated at 60-65%. The left ventricular diastolic function is abnormal. Right Ventricle Right ventricular chamber dimension is not well visualized. Left Atria Left atrial chamber dimension is normal. Right Atria Right atrial chamber dimension is not well visualized. Aortic Valve The aortic valve is probable trileaflet. There is mild aortic valve sclerosis. There is no aortic valve stenosis. There is no aortic valve regurgitation. Pulmonic Valve There is no pulmonic regurgitation. Mitral Valve There is no mitral valve stenosis. There is no mitral valve regurgitation. Tricuspid Valve There is no tricuspid valve regurgitation. No pulmonary hypertension, estimated pulmonary arterial systolic pressure is 19 mmHg. Pericardium/Pleural There is no pericardial effusion. Inferior Vena Cava Inferior vena cava is not well visualized. Aorta The aortic root size at the sinus of Valsalva is normal. Left Ventricular Outflow Tract Name Value Normal LVOT 2D LVOT Diameter 1.88 cm LVOT Doppler LVOT Peak Gradient 4 mmHg LVOT Mean Gradient 2 mmHg LVOT VTI 14.26 cm LVOT VTI/AV VTI Ratio 0.88 LVOT Stroke Volume 39.37 ml LVOT CO 4.22
[2022-12-08] MEDS: FUROSEMIDE INJ 40 MG/4 ML VIAL IV PUSH ×3 (00:50→17:29)
[2022-12-08 01:58] LABS: Procalcitonin 0.3 ng/mL
[2022-12-08] MEDS: ALBUTEROL SULFATE NEB 2.5 MG/3 ML INH INHALATION ×5 (04:45→20:32)
[2022-12-08] MEDS: VALPROIC ACID LIQ 250 MG/5 ML ORAL SOLUTION UDC 500 MG FEED TUBE ×3 (09:45→20:48)
[2022-12-08] MEDS: MAGNESIUM OXIDE 400 MG TABLET 800 MG FEED TUBE ×2 (09:46→17:29)
[2022-12-08] MEDS: POTASSIUM/PHOSPHORUS/SODIUM 1.5 GM PACKET 1 PACKET FEED TUBE (09:46)
[2022-12-08] MEDS: ENOXAPARIN 40 MG/0.4 ML SYRINGE SUB-Q (09:46)
[2022-12-08] MEDS: FLUoxetine HCL 20 MG CAPSULE FEED TUBE (09:46)
[2022-12-08] MEDS: FAMOTIDINE 20 MG TABLET FEED TUBE ×2 (09:46→17:29)
[2022-12-08] MEDS: MULTIVIT W/ IRON, MINERALS 15 ML LIQUID (*BKC) PO (09:47)
[2022-12-08] MEDS: NITROFURANTOIN MACROCRYSTALS 50 MG CAP FEED TUBE (09:47)
[2022-12-08] MEDS: VITAMIN A & D OINTMENT 60 GM TUBE 1 APPLIC TOPICAL (09:47)
--- NOTE | 2022-12-08 11:22 | PC.NURSE ---
RN called table games shift manager Raquel and left message with Lakshmi to have Raquel call RN back as RN needs tube feeding rates for pump.
[2022-12-08] MEDS: PERFLUTREN LIPID MICROSPHERES 1.5 ML VIAL DILUTED TO 10 ML TOTAL VOLUME IV PUSH (11:34)
--- NOTE | 2022-12-08 12:58 | IVDEFINITY ---
Prior to administration of IV Definity the patient was educated on the risks and benefits of the imaging enhancing agent including potential adverse side effects. The patient verbalized understanding. Allergies were verified. No exclusion criteria were identified and at least one of the following inclusion criteria were met: 1) physician request, 2) patient technically difficult to image (per the [place] [employer] guidelines of two or more segments not discernable within the apical view), or 3) questionable left ventricular function. ?
[2022-12-08] MEDS: ACETAMINOPHEN 500 MG TABLET 1000 MG FEED TUBE (13:49)
--- NOTE | 2022-12-08 15:54 | PM.IMPN ---
Progress Note: A&P Assessment and Plan (1) Sepsis: Code(s): A41.9 - Sepsis, unspecified organism Status: Acute Assessment and Plan: Concern for sepsis due to heart rate and respiratory rate.?She did have fever of 101 while at home but no documented fever here. PCT 0.3.? WBC 8.3.? CXR not suspicious for pneumonia.? UA not suspicious for UTI.? BCx have returned positive for GPC in clusters from aerobic bottle only. Could be contaminate. 1 L given in ED but appears volume overloaded so further fluid resuscitation held. Start IV abx with Vanco and Rocephin. Repeat BCx tomorrow (2) Acute on chronic respiratory failure with hypoxia and hypercapnia: Code(s): J96.21 - Acute and chronic respiratory failure with hypoxia; J96.22 - Acute and chronic respiratory failure with hypercapnia Status: Acute Assessment and Plan: Patient is not on home O2 but uses home AVAPS at night. Continue the same here. CXR showing central congestive change and probable mild pulmonary edema pattern. BNP 859. Consider PNA, CHF, hypoventilation syndrome. Continue Albuterol nebs. Contineu abx as above. Continue Lasix IV. Monitor UOP. (3) Cerebral palsy: Qualifiers: Cerebral palsy type: other type Qualified Code(s): G80.8 - Other cerebral palsy Code(s): G80.9 - Cerebral palsy, unspecified Status: Chronic Assessment and Plan: Patient is alert, nonverbal. She is bedbound. Has dysphagia with g-tube in place. Continue TF. Overall, she is receiving good skin care. She does have folliculitis left buttocks being treated with ointments. Continue to monitor (4) Pulmonary edema: Qualifiers: Chronicity: acute Qualified Code(s): J81.0 - Acute pulmonary edema Code(s): J81.1 - Chronic pulmonary edema Status: Acute Assessment and Plan: As above (5) Hyponatremia: Code(s): E87.1 - Hypo-osmolality and hyponatremia Status: Acute Assessment and Plan: Na 134 on admission. Could be related to fluid overload. Follow with diuresis. (6) Fever: Qualifiers: Fever type: unspecified Qualified Code(s): R50.9 - Fever, unspecified Code(s): R50.9 - Fever, unspecified Status: Acute Assessment and Plan: As above Plan Diet: tube feeds GI Prophylaxis: famotidine DVT Prophylaxis: SCDs, enoxaparin 40 Code Status: DNR, per mother (medical POA) on 12/07/22. Subjective Date/time seen: 12/08/22 15:54 Interval history: 42yo female with cerebral palsy, seizures, NAVEEN and chronic resp failure here for SOB. Patient is nonverbal and unable to provide hx. Family in he room. No change but they recognize that the patinet is not feeling well. Review of Systems Review of Systems: ROS unobtainable: Yes unobtainable due to mental status Exam Narrative: AF 98.8 128/77 96 24 92% 2L Gen - NARD Chest - coarse BS anteriorly. CV - RRR S1/S2 Abd - Soft, obese, Tube site clean and dry - Lopez secured draining dark yellow urine Ext - 1-2+ pitting pedal edema Neuro - Alert, nonverbal. flexion contraction Skin - Warm and dry. small red macules left posterior thigh. very mild erythema in the skin folds. Objective Data Vital Signs Vital Signs: Vital Signs - 24 hr 12/07/22 16:13 12/07/22 16:28 12/07/22 16:32 Temperature Pulse Rate 96 99 Respiratory Rate 17 20 Blood Pressure Pulse Oximetry 96 Oxygen Delivery Nasal Cannula Oxygen Flow Rate 4 12/07/22 16:16 12/07/22 17:01 12/07/22 18:26 Temperature Pulse Rate 95 109 H 109 H Respiratory Rate 19 20 20 Blood Pressure 118/82 132/102 H Pulse Oximetry 97 97 Oxygen Delivery Nasal Cannula Oxygen Flow Rate 4 12/07/22 21:16 12/07/22 20:00 12/07/22 23:42 Temperature 99.3 F Pulse Rate 100 100 Respiratory Rate 18 18 18 Blood Pressure 142/83 H Pulse Oximetry 97 97 96 Oxygen Delivery Nasal Cannula BiPAP Oxygen Flow Rate 2
[2022-12-08] MEDS: cefTRIAXone 2 GM/NS 100 ML 2 GM/100 ML BAG IVPB (17:28)
[2022-12-08] MEDS: TIZANIDINE HCL 2 MG TABLET FEED TUBE (20:48)
[2022-12-09] VITALS (15 sets, daily range): BP systolic 118–143; BP diastolic 65–91; PULSE 84–105; RESP 14–25; TEMP 36.6–37.4; O2SAT 95–100
[2022-12-09] MEDS: ALBUTEROL SULFATE NEB 2.5 MG/3 ML INH INHALATION ×5 (00:47→20:35)
[2022-12-09] MEDS: ACETAMINOPHEN 500 MG TABLET 1000 MG FEED TUBE (03:45)
--- NOTE | 2022-12-09 04:04 | PC.NURSE ---
Patient found by tech to have a O2 of 63%. NC was placed back on patient and turned up to 5L with O2 at 95%. Per parent, she had removed cpap due to patient being awake. No oxygen had been continued nor was this nurse made aware. Respiratory notified. Neb treatment was administered and cpap placed back on patient.
[2022-12-09 06:19] LABS: Hematocrit 44.6 % (37.0-47.0); Hemoglobin 13.8 g/dL (12.0-15.0); Mean Corpuscular HGB Conc 30.9 g/dl (32-36); Mean Corpuscular Hemoglobin 31.9 pg (26-34); Mean Platelet Volume 10.6 fl (7.4-10.4); Platelet Count Result 279 k/mm3 (150-375); Red Blood Count 4.33 M/mm3 (4.2-5.4); Red Cell Distribution Width 14.6 % (11.5-14.5); White Blood Count 9.6 K/mm3 (4.5-10.0)
[2022-12-09] MEDS: VANCOMYCIN 1,000 MG/NS 250 ML 1,000 MG/250 ML BAG 250 MG IVPB ×2 (06:26→17:09)
[2022-12-09 06:35] LABS: Alanine Aminotransferase 34 U/L (6-35); Albumin Level 3.5 g/dL (3.5-5.1); Alkaline Phosphatase 105 U/L (38-126); Aspartate Amino Transferase 46 U/L (14-36); Bilirubin,Total 0.5 mg/dL (0.2-1.3); Blood Urea Nitrogen 17 mg/dL (7-17); Carbon Dioxide > 40 mmol/L (22-30); Chloride 80 mmol/L (98-107); Estimated Glomerular Filt Rate > 60; Glucose 182 mg/dL (65-110); Magnesium 1.8 mg/dL (1.6-2.3); Potassium 3.8 mmol/L (3.4-5.0); Sodium 128 mmol/L (137-145)
[2022-12-09] MEDS: FLUoxetine HCL 20 MG CAPSULE FEED TUBE (09:19)
[2022-12-09] MEDS: VALPROIC ACID LIQ 250 MG/5 ML ORAL SOLUTION UDC 500 MG FEED TUBE ×3 (09:19→21:34)
[2022-12-09] MEDS: MULTIVIT W/ IRON, MINERALS 15 ML LIQUID (*BKC) PO (09:19)
[2022-12-09] MEDS: NITROFURANTOIN MACROCRYSTALS 50 MG CAP FEED TUBE (09:19)
[2022-12-09] MEDS: MAGNESIUM OXIDE 400 MG TABLET 800 MG FEED TUBE ×2 (09:19→16:06)
[2022-12-09] MEDS: FAMOTIDINE 20 MG TABLET FEED TUBE ×2 (09:19→16:06)
[2022-12-09] MEDS: ENOXAPARIN 40 MG/0.4 ML SYRINGE SUB-Q (09:20)
[2022-12-09] MEDS: VITAMIN A & D OINTMENT 60 GM TUBE 1 APPLIC TOPICAL (09:25)
--- NOTE | 2022-12-09 11:32 | PCNFU ---
Nutrition Follow-Up Complete: Swallowing Difficulites as related to [employer] as evidenced by G tube feedings. Goal:Meet estimated nutritional needs Pt meeting current goal, continue with same goal. Pt current nutrition is Jevity 1.5 @ 40ml/hr. Nutrition recommendation: continue with current plan of care. Last recorded weight is 68.2 kg. Bowel Motility: +BM 12/08 Labs Reviewed: NA:128, Cr:0.3 Meds Noted: lovenox, lasix Skin: no skin issues noted Additional Notes: Tube feedings continue as Jevity 1.5 @ 40ml/hr, goal rate. Pt is tolerating. Feedings provide 1320kcals, 56g protein, 669ml fluid. Sufficient to meet estimated needs. Agree with diet orders. Will monitor weight, labs, skin, tube feeding tolerance every Monday and Monday.
--- NOTE | 2022-12-09 13:16 | PM.IMPN ---
Progress Note: A&P Assessment and Plan (1) Sepsis: Code(s): A41.9 - Sepsis, unspecified organism Status: Acute Assessment and Plan: Concern for sepsis due to heart rate and respiratory rate.?She did have fever of 101 while at home but no documented fever here. PCT 0.3.? WBC 8.3.? CXR possibly pneumonia.? UA not suspicious for UTI.? BCx have returned positive for GPC in clusters from aerobic bottle only. Could be contaminate but started on abx. 1 L given in ED but appears volume overloaded so further fluid resuscitation held. Continue IV abx Repeat BCx pending (2) Acute on chronic respiratory failure with hypoxia and hypercapnia: Code(s): J96.21 - Acute and chronic respiratory failure with hypoxia; J96.22 - Acute and chronic respiratory failure with hypercapnia Status: Acute Assessment and Plan: Patient is not on home O2 but uses home AVAPS at night. Continue the same here. CXR showing central congestive change and probable mild pulmonary edema pattern. BNP 859. Consider PNA, CHF, hypoventilation syndrome, aspiration. Now on 5L since being found hypoxic overnight off O2. Encouraged staff to have BiPAP on when she is sleeping. Wean O2 as tolerated since at 100% Continue Albuterol nebs. Continue abx as above. Serum bicarb >40. Hold Lasix. Monitor UOP. Check ABG. (3) Cerebral palsy: Qualifiers: Cerebral palsy type: other type Qualified Code(s): G80.8 - Other cerebral palsy Code(s): G80.9 - Cerebral palsy, unspecified Status: Chronic Assessment and Plan: Patient is alert, nonverbal. She is bedbound. Has dysphagia with g-tube in place. Continue TF. Overall, she is receiving good skin care. She does have folliculitis left buttocks being treated with ointments. Elevate HOB. Continue to monitor (4) Pulmonary edema: Qualifiers: Chronicity: acute Qualified Code(s): J81.0 - Acute pulmonary edema Code(s): J81.1 - Chronic pulmonary edema Status: Acute Assessment and Plan: As above. Repeat CXR (5) Hyponatremia: Code(s): E87.1 - Hypo-osmolality and hyponatremia Status: Acute Assessment and Plan: Na 134 on admission but has dropped to 128. Urine was dilute. Holding Lasix. Follow (6) Fever: Qualifiers: Fever type: unspecified Qualified Code(s): R50.9 - Fever, unspecified Code(s): R50.9 - Fever, unspecified Status: Acute Assessment and Plan: As above Plan Diet: tube feeds GI Prophylaxis: famotidine DVT Prophylaxis: SCDs, enoxaparin 40 Code Status: DNR, per mother (medical POA) on 12/07/22. Subjective Date/time seen: 12/09/22 13:16 Interval history: 42yo female with cerebral palsy, seizures, NAVEEN and chronic resp failure here for SOB. Patient is nonverbal and unable to provide hx. Family is not in the room. Review of Systems Review of Systems: ROS unobtainable: Yes unobtainable due to mental status Exam Narrative: AF 97.8 139/85 84 14 100% 5L Gen - NARD Chest - coarse BS anteriorly. RR 18-20 CV - RRR S1/S2 Abd - Soft, obese, Tube site clean and dry, distended and tympanitic. - Lopez secured draining yellow urine Ext - 1-2+ pitting pedal edema Neuro - Alert, nonverbal. flexion contraction. opens eyes Skin - Warm and dry. Objective Data Vital Signs Vital Signs: Vital Signs - 24 hr 12/08/22 15:53 12/08/22 16:00 12/08/22 20:33 Temperature 98.8 F Pulse Rate 110 H 98 Respiratory Rate 20 20 22 H Blood Pressure Pulse Oximetry 92 Oxygen Delivery Oxygen Flow Rate 12/08/22 20:33 12/08/22 20:33 12/08/22 20:39 Temperature 98.6 F Pulse Rate 98 99 Respiratory Rate 20 24 H Blood Pressure 167/94 H Pulse Oximetry 95 99 Oxygen Delivery Nasal Cannula Oxygen Flow Rate 2 12/08/22 20:00 12/09/22 00:47 12/09/22 04:35 Temperature Pulse Rate 102 H 105 H Respiratory Rate 22 H 18 Blood Press
--- NOTE | 2022-12-09 16:35 | PCRCNOTE ---
Mother of patient refused ABG'S at this time.
[2022-12-09] MEDS: TIZANIDINE HCL 2 MG TABLET FEED TUBE (21:35)
[2022-12-10] VITALS (16 sets, daily range): BP systolic 123–147; BP diastolic 54–89; PULSE 75–95; RESP 16–26; TEMP 36–37; O2SAT 71–100
[2022-12-10] MEDS: ALBUTEROL SULFATE NEB 2.5 MG/3 ML INH INHALATION ×4 (02:33→20:57)
[2022-12-10 06:07] LABS: Basophils Percent Auto 0.4 % (0.2-1.2); Eosinophils Absolute Auto 0.3 K/mm3 (0-0.3); Eosinophils Percent Auto 3.9 % (0-4.4); Hematocrit 41.4 % (37.0-47.0); Hemoglobin 12.9 g/dL (12.0-15.0); Immature Granulocyte Absolute 0.06 K/mm3 (0.00-0.031); Immature Granulocyte Percent A 0.8 % (0-0.5); Lymphocytes Absolute Auto 2.12 K/mm3 (0.9-3.2); Lymphocytes Percent Auto 28.4 % (18.3-44.2); Mean Corpuscular HGB Conc 31.2 g/dl (32-36); Mean Corpuscular Hemoglobin 32.1 pg (26-34); Mean Platelet Volume 10.5 fl (7.4-10.4); Monocytes Absolute Auto 1.1 K/mm3 (0.1-0.6); Monocytes Percent Auto 14.9 % (2.6-8.5); Neutrophils Absolute Auto 3.9 K/mm3 (1.3-6.7); Neutrophils Percent Auto 51.6 % (45.5-73.1); Nucleated Red Blood Cells Perc 0.3 % (0.0-0.2); Platelet Count Result 272 k/mm3 (150-375); Red Blood Count 4.02 M/mm3 (4.2-5.4); Red Cell Distribution Width 14.7 % (11.5-14.5); White Blood Count 7.5 K/mm3 (4.5-10.0)
[2022-12-10 06:20] LABS: Albumin Level 3.2 g/dL (3.5-5.1); Blood Urea Nitrogen 14 mg/dL (7-17); Calcium 9.1 mg/dL (8.4-10.2); Carbon Dioxide > 40 mmol/L (22-30); Chloride 82 mmol/L (98-107); Estimated Glomerular Filt Rate > 60; Glucose 183 mg/dL (65-110); Phosphorus 3.8 mg/dL (2.5-4.5); Potassium 3.6 mmol/L (3.4-5.0); Sodium 130 mmol/L (137-145)
[2022-12-10 08:24] LABS: Vancomycin Trough 10.4 ug/mL (10.0-20.0)
[2022-12-10] MEDS: ENOXAPARIN 40 MG/0.4 ML SYRINGE SUB-Q (09:30)
[2022-12-10] MEDS: MAGNESIUM OXIDE 400 MG TABLET 800 MG FEED TUBE ×2 (09:30→16:00)
[2022-12-10] MEDS: NITROFURANTOIN MACROCRYSTALS 50 MG CAP FEED TUBE (09:30)
[2022-12-10] MEDS: MULTIVIT W/ IRON, MINERALS 15 ML LIQUID (*BKC) PO (09:30)
[2022-12-10] MEDS: FLUoxetine HCL 20 MG CAPSULE FEED TUBE (09:30)
[2022-12-10] MEDS: FAMOTIDINE 20 MG TABLET FEED TUBE ×2 (09:30→16:00)
[2022-12-10] MEDS: VALPROIC ACID LIQ 250 MG/5 ML ORAL SOLUTION UDC 500 MG FEED TUBE ×3 (09:30→21:31)
[2022-12-10] MEDS: VITAMIN A & D OINTMENT 60 GM TUBE 1 APPLIC TOPICAL (09:34)
[2022-12-10] MEDS: acetaZOLAMIDE SODIUM FOR INJ 500 MG VIAL 250 MG IV PUSH (09:43)
--- NOTE | 2022-12-10 10:23 | PM.IMPN ---
Progress Note: A&P Assessment and Plan (1) Sepsis: Code(s): A41.9 - Sepsis, unspecified organism Status: Acute Assessment and Plan: Sepsis due to elevated heart rate and respiratory rate.?She did have fever of 101 while at home but no documented fever here. PCT 0.3.? WBC 8.3.? CXR possibly pneumonia.? UA not suspicious for UTI.? BCx 12/07 have returned positive for Staph Epi in both aerobic sets. Could be contaminate but started on abx. She was given 1L in ED but appears volume overloaded so no further fluid resuscitation given. Continue Vancomycin. (2) Acute on chronic respiratory failure with hypoxia and hypercapnia: Code(s): J96.21 - Acute and chronic respiratory failure with hypoxia; J96.22 - Acute and chronic respiratory failure with hypercapnia Status: Acute Assessment and Plan: Patient is not on home O2 but uses home AVAPS at night. Continue the same here. CXR showing central congestive change and probable mild pulmonary edema vs PNA. BNP 859. Consider PNA, CHF, hypoventilation syndrome, aspiration. ABG ordered but not collected. Now on 4L. Encouraged staff to have BiPAP on when she is sleeping. Wean O2 as tolerated since at 100% Continue Albuterol nebs. Continue abx as above. (3) Pneumonia: Code(s): J18.9 - Pneumonia, unspecified organism Status: Acute Assessment and Plan: As above. Add Flagyl to cover for aspiration. (4) Pulmonary edema: Qualifiers: Chronicity: acute Qualified Code(s): J81.0 - Acute pulmonary edema Code(s): J81.1 - Chronic pulmonary edema Status: Acute Assessment and Plan: CXR was concerning for pulmonary edema. Echo showing EF 60-65% and abnormal diastolic dysfunction. Was on lasix but developed contraction alkalosis. CXR findings may be related to PNA. Wean O2 as tolerated Stop Lasix; Diamox once. (5) Hyponatremia: Code(s): E87.1 - Hypo-osmolality and hyponatremia Status: Acute Assessment and Plan: Na 134 on admission but dropped to 128 related to diuretics. Lasix held and Na has improved. to 130. Follow. (6) Fever: Qualifiers: Fever type: unspecified Qualified Code(s): R50.9 - Fever, unspecified Code(s): R50.9 - Fever, unspecified Status: Acute Assessment and Plan: As above (7) Cerebral palsy: Qualifiers: Cerebral palsy type: other type Qualified Code(s): G80.8 - Other cerebral palsy Code(s): G80.9 - Cerebral palsy, unspecified Status: Chronic Assessment and Plan: Patient is alert, nonverbal. She is bedbound. Has dysphagia with g-tube in place. Continue TF. Overall, she is receiving good skin care. She does have folliculitis left buttocks being treated with ointments. Elevate HOB. Continue to monitor Spoke with family about hospice. All questions answered. Plan Diet: tube feeds GI Prophylaxis: famotidine DVT Prophylaxis: SCDs, enoxaparin 40 Code Status: DNR, per mother (medical POA) on 12/07/22. Subjective Date/time seen: 12/10/22 10:23 Interval history: 42yo female with cerebral palsy, seizures, NAVEEN and chronic resp failure here for SOB. Patient is nonverbal and unable to provide hx. Family in the room and care plan discussed. Review of Systems Review of Systems: ROS unobtainable: Yes unobtainable due to mental status Exam Narrative: AF 96.8 131/54 93 20 100% 4L Gen - NARD Chest - coarse BS anteriorly CV - RRR S1/S2 Abd - Soft, obese, distended. GT site clean and dry - Lopez secured draining yellow urine Ext - 2+ pitting pedal edema Neuro - Alert, nonverbal. flexion contraction. Eyes open. does not track Skin - Warm and dry. Objective Data Vital Signs Vital Signs: Vital Signs - 24 hr 12/09/22 12:10 12/09/22 12:30 12/09/22 13:52 Temperature 97.8 F Pulse Rate 84 Respiratory Rate 14 Blood Pressure 139/85 Pulse Oximetry
[2022-12-10] MEDS: ACETAMINOPHEN 500 MG TABLET 1000 MG FEED TUBE (13:24)
[2022-12-10] MEDS: metroNIDAZOLE 250 MG TABLET 500 MG FEED TUBE ×2 (13:25→21:31)
[2022-12-10] MEDS: TIZANIDINE HCL 2 MG TABLET FEED TUBE (21:31)
[2022-12-11] VITALS (18 sets, daily range): BP systolic 112–136; BP diastolic 62–87; PULSE 64–108; RESP 18–25; TEMP 36.9–37.3; O2SAT 90–100
[2022-12-11] MEDS: ALBUTEROL SULFATE NEB 2.5 MG/3 ML INH INHALATION ×4 (01:30→20:50)
[2022-12-11] MEDS: metroNIDAZOLE 250 MG TABLET 500 MG FEED TUBE ×3 (06:24→21:32)
[2022-12-11 06:36] LABS: Blood Urea Nitrogen 12 mg/dL (7-17); Calcium 9.5 mg/dL (8.4-10.2); Carbon Dioxide > 40 mmol/L (22-30); Chloride 88 mmol/L (98-107); Estimated Glomerular Filt Rate > 60; Glucose 202 mg/dL (65-110); Potassium 3.4 mmol/L (3.4-5.0); Sodium 130 mmol/L (137-145)
[2022-12-11] MEDS: VALPROIC ACID LIQ 250 MG/5 ML ORAL SOLUTION UDC 500 MG FEED TUBE ×3 (08:57→21:32)
[2022-12-11] MEDS: FLUoxetine HCL 20 MG CAPSULE FEED TUBE (08:57)
[2022-12-11] MEDS: NITROFURANTOIN MACROCRYSTALS 50 MG CAP FEED TUBE (08:57)
[2022-12-11] MEDS: MULTIVIT W/ IRON, MINERALS 15 ML LIQUID (*BKC) PO (08:57)
[2022-12-11] MEDS: MAGNESIUM OXIDE 400 MG TABLET 800 MG FEED TUBE ×2 (08:57→17:27)
[2022-12-11] MEDS: ENOXAPARIN 40 MG/0.4 ML SYRINGE SUB-Q (08:58)
[2022-12-11] MEDS: POTASSIUM CHLORIDE 20 MEQ PACKET (FOR LIQUID) 40 MEQ FEED TUBE (08:58)
[2022-12-11] MEDS: FAMOTIDINE 20 MG TABLET FEED TUBE ×2 (09:02→17:27)
[2022-12-11] MEDS: VITAMIN A & D OINTMENT 60 GM TUBE 1 APPLIC TOPICAL (10:43)
--- NOTE | 2022-12-11 12:16 | PM.IMPN ---
Progress Note: A&P Assessment and Plan (1) Sepsis: Code(s): A41.9 - Sepsis, unspecified organism Status: Acute Assessment and Plan: Sepsis due to elevated heart rate and respiratory rate.?She did have fever of 101 while at home but no documented fever here. PCT 0.3.? WBC 8.3.? CXR possibly pneumonia.? UA not suspicious for UTI.? BCx 12/07 have returned positive for Staph Epi in both aerobic sets. Could be contaminate but started on abx. She was given 1L in ED but appears volume overloaded so no further fluid resuscitation given. Continue Vancomycin. (2) Acute on chronic respiratory failure with hypoxia and hypercapnia: Code(s): J96.21 - Acute and chronic respiratory failure with hypoxia; J96.22 - Acute and chronic respiratory failure with hypercapnia Status: Acute Assessment and Plan: Patient is not on home O2 but uses home AVAPS at night. Continue the same here. CXR showing central congestive change and probable mild pulmonary edema vs PNA. BNP 859. Consider PNA, CHF, hypoventilation syndrome, aspiration. ABG ordered but not collected. O2 requirement now down to 1L Encouraged staff to have BiPAP on when she is sleeping. Wean O2 as tolerated since at 100% Continue Albuterol nebs. Continue abx as above. (3) Pneumonia: Code(s): J18.9 - Pneumonia, unspecified organism Status: Acute Assessment and Plan: As above. Continue Flagyl and Vanco. (4) Pulmonary edema: Qualifiers: Chronicity: acute Qualified Code(s): J81.0 - Acute pulmonary edema Code(s): J81.1 - Chronic pulmonary edema Status: Acute Assessment and Plan: CXR was concerning for pulmonary edema. Echo showing EF 60-65% and abnormal diastolic dysfunction. Was on lasix but developed contraction alkalosis. CXR findings may be related to PNA. Wean O2 as tolerated Lasix stopped (5) Hyponatremia: Code(s): E87.1 - Hypo-osmolality and hyponatremia Status: Acute Assessment and Plan: Na 134 on admission but dropped to 128 related to diuretics. Lasix held and Na has improved. to 130 and now stable. Follow. (6) Fever: Qualifiers: Fever type: unspecified Qualified Code(s): R50.9 - Fever, unspecified Code(s): R50.9 - Fever, unspecified Status: Acute Assessment and Plan: As above (7) Cerebral palsy: Qualifiers: Cerebral palsy type: other type Qualified Code(s): G80.8 - Other cerebral palsy Code(s): G80.9 - Cerebral palsy, unspecified Status: Chronic Assessment and Plan: Patient is alert, nonverbal. She is bedbound. Has dysphagia with g-tube in place. Continue TF. Overall, she is receiving good skin care. She does have folliculitis left buttocks being treated with ointments. Elevate HOB. Continue to monitor Plan Diet: tube feeds GI Prophylaxis: famotidine DVT Prophylaxis: SCDs, enoxaparin Code Status: DNR, per mother (medical POA) on 12/07/22. Dispo - Remove Lopez in am. Possible discharge tomorrow. Subjective Date/time seen: 12/11/22 12:17 Interval history: 42yo female with cerebral palsy, seizures, NAVEEN and chronic resp failure here for SOB. Patient is nonverbal and unable to provide hx. Family in the room and care plan discussed. Mother thinks patient looks better today and more back to herself Exam Narrative: AF 98.8 132/75 108 20 95% 1L Gen - NARD Chest - coarse BS anteriorly but improved from yesterday; still with expiratory wheezing CV - RRR S1/S2 Abd - Soft, obese, firm. GT site clean and dry - Lopez secured draining yellow urine Ext - 2+ pitting pedal edema Neuro - Alert, nonverbal. flexion contraction. Eyes open. does not track Skin - Warm and dry. Objective Data Vital Signs Vital Signs: Vital Signs - 24 hr 12/10/22 13:46 12/10/22 14:00 12/10/22 14:01 Temperature Pulse Rate Respiratory Rate Blood Pressure
[2022-12-11] MEDS: ACETAMINOPHEN 500 MG TABLET 1000 MG FEED TUBE (13:53)
[2022-12-11] MEDS: TIZANIDINE HCL 2 MG TABLET FEED TUBE (21:32)
[2022-12-11 21:57] LABS: Vancomycin Trough 14.7 ug/mL (10.0-20.0)
[2022-12-12] VITALS (20 sets, daily range): BP systolic 113–154; BP diastolic 54–88; PULSE 70–109; RESP 16–25; TEMP 36.7–38.1; O2SAT 92–98
[2022-12-12] MEDS: ALBUTEROL SULFATE NEB 2.5 MG/3 ML INH INHALATION ×4 (01:57→19:37)
[2022-12-12] MEDS: metroNIDAZOLE 250 MG TABLET 500 MG FEED TUBE ×3 (06:30→21:24)
[2022-12-12] MEDS: MAGNESIUM OXIDE 400 MG TABLET 800 MG FEED TUBE ×2 (08:28→17:43)
[2022-12-12] MEDS: ACETAMINOPHEN 500 MG TABLET 1000 MG FEED TUBE ×2 (08:28→21:25)
[2022-12-12] MEDS: VALPROIC ACID LIQ 250 MG/5 ML ORAL SOLUTION UDC 500 MG FEED TUBE ×3 (08:28→21:24)
[2022-12-12] MEDS: MULTIVIT W/ IRON, MINERALS 15 ML LIQUID (*BKC) PO (08:28)
[2022-12-12] MEDS: FLUoxetine HCL 20 MG CAPSULE FEED TUBE (08:29)
[2022-12-12] MEDS: FAMOTIDINE 20 MG TABLET FEED TUBE ×2 (08:29→17:43)
[2022-12-12] MEDS: NITROFURANTOIN MACROCRYSTALS 50 MG CAP FEED TUBE (08:29)
[2022-12-12] MEDS: VITAMIN A & D OINTMENT 60 GM TUBE 1 APPLIC TOPICAL (08:30)
[2022-12-12] MEDS: ENOXAPARIN 40 MG/0.4 ML SYRINGE SUB-Q (08:30)
--- NOTE | 2022-12-12 11:29 | PM.IMPN ---
Progress Note: A&P Assessment and Plan (1) Sepsis: Code(s): A41.9 - Sepsis, unspecified organism Status: Acute Assessment and Plan: Sepsis due to elevated heart rate and respiratory rate.?She did have fever of 101 while at home but no documented fever here. PCT 0.3.? WBC 8.3.? CXR possibly pneumonia.? UA not suspicious for UTI.? BCx 12/07 have returned positive for Staph Epi in both aerobic sets. Could be contaminate but started on abx. Repeat BCx 12/09 NGTD. She was given 1L in ED but appears volume overloaded so no further fluid resuscitation given. She does look worse today but not requiring more O2 to suggest worsening PNA or repeat aspiration. may be having a 'bad day' but will monitor. Further w/u if she does have fever. Continue Vancomycin and Flagyl. Requested RN not to give Tylenol unless patient with fever. Check labs. (2) Acute on chronic respiratory failure with hypoxia and hypercapnia: Code(s): J96.21 - Acute and chronic respiratory failure with hypoxia; J96.22 - Acute and chronic respiratory failure with hypercapnia Status: Acute Assessment and Plan: Patient is not on home O2 but has O2 at home as needed. She uses home AVAPS at night. Continue the same here. CXR showing central congestive change and probable mild pulmonary edema vs PNA. BNP 859. Consider PNA, CHF, hypoventilation syndrome, and/or aspiration. ABG ordered but not collected. O2 requirement now down to 1L Encouraged staff to have BiPAP on when she is sleeping. Wean O2 as tolerated Continue Albuterol nebs. Continue abx as above. (3) Pneumonia: Code(s): J18.9 - Pneumonia, unspecified organism Status: Acute Assessment and Plan: As above. Continue Flagyl and Vanco. (4) Pulmonary edema: Qualifiers: Chronicity: acute Qualified Code(s): J81.0 - Acute pulmonary edema Code(s): J81.1 - Chronic pulmonary edema Status: Acute Assessment and Plan: CXR was concerning for pulmonary edema. Echo showing EF 60-65% and abnormal diastolic dysfunction. Was on lasix but developed contraction alkalosis. CXR findings may be related to PNA. Wean O2 as tolerated Lasix stopped (5) Hyponatremia: Code(s): E87.1 - Hypo-osmolality and hyponatremia Status: Acute Assessment and Plan: Na 134 on admission but dropped to 128 related to diuretics. Lasix held and Na has improved. to 130 and now stable. Follow. (6) Fever: Qualifiers: Fever type: unspecified Qualified Code(s): R50.9 - Fever, unspecified Code(s): R50.9 - Fever, unspecified Status: Acute Assessment and Plan: As above (7) Cerebral palsy: Qualifiers: Cerebral palsy type: other type Qualified Code(s): G80.8 - Other cerebral palsy Code(s): G80.9 - Cerebral palsy, unspecified Status: Chronic Assessment and Plan: Patient is alert, nonverbal. She is bedbound. Has dysphagia with g-tube in place. Continue TF. Overall, she is receiving good skin care. She does have folliculitis left buttocks being treated with ointments. Elevate HOB. Continue to monitor Plan Diet: tube feeds GI Prophylaxis: famotidine DVT Prophylaxis: SCDs, enoxaparin Code Status: DNR, per mother (medical POA) on 12/07/22. Subjective Date/time seen: 12/12/22 11:29 Interval history: 42yo female with cerebral palsy, seizures, NAVEEN and chronic resp failure here for SOB. Patient is nonverbal and unable to provide hx. Family in the room and care plan discussed. Mother thinks patient looks worse today. Temp to 99.6 and Tylenol given. Mother does state the patinet does have good and bad days. Tolerating TF. Tolerating AVAPS. Voiding well since Lopez removed. +BMs Exam Narrative: AF 98.0 151/80 99 20 92% 1L Gen - NARD Chest - coarse expiratory rhonchi CV - RRR S1/S2 Abd - Soft, obese, firm. GT site clean and dry Ext - 2+ pitting pedal
[2022-12-12 11:54] LABS: Basophils Absolute Auto 0.1 K/mm3 (0.0-0.1); Basophils Percent Auto 0.6 % (0.2-1.2); Eosinophils Absolute Auto 0.3 K/mm3 (0-0.3); Eosinophils Percent Auto 4.2 % (0-4.4); Hematocrit 43.6 % (37.0-47.0); Hemoglobin 13.5 g/dL (12.0-15.0); Immature Granulocyte Absolute 0.07 K/mm3 (0.00-0.031); Immature Granulocyte Percent A 0.9 % (0-0.5); Lymphocytes Absolute Auto 1.87 K/mm3 (0.9-3.2); Lymphocytes Percent Auto 23.1 % (18.3-44.2); Mean Corpuscular Hemoglobin 31.8 pg (26-34); Mean Corpuscular Volume 102.6 fl (80-100); Mean Platelet Volume 10.1 fl (7.4-10.4); Monocytes Absolute Auto 1.1 K/mm3 (0.1-0.6); Monocytes Percent Auto 13.2 % (2.6-8.5); Neutrophils Absolute Auto 4.7 K/mm3 (1.3-6.7); Platelet Count Result 302 k/mm3 (150-375); Red Blood Count 4.25 M/mm3 (4.2-5.4); Red Cell Distribution Width 14.6 % (11.5-14.5); White Blood Count 8.1 K/mm3 (4.5-10.0)
[2022-12-12 12:06] LABS: Albumin Level 3.4 g/dL (3.5-5.1); Anion Gap 4 mmol/L (8-16); Blood Urea Nitrogen 9 mg/dL (7-17); Calcium 9.3 mg/dL (8.4-10.2); Carbon Dioxide 38 mmol/L (22-30); Chloride 88 mmol/L (98-107); Estimated Glomerular Filt Rate > 60; Glucose 278 mg/dL (65-110); Phosphorus 3.4 mg/dL (2.5-4.5); Potassium 4.2 mmol/L (3.4-5.0); Sodium 130 mmol/L (137-145)
[2022-12-12] MEDS: TIZANIDINE HCL 2 MG TABLET FEED TUBE (21:25)
[2022-12-13] VITALS (11 sets, daily range): BP systolic 114–130; BP diastolic 62–70; PULSE 84–99; RESP 18–31; TEMP 36.9–37; O2SAT 94–97
[2022-12-13] MEDS: ALBUTEROL SULFATE NEB 2.5 MG/3 ML INH INHALATION ×3 (01:44→12:58)
[2022-12-13] MEDS: metroNIDAZOLE 250 MG TABLET 500 MG FEED TUBE (06:14)
[2022-12-13] MEDS: AZITHROMYCIN 250 MG TABLET 500 MG FEED TUBE (09:04)
[2022-12-13] MEDS: MAGNESIUM OXIDE 400 MG TABLET 800 MG FEED TUBE (09:04)
[2022-12-13] MEDS: FLUoxetine HCL 20 MG CAPSULE FEED TUBE (09:04)
[2022-12-13] MEDS: MULTIVIT W/ IRON, MINERALS 15 ML LIQUID (*BKC) PO (09:04)
[2022-12-13] MEDS: VALPROIC ACID LIQ 250 MG/5 ML ORAL SOLUTION UDC 500 MG FEED TUBE (09:04)
[2022-12-13] MEDS: ENOXAPARIN 40 MG/0.4 ML SYRINGE SUB-Q (09:05)
[2022-12-13] MEDS: FAMOTIDINE 20 MG TABLET FEED TUBE (09:05)
[2022-12-13] MEDS: NITROFURANTOIN MACROCRYSTALS 50 MG CAP FEED TUBE (09:05)
[2022-12-13 09:33] LABS: Estimated Glomerular Filt Rate > 60
--- NOTE | 2022-12-13 09:43 | PCNFU ---
Nutrition Follow-Up Complete: Swallowing Difficulties as related to ANTENNA RIGGER as evidenced by G tube feedings. goal: Meet estimated nutritional needs Patient is meeting goal. No new goal. Pt current nutrition is Jevity 1.5 at 40 ml/hr. Last recorded weight is 68.2 kg. Bowel Motility:+BM reported 12/13 Labs Reviewed:Glu 278, Cr 0.3, Na 130, Alb 3.4 Meds Noted:Lovenox, Mag ox Skin: WNL Additional Notes: Patient has PEG. Tube feedings are being tolerated of Jevity 1.5 at 40 ml/hr. Tube feedings are providing 1320 kcals/56 gms protein/669 ml water. Flush 80 ml q 4 hours. Agree with diet orders. Will monitor weight, labs, skin, tube feeding tolerance every Monday and Monday.
[2022-12-13 09:58] LABS: Vancomycin Trough 23.4 ug/mL (10.0-20.0)
[2022-12-13] MEDS: ACETAMINOPHEN 500 MG TABLET 1000 MG FEED TUBE (13:56)
--- NOTE | 2022-12-13 14:23 | PM.DS ---
DS: Admitting Diagnosis Discharge Date 12/13/22 Admitting Diagnosis Shortness of breath DS: Discharge Diagnosis Discharge Diagnosis (1) Sepsis: Code(s): A41.9 - Sepsis, unspecified organism Status: Acute (2) Acute on chronic respiratory failure with hypoxia and hypercapnia: Code(s): J96.21 - Acute and chronic respiratory failure with hypoxia; J96.22 - Acute and chronic respiratory failure with hypercapnia Status: Acute (3) Pneumonia: Code(s): J18.9 - Pneumonia, unspecified organism Status: Acute (4) Pulmonary edema: Qualifiers: Chronicity: acute Qualified Code(s): J81.0 - Acute pulmonary edema Code(s): J81.1 - Chronic pulmonary edema Status: Acute (5) Hyponatremia: Code(s): E87.1 - Hypo-osmolality and hyponatremia Status: Acute (6) Fever: Qualifiers: Fever type: unspecified Qualified Code(s): R50.9 - Fever, unspecified Code(s): R50.9 - Fever, unspecified Status: Acute (7) Cerebral palsy: Qualifiers: Cerebral palsy type: other type Qualified Code(s): G80.8 - Other cerebral palsy Code(s): G80.9 - Cerebral palsy, unspecified Status: Chronic DS: Summary Hospital Course Reason for hospitalization: 42yo female with cerebral palsy, seizures, NAVEEN and chronic resp failure here for SOB. Please see H&P for details. Hospital Course: Sepsis present on admission with elevated heart rate and respiratory rate.?She did have fever of 101 while at home. PCT 0.3.? WBC 8.3.? CXR possibly pneumonia.? UA not suspicious for UTI.? BCx 12/07 have returned positive for Staph Epi in both aerobic sets. Could be contaminate but started on abx. Repeat BCx 12/09 NGTD. She was given 1L in ED but appears volume overloaded so no further fluid resuscitation given. Flagyl added for possible aspiration. Patient is not on home O2 but has O2 at home as needed. She uses home AVAPS at night which we continued here. ABG ordered but not collected. Able to be weaned to room air. Na 134 on admission but dropped to 128 related to diuretics. Lasix held and Na has improved. to 130 and remained stable. Patient is alert, nonverbal. She is bedbound. Has dysphagia with g-tube in place. We continued TF. Overall, she is receiving good skin care. She does have folliculitis left buttocks being treated with ointments. CXR was concerning for pulmonary edema. BNP 859. Echo showing EF 60-65% and abnormal diastolic dysfunction. Was on lasix but developed contraction alkalosis. Suspect more likely CXR findings related to PNA and atelectasis. She clinically appears improved and family state she is back to baseline. Glucose elevated at times but felt related to stress and abx with dextrose. Her A1c 4.8 last year. She is having strong smelling stools but not uncommon with tube feeding and antibiotics. Patient had a temp to 100.5 the night before which could be atelectasis. No urine retention. COVID/RSV/Influenza PCR negative. Repeat CXR showing right mid and bilateral lower lung airspace disease with improvement on the right. She was on Lovenox for DVT prophylaxis. Family wanting to take patient home today. Offered to monitor but family felt patient okay for discharge. She completed a course of Vancomycin. Will emperically treat for CDiff. She overall did well and was able to be discharged home on 12/13/22. Status at Discharge Cognitive/behavioral status at discharge: Stable Time Spent with Patient Time attestation: Total time spent providing and/or coordinating discharge services: 40 minutes Time spent: Greater than 30 minutes Exam Narrative: Tm 100.5 98.6 126/70 92 20 94% ra Gen - NARD Chest - clearer and les coarse today CV - RRR S1/S2 Abd - Soft, obese, firm. GT site clean and dry. SP fullness but bladder scan = 92cc Ext - 2+ pitting pedal edema Neuro - Alert, nonverbal. flexion contraction. Eyes open. does not track Skin - Warm and dry.
[2022-12-13 14:55] LABS: Influenza A QL RT-PCR Negative (Negative); Influenza B QL RT-PCR Negative (Negative); RSV RNA, RT-PCR Negative (Negative); SARS-CoV-2 RNA PCR Negative (Negative)
== END 2022-12-13 16:25 | disposition home or self-care (01) | DRG 871 ==
LOC: ANHED 16:08 → ANH3MED 17:10
PROVIDERS: Student in an Organized Health Care Education/Training Program; Admitting Provider Internal Medicine; Emergency Provider Emergency Medicine; PCP Nurse Practitioner Family; Visit Provider Internal Medicine
DX: A41.1 Sepsis due to other specified staphylococcus (principal); J18.9 Pneumonia, unspecified organism; J96.21 Acute and chronic respiratory failure with hypoxia; J96.22 Acute and chronic respiratory failure with hypercapnia; F84.2 Rett's syndrome; E87.1 Hypo-osmolality and hyponatremia; G80.9 Cerebral palsy, unspecified; G40.909 Epilepsy, unspecified, not intractable, without status epilepticus; G47.33 Obstructive sleep apnea (adult) (pediatric); J81.1 Chronic pulmonary edema; L73.9 Follicular disorder, unspecified; R13.10 Dysphagia, unspecified; Z93.1 Gastrostomy status; Z99.81 Dependence on supplemental oxygen; Z20.822 Contact with and (suspected) exposure to COVID-19; Z98.1 Arthrodesis status; Z66 Do not resuscitate; Z74.01 Bed confinement status
CPT/HCPCS: 36415; 36600; 71045; 74019; 80048; 80053; 80069; 80202; 81001; 82565; 83735; 83880; 84100; 84145; 84443; 85025; 85027; 87040; 87147; 87181; 87186; 87637; 93005; 94002; 94640; 96372; 96374; 96376; 99291; A9270; C8929; G0378; J0696; J1120; J1650; J1940; J3370; J7120; Q9957

== ENCOUNTER 2023-04-16 16:24 | Inpatient (IN) | payer MEDICARE, MEDICAID, SELFPAY ==
[2023-04-16] VITALS (15 sets, daily range): BP systolic 94–143; BP diastolic 51–72; PULSE 79–119; RESP 17–22; TEMP 36.1–37.1; O2SAT 90–100; BMI 35.2
--- NOTE | ~2023-04-16 | XR_ITS ---
EXAM: XR hip RT 2V w AP pelvis, XR femur RT min 2V DATE: 04/16/2023 18:20 HISTORY: pain . COMPARISON: CTPA abdomen pelvis 03/10/2022. FINDINGS: Exam limited by patient condition. Oblique minimally displaced fracture of the distal righ t femur at the level of the metaphysis. No other fracture detected. No dislocation. Partially visuali zed uncomplicated appearing spinal fusion hardware. Partially visualized left proximal femoral hardwa re. Severe osteopenia. Gracile bones. Normal bowel gas pattern. IMPRESSION: Oblique minimally displaced fracture of the distal right femur. Reviewed, dictated and finalized at location K. D NURSE CASE MANAGER IMPRESSION: Oblique minimally displaced fracture of the distal right femur.
--- NOTE | ~2023-04-16 | XR_ITS ---
EXAM: XR ankle RT 2V DATE: 04/16/2023 18:20 HISTORY: pain . COMPARISON: X-ray right tibia/fibula 03/23/2019. FINDINGS: Exam limited by patient condition. Severe osteopenia. Oblique nondisplaced fracture of the distal right tibia. No other fracture detected. No dislocation. IMPRESSION: Oblique, nondisplaced fracture of the distal right tibia. Reviewed, dictated and finalized at location K. T ORDERLY
--- NOTE | ~2023-04-16 | XR_ITS ---
EXAM: XR elbow RT min 3V DATE: 04/16/2023 18:20 HISTORY: pain . COMPARISON: None available. FINDINGS: A single slightly hyperflexed and slightly oblique lateral view is provided. Additional vi ews not obtained due to patient contracture. Osteopenia. No definite fracture. No definite dislocatio n IMPRESSION: No definite right elbow fracture or dislocation, noting that sensitivity is decreased whe n multiple views cannot be obtained. Reviewed, dictated and finalized at location K. INSERTER REGULATOR IMPRESSION: No definite right elbow fracture or dislocation, noting that sensit ivity is decreased when multiple views cannot be obtained.
--- NOTE | ~2023-04-16 | US_ITS ---
EXAMINATION: US venous doppler [facility] DATE: 04/20/2023 16:29 INDICATION: Left lower limb swelling. TECHNIQUE: Grayscale ultrasound images without and with compression and Doppler ultrasound images of the left lower extremity veins were obtained. COMPARISON: ultrasound 08/30/22 FINDINGS: The visualized portions of left common femoral vein, profunda (deep) femoral vein, femoral vein, popl iteal vein, peroneal veins, posterior tibial veins, and greater saphenous vein outflow are patent. IMPRESSION: 1. No deep venous thrombosis. Reviewed, dictated and finalized at location E. READER
--- NOTE | ~2023-04-16 | XR_ITS ---
XR chest 1V portable DATE: 04/22/2023 08:08 INDICATION: Seizure. Feeding tube. TECHNIQUE: Portable AP chest on 05/02/2023 at 0759 hours COMPARISON: 12/13/2022 portable AP chest at 0803 hours FINDINGS: Bilateral thoracic spinal rods. Osteopenia. Heart size appears normal. There is mild infiltrate, atelectasis and/or scarring in the mid and lower lung zones. No pleural effusion or pulmonary mass congestion or pneumothorax. IMPRESSION: Mild infiltrate, atelectasis and/or scarring of the mid and lower lung zones Reviewed, dictated and finalized at location A. ARIUM WORKER IMPRESSION: Mild infiltrate, atelectasis and/or scarring of the mid and lower l linda zones
--- NOTE | ~2023-04-16 | XR_ITS ---
EXAMINATION: XR tibia fibula LT 2V INDICATION: Lower limb swelling TECHNIQUE: Two views of the left tibia and fibula are obtained on three radiographs. COMPARISON: None available FINDINGS: The bones are osteopenic which limits sensitivity for fracture. There appears to be an acut e, oblique fracture of the distal tibia with mild buckling of the anterior tibial cortex and one hao ical width of medial displacement of the distal fracture fragment. There also appears to be a nondisp laced transverse fracture of the distal fibula at the same level. Nonstandard views of the proximal t ibia and fibula limit evaluation. There is marked dorsal soft tissue swelling of the foot. IMPRESSION: 1. Acute fracture of the distal tibia and probable associated distal fibular fracture. Dedicated ankl e radiographs are recommended. Reviewed, dictated and finalized at location B. CTOR OF RESIDENTIAL SERVICES IMPRESSION: 1. Acute fracture of the distal tibia and probable associated distal fibular fr acture. Dedicated ankle radiographs are recommended.
--- NOTE | 2023-04-16 17:29 | ED.FALL ---
HPI - Fall General Chief Complaint: Fall Stated Complaint: fall Time Seen by Provider: 04/16/23 16:46 History of Present Illness HPI Narrative: 42-year-old female present to the emergency department for evaluation after a fall from her Татьяна lift at home. Patient is nonverbal at baseline but is tender to palpation of her right side. Patient does have prior history of cerebral palsy, hypercapnic respiratory failure, cholelithiasis, renal lithiasis, Rett syndrome, hyponatremia and seizures Related Data Home Medications Medication Instructions Recorded Confirmed fluoxetine 20 mg/5 mL (4 mg/mL) 20 mg feeding tube DAILY 03/23/19 12/07/22 oral solution nitrofurantoin 25 mg/5 mL oral 50 mg feeding tube DAILY 03/23/19 12/07/22 suspension valproic acid (as sodium salt) 250 500 mg feeding tube TID 03/23/19 12/07/22 mg/5 mL oral solution [id number] gluconate 9 15 ml feeding tube DAILY 07/20/21 12/07/22 mg iron/15 mL (15 mL) oral liquid (Centrum) acetaminophen 500 mg/5 mL oral 1,000 mg feeding tube Q6H PRN 03/10/22 12/07/22 liquid Fever Or Pain famotidine 20 mg tablet 20 mg feeding tube BID 03/12/22 12/07/22 ibuprofen 200 mg tablet 400 mg feeding tube Q6H PRN Pain 03/12/22 12/07/22 tizanidine 2 mg tablet 2 mg feeding tube TID PRN Muscle 03/12/22 12/07/22 Spasm dicyclomine 10 mg/5 mL oral 20 mg feeding tube BID PRN 12/07/22 12/07/22 solution Constipation furosemide 40 mg tablet 20 mg feeding tube BID 12/07/22 12/07/22 magnesium oxide 400 mg (241.3 mg 800 mg feeding tube BID 12/07/22 12/07/22 magnesium) tablet potassium, sodium phosphates 280 1 packet feeding tube DAILY 12/07/22 12/07/22 mg-160 mg-250 mg oral powder packet (Phos-NaK) Allergies Allergy/AdvReac Type Severity Reaction Status Date / Time lamotrigine Allergy Unknown Rash Verified 04/16/23 16:43 Review of Systems Review of Systems: ROS unobtainable: Yes unobtainable due to mental status PMFSH Past Medical History Medical History (Updated 04/16/23 @ 19:06 by Chuck Bobby MD) Adynamic ileus Breast mass Cerebral palsy Chronic hypercapnic respiratory failure On BiPAP at nighttime. Constipation Gall stones Gastrointestinal tube in situ Kidney stones Pneumonia Rett syndrome Scoliosis deformity of spine Seizures Surgical History Surgical History History of fundoplication History of open reduction and internal fixation (ORIF) procedure Repair of hip and leg fractures. History of percutaneous endoscopic gastrostomy History of spinal fusion History of spinal surgery Family History Family History Father Hypertension Other Family history non-contributory Social History Social History (Updated 12/08/22 @ 00:00 by Lulú Tejada APRN) Social History: The patient lives with her parents in [place]. She is dependent on all activities of daily living. No alcohol, tobacco, or drug use. Surrogate decision maker: Lisa Crowe, mother. Code status: DNR, per mother (med POA) on 12/07/22. Smoking status: Never smoker Alcohol intake: never Substance use: never Substance use type: does not use Spiritual care concerns: No Exam Narrative: APPEARANCE: Nonverbal resting comfortably HEAD: normocephalic, atraumatic. EYES: PERRLA/EOMI, conjunctivae clear. NOSE: Normal no drainage NECK: Supple. No adenopathy, no masses. RESPIRATORY: Airway patent, respirations nonlabored. Clear to auscultation bilaterally, no rales, rhonchi, wheezing. CARDIOVASCULAR: Regular rate and rhythm without murmurs rubs or gallops. ABDOMINAL: Soft, nontender, nondistended, normal bowel sounds MUSCULOSKELETAL: Tenderness to palpation the right leg NEURO: Alert. SKIN: Warm, dry. Normal Color Course Course Emergency Course: Patient was admitted for orthopedic evaluation of her fractures. Vital
[2023-04-16] MEDS: KETOROLAC 30 MG/ML VIAL (*BKC) IM (17:33)
[2023-04-16 19:43] LABS: Basophils Percent Auto 0.2 % (0.2-1.2); Eosinophils Percent Auto 0.3 % (0-4.4); Hematocrit 50.4 % (37.0-47.0); Hemoglobin 15.8 g/dL (12.0-15.0); Immature Granulocyte Absolute 0.05 K/mm3 (0.00-0.031); Immature Granulocyte Percent A 0.6 % (0-0.5); Lymphocytes Absolute Auto 1.15 K/mm3 (0.9-3.2); Lymphocytes Percent Auto 13.3 % (18.3-44.2); Mean Corpuscular HGB Conc 31.3 g/dl (32-36); Mean Corpuscular Hemoglobin 32.6 pg (26-34); Mean Corpuscular Volume 104.1 fl (80-100); Mean Platelet Volume 10.9 fl (7.4-10.4); Monocytes Absolute Auto 0.9 K/mm3 (0.1-0.6); Monocytes Percent Auto 10.7 % (2.6-8.5); Neutrophils Absolute Auto 6.5 K/mm3 (1.3-6.7); Neutrophils Percent Auto 74.9 % (45.5-73.1); Platelet Count Result 235 k/mm3 (150-375); Red Blood Count 4.84 M/mm3 (4.2-5.4); Red Cell Distribution Width 15.3 % (11.5-14.5); White Blood Count 8.7 K/mm3 (4.5-10.0)
[2023-04-16 19:53] LABS: Alanine Aminotransferase 63 U/L (6-35); Albumin Level 3.7 g/dL (3.5-5.1); Alkaline Phosphatase 143 U/L (38-126); Anion Gap 4 mmol/L (8-16); Aspartate Amino Transferase 127 U/L (14-36); Bilirubin,Total 0.8 mg/dL (0.2-1.3); Blood Urea Nitrogen 16 mg/dL (7-17); Calcium 9.8 mg/dL (8.4-10.2); Carbon Dioxide 39 mmol/L (22-30); Chloride 91 mmol/L (98-107); Estimated Glomerular Filt Rate > 60; Glucose 169 mg/dL (65-110); Potassium 4.8 mmol/L (3.4-5.0); Sodium 134 mmol/L (137-145)
[2023-04-16 19:57] LABS: INR 0.9; Prothrombin Time 12.5 Seconds (11.1-14.7)
[2023-04-16 19:58] LABS: Partial Thromboplastin Time 30.2 SECONDS (22.3-36.8)
--- NOTE | 2023-04-16 21:00 | PM.IMHP ---
H&P: HPI History of Present Illness Date/Time: 04/16/23 21:00 Chief Complaint: fall at home Narrative: This is a 42-year-old bed-bound female living with mother with past medical history Rett syndrome, cerebral palsy, chronic hypercapnic respiratory failure on noninvasive ventilator, G-tube, gallstones, kidney stones, hyponatremia, chronic transaminitis, seizures, spinal fusion surgery,. Patient was being transferred by a Татьяна left at home, falling on her right side. Trauma workup in [facility] demonstrating oblique minimally displaced fracture of the distal right femur, oblique nondisplaced fracture of the distal right tibia. Review of Systems Review of Systems: All systems reviewed & are unremarkable except as noted in HPI and below ROS unobtainable: Yes unobtainable due to medical condition [facility] Past Medical History Medical History (Updated 04/16/23 @ 19:06 by Chuck Bobby MD) Adynamic ileus Breast mass Cerebral palsy Chronic hypercapnic respiratory failure On BiPAP at nighttime. Constipation Gall stones Gastrointestinal tube in situ Kidney stones Pneumonia Rett syndrome Scoliosis deformity of spine Seizures Surgical History Surgical History History of fundoplication History of open reduction and internal fixation (ORIF) procedure Repair of hip and leg fractures. History of percutaneous endoscopic gastrostomy History of spinal fusion History of spinal surgery Family History Family History Father Hypertension Other Family history non-contributory Social History Social History (Updated 12/08/22 @ 00:00 by Lulú Tejada APRN) Social History: The patient lives with her parents in [place]. She is dependent on all activities of daily living. No alcohol, tobacco, or drug use. Surrogate decision maker: Lisa Crowe, mother. Code status: DNR, per mother (med POA) on 12/07/22. Smoking status: Never smoker Alcohol intake: never Substance use: never Substance use type: does not use Spiritual care concerns: No Meds Home Medications and Allergies Home Medications Medication Instructions Recorded Confirmed Type fluoxetine 20 mg/5 mL (4 mg/mL) 20 mg feeding tube DAILY 03/23/19 12/07/22 History oral solution nitrofurantoin 25 mg/5 mL oral 50 mg feeding tube DAILY 03/23/19 12/07/22 History suspension valproic acid (as sodium salt) 250 500 mg feeding tube TID 03/23/19 12/07/22 History mg/5 mL oral solution zfihdhju-oemu-fvezjqt gluconate 9 15 ml feeding tube DAILY 07/20/21 12/07/22 History mg iron/15 mL (15 mL) oral liquid (Centrum) albuterol sulfate 2.5 mg/3 mL 2.5 mg (3 mL) inhalation Q12HRT 07/26/21 12/07/22 Rx (0.083 %) solution for nebulization PRN Congestion #75 mL acetaminophen 500 mg/5 mL oral 1,000 mg feeding tube Q6H PRN 03/10/22 12/07/22 History liquid Fever Or Pain famotidine 20 mg tablet 20 mg feeding tube BID 03/12/22 12/07/22 History ibuprofen 200 mg tablet 400 mg feeding tube Q6H PRN Pain 03/12/22 12/07/22 History tizanidine 2 mg tablet 2 mg feeding tube TID PRN Muscle 03/12/22 12/07/22 History Spasm albuterol sulfate 2.5 mg/3 mL 2.5 mg (3 mL) inhalation Q4HRT 09/05/22 12/07/22 Rx (0.083 %) solution for nebulization #120 mL dicyclomine 10 mg/5 mL oral 20 mg feeding tube BID PRN 12/07/22 12/07/22 History solution Constipation furosemide 40 mg tablet 20 mg feeding tube BID 12/07/22 12/07/22 History magnesium oxide 400 mg (241.3 mg 800 mg feeding tube BID 12/07/22 12/07/22 History magnesium) tablet potassium, sodium phosphates 280 1 packet feeding tube DAILY 12/07/22 12/07/22 History mg-160 mg-250 mg oral powder packet (Phos-NaK) azithromycin 250 mg tablet 250 mg feeding tube DAILY #4 tabs 12/13/22 Rx (Zithromax) metronidazole 500 mg tablet 500 mg feeding tube Q8H #12 tabs 12/13/22 Rx vancomy
[2023-04-16] MEDS: SODIUM CHLORIDE 0.9% IV 1,000 ML 50 ML IV CONT (21:27)
[2023-04-16] MEDS: MORPHINE SULFATE (*CRX) 2 MG/ML INJ IV PUSH ×2 (21:31→23:31)
--- NOTE | 2023-04-16 21:47 | ADMGEN ---
This patient, Julia Crowe, was admitted to [facility] Surg Room 321-02. Patient/family oriented to hospital policies and general routines including ID bracelet, bed and alarms, visiting hours, pain management, procedures, bathroom and other care routines, personal items, smoking policy, room service/diet, and visiting hours. Information on how to activate the Rapid Response Team has been discussed. Patient/Family are encouraged to report perceived risks to care and to ask questions if they do not understand what they are told or what they should do.
[2023-04-16] MEDS: ACETAMINOPHEN ELIXIR 325 MG/10.15 ML UDC 500 MG FEED TUBE (22:46)
[2023-04-17] MEDS: VALPROIC ACID LIQ 250 MG/5 ML ORAL SOLUTION UDC 500 MG FEED TUBE ×4 (00:21→16:46)
[2023-04-17 01:08] VITALS: O2SAT 92
[2023-04-17] MEDS: MORPHINE SULFATE (*CRX) 2 MG/ML INJ IV PUSH ×6 (03:10→21:23)
[2023-04-17] MEDS: ACETAMINOPHEN ELIXIR 325 MG/10.15 ML UDC 500 MG FEED TUBE ×3 (05:36→16:46)
[2023-04-17 05:47] VITALS: BP 129/84; PULSE 122; RESP 12; TEMP 36.9; O2SAT 91
[2023-04-17 07:14] LABS: Basophils Percent Auto 0.5 % (0.2-1.2); Eosinophils Absolute Auto 0.1 K/mm3 (0-0.3); Eosinophils Percent Auto 1.2 % (0-4.4); Hematocrit 49.5 % (37.0-47.0); Hemoglobin 15.5 g/dL (12.0-15.0); Immature Granulocyte Absolute 0.05 K/mm3 (0.00-0.031); Immature Granulocyte Percent A 0.7 % (0-0.5); Lymphocytes Absolute Auto 1.63 K/mm3 (0.9-3.2); Lymphocytes Percent Auto 21.5 % (18.3-44.2); Mean Corpuscular HGB Conc 31.3 g/dl (32-36); Mean Corpuscular Hemoglobin 33.1 pg (26-34); Mean Corpuscular Volume 105.8 fl (80-100); Mean Platelet Volume 11.1 fl (7.4-10.4); Monocytes Absolute Auto 1.1 K/mm3 (0.1-0.6); Monocytes Percent Auto 14.1 % (2.6-8.5); Neutrophils Absolute Auto 4.7 K/mm3 (1.3-6.7); Nucleated Red Blood Cells Perc 0.3 % (0.0-0.2); Platelet Count Result 235 k/mm3 (150-375); Red Blood Count 4.68 M/mm3 (4.2-5.4); Red Cell Distribution Width 15.8 % (11.5-14.5); White Blood Count 7.6 K/mm3 (4.5-10.0)
[2023-04-17 07:29] LABS: Prothrombin Time 13.6 Seconds (11.1-14.7)
[2023-04-17 07:32] LABS: Alanine Aminotransferase 60 U/L (6-35); Albumin Level 3.6 g/dL (3.5-5.1); Alkaline Phosphatase 175 U/L (38-126); Anion Gap 3 mmol/L (8-16); Aspartate Amino Transferase 95 U/L (14-36); Bilirubin,Total 1.1 mg/dL (0.2-1.3); Blood Urea Nitrogen 17 mg/dL (7-17); Calcium 9.1 mg/dL (8.4-10.2); Carbon Dioxide 39 mmol/L (22-30); Chloride 93 mmol/L (98-107); Estimated Glomerular Filt Rate > 60; Glucose 147 mg/dL (65-110); Potassium 4.4 mmol/L (3.4-5.0); Sodium 135 mmol/L (137-145)
[2023-04-17 07:45] LABS: Macrocytosis 1+ (NORMAL); Platelet Estimate Adequate (Adequate); Schistocytes None Seen (NORMAL)
[2023-04-17 08:00] VITALS: O2SAT 92
--- NOTE | 2023-04-17 09:30 | PM.CNOR ---
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 Mother is at the bedside. History, and exam reviewed with the mother. Radiographs reviewed as well. Radiographs of the right femur reveal an oblique minimally displaced fracture of the distal right femur at the level of the metaphysis. The exam is somewhat limited due to the patient's condition however there is no other fracture detected or dislocation. Severe osteopenia is noted. In ankle radiograph reveals an oblique nondisplaced fracture of the distal right tibia. Severe osteopenia is noted as well. The fracture type and injury as well as radiographs discussed with the family. Operative and nonoperative treatment options reviewed. The patient is currently bed bound. She does transfer to her wheelchair via a wear lift. Given nonambulatory status, as well as nature of fractures, recommend non operative treatment at this time. Risk of nonunion, malunion or late displacement discussed. Stiffness, pain and possible dysfunction of the joint discussed. Fracture precautions and activity restrictions reviewed. The family verbalizes understanding. Right lower extremity with a soft splint placed today with cast padding and an Clive wrap. This may be changed if necessary due to incontinence. Patient to maintain nonweightbearing status. Pain control. Ice. Elevation of heels for pressure offloading. Patient may benefit from physical therapy to evaluate ability to transfer the lift in to chair and tolerate her wheelchair without significant pain. In the past, the family has had to order alternative transportation masses if patient was unable to tolerate her wheelchair. This is the reason for a PT/OT consult. Once pain is controlled and patient is able to safely transfer into a wheelchair, the patient may return home with her mother. We will provide orders for repeat radiographs to be obtained in 6 weeks to evaluate healing in the [facility] where a wear lift is available. We will then contact the patient with those results. Thank you for allowing us to assist in the care of this patient. We will continue to follow while inpatient. (2) Tibia fracture: Qualifiers: Encounter type: initial encounter Tibia location: distal Fracture type: closed Fracture alignment: nondisplaced Laterality: right Code(s): S82.209A - Unspecified fracture of shaft of unspecified tibia, initial encounter for closed fracture Status: Acute Assessment and Plan: See above (3) Rett syndrome: Code(s): F84.2 - Rett's syndrome Status: Acute (4) Seizures: Code(s): R56.9 - Unspecified convulsions Status: Acute Plan Reviewed history, exam, radiographs and current labs with attending MD and covering surgeon, Dr. Keith, who agrees with current plan as indicated above. No further recommendations from Dr. Keith at this time. History of Present Illness HPI Consult date: 04/17/23 Chief complaint: Femur Fracture,Tibia Fracture Narrative: 42-year-old female presents to [facility] after a fall while being transferred via Татьяна lift at home. She fell onto the right side. A trauma workup in the emergency room revealed a right nondisplaced tibia fracture and a minimally displaced distal femur fracture. Patient was admitted for further orthopedic evaluation and pain cont
[2023-04-17 09:47] VITALS: RESP 16; TEMP 37; O2SAT 96
[2023-04-17] MEDS: NITROFURANTOIN MACROCRYSTALS 50 MG CAP FEED TUBE (10:50)
[2023-04-17] MEDS: FLUoxetine HCL 20 MG CAPSULE FEED TUBE (10:50)
[2023-04-17] MEDS: MAGNESIUM OXIDE 400 MG TABLET 800 MG FEED TUBE ×2 (10:50→16:47)
[2023-04-17] MEDS: FAMOTIDINE 20 MG TABLET FEED TUBE ×2 (10:50→21:29)
[2023-04-17 12:59] VITALS: BMI 35.2
[2023-04-17 13:25] VITALS: BP 122/78; PULSE 119; RESP 15; TEMP 37.1; O2SAT 96
--- NOTE | 2023-04-17 13:35 | PM.IMPN ---
Progress Note: A&P Assessment and Plan (1) Femur fracture: Code(s): S72.90XA - Unspecified fracture of unspecified femur, initial encounter for closed fracture Status: Acute Assessment and Plan: Patient was being transferred by a Татьяна left at home, falling on her right side. Trauma workup demonstrating oblique minimally displaced fracture of the distal right femur, oblique nondisplaced fracture of the distal right tibia. Tylenol p.r.n. via G-tube for mild pain and morphine 2 mg q.2 hours p.r.n. for severe pain. Orthopedic surgery consulted. Patient's mother and Ortho decided on a nonsurgical approach and to put patient in an immobilizer. Due to patient being on bed-bound at her baseline she will not need PT and OT evaluation. (2) Tibia fracture: Code(s): S82.209A - Unspecified fracture of shaft of unspecified tibia, initial encounter for closed fracture Status: Acute Assessment and Plan: see above (3) Chronic hypercapnic respiratory failure: Code(s): J96.12 - Chronic respiratory failure with hypercapnia Status: Acute Assessment and Plan: Patient on chronic noninvasive ventilator. (4) Seizures: Code(s): R56.9 - Unspecified convulsions Status: Acute Assessment and Plan: History of seizures, on valproate. Continue home medications. (5) Rett syndrome: Code(s): F84.2 - Rett's syndrome Status: Acute Plan DVT prophylaxis: Hold for now. Patient with severe pain and contracted lower extremities, hold SCDs as well. Lines: Peripheral IV Code Status: DNR, confirmed by mother. Dispo: Stable. Subjective Date/time seen: 04/17/23 13:35 Interval history: Patient nonverbal with mother bedside. Plan to do an immobilizer rather than surgery. Continue pain management. Exam Narrative: GENERAL: Comfortable, no acute distress HENMT: moist mucous membranes EYES: EOM intact b/l NECK: no lymphadenopathy RESPIRATORY: clear to auscultation CARDIO: RRR GI: soft, nontender, bowel sounds present SKIN: no rashes EXTREMITIES: Plus two pitting edema on bilateral lower extremities, no redness or tenderness. Objective Data Vital Signs Vital Signs: Vital Signs - 24 hr 04/16/23 16:29 04/16/23 16:30 04/16/23 16:31 Temperature 96.9 F L Pulse Rate 80 85 Respiratory Rate 20 17 Blood Pressure 97/57 L 107/51 L Pulse Oximetry 99 94 91 Oxygen Delivery Nasal Cannula Oxygen Flow Rate 2 04/16/23 16:32 04/16/23 16:45 04/16/23 17:00 Temperature Pulse Rate Respiratory Rate Blood Pressure Pulse Oximetry 97 99 100 Oxygen Delivery Oxygen Flow Rate 04/16/23 17:15 04/16/23 17:29 04/16/23 17:30 Temperature Pulse Rate 80 Respiratory Rate 19 Blood Pressure 111/69 Pulse Oximetry 99 100 98 Oxygen Delivery Oxygen Flow Rate 04/16/23 17:31 04/16/23 18:06 04/16/23 18:15 Temperature Pulse Rate 79 Respiratory Rate 20 Blood Pressure 94/61 L Pulse Oximetry 97 98 100 Oxygen Delivery Oxygen Flow Rate 04/16/23 18:30 04/16/23 23:07 04/16/23 22:00 Temperature 98.7 F Pulse Rate 119 H Respiratory Rate 22 H Blood Pressure 143/72 H Pulse Oximetry 98 92 90 Oxygen Delivery Nasal Cannula Oxygen Flow Rate 2 04/17/23 01:08 04/17/23 05:47 04/17/23 08:00 Temperature 98.4 F Pulse Rate 122 H Respiratory Rate 12 Blood Pressure 129/84 Pulse Oximetry 92 91 92 Oxygen Delivery Nasal Cannula Nasal Cannula Oxygen Flow Rate 2 2 04/17/23 09:47 Temperature 98.6 F Pulse Rate Respiratory Rate 16 Blood Pressure Pulse Oximetry 96 Oxygen Delivery Oxygen Flow Rate Meds/Results Medications: Active Medications Generic Name Dose Route Start Last Admin Trade Name Freq PRN Reason Stop Dose Admin Acetaminophen 500 mg 04/16/23 21:05 04/17/23 11:05 Acetaminophen Elixir 325 Mg/10.15 Ml Udc FEED TUBE 500 mg Q6H PRN Administra
--- NOTE | 2023-04-17 16:02 | PCOTNOTE ---
Pt. dependent in ADLs and functional transfers at baseline. Cancelling OT orders
[2023-04-17] MEDS: FUROSEMIDE 20 MG TABLET FEED TUBE (16:47)
[2023-04-17 20:47] VITALS: BP 116/80; PULSE 106; RESP 20; TEMP 36.9; O2SAT 94
[2023-04-17] MEDS: TIZANIDINE HCL 2 MG TABLET FEED TUBE (21:23)
[2023-04-18] VITALS (7 sets, daily range): BP systolic 96–120; BP diastolic 74–76; PULSE 75–90; RESP 16–22; TEMP 35.9–36.2; O2SAT 94–98
[2023-04-18] MEDS: MORPHINE SULFATE (*CRX) 2 MG/ML INJ IV PUSH ×4 (04:41→14:52)
[2023-04-18] MEDS: ACETAMINOPHEN ELIXIR 325 MG/10.15 ML UDC 500 MG FEED TUBE ×2 (04:41→11:53)
[2023-04-18 07:14] LABS: Hematocrit 45.7 % (37.0-47.0); Hemoglobin 13.7 g/dL (12.0-15.0); Mean Corpuscular Hemoglobin 32.5 pg (26-34); Mean Corpuscular Volume 108.6 fl (80-100); Mean Platelet Volume 11.2 fl (7.4-10.4); Platelet Count Result 225 k/mm3 (150-375); Red Blood Count 4.21 M/mm3 (4.2-5.4); Red Cell Distribution Width 15.8 % (11.5-14.5); White Blood Count 9.5 K/mm3 (4.5-10.0)
[2023-04-18 07:26] LABS: Anion Gap 1 mmol/L (8-16); Blood Urea Nitrogen 21 mg/dL (7-17); Calcium 8.9 mg/dL (8.4-10.2); Carbon Dioxide 39 mmol/L (22-30); Chloride 96 mmol/L (98-107); Estimated Glomerular Filt Rate > 60; Glucose 317 mg/dL (65-110); Potassium 4.5 mmol/L (3.4-5.0); Sodium 136 mmol/L (137-145)
--- NOTE | 2023-04-18 08:04 | PM.PNORT ---
Progress Note: A&P Assessment and Plan (1) Femur fracture: Qualifiers: Encounter type: subsequent encounter Femur location: distal, unspecified portion Fracture morphology: unspecified fracture morphology Fracture type: closed Laterality: right Fracture healing: with routine healing Qualified Code(s): S72.401D - Unspecified fracture of lower end of right femur, subsequent encounter for closed fracture with routine healing Code(s): S72.90XA - Unspecified fracture of unspecified femur, initial encounter for closed fracture Status: Acute Assessment and Plan: Reviewed radiographs and exam. Right distal femur and distal tibia fractures with minimal displacement. Severe osteopenia. Recommend non operative treatment and follow-up evaluation with radiographs. Padded wrap and Clive wrap for compression as needed. Will follow. (2) Tibia fracture: Qualifiers: Encounter type: subsequent encounter Fracture alignment: nondisplaced Fracture type: closed Laterality: right Tibia location: distal Fracture healing: with routine healing Fracture morphology: pilon Qualified Code(s): S82.874D - Nondisplaced pilon fracture of right tibia, subsequent encounter for closed fracture with routine healing Code(s): S82.209A - Unspecified fracture of shaft of unspecified tibia, initial encounter for closed fracture Status: Acute Subjective Subjective Date/Time Seen: 04/18/23 08:05 Principal diagnosis: Right femur, right tibia fracture Interval history: resting in bed, comfortable. Exam Const: General: comfortable and no acute distress Other: Nonverbal Eyes: Pupils: Equal, round and reactive pupils present Resp: Effort & Inspection: normal respiratory effort Auscultation: clear to auscultation bilaterally Cardio: Rate: regular rate Rhythm: regular rhythm GI: Inspection: distended GI Palp: No Tenderness to palpation present (GI) Other: G-tube in place, no abnormalities identified Extrem: General: edema Right lower extremity: hip/thigh Details: tenderness, knee Details: tenderness, lower leg Details: tenderness and pitting edema, ankle Details: edema and foot Details: edema Other: Ecchymosis in the left upper extremity, moves arm with passive range of motion without significant evidence of pain. Objective Data Vital Signs Vital Signs: Vital Signs - 24 hr 04/17/23 09:47 04/17/23 13:25 04/17/23 20:47 Temperature 98.6 F 98.8 F 98.4 F Pulse Rate 119 H 106 H Respiratory Rate 16 15 20 Blood Pressure 122/78 116/80 Pulse Oximetry 96 96 94 04/18/23 04:23 Temperature 97 F L Pulse Rate 75 Respiratory Rate 16 Blood Pressure 117/75 Pulse Oximetry 98 Meds/Results Medications: Active Medications Generic Name Dose Route Start Last Admin Trade Name Freq PRN Reason Stop Dose Admin Acetaminophen 500 mg 04/16/23 21:05 04/18/23 04:41 Acetaminophen Elixir 325 Mg/10.15 Ml Udc FEED TUBE 500 mg Q6H PRN Administration Mild Pain (1-3) or Fever Albuterol 2.5 mg 04/16/23 23:49 Albuterol Sulfate Neb 2.5 Mg/3 Ml Inh INHALATION Q12HRT PRN Congestion Dicyclomine HCl 20 mg 04/16/23 23:49 Dicyclomine Hcl 10 Mg Capsule FEED TUBE BID PRN Constipation Famotidine 20 mg 04/17/23 09:00 04/17/23 21:29 Famotidine 20 Mg Tablet FEED TUBE 20 mg Q12HR DOMINIK Administration Fluoxetine HCl 20 mg 04/17/23 09:00 04/17/23 10:50 Fluoxetine Hcl 20 Mg Capsule FEED TUBE 05/17/23 08:59 20 mg DAILY DOMINIK Administration Furosemide 20 mg 04/17/23 17:00 04/17/23 16:47 Furosemide 20 Mg Tablet FEED TUBE 20 mg BID DOMINIK Administration Magnesium Oxide 800 mg 04/17/23 09:00 04/17/23 16:47 Magnesium Oxide 400 Mg Tablet FEED TUBE 800 mg BID DOMINIK Administration Morphine Sulfate 2 mg 04/16/23 19:03 04/18/23 04:41 Morphine Sulfate (*Crx) 2 Mg/Ml Inj IV PUSH 2 mg Q2H PRN Administration
[2023-04-18] MEDS: NITROFURANTOIN MACROCRYSTALS 50 MG CAP FEED TUBE (08:13)
[2023-04-18] MEDS: MAGNESIUM OXIDE 400 MG TABLET 800 MG FEED TUBE ×2 (08:13→16:42)
[2023-04-18] MEDS: FUROSEMIDE 20 MG TABLET FEED TUBE ×2 (08:13→16:42)
[2023-04-18] MEDS: FAMOTIDINE 20 MG TABLET FEED TUBE ×2 (08:13→20:39)
[2023-04-18] MEDS: VALPROIC ACID LIQ 250 MG/5 ML ORAL SOLUTION UDC 500 MG FEED TUBE ×3 (08:13→16:40)
[2023-04-18] MEDS: FLUoxetine HCL 20 MG CAPSULE FEED TUBE (08:13)
--- NOTE | 2023-04-18 11:48 | PCNFU ---
Nutrition Follow-Up Complete: Swallowing Difficulties as related to Dysphagia as evidenced by PEG tube feedings. Goal:Meet estimated nutritional needs Pt meeting goal. Pt current nutrition is Jevity 1.5 @ 40ml/hr. Nutrition recommendation: switch back to Jevity 1.2 per family request Last recorded weight is 73.8 kg. Bowel Motility: +BM 3/4 Labs Reviewed:NA:136, BUN:24, Cr:0.4, Glu:317 Meds Noted: lasix Skin: no skin issues noted Additional Notes: pt tube feeding is running Jevity 1.5 @ 40ml/hr to provide 1320kcals, 56g protein, 669ml fluid. Pt's mother states she typically keeps pts calories about 1000kcals per day and pt has been maintaining weight with that. She is concerned calories are too high and would like to switch back to the 1.2 formula. Jevity 1.2 @ 40ml/hr will provide 1056kcals over 22hrs. Spoke with hospitalist and nursing. Agree with change of formula as pt's mother is insistent. Will monitor weight, labs,skin, meds, tube feeding tolerance every Monday and Monday.
--- NOTE | 2023-04-18 13:48 | PM.IMPN ---
Progress Note: A&P Assessment and Plan (1) Femur fracture: Qualifiers: Encounter type: subsequent encounter Femur location: distal, unspecified portion Fracture healing: with routine healing Fracture morphology: unspecified fracture morphology Fracture type: closed Laterality: right Qualified Code(s): S72.401D - Unspecified fracture of lower end of right femur, subsequent encounter for closed fracture with routine healing Code(s): S72.90XA - Unspecified fracture of unspecified femur, initial encounter for closed fracture Status: Acute Assessment and Plan: Patient was being transferred by a Татьяна left at home, falling on her right side. Trauma workup demonstrating oblique minimally displaced fracture of the distal right femur, oblique nondisplaced fracture of the distal right tibia. Tylenol p.r.n. via G-tube for mild pain, hydrocodone 5-325 for pain 4-6, and morphine 2 mg q.2 hours p.r.n. for severe pain. Orthopedic surgery consulted. Patient's mother and Ortho decided on a nonsurgical approach and to put patient in an immobilizer. PT to evaluate ability to transfer the lift in to chair and tolerate her wheelchair without significant pain. Continue pain management at this time. (2) Tibia fracture: Qualifiers: Encounter type: subsequent encounter Fracture alignment: nondisplaced Fracture healing: with routine healing Fracture morphology: pilon Fracture type: closed Laterality: right Tibia location: distal Qualified Code(s): S82.874D - Nondisplaced pilon fracture of right tibia, subsequent encounter for closed fracture with routine healing Code(s): S82.209A - Unspecified fracture of shaft of unspecified tibia, initial encounter for closed fracture Status: Acute Assessment and Plan: see above (3) Chronic hypercapnic respiratory failure: Code(s): J96.12 - Chronic respiratory failure with hypercapnia Status: Acute Assessment and Plan: Patient on chronic noninvasive ventilator. Mucinex PRN DuoNebs q.6 hours. (4) Seizures: Code(s): R56.9 - Unspecified convulsions Status: Acute Assessment and Plan: History of seizures, on valproate. Continue home medications. (5) Rett syndrome: Code(s): F84.2 - Rett's syndrome Status: Acute Plan DVT prophylaxis: Hold for now. Patient with severe pain and contracted lower extremities, hold SCDs as well. Lines: Peripheral IV Code Status: DNR, confirmed by mother. Dispo: Stable. Subjective Date/time seen: 04/18/23 13:48 Interval history: Patient still requiring IV pain medication. Due to her being on tube feeds will also add a Franklin as an additional option. Franklin being a good option considering family was concerned patient was overmedicated with morphine yesterday. Patient does grimace and cry out in pain occasionally. Once patient is has her pain better managed she will be able to discharge. Exam Narrative: GENERAL: Comfortable, no acute distress HENMT: moist mucous membranes EYES: EOM intact b/l NECK: no lymphadenopathy RESPIRATORY: clear to auscultation, increased secretions needing suctioning making breathing audible CARDIO: RRR GI: soft, nontender, bowel sounds present , G-tube in place SKIN: no rashes EXTREMITIES: Plus two pitting edema on bilateral lower extremities, no redness or tenderness. Objective Data Vital Signs Vital Signs: Vital Signs - 24 hr 04/17/23 20:47 04/18/23 04:23 04/18/23 07:30 Temperature 98.4 F 97 F L Pulse Rate 106 H 75 Respiratory Rate 20 16 Blood Pressure 116/80 117/75 Pulse Oximetry 94 98 Oxygen Delivery Room Air Meds/Results Medications: Active Medications Generic Name Dose Route Start Last Admin Trade Name Freq PRN Reason Stop Dose Admin Acetaminophen 500 mg 04/16/23 21:05 04/18/23 11:53 Acetaminophen Elixir 325 Mg/10.15 Ml Udc FEED TUBE 500 mg Q6H PRN Admi
[2023-04-18] MEDS: polyethylene glycoL 3350 17 GM POWD.PACK PO (14:40)
--- NOTE | 2023-04-18 14:55 | PCRCNOTE ---
RT entered pt's room to give 1400 neb tx, family requested not to wake pt at this time for a breathing treatment and to come back at a later time. RN informed.
[2023-04-18] MEDS: TIZANIDINE HCL 2 MG TABLET FEED TUBE ×2 (15:30→20:39)
[2023-04-18] MEDS: HYDROcodone/acetaminophen (*CRX) 5-325 MG TABLET 1 TAB PO ×2 (16:40→22:42)
[2023-04-18] MEDS: IPRATROPIUM 0.5 MG/ALBUTEROL SULFATE 2.5 MG AMPUL.NEB 3 ML INHALATION (19:44)
[2023-04-18] MEDS: guaiFENesin 600 MG/DEXTROMETHORPHAN 30 MG SR TAB 12 HR 1 TAB PO (20:39)
[2023-04-19] VITALS (12 sets, daily range): BP systolic 86–116; BP diastolic 38–84; PULSE 75–106; RESP 17–24; TEMP 36.3–36.5; O2SAT 93–100
[2023-04-19] MEDS: HYDROcodone/acetaminophen (*CRX) 5-325 MG TABLET 1 TAB PO ×4 (04:35→23:10)
[2023-04-19 06:29] LABS: Hematocrit 46.9 % (37.0-47.0); Hemoglobin 14.1 g/dL (12.0-15.0); Mean Corpuscular HGB Conc 30.1 g/dl (32-36); Mean Corpuscular Hemoglobin 33.3 pg (26-34); Mean Corpuscular Volume 110.9 fl (80-100); Mean Platelet Volume 11.7 fl (7.4-10.4); Platelet Count Result 249 k/mm3 (150-375); Red Blood Count 4.23 M/mm3 (4.2-5.4); Red Cell Distribution Width 15.9 % (11.5-14.5)
[2023-04-19] MEDS: VALPROIC ACID LIQ 250 MG/5 ML ORAL SOLUTION UDC 500 MG FEED TUBE ×3 (08:40→20:21)
[2023-04-19] MEDS: DICYCLOMINE HCL 10 MG CAPSULE 20 MG FEED TUBE (08:41)
[2023-04-19] MEDS: FLUoxetine HCL 20 MG CAPSULE FEED TUBE (08:41)
[2023-04-19] MEDS: NITROFURANTOIN MACROCRYSTALS 50 MG CAP FEED TUBE (08:41)
[2023-04-19] MEDS: guaiFENesin 600 MG/DEXTROMETHORPHAN 30 MG SR TAB 12 HR 1 TAB PO ×2 (08:42→20:21)
[2023-04-19] MEDS: FUROSEMIDE 20 MG TABLET FEED TUBE ×2 (08:42→16:34)
[2023-04-19] MEDS: FAMOTIDINE 20 MG TABLET FEED TUBE ×2 (08:42→20:21)
[2023-04-19] MEDS: MAGNESIUM OXIDE 400 MG TABLET 800 MG FEED TUBE ×2 (08:42→16:34)
[2023-04-19] MEDS: IPRATROPIUM 0.5 MG/ALBUTEROL SULFATE 2.5 MG AMPUL.NEB 3 ML INHALATION ×3 (09:12→19:34)
[2023-04-19 11:08] LABS: Blood Urea Nitrogen 28 mg/dL (7-17); Calcium 9.2 mg/dL (8.4-10.2); Carbon Dioxide > 40 mmol/L (22-30); Chloride 96 mmol/L (98-107); Estimated Glomerular Filt Rate > 60; Glucose 281 mg/dL (65-110); Potassium 5.3 mmol/L (3.4-5.0); Sodium 136 mmol/L (137-145)
--- NOTE | 2023-04-19 14:47 | PM.IMPN ---
Progress Note: A&P Assessment and Plan (1) Femur fracture: Qualifiers: Encounter type: subsequent encounter Femur location: distal, unspecified portion Fracture healing: with routine healing Fracture morphology: unspecified fracture morphology Fracture type: closed Laterality: right Qualified Code(s): S72.401D - Unspecified fracture of lower end of right femur, subsequent encounter for closed fracture with routine healing Code(s): S72.90XA - Unspecified fracture of unspecified femur, initial encounter for closed fracture Status: Acute Assessment and Plan: Patient was being transferred by a [place] left at home, falling on her right side. Trauma workup demonstrating oblique minimally displaced fracture of the distal right femur, oblique nondisplaced fracture of the distal right tibia. Tylenol p.r.n. via G-tube for mild pain, hydrocodone 5-325 for pain 4-6, and morphine 2 mg q.2 hours p.r.n. for severe pain. Orthopedic surgery consulted. Patient's mother and Ortho decided on a nonsurgical approach and to put patient in an immobilizer. PT to evaluate ability to transfer the lift in to chair and tolerate her wheelchair without significant pain. Continue pain management at this time. Eliquis BID for DVT prophylaxis (2) Tibia fracture: Qualifiers: Encounter type: subsequent encounter Fracture alignment: nondisplaced Fracture healing: with routine healing Fracture morphology: pilon Fracture type: closed Laterality: right Tibia location: distal Qualified Code(s): S82.874D - Nondisplaced pilon fracture of right tibia, subsequent encounter for closed fracture with routine healing Code(s): S82.209A - Unspecified fracture of shaft of unspecified tibia, initial encounter for closed fracture Status: Acute Assessment and Plan: see above (3) Chronic hypercapnic respiratory failure: Code(s): J96.12 - Chronic respiratory failure with hypercapnia Status: Acute Assessment and Plan: Patient on chronic noninvasive ventilator. Mucinex PRN DuoNebs q.6 hours. Oxygen PRN (4) Seizures: Code(s): R56.9 - Unspecified convulsions Status: Acute Assessment and Plan: History of seizures, on valproate. Continue home medications. 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 recommend continued at discharge due to high risk of DVT/PE post fracture Stress ulcer prophylaxis: Protonix 40 daily PT/OT notes: Bedridden/Wheelchair Disposition: Patient continues admission to the medication unit for pain control, plan is discharge back to home with family when patient can tolerate transfers with better pain control. Time Spent With Patient Time with patient: 15 - 25 minutes Subjective Date/time seen: 04/19/23 14:47 Interval history: (Medical Record) Chief Complaint: fall at home Narrative: This is a 42-year-old bed-bound female living with mother with past medical history Rett syndrome, cerebral palsy, chronic hypercapnic respiratory failure on noninvasive ventilator, G-tube, gallstones, kidney stones, hyponatremia, chronic transaminitis, seizures, spinal fusion surgery,.? Patient was being transferred by a [place] left at home, falling on her right side.? Trauma workup in [place] [facility] demonstrating oblique minimally displaced fracture of the distal right femur, oblique nondisplaced fracture of the distal right tibia. 04/17:(Medical record) Patient still requiring IV pain medication. Due to her being on tube feeds will also add a [place] as an additional option. [place] being a good option considering family was concerned patient was overmedicated with morphine yesterday. Patient does grimace and cry out in pain occasionally. Once patient is has her pain better managed she will be able to discharge. 6: Patient alert grimace
[2023-04-19] MEDS: SODIUM ZIRCONIUM CYCLOSILICATE 10 GM POWD.PACK FEED TUBE (15:49)
[2023-04-19] MEDS: INSULIN ASPART (*BKC) 100 UNITS/ML SUB-Q (16:41)
[2023-04-19 16:50] LABS: Glucose Point of Care 224 mg/dl (65-105)
[2023-04-19 17:58] LABS: Toxigenic C. Diff NEGATIVE (NEGATIVE)
[2023-04-19] MEDS: APIXABAN 5 MG TABLET PO (20:21)
[2023-04-19] MEDS: TIZANIDINE HCL 2 MG TABLET FEED TUBE (21:01)
[2023-04-20] VITALS (12 sets, daily range): BP systolic 105–122; BP diastolic 60–64; PULSE 82–98; RESP 18–20; TEMP 36.2–36.9; O2SAT 92–100
[2023-04-20] MEDS: HYDROcodone/acetaminophen (*CRX) 5-325 MG TABLET 1 TAB PO ×3 (05:04→17:34)
[2023-04-20 06:13] LABS: Glucose Point of Care 274 mg/dl (65-105)
[2023-04-20 07:43] LABS: Glucose Point of Care 279 mg/dl (65-105)
--- NOTE | 2023-04-20 08:26 | PM.IMPN ---
Progress Note: A&P Assessment and Plan (1) Femur fracture: Qualifiers: Encounter type: subsequent encounter Femur location: distal, unspecified portion Fracture healing: with routine healing Fracture morphology: unspecified fracture morphology Fracture type: closed Laterality: right Qualified Code(s): S72.401D - Unspecified fracture of lower end of right femur, subsequent encounter for closed fracture with routine healing Code(s): S72.90XA - Unspecified fracture of unspecified femur, initial encounter for closed fracture Status: Acute Assessment and Plan: Patient was being transferred by a [place] left at home, falling on her right side. Trauma workup demonstrating oblique minimally displaced fracture of the distal right femur, oblique nondisplaced fracture of the distal right tibia. Tylenol p.r.n. via G-tube for mild pain, hydrocodone 5-325 for pain 4-6, and morphine 2 mg q.2 hours p.r.n. for severe pain. Orthopedic surgery consulted. Patient's mother and Ortho decided on a nonsurgical approach and to put patient in an immobilizer. PT to evaluate ability to transfer the lift in to chair and tolerate her wheelchair without significant pain. Continue pain management at this time. Eliquis BID for DVT prophylaxis (2) Tibia fracture: Qualifiers: Encounter type: subsequent encounter Fracture alignment: nondisplaced Fracture healing: with routine healing Fracture morphology: pilon Fracture type: closed Laterality: right Tibia location: distal Qualified Code(s): S82.874D - Nondisplaced pilon fracture of right tibia, subsequent encounter for closed fracture with routine healing Code(s): S82.209A - Unspecified fracture of shaft of unspecified tibia, initial encounter for closed fracture Status: Acute Assessment and Plan: see above (3) Chronic hypercapnic respiratory failure: Code(s): J96.12 - Chronic respiratory failure with hypercapnia Status: Acute Assessment and Plan: Patient on chronic noninvasive ventilator. Mucinex PRN DuoNebs q.6 hours. Oxygen PRN (4) Seizures: Code(s): R56.9 - Unspecified convulsions Status: Acute Assessment and Plan: History of seizures, on valproate. Continue home medications. 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 HS sliding scale insulin will discuss with patient mother about medication options she is requesting to start with Metformin at discharge and will follow-up in 3 months to assess for possible need for insulin lipid panel pending Tube feedings Watch for hypoglycemia/hypoglycemic protocol ordered Plan Code status: DNR DVT prophylaxis: Eliquis b.i.d. recommend continued at discharge due to high risk of DVT/PE post fracture Stress ulcer prophylaxis: Protonix 40 daily PT/OT notes: Bedridden/Wheelchair Disposition: Patient continues admission to the medication unit for pain control, plan is discharge back to home with family when patient can tolerate transfers with better pain control. Time Spent With Patient Time with patient: 15 - 25 minutes Subjective Date/time seen: 04/20/23 08:26 Interval history: (Medical Record) Chief Complaint: fall at home Narrative: This is a 42-year-old bed-bound female living with mother with past medical history Rett syndrome, cerebral palsy, chronic hypercapnic respiratory failure on noninvasive ventilator, G-tube, gallstones
[2023-04-20] MEDS: IPRATROPIUM 0.5 MG/ALBUTEROL SULFATE 2.5 MG AMPUL.NEB 3 ML INHALATION ×3 (08:51→21:12)
[2023-04-20 08:59] LABS: Hematocrit 41.8 % (37.0-47.0); Hemoglobin 12.8 g/dL (12.0-15.0); Mean Corpuscular HGB Conc 30.6 g/dl (32-36); Mean Corpuscular Hemoglobin 33.2 pg (26-34); Mean Corpuscular Volume 108.6 fl (80-100); Mean Platelet Volume 10.9 fl (7.4-10.4); Platelet Count Result 219 k/mm3 (150-375); Red Blood Count 3.85 M/mm3 (4.2-5.4); Red Cell Distribution Width 15.8 % (11.5-14.5); White Blood Count 6.3 K/mm3 (4.5-10.0)
[2023-04-20 09:17] LABS: Alanine Aminotransferase 27 U/L (6-35); Albumin Level 3.2 g/dL (3.5-5.1); Alkaline Phosphatase 130 U/L (38-126); Aspartate Amino Transferase 28 U/L (14-36); Bilirubin,Total 0.7 mg/dL (0.2-1.3); Blood Urea Nitrogen 25 mg/dL (7-17); Calcium 9.4 mg/dL (8.4-10.2); Carbon Dioxide > 40 mmol/L (22-30); Chloride 96 mmol/L (98-107); Estimated Glomerular Filt Rate > 60; Glucose 268 mg/dL (65-110); Potassium 4.1 mmol/L (3.4-5.0); Sodium 140 mmol/L (137-145)
[2023-04-20 09:18] LABS: Magnesium 2.2 mg/dL (1.6-2.3)
[2023-04-20] MEDS: APIXABAN 5 MG TABLET PO ×2 (09:21→20:56)
[2023-04-20] MEDS: MAGNESIUM OXIDE 400 MG TABLET 800 MG FEED TUBE ×2 (09:21→17:35)
[2023-04-20] MEDS: guaiFENesin 600 MG/DEXTROMETHORPHAN 30 MG SR TAB 12 HR 1 TAB PO ×2 (09:21→20:56)
[2023-04-20] MEDS: FAMOTIDINE 20 MG TABLET FEED TUBE ×2 (09:21→20:56)
[2023-04-20] MEDS: NITROFURANTOIN MACROCRYSTALS 50 MG CAP FEED TUBE (09:21)
[2023-04-20] MEDS: VALPROIC ACID LIQ 250 MG/5 ML ORAL SOLUTION UDC 500 MG FEED TUBE ×3 (09:21→17:34)
[2023-04-20] MEDS: FLUoxetine HCL 20 MG CAPSULE FEED TUBE (09:21)
[2023-04-20] MEDS: FUROSEMIDE 20 MG TABLET FEED TUBE ×2 (09:21→17:34)
[2023-04-20] MEDS: INSULIN ASPART (*BKC) 100 UNITS/ML SUB-Q ×3 (09:23→17:35)
--- NOTE | 2023-04-20 09:32 | PM.PNORT ---
Progress Note: A&P Assessment and Plan (1) Femur fracture: Qualifiers: Encounter type: subsequent encounter Femur location: distal, unspecified portion Fracture healing: with routine healing Fracture morphology: unspecified fracture morphology Fracture type: closed Laterality: right Qualified Code(s): S72.401D - Unspecified fracture of lower end of right femur, subsequent encounter for closed fracture with routine healing Code(s): S72.90XA - Unspecified fracture of unspecified femur, initial encounter for closed fracture Status: Acute Assessment and Plan: Reviewed radiographs and exam. Right distal femur and distal tibia fractures with minimal displacement. Severe osteopenia. Recommend non operative treatment and follow-up evaluation with radiographs. Padded wrap and Clive wrap for compression as needed. Plan to change dressing today and educate mother on dressing change s/p bed bath. Will follow. (2) Tibia fracture: Qualifiers: Encounter type: subsequent encounter Fracture alignment: nondisplaced Fracture healing: with routine healing Fracture morphology: pilon Fracture type: closed Laterality: right Tibia location: distal Qualified Code(s): S82.874D - Nondisplaced pilon fracture of right tibia, subsequent encounter for closed fracture with routine healing Code(s): S82.209A - Unspecified fracture of shaft of unspecified tibia, initial encounter for closed fracture Status: Acute Subjective Subjective Date/Time Seen: 04/20/23 09:32 Principal diagnosis: Right femur, right tibia fracture Interval history: resting in bed, comfortable. Review of Systems Review of Systems: ROS unobtainable: Yes unobtainable due to mental status Exam Const: General: comfortable and no acute distress Other: Nonverbal Eyes: Pupils: Equal, round and reactive pupils present Resp: Effort & Inspection: normal respiratory effort Auscultation: clear to auscultation bilaterally Cardio: Rate: regular rate Rhythm: regular rhythm GI: Inspection: distended GI Palp: No Tenderness to palpation present (GI) Other: G-tube in place, no abnormalities identified Extrem: General: edema Right lower extremity: hip/thigh Details: tenderness, knee Details: tenderness, lower leg Details: tenderness and pitting edema, ankle Details: edema and foot Details: edema Other: Ecchymosis in the left upper extremity, moves arm with passive range of motion without significant evidence of pain. Objective Data Vital Signs Vital Signs: Vital Signs - 24 hr 04/19/23 13:34 04/19/23 13:41 04/19/23 14:00 Temperature 36.4 C Pulse Rate 98 84 106 H Respiratory Rate 20 20 24 H Blood Pressure 116/84 Pulse Oximetry 94 Oxygen Delivery Oxygen Flow Rate 04/19/23 19:39 04/19/23 19:36 04/19/23 20:25 Temperature Pulse Rate 90 90 90 Respiratory Rate 20 20 Blood Pressure Pulse Oximetry 96 96 Oxygen Delivery Nasal Cannula Nasal Cannula Oxygen Flow Rate 2 3 04/19/23 21:51 04/20/23 06:00 04/20/23 08:52 Temperature 36.5 C 36.9 C Pulse Rate 75 91 97 Respiratory Rate 20 20 20 Blood Pressure 86/38 L 122/60 Pulse Oximetry 93 100 Oxygen Delivery Oxygen Flow Rate 04/20/23 08:52 04/20/23 09:08 Temperature Pulse Rate 90 Respiratory Rate 20 Blood Pressure Pulse Oximetry 93 Oxygen Delivery Nasal Cannula Oxygen Flow Rate 1 Intake/Output Intake/Output: Intake & Output 04/17/23 04/18/23 04/19/23 04/20/23 23:59 23:59 23:59 23:59 Intake Total 605 679 Balance 605 679 Meds/Results Medications: Active Medications Generic Name Dose Route Start Last Admin Trade Name Freq PRN Reason Stop Dose Admin Acetaminophen 500 mg 04/16/23 21:05 04/18/23 11:53 Acetaminophen Elixir 325 Mg/10.15 Ml Udc FEED TUBE 500 mg Q6H PRN Administration Mild Pain (1-3) or Fever Hydrocodone Bitart/Acetaminophen 1 tab 04/18/23
[2023-04-20] MEDS: TIZANIDINE HCL 2 MG TABLET FEED TUBE ×2 (09:46→20:57)
[2023-04-20 11:35] LABS: Glucose Point of Care 220 mg/dl (65-105)
[2023-04-20 17:09] LABS: Glucose Point of Care 246 mg/dl (65-105)
[2023-04-21] VITALS (12 sets, daily range): BP systolic 106–157; BP diastolic 67–77; PULSE 76–107; RESP 16–18; TEMP 36.2–37.3; O2SAT 94–100
[2023-04-21] MEDS: HYDROcodone/acetaminophen (*CRX) 5-325 MG TABLET 1 TAB PO ×4 (00:37→19:56)
--- NOTE | 2023-04-21 04:29 | PCRCNOTE ---
Mother of patient asked RT to not wake pt for updraft treatment at 0200. Treatment will resume at 0800.
[2023-04-21 05:25] LABS: Glucose Point of Care 167 mg/dl (65-105)
[2023-04-21] MEDS: MORPHINE SULFATE (*CRX) 2 MG/ML INJ IV PUSH (05:56)
[2023-04-21 07:51] LABS: Glucose Point of Care 231 mg/dl (65-105)
[2023-04-21] MEDS: IPRATROPIUM 0.5 MG/ALBUTEROL SULFATE 2.5 MG AMPUL.NEB 3 ML INHALATION ×3 (08:09→20:30)
[2023-04-21] MEDS: VALPROIC ACID LIQ 250 MG/5 ML ORAL SOLUTION UDC 500 MG FEED TUBE ×3 (08:16→16:42)
[2023-04-21] MEDS: FLUoxetine HCL 20 MG CAPSULE FEED TUBE (08:17)
[2023-04-21] MEDS: NITROFURANTOIN MACROCRYSTALS 50 MG CAP FEED TUBE (08:17)
[2023-04-21] MEDS: guaiFENesin 600 MG/DEXTROMETHORPHAN 30 MG SR TAB 12 HR 1 TAB PO ×2 (08:17→19:55)
[2023-04-21] MEDS: FAMOTIDINE 20 MG TABLET FEED TUBE ×2 (08:17→19:56)
[2023-04-21] MEDS: MAGNESIUM OXIDE 400 MG TABLET 800 MG FEED TUBE ×2 (08:17→16:41)
[2023-04-21] MEDS: FUROSEMIDE 20 MG TABLET FEED TUBE ×2 (08:17→16:41)
[2023-04-21] MEDS: APIXABAN 5 MG TABLET PO ×2 (08:17→19:55)
[2023-04-21] MEDS: INSULIN ASPART (*BKC) 100 UNITS/ML SUB-Q ×3 (08:18→16:40)
[2023-04-21 11:23] LABS: Glucose Point of Care 209 mg/dl (65-105)
--- NOTE | 2023-04-21 11:58 | PM.IMPN ---
Progress Note: A&P Assessment and Plan (1) Femur fracture: Qualifiers: Encounter type: subsequent encounter Femur location: distal, unspecified portion Fracture healing: with routine healing Fracture morphology: unspecified fracture morphology Fracture type: closed Laterality: right Qualified Code(s): S72.401D - Unspecified fracture of lower end of right femur, subsequent encounter for closed fracture with routine healing Code(s): S72.90XA - Unspecified fracture of unspecified femur, initial encounter for closed fracture Status: Acute Assessment and Plan: Patient was being transferred by a [place]ать[place] left at home, falling on her right side. Trauma workup demonstrating oblique minimally displaced fracture of the distal right femur, oblique nondisplaced fracture of the distal right tibia. Tylenol p.r.n. via G-tube for mild pain, hydrocodone 5-325 for pain 4-6, and morphine 2 mg q.2 hours p.r.n. for severe pain. Orthopedic surgery consulted. Patient's mother and Ortho decided on a nonsurgical approach and to put patient in an immobilizer. PT to evaluate ability to transfer the lift in to chair and tolerate her wheelchair without significant pain. Continue pain management at this time. Eliquis BID for DVT prophylaxis (2) Tibia fracture: Qualifiers: Encounter type: subsequent encounter Fracture alignment: nondisplaced Fracture healing: with routine healing Fracture morphology: pilon Fracture type: closed Laterality: right Tibia location: distal Qualified Code(s): S82.874D - Nondisplaced pilon fracture of right tibia, subsequent encounter for closed fracture with routine healing Code(s): S82.209A - Unspecified fracture of shaft of unspecified tibia, initial encounter for closed fracture Status: Acute Assessment and Plan: see above (3) Chronic hypercapnic respiratory failure: Code(s): J96.12 - Chronic respiratory failure with hypercapnia Status: Acute Assessment and Plan: Patient on chronic noninvasive ventilator. Mucinex PRN DuoNebs q.6 hours. Oxygen PRN (4) Seizures: Code(s): R56.9 - Unspecified convulsions Status: Acute Assessment and Plan: History of seizures, on valproate. Continue home medications. 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 HS sliding scale insulin will discuss with patient mother about medication options she is requesting to start with Metformin at discharge and will follow-up in 3 months to assess for possible need for insulin lipid panel pending Tube feedings Watch for hypoglycemia/hypoglycemic protocol ordered (7) Swelling of left lower extremity: Code(s): M79.89 - Other specified soft tissue disorders Status: Acute Assessment and Plan: erythema and swelling chronic but appears worst per mother Venous doppler negative for DVT XR pending to r/o injury post fall at home Plan Code status: DNR DVT prophylaxis: Eliquis b.i.d. recommend continued at discharge due to high risk of DVT/PE post fracture Stress ulcer prophylaxis: Protonix 40 daily PT/OT notes: Bedridden/Wheelchair Disposition: Patient continues admission to the medication unit for pain control, plan is discharge back to home with family when patient can tolerate transfers with better pain control. Time Spent With Patient Time with patient: 15 - 25 minutes Subjective Date/time seen:
[2023-04-21 13:09] LABS: Hematocrit 40.4 % (37.0-47.0); Hemoglobin 12.2 g/dL (12.0-15.0); Mean Corpuscular HGB Conc 30.2 g/dl (32-36); Mean Corpuscular Hemoglobin 32.7 pg (26-34); Mean Corpuscular Volume 108.3 fl (80-100); Mean Platelet Volume 10.8 fl (7.4-10.4); Platelet Count Result 228 k/mm3 (150-375); Red Blood Count 3.73 M/mm3 (4.2-5.4); Red Cell Distribution Width 15.9 % (11.5-14.5); White Blood Count 7.5 K/mm3 (4.5-10.0)
[2023-04-21 13:25] LABS: Alanine Aminotransferase 25 U/L (6-35); Albumin Level 3.1 g/dL (3.5-5.1); Alkaline Phosphatase 118 U/L (38-126); Aspartate Amino Transferase 31 U/L (14-36); Bilirubin,Total 0.8 mg/dL (0.2-1.3); Blood Urea Nitrogen 21 mg/dL (7-17); Calcium 9.1 mg/dL (8.4-10.2); Carbon Dioxide > 40 mmol/L (22-30); Chloride 96 mmol/L (98-107); Estimated Glomerular Filt Rate > 60; Glucose 239 mg/dL (65-110); Potassium 4.4 mmol/L (3.4-5.0); Sodium 138 mmol/L (137-145)
--- NOTE | 2023-04-21 14:00 | PM.PNORT ---
Progress Note: A&P Assessment and Plan (1) Femur fracture: Qualifiers: Encounter type: subsequent encounter Femur location: distal, unspecified portion Fracture healing: with routine healing Fracture morphology: unspecified fracture morphology Fracture type: closed Laterality: right Qualified Code(s): S72.401D - Unspecified fracture of lower end of right femur, subsequent encounter for closed fracture with routine healing Code(s): S72.90XA - Unspecified fracture of unspecified femur, initial encounter for closed fracture Status: Acute Assessment and Plan: Reviewed radiographs and exam. Right distal femur and distal tibia fractures with minimal displacement. Severe osteopenia. Recommend non operative treatment and follow-up evaluation with radiographs. Padded wrap and Clive wrap for compression as needed. Soft splint dressing changed yesterday, tolerated well. Will follow. (2) Tibia fracture: Qualifiers: Encounter type: subsequent encounter Fracture alignment: nondisplaced Fracture healing: with routine healing Fracture morphology: pilon Fracture type: closed Laterality: right Tibia location: distal Qualified Code(s): S82.874D - Nondisplaced pilon fracture of right tibia, subsequent encounter for closed fracture with routine healing Code(s): S82.209A - Unspecified fracture of shaft of unspecified tibia, initial encounter for closed fracture Status: Acute (3) Swelling of left lower extremity: Code(s): M79.89 - Other specified soft tissue disorders Status: Acute Assessment and Plan: Swelling of the left lower extremity and redness. This has worsened since the start of the week. Radiographs were obtained of the left leg which revealed a questionable fracture of the distal tibia. Dedicated ankle radiographs recommended by radiologist. I have discussed this with the patient's family. They would like to avoid further radiographs at this time if no surgical indication. Patient does have evidence of cellulitis based on exam with redness and warmth in the distal tibia and lower extremity as well as swelling. Recommend SCDs. Nursing notified. Recommend antibiotics for suspected cellulitis. Discussed this with the hospitalist service who agrees. Orders to be obtained via the hospitalist service. Patient may follow-up in the outpatient orthopedic clinic. (4) Diabetes: Qualifiers: Diabetes mellitus type: type 2 Diabetes mellitus nursing home insulin use: unspecified terminal operations supervisor insulin use status Diabetes mellitus complication status: with hyperglycemia Qualified Code(s): E11.65 - Type 2 diabetes mellitus with hyperglycemia Code(s): E11.9 - Type 2 diabetes mellitus without complications Status: Acute Subjective Subjective Date/Time Seen: 04/21/23 14:00 Principal diagnosis: Right femur, right tibia fracture Interval history: resting in bed, comfortable. Review of Systems Review of Systems: ROS unobtainable: Yes unobtainable due to mental status Exam Const: General: comfortable and no acute distress Other: Nonverbal Eyes: Pupils: Equal, round and reactive pupils present Resp: Effort & Inspection: normal respiratory effort Auscultation: clear to auscultation bilaterally Cardio: Rate: regular rate Rhythm: regular rhythm GI: Inspection: distended GI Palp: No Tenderness to palpation present (GI) Other: G-tube in place, no abnormalities identified Extrem: General: edema Right lower extremity: hip/thigh Details: tenderness, knee Details: tenderness, lower leg Details: tenderness and pitting edema, ankle Details: edema and foot Details: edema Left lower extremity: lower leg Details: erythema, ankle Details: swelling and foot (edema) Other: Ecchymosis in the left upper extremity, moves arm with passive range of motion without significant evidence of pain. Objective Data Vital Signs Vital Signs: V
--- NOTE | 2023-04-21 14:11 | PCNFU ---
Nutrition Follow-Up Complete: Swallowing Difficulties as related to Dysphagia as evidenced by PEG tube feedings. Goal:Meet estimated nutritional needs Pt current nutrition is Jevity 1.2 @ 40ml/hr. Nutrition recommendation: Change formula to Glucerna 1.2 Last recorded weight is 73.8 kg. Bowel Motility: +BM 04/19 Labs Reviewed: Glu: 268, A1c: 8% Meds Noted: lasix, metformin Skin: no skin issues noted Additional Notes: Pt continues on Jevity 1.2 @ 40ml/hr to provide 1320kcals, 56g protein, 669ml fluid. and is tolerating. Noted elevated A1c. Recommend to change to Glucerna 1.2 formular for better glucose control. Continue with same rate at 40ml/hr for equivalent intake. Will monitor weight, labs,skin, meds, tube feeding tolerance every Monday and Monday.
--- NOTE | 2023-04-21 14:14 | PCDIET ---
RECOMMEND TO CHANGE TO GLUCERNA 1.2 FORMULA DUE TO ELEVATED A1C OF 8%. SAME RATE OF 40ML/HR.
[2023-04-21 16:31] LABS: Glucose Point of Care 216 mg/dl (65-105)
[2023-04-21] MEDS: SULFAMETHOXAZOLE/TRIMETHOPRIM 800/160 MG DS TABLET 1 TAB FEED TUBE (19:56)
[2023-04-21 20:46] LABS: Glucose Point of Care 211 mg/dl (65-105)
[2023-04-22] VITALS (13 sets, daily range): BP systolic 141–148; BP diastolic 73–91; PULSE 82–130; RESP 12–20; TEMP 36.6–37.1; O2SAT 88–96
[2023-04-22] MEDS: HYDROcodone/acetaminophen (*CRX) 5-325 MG TABLET 1 TAB PO ×3 (02:37→17:40)
--- NOTE | 2023-04-22 03:46 | PCRCNOTE ---
Patient's mother asked that RT not wake patient for 0200 updraft treatment. Treatment to resume at 0200.
--- NOTE | 2023-04-22 06:45 | PC.NURSE ---
see rapid response documentation for further seizure details.
[2023-04-22] MEDS: LORazepam INJ (*CRX) 2 MG/ML VIAL (06:50)
[2023-04-22 06:53] LABS: Glucose Point of Care 236 mg/dl (65-105)
[2023-04-22 07:35] LABS: Hematocrit 43.1 % (37.0-47.0); Hemoglobin 13.3 g/dL (12.0-15.0); Mean Corpuscular HGB Conc 30.9 g/dl (32-36); Mean Corpuscular Hemoglobin 32.4 pg (26-34); Mean Corpuscular Volume 105.1 fl (80-100); Mean Platelet Volume 10.6 fl (7.4-10.4); Platelet Count Result 285 k/mm3 (150-375); Red Cell Distribution Width 15.8 % (11.5-14.5); White Blood Count 7.8 K/mm3 (4.5-10.0)
[2023-04-22 07:42] LABS: Alanine Aminotransferase 26 U/L (6-35); Albumin Level 3.3 g/dL (3.5-5.1); Alkaline Phosphatase 147 U/L (38-126); Anion Gap 2 mmol/L (8-16); Aspartate Amino Transferase 46 U/L (14-36); Bilirubin,Total 0.9 mg/dL (0.2-1.3); Blood Urea Nitrogen 17 mg/dL (7-17); Calcium 9.5 mg/dL (8.4-10.2); Carbon Dioxide 39 mmol/L (22-30); Chloride 95 mmol/L (98-107); Estimated Glomerular Filt Rate > 60; Glucose 251 mg/dL (65-110); Potassium 4.5 mmol/L (3.4-5.0); Sodium 136 mmol/L (137-145)
[2023-04-22 08:02] LABS: Valproic Acid 33.2 ug/mL (50-120)
[2023-04-22] MEDS: IPRATROPIUM 0.5 MG/ALBUTEROL SULFATE 2.5 MG AMPUL.NEB 3 ML INHALATION ×3 (08:05→20:14)
[2023-04-22] MEDS: MAGNESIUM OXIDE 400 MG TABLET 800 MG FEED TUBE ×2 (09:29→17:34)
[2023-04-22] MEDS: NITROFURANTOIN MACROCRYSTALS 50 MG CAP FEED TUBE (09:29)
[2023-04-22] MEDS: FAMOTIDINE 20 MG TABLET FEED TUBE ×2 (09:30→21:20)
[2023-04-22] MEDS: FLUoxetine HCL 20 MG CAPSULE FEED TUBE (09:30)
[2023-04-22] MEDS: FUROSEMIDE 20 MG TABLET FEED TUBE ×2 (09:30→17:35)
[2023-04-22] MEDS: APIXABAN 5 MG TABLET PO (09:30)
[2023-04-22] MEDS: SULFAMETHOXAZOLE/TRIMETHOPRIM 800/160 MG DS TABLET 1 TAB FEED TUBE ×2 (09:30→21:20)
[2023-04-22] MEDS: levETIRAcetam 1000MG/NACL100ML 1,000 MG/100 ML BAG 400 MG IVPB (09:32)
[2023-04-22] MEDS: INSULIN ASPART (*BKC) 100 UNITS/ML SUB-Q ×4 (09:37→21:21)
[2023-04-22 11:05] LABS: Glucose Point of Care 268 mg/dl (65-105)
[2023-04-22 11:25] LABS: Glucose Point of Care 232 mg/dl (65-105)
[2023-04-22] MEDS: VALPROIC ACID LIQ 250 MG/5 ML ORAL SOLUTION UDC 500 MG FEED TUBE ×3 (11:25→17:35)
--- NOTE | 2023-04-22 12:17 | P.PNIM_ITS ---
Progress Note: A&P Assessment and Plan (1) Femur fracture: Qualifiers: Encounter type: subsequent encounter Femur location: distal, unspecified portion Fracture healing: with routine healing Fracture morphology: unspecified fracture morphology Fracture type: closed Laterality: right Qualified Code(s): S72.401D - Unspecified fracture of lower end of right femur, subsequent encounter for closed fracture with routine healing Code(s): S72.90XA - Unspecified fracture of unspecified femur, initial encounter for closed fracture Status: Acute Assessment and Plan: Patient was being transferred by a Татьяна left at home, falling on her right side. Trauma workup demonstrating oblique minimally displaced fracture of the distal right femur, oblique nondisplaced fracture of the distal right tibia. * Tylenol p.r.n. via G-tube for mild pain, hydrocodone 5-325 for pain 4-6, and morphine 2 mg q.2 hours p.r.n. for severe pain. * Orthopedic surgery consulted. * Patient's mother and Ortho decided on a nonsurgical approach and to put patient in an immobilizer. * PT to evaluate ability to transfer the lift in to chair and tolerate her wheelchair without significant pain. * Continue pain management at this time. * Eliquis BID for DVT prophylaxis (2) Tibia fracture: Qualifiers: Encounter type: subsequent encounter Fracture alignment: nondisplaced Fracture healing: with routine healing Fracture morphology: pilon Fracture type: closed Laterality: right Tibia location: distal Qualified Code(s): S82.874D - Nondisplaced pilon fracture of right tibia, subsequent encounter for closed fracture with routine healing Code(s): S82.209A - Unspecified fracture of shaft of unspecified tibia, initial encounter for closed fracture Status: Acute Assessment and Plan: see above (3) Chronic hypercapnic respiratory failure: Code(s): J96.12 - Chronic respiratory failure with hypercapnia Status: Acute Assessment and Plan: * Patient on chronic noninvasive ventilator. * Mucinex PRN * DuoNebs q.6 hours. * Oxygen PRN * suction as needed (4) Seizures: Code(s): R56.9 - Unspecified convulsions Status: Acute Assessment and Plan: History of seizures, on valproate. Continue home medications. 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 HS * sliding scale insulin * will discuss with patient mother about medication options she is requesting to start with Metformin at discharge and will follow-up in 3 months to assess for possible need for insulin * lipid panel pending * Tube feedings * Watch for hypoglycemia/hypoglycemic protocol ordered (7) Swelling of left lower extremity: Code(s): M79.89 - Other specified soft tissue disorders Status: Acute Assessment and Plan: * erythema and swelling chronic but appears worst p
--- NOTE | 2023-04-22 12:17 | PM.IMPN ---
Progress Note: A&P Assessment and Plan (1) Femur fracture: Qualifiers: Encounter type: subsequent encounter Femur location: distal, unspecified portion Fracture healing: with routine healing Fracture morphology: unspecified fracture morphology Fracture type: closed Laterality: right Qualified Code(s): S72.401D - Unspecified fracture of lower end of right femur, subsequent encounter for closed fracture with routine healing Code(s): S72.90XA - Unspecified fracture of unspecified femur, initial encounter for closed fracture Status: Acute Assessment and Plan: Patient was being transferred by a [employer] left at home, falling on her right side. Trauma workup demonstrating oblique minimally displaced fracture of the distal right femur, oblique nondisplaced fracture of the distal right tibia. Tylenol p.r.n. via G-tube for mild pain, hydrocodone 5-325 for pain 4-6, and morphine 2 mg q.2 hours p.r.n. for severe pain. Orthopedic surgery consulted. Patient's mother and Ortho decided on a nonsurgical approach and to put patient in an immobilizer. PT to evaluate ability to transfer the lift in to chair and tolerate her wheelchair without significant pain. Continue pain management at this time. Eliquis BID for DVT prophylaxis (2) Tibia fracture: Qualifiers: Encounter type: subsequent encounter Fracture alignment: nondisplaced Fracture healing: with routine healing Fracture morphology: pilon Fracture type: closed Laterality: right Tibia location: distal Qualified Code(s): S82.874D - Nondisplaced pilon fracture of right tibia, subsequent encounter for closed fracture with routine healing Code(s): S82.209A - Unspecified fracture of shaft of unspecified tibia, initial encounter for closed fracture Status: Acute Assessment and Plan: see above (3) Chronic hypercapnic respiratory failure: Code(s): J96.12 - Chronic respiratory failure with hypercapnia Status: Acute Assessment and Plan: Patient on chronic noninvasive ventilator. Mucinex PRN DuoNebs q.6 hours. Oxygen PRN suction as needed (4) Seizures: Code(s): R56.9 - Unspecified convulsions Status: Acute Assessment and Plan: History of seizures, on valproate. Continue home medications. 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 HS sliding scale insulin will discuss with patient mother about medication options she is requesting to start with Metformin at discharge and will follow-up in 3 months to assess for possible need for insulin lipid panel pending Tube feedings Watch for hypoglycemia/hypoglycemic protocol ordered (7) Swelling of left lower extremity: Code(s): M79.89 - Other specified soft tissue disorders Status: Acute Assessment and Plan: erythema and swelling chronic but appears worst per mother Venous doppler negative for DVT XR pending to r/o injury post fall at home Plan Code status: DNR DVT prophylaxis: Eliquis b.i.d. recommend continued at discharge due to high risk of DVT/PE post fracture Stress ulcer prophylaxis: Protonix 40 daily PT/OT notes: Bedridden/Wheelchair Disposition: Patient continues admission to the medication unit for pain control, plan is discharge back to home with family when
[2023-04-22 17:08] LABS: Glucose Point of Care 230 mg/dl (65-105)
[2023-04-22 21:12] LABS: Glucose Point of Care 216 mg/dl (65-105)
[2023-04-22] MEDS: TIZANIDINE HCL 2 MG TABLET FEED TUBE (21:20)
[2023-04-22] MEDS: APIXABAN 5 MG TABLET FEED TUBE (21:21)
--- NOTE | 2023-04-22 22:09 | PC.NURSE ---
Daylight Savings Time For Daylight Savings Time Ending in the Fall - Clocks are moved back. For Daylight Savings Time Beginning in the Spring - Clocks are moved ahead. For [facility], the time of change occurs at 0200 hrs. Time is taken from the hotel server. This entry on the patient's chart recognizes the change in time reflected during documentation. Example: 2 entries for vital signs may be charted for 0200 hrs.
[2023-04-23] VITALS (13 sets, daily range): BP systolic 127–147; BP diastolic 61–84; PULSE 100–115; RESP 18–20; TEMP 36.7–37.7; O2SAT 95–98
[2023-04-23] MEDS: HYDROcodone/acetaminophen (*CRX) 5-325 MG TABLET 1 TAB FEED TUBE ×3 (05:24→18:29)
[2023-04-23 06:29] LABS: Hemoglobin 12.8 g/dL (12.0-15.0); Mean Corpuscular HGB Conc 29.8 g/dl (32-36); Mean Corpuscular Hemoglobin 32.2 pg (26-34); Mean Corpuscular Volume 108.3 fl (80-100); Mean Platelet Volume 10.8 fl (7.4-10.4); Platelet Count Result 300 k/mm3 (150-375); Red Blood Count 3.97 M/mm3 (4.2-5.4); Red Cell Distribution Width 15.9 % (11.5-14.5); White Blood Count 7.9 K/mm3 (4.5-10.0)
[2023-04-23 06:42] LABS: Alanine Aminotransferase 30 U/L (6-35); Albumin Level 3.4 g/dL (3.5-5.1); Alkaline Phosphatase 153 U/L (38-126); Anion Gap 1 mmol/L (8-16); Aspartate Amino Transferase 55 U/L (14-36); Blood Urea Nitrogen 20 mg/dL (7-17); Calcium 9.7 mg/dL (8.4-10.2); Carbon Dioxide 39 mmol/L (22-30); Chloride 96 mmol/L (98-107); Estimated Glomerular Filt Rate > 60; Glucose 222 mg/dL (65-110); Sodium 136 mmol/L (137-145)
[2023-04-23 06:45] LABS: Valproic Acid 32.7 ug/mL (50-120)
[2023-04-23] MEDS: IPRATROPIUM 0.5 MG/ALBUTEROL SULFATE 2.5 MG AMPUL.NEB 3 ML INHALATION ×3 (07:35→20:17)
[2023-04-23 08:14] LABS: Glucose Point of Care 257 mg/dl (65-105)
--- NOTE | 2023-04-23 08:45 | P.PNIM_ITS ---
Progress Note: A&P Assessment and Plan (1) Femur fracture: Qualifiers: Encounter type: subsequent encounter Femur location: distal, unspecified portion Fracture healing: with routine healing Fracture morphology: unspecified fracture morphology Fracture type: closed Laterality: right Qualified Code(s): S72.401D - Unspecified fracture of lower end of right femur, subsequent encounter for closed fracture with routine healing Code(s): S72.90XA - Unspecified fracture of unspecified femur, initial encounter for closed fracture Status: Acute Assessment and Plan: Patient was being transferred by a [employer] left at home, falling on her right side. Trauma workup demonstrating oblique minimally displaced fracture of the distal right femur, oblique nondisplaced fracture of the distal right tibia. * Tylenol p.r.n. via G-tube for mild pain, hydrocodone 5-325 for pain 4-6, and morphine 2 mg q.2 hours p.r.n. for severe pain. * Orthopedic surgery consulted. * Patient's mother and Ortho decided on a nonsurgical approach and to put patient in an immobilizer. * PT to evaluate ability to transfer the lift in to chair and tolerate her wheelchair without significant pain. * Continue pain management at this time. * Eliquis BID for DVT prophylaxis (2) Tibia fracture: Qualifiers: Encounter type: subsequent encounter Fracture alignment: nondisplaced Fracture healing: with routine healing Fracture morphology: pilon Fracture type: closed Laterality: right Tibia location: distal Qualified Code(s): S82.874D - Nondisplaced pilon fracture of right tibia, subsequent encounter for closed fracture with routine healing Code(s): S82.209A - Unspecified fracture of shaft of unspecified tibia, initial encounter for closed fracture Status: Acute Assessment and Plan: see above (3) Chronic hypercapnic respiratory failure: Code(s): J96.12 - Chronic respiratory failure with hypercapnia Status: Acute Assessment and Plan: * Patient on chronic noninvasive ventilator. * Mucinex PRN * DuoNebs q.6 hours. * Oxygen PRN * suction as needed (4) Seizures: Code(s): R56.9 - Unspecified convulsions Status: Acute Assessment and Plan: History of seizures, on valproate. Continue home medications. 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 HS * sliding scale insulin * will discuss with patient mother about medication options she is requesting to start with Metformin at discharge and will follow-up in 3 months to assess for possible need for insulin * lipid panel pending * Tube feedings * Watch for hypoglycemia/hypoglycemic protocol ordered 04/22: * BS still high * added Lantus 15 units will continue at discharge instead of Metformin
--- NOTE | 2023-04-23 08:45 | PM.IMPN ---
Progress Note: A&P Assessment and Plan (1) Femur fracture: Qualifiers: Encounter type: subsequent encounter Femur location: distal, unspecified portion Fracture healing: with routine healing Fracture morphology: unspecified fracture morphology Fracture type: closed Laterality: right Qualified Code(s): S72.401D - Unspecified fracture of lower end of right femur, subsequent encounter for closed fracture with routine healing Code(s): S72.90XA - Unspecified fracture of unspecified femur, initial encounter for closed fracture Status: Acute Assessment and Plan: Patient was being transferred by a [employer] left at home, falling on her right side. Trauma workup demonstrating oblique minimally displaced fracture of the distal right femur, oblique nondisplaced fracture of the distal right tibia. Tylenol p.r.n. via G-tube for mild pain, hydrocodone 5-325 for pain 4-6, and morphine 2 mg q.2 hours p.r.n. for severe pain. Orthopedic surgery consulted. Patient's mother and Ortho decided on a nonsurgical approach and to put patient in an immobilizer. PT to evaluate ability to transfer the lift in to chair and tolerate her wheelchair without significant pain. Continue pain management at this time. Eliquis BID for DVT prophylaxis (2) Tibia fracture: Qualifiers: Encounter type: subsequent encounter Fracture alignment: nondisplaced Fracture healing: with routine healing Fracture morphology: pilon Fracture type: closed Laterality: right Tibia location: distal Qualified Code(s): S82.874D - Nondisplaced pilon fracture of right tibia, subsequent encounter for closed fracture with routine healing Code(s): S82.209A - Unspecified fracture of shaft of unspecified tibia, initial encounter for closed fracture Status: Acute Assessment and Plan: see above (3) Chronic hypercapnic respiratory failure: Code(s): J96.12 - Chronic respiratory failure with hypercapnia Status: Acute Assessment and Plan: Patient on chronic noninvasive ventilator. Mucinex PRN DuoNebs q.6 hours. Oxygen PRN suction as needed (4) Seizures: Code(s): R56.9 - Unspecified convulsions Status: Acute Assessment and Plan: History of seizures, on valproate. Continue home medications. 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 HS sliding scale insulin will discuss with patient mother about medication options she is requesting to start with Metformin at discharge and will follow-up in 3 months to assess for possible need for insulin lipid panel pending Tube feedings Watch for hypoglycemia/hypoglycemic protocol ordered 04/22: BS still high added Lantus 15 units will continue at discharge instead of Metformin (7) Swelling of left lower extremity: Code(s): M79.89 - Other specified soft tissue disorders Status: Acute Assessment and Plan: erythema and swelling chronic but appears worst per mother Venous doppler negative for DVT XR pending to r/o injury post fall at home (8) Cellulitis of left lower extremity: Code(s): L03.116 - Cellulitis of left lower limb Status: Acute Assessment and Plan: Likely sec
[2023-04-23] MEDS: FLUoxetine HCL 20 MG CAPSULE FEED TUBE (08:47)
[2023-04-23] MEDS: FAMOTIDINE 20 MG TABLET FEED TUBE ×2 (08:47→21:09)
[2023-04-23] MEDS: FUROSEMIDE 20 MG TABLET FEED TUBE ×2 (08:47→16:52)
[2023-04-23] MEDS: VALPROIC ACID LIQ 250 MG/5 ML ORAL SOLUTION UDC 750 MG FEED TUBE ×3 (08:47→16:52)
[2023-04-23] MEDS: MAGNESIUM OXIDE 400 MG TABLET 800 MG FEED TUBE ×2 (08:47→16:52)
[2023-04-23] MEDS: NITROFURANTOIN MACROCRYSTALS 50 MG CAP FEED TUBE (08:47)
[2023-04-23] MEDS: APIXABAN 5 MG TABLET FEED TUBE ×2 (08:47→21:09)
[2023-04-23] MEDS: SULFAMETHOXAZOLE/TRIMETHOPRIM 800/160 MG DS TABLET 1 TAB FEED TUBE ×2 (08:48→21:09)
[2023-04-23 12:12] LABS: Glucose Point of Care 190 mg/dl (65-105)
[2023-04-23] MEDS: INSULIN GLARGINE (*BKC) 100 UNITS/ML 15 UNITS SUB-Q (14:50)
[2023-04-23 16:32] LABS: Glucose Point of Care 251 mg/dl (65-105)
[2023-04-23] MEDS: INSULIN ASPART (*BKC) 100 UNITS/ML SUB-Q (16:52)
[2023-04-23] MEDS: TIZANIDINE HCL 2 MG TABLET FEED TUBE (21:09)
[2023-04-23 21:29] LABS: Glucose Point of Care 258 mg/dl (65-105)
[2023-04-24] VITALS (7 sets, daily range): BP systolic 110–117; BP diastolic 79–83; PULSE 99–109; RESP 20–24; TEMP 36.8–36.9; O2SAT 95–99
[2023-04-24] MEDS: HYDROcodone/acetaminophen (*CRX) 5-325 MG TABLET 1 TAB FEED TUBE ×2 (05:08→11:50)
[2023-04-24 06:16] LABS: Hematocrit 38.6 % (37.0-47.0); Hemoglobin 11.6 g/dL (12.0-15.0); Mean Corpuscular HGB Conc 30.1 g/dl (32-36); Mean Corpuscular Hemoglobin 32.5 pg (26-34); Mean Corpuscular Volume 108.1 fl (80-100); Platelet Count Result 310 k/mm3 (150-375); Red Blood Count 3.57 M/mm3 (4.2-5.4); Red Cell Distribution Width 15.9 % (11.5-14.5); White Blood Count 9.5 K/mm3 (4.5-10.0)
[2023-04-24 06:36] LABS: Valproic Acid 38.9 ug/mL (50-120)
[2023-04-24 06:55] LABS: Alanine Aminotransferase 27 U/L (6-35); Albumin Level 2.6 g/dL (3.5-5.1); Alkaline Phosphatase 131 U/L (38-126); Aspartate Amino Transferase 50 U/L (14-36); Bilirubin,Total 0.7 mg/dL (0.2-1.3); Blood Urea Nitrogen 25 mg/dL (7-17); Calcium 8.9 mg/dL (8.4-10.2); Carbon Dioxide > 40 mmol/L (22-30); Chloride 95 mmol/L (98-107); Estimated Glomerular Filt Rate > 60; Glucose 166 mg/dL (65-110); Potassium 5.1 mmol/L (3.4-5.0); Sodium 135 mmol/L (137-145)
[2023-04-24] MEDS: IPRATROPIUM 0.5 MG/ALBUTEROL SULFATE 2.5 MG AMPUL.NEB 3 ML INHALATION ×2 (07:31→13:44)
[2023-04-24 07:43] LABS: Glucose Point of Care 182 mg/dl (65-105)
[2023-04-24] MEDS: VALPROIC ACID LIQ 250 MG/5 ML ORAL SOLUTION UDC 750 MG FEED TUBE ×2 (09:12→11:59)
[2023-04-24] MEDS: APIXABAN 5 MG TABLET FEED TUBE (09:18)
[2023-04-24] MEDS: NITROFURANTOIN MACROCRYSTALS 50 MG CAP FEED TUBE (09:18)
[2023-04-24] MEDS: FLUoxetine HCL 20 MG CAPSULE FEED TUBE (09:18)
[2023-04-24] MEDS: FAMOTIDINE 20 MG TABLET FEED TUBE (09:19)
[2023-04-24] MEDS: INSULIN GLARGINE (*BKC) 100 UNITS/ML 15 UNITS SUB-Q (09:19)
[2023-04-24] MEDS: FUROSEMIDE 20 MG TABLET FEED TUBE (09:19)
[2023-04-24] MEDS: MAGNESIUM OXIDE 400 MG TABLET 800 MG FEED TUBE (09:19)
[2023-04-24] MEDS: SULFAMETHOXAZOLE/TRIMETHOPRIM 800/160 MG DS TABLET 1 TAB FEED TUBE (09:19)
[2023-04-24] MEDS: TIZANIDINE HCL 2 MG TABLET FEED TUBE ×2 (09:24→14:14)
[2023-04-24 11:28] LABS: Glucose Point of Care 191 mg/dl (65-105)
--- NOTE | 2023-04-24 13:26 | P.DS_ITS ---
DS: Admitting Diagnosis Discharge Date 04/24/2023 Admitting Diagnosis Fall/RT Femur/Tibia fracture DS: Discharge Diagnosis Discharge Diagnosis (1) Femur fracture: Qualifiers: Encounter type: subsequent encounter Femur location: distal, unspecified portion Fracture healing: with routine healing Fracture morphology: unspecified fracture morphology Fracture type: closed Laterality: right Qualified Code(s): S72.401D - Unspecified fracture of lower end of right femur, subsequent encounter for closed fracture with routine healing Code(s): S72.90XA - Unspecified fracture of unspecified femur, initial encounter for closed fracture Status: Acute Assessment and Plan: Patient was being transferred by a [place] left at home, falling on her right side. Trauma workup demonstrating oblique minimally displaced fracture of the distal right femur, oblique nondisplaced fracture of the distal right tibia. * Tylenol p.r.n. via G-tube for mild pain, hydrocodone 5-325 for pain 4-6, and morphine 2 mg q.2 hours p.r.n. for severe pain. * Orthopedic surgery consulted. * Patient's mother and Ortho decided on a nonsurgical approach and to put patient in an immobilizer. * PT to evaluate ability to transfer the lift in to chair and tolerate her wheelchair without significant pain. * Continue pain management at this time. * Eliquis BID for DVT prophylaxis 6 weeks until follow-up with othro (2) Tibia fracture: Qualifiers: Encounter type: subsequent encounter Fracture alignment: nondisplaced Fracture healing: with routine healing Fracture morphology: pilon Fracture type: closed Laterality: right Tibia location: distal Qualified Code(s): S82.874D - Nondisplaced pilon fracture of right tibia, subsequent encounter for closed fracture with routine healing Code(s): S82.209A - Unspecified fracture of shaft of unspecified tibia, initial encounter for closed fracture Status: Acute Assessment and Plan: see above (3) Chronic hypercapnic respiratory failure: Code(s): J96.12 - Chronic respiratory failure with hypercapnia Status: Acute Assessment and Plan: * Patient on chronic noninvasive ventilator. * Mucinex PRN * DuoNebs q.6 hours. * Oxygen PRN * suction as needed (4) Seizures: Code(s): R56.9 - Unspecified convulsions Status: Acute Assessment and Plan: History of seizures, on valproate. Continue home medications. 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 HS * sliding scale insulin * will discuss with patient mother about medication options she is requesting to start with Metformin at discharge and will follow-up in 3 months to assess for possible need for insulin * lipid panel pending * Tube feed
--- NOTE | 2023-04-24 13:26 | PM.DS ---
DS: Admitting Diagnosis Discharge Date 04/24/2023 Admitting Diagnosis Fall/RT Femur/Tibia fracture DS: Discharge Diagnosis Discharge Diagnosis (1) Femur fracture: Qualifiers: Encounter type: subsequent encounter Femur location: distal, unspecified portion Fracture healing: with routine healing Fracture morphology: unspecified fracture morphology Fracture type: closed Laterality: right Qualified Code(s): S72.401D - Unspecified fracture of lower end of right femur, subsequent encounter for closed fracture with routine healing Code(s): S72.90XA - Unspecified fracture of unspecified femur, initial encounter for closed fracture Status: Acute Assessment and Plan: Patient was being transferred by a [place] left at home, falling on her right side. Trauma workup demonstrating oblique minimally displaced fracture of the distal right femur, oblique nondisplaced fracture of the distal right tibia. Tylenol p.r.n. via G-tube for mild pain, hydrocodone 5-325 for pain 4-6, and morphine 2 mg q.2 hours p.r.n. for severe pain. Orthopedic surgery consulted. Patient's mother and Ortho decided on a nonsurgical approach and to put patient in an immobilizer. PT to evaluate ability to transfer the lift in to chair and tolerate her wheelchair without significant pain. Continue pain management at this time. Eliquis BID for DVT prophylaxis 6 weeks until follow-up with othro (2) Tibia fracture: Qualifiers: Encounter type: subsequent encounter Fracture alignment: nondisplaced Fracture healing: with routine healing Fracture morphology: pilon Fracture type: closed Laterality: right Tibia location: distal Qualified Code(s): S82.874D - Nondisplaced pilon fracture of right tibia, subsequent encounter for closed fracture with routine healing Code(s): S82.209A - Unspecified fracture of shaft of unspecified tibia, initial encounter for closed fracture Status: Acute Assessment and Plan: see above (3) Chronic hypercapnic respiratory failure: Code(s): J96.12 - Chronic respiratory failure with hypercapnia Status: Acute Assessment and Plan: Patient on chronic noninvasive ventilator. Mucinex PRN DuoNebs q.6 hours. Oxygen PRN suction as needed (4) Seizures: Code(s): R56.9 - Unspecified convulsions Status: Acute Assessment and Plan: History of seizures, on valproate. Continue home medications. 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 HS sliding scale insulin will discuss with patient mother about medication options she is requesting to start with Metformin at discharge and will follow-up in 3 months to assess for possible need for insulin lipid panel pending Tube feedings Watch for hypoglycemia/hypoglycemic protocol ordered 04/22: BS still high added Lantus 15 units will continue at discharge instead of Metformin (7) Swelling of left lower extremity: Code(s): M79.89 - Other specified soft tissue disorders Status: Acute Assessment and Plan: erythema and swelling chronic but appears worst per mother Venous doppler negative for DVT XR pending to r/o injury post fall at home (8) Celluli
== END 2023-04-24 14:45 | disposition home or self-care (01) | DRG 534 ==
LOC: ANHED 19:06 → ANH3MEDSUR 20:33
PROVIDERS: General Practice; Internal Medicine; Internal Medicine Critical Care Medicine; Nurse Practitioner Family; Admitting Provider Family Medicine; Emergency Provider Emergency Medicine; PCP Nurse Practitioner Family; Visit Provider Family Medicine
DX: S72.401A Unspecified fracture of lower end of right femur, initial encounter for closed fracture (principal); S82.234A Nondisplaced oblique fracture of shaft of right tibia, initial encounter for closed fracture; J96.12 Chronic respiratory failure with hypercapnia; F84.2 Rett's syndrome; L03.116 Cellulitis of left lower limb; E11.9 Type 2 diabetes mellitus without complications; S82.402A Unspecified fracture of shaft of left fibula, initial encounter for closed fracture; S82.302A Unspecified fracture of lower end of left tibia, initial encounter for closed fracture; W19.XXXA Unspecified fall, initial encounter; R56.9 Unspecified convulsions; E11.65 Type 2 diabetes mellitus with hyperglycemia; E87.5 Hyperkalemia; M41.9 Scoliosis, unspecified; G80.9 Cerebral palsy, unspecified; Z66 Do not resuscitate; Z23 Encounter for immunization; Z74.01 Bed confinement status; Z99.3 Dependence on wheelchair; Z98.1 Arthrodesis status; Z93.1 Gastrostomy status
CPT/HCPCS: 36415; 71045; 73080; 73502; 73552; 73590; 73600; 80048; 80053; 80164; 82948; 83036; 83735; 85025; 85027; 85610; 85730; 87493; 90471; 90686; 93971; 94640; 96372; 96374; 96376; 97161; 99285; A9270; G0008; G0378; J1815; J1885; J1953; J2060; J2270; J7030